=== PATIENT | female | born 1955 | race Caucasian/White ===

== ENCOUNTER → 2016-07-21 | Outpatient (CLI) | payer OTHER ==
[2016-03-17 09:47] VITALS: BP 141/75
[~2016-07-21] MED LIST: ATORVASTATIN CA80 MG PO; CARV12.52 PO; CHOL4POW PO; CLOP75TA27 PO; DIAZEPAM10 MG PO; FLUT1DIS5 IH; FURO40TA4 PO; HUM100VI5 SQ; HYDR-963 PO; HYDR-965 PO; HYDR-971 PO; HYDR50TA6 PO; INSU100V SQ; INSU100V5 IJ; INSU100V8 SQ; ISOS60TA2 PO; LISI-334 PO; MOME13HF IH; NITR1PAT9 TD; OXYC1TAB8 PO; PANT40TA3 PO; PHEN100C4 PO; PHEN32.42 PO; POTA20TA82 PO; PRED20TA PO; PRED50TA PO; PROAIR HFA8.5 GM IH; PROM25TA10 PO; advair; albuterol; carvedilol; dilantin; hctz; imdur; insulin humalog; insulin lantus; insulin nph; insulin regular; lasix; lisinopril; lithium PO; nitro patch; phenobarbital; proventil; valium
--- NOTE | 2016-07-21 13:18 | RAD ---
DATE: 07/21/2016 EXAM: DIGITAL SCREEN BILAT W/CAD HISTORY: Routine screening COMPARISON: 02/09/2015 This study was interpreted with the benefit of Computerized Aided Detection (CAD). FINDINGS: There are scattered fibroglandular densities in the breasts in a heterogeneous pattern. No new or enlarging breast densities are seen. Several scattered faint microcalcifications are again noted . No suspicious microcalcifications are seen. Benign-appearing lymph node type densities are present in the axillary regions. IMPRESSION: Stable mammograms without evidence of malignancy. BI-RADS CATEGORY: 2 BENIGN FINDING(S) RECOMMENDED FOLLOW-UP: 12M 12 MONTH FOLLOW-UP PQRS compliance statement: Patient information was entered into a reminder system with a target due date for the next mammogram. Mammography is a sensitive method for finding small breast cancers, but it does not detect them all and is not a substitute for careful clinical examination. A negative mammogram does not negate a clinically suspicious finding and should not result in delay in biopsying a clinically suspicious abnormality. "Our facility is accredited by the [employer] Mammography Program."
== END | disposition home or self-care (01) ==
LOC: MAMMO 12:04
PROVIDERS: ATTEND Surgery
DX: Z12.31 Encounter for screening mammogram for malignant neoplasm of breast (principal)
CPT/HCPCS: G0202; 77067

== ENCOUNTER 2016-09-12 13:34 | Emergency (ER) | payer OTHER ==
[~2016-09-12] VITALS: Ht 157.5 cm; Wt 81.6 kg
[2016-09-12 14:09] VITALS: BP 167/88
--- NOTE | 2016-09-12 14:35 | PHYS DOC ---
Past Medical History Past Medical History: Asthma, CHF, COPD, Diabetes-Type II, High Cholesterol, Hypertension, Seizure, Sickle Cell Disease Additional Past Medical Histor: chronic back pain, keloids, epilepsy, OSTEOPOROSIS Past Surgical History: Appendectomy, Cholecystectomy, Tonsillectomy, Tubal ligation, Other Additional Past Surgical Histo: adenoids Alcohol Use: Sober Drug Use: None Adult General Chief Complaint Chief Complaint: LOWER BACK PAIN OR INJURY [facility] HPI Patient is a 61 year old female with history of CHF COPD sickle cell hypertension and diabetes type 2 who presents today with low back pain and right hip pain and right knee pain after falling. Patient states she was ambulating when she slipped and fell. Patient denies any loss of consciousness. She states she is in the hospital waiting for the who is having outpatient surgery. She would like to be discharged. She initially wanted us to call outpatient and talk to them and figure out how the is doing. I requested patient to go back to outpatient and wait for the . I told her she can have x-rays if she feel they are needed otherwise she needs to go back to outpatient. Patient states she has chronic pain radiating to bilateral lower extremities with no loss of bowel bladder function. Review of Systems Review of Systems Constitutional: Denies fever or chills [] Eyes: Denies change in visual acuity, redness, or eye pain [] HENT: Denies nasal congestion or sore throat [] Respiratory: Denies cough or shortness of breath [] Cardiovascular: No additional information not addressed in HPI [] GI: Denies abdominal pain, nausea, vomiting, bloody stools or diarrhea [] : Denies dysuria or hematuria [] Musculoskeletal: Right low back pain, right hip pain, and right knee pain Integument: Denies rash or skin lesions [] Neurologic: Denies headache, focal weakness or sensory changes [] Endocrine: Denies polyuria or polydipsia [] Allergies Allergies Allergies Coded Allergies Type Severity Reaction Last Updated Verified Cephalosporins Allergy Intermediate 11/14/13 Yes Penicillins Allergy Intermediate 11/14/13 Yes Sulfa (Sulfonamide Antibiotics) Allergy Intermediate 11/14/13 Yes Tetanus Vaccines and Toxoid Allergy Intermediate 11/14/13 Yes aspirin Allergy Intermediate 11/14/13 Yes iodine Allergy Intermediate rash 11/14/13 Yes morphine Allergy Intermediate 06/05/14 Yes povidone-iodine Allergy Intermediate rash 11/14/13 Yes propoxyphene Allergy Intermediate Nausea and Vomiting 04/04/14 Yes venom-honey bee Allergy Intermediate 11/14/13 Yes venom-wasp Allergy Intermediate 11/14/13 Yes Physical Exam Physical Exam Constitutional: Well developed, well nourished, no acute distress, non-toxic appearance. [] HENT: Normocephalic, atraumatic, bilateral external ears normal, oropharynx moist, no oral exudates, nose normal. [] Eyes: PERRLA, EOMI, conjunctiva normal, no discharge. [] Neck: Normal range of motion, no tenderness, supple, no stridor. [] Cardiovascular:Heart rate regular rhythm, no murmur [] Lungs & Thorax: Bilateral breath sounds clear to auscultation [] Abdomen: Bowel sounds normal, soft, no tenderness, no masses, no pulsatile masses. [] Skin: Warm, dry, no erythema, no rash. [] Back: No tenderness, no CVA tenderness. [] Extremities: No tenderness, no cyanosis, no clubbing, ROM intact, no edema. [] Neurologic: Alert and oriented X 3, normal motor function, normal sensory function, no focal deficits noted. [] Psychologic: Affect normal, judgement normal, mood normal. [] Current Patient Data Vital Signs Vital Signs Date Time Temp Pulse Resp B/P Pulse Ox O2 Delivery O2 Flow Rate FiO2 09/12/16 14:09 97.5 78 20 95 Room Air 97.5 EKG EKG [] Radiology/Procedures Radiology/Procedures [] Course & Med Decision Making Course & Med Decision Making Pertinent Labs and Imaging studies reviewed. (See chart for details) Patient is in the ED complaining of low back pain and right hip pain and right knee pain after falling. She has history of similar pain. She is in the ED stating she has her in outpatient surgery. Offered patient x-rays. Patient states she doesn't have time for the x-rays. Requested she goes back to outpatient to wait for the . Provided orthopedic doctor for follow-up. Dragon Disclaimer Dragon Disclaimer This electronic medical record was generated, in whole or in part, using a voice recognition dictation system. Departure Departure Impression: Primary Impression: Fall from standing Additional Impressions: Back pain Lumbar contusion Contusion of hip, left Contusion of knee, right Disposition: 01 HOME, SELF-CARE Condition: STABLE Referrals: VELASQUEZ NUNEZ (PCP) Follow-up with your own doctor in the next 1-7 days JERRY SCHERER II, MD Follow-up with your own orthopedic doctor or the one provided in a week Patient Instructions: Musculoskeletal Pain Additional Instructions: You were seen for pain after falling. Please follow-up with your own doctor in one week. Problem Qualifiers Primary Impression: Fall from standing Encounter type: initial encounter Qualified Code: W19.XXXA - Unspecified fall, initial encounter Additional Impressions: Back pain Back pain location: low back pain Chronicity: chronic Back pain laterality : bilateral Sciatica presence: with sciatica Sciatica laterality: bilateral sciatica Qualified Code: M54.42 - Lumbago with sciatica, left side Lumbar contusion Encounter type: initial encounter Qualified Code: S30.0XXA - Contusion of lower back and pelvis, initial encounter AMANDA YANG APRN Sep 12, 2016 14:34
== END 2016-09-12 14:37 | disposition home or self-care (01) ==
LOC: ER 13:34
DX: S30.0XXA Contusion of lower back and pelvis, initial encounter (principal); S70.02XA Contusion of left hip, initial encounter; S80.01XA Contusion of right knee, initial encounter; G89.29 Other chronic pain; M54.42 Lumbago with sciatica, left side; J44.9 Chronic obstructive pulmonary disease, unspecified; I11.0 Hypertensive heart disease with heart failure; I50.9 Heart failure, unspecified; E78.00 Pure hypercholesterolemia, unspecified; E11.9 Type 2 diabetes mellitus without complications; M81.0 Age-related osteoporosis without current pathological fracture; Z88.5 Allergy status to narcotic agent; Z88.0 Allergy status to penicillin; Z88.2 Allergy status to sulfonamides; Z88.7 Allergy status to serum and vaccine; Z88.8 Allergy status to other drugs, medicaments and biological substances; Z88.6 Allergy status to analgesic agent; Z88.1 Allergy status to other antibiotic agents; Z91.030 Bee allergy status; Z91.041 Radiographic dye allergy status; W01.0XXA Fall on same level from slipping, tripping and stumbling without subsequent striking against object, initial encounter; Y93.89 Activity, other specified; Y92.89 Other specified places as the place of occurrence of the external cause; Y99.8 Other external cause status
CPT/HCPCS: 99281

== ENCOUNTER → 2016-12-02 | Outpatient (CLI) | payer OTHER ==
[~2016-12-02] MED LIST changes: -CLOP75TA27 PO; +CLOP75TA57 PO
--- NOTE | 2016-12-02 14:38 | RAD ---
Indication pain. Grayscale color Doppler and spectral imaging was performed. The examination was targeted to the veins of the right lower extremity. The common femoral, femoral and popliteal vessels demonstrate normal flow compressibility and augmentation. No DVT is seen. The visualized calf veins appeared unremarkable. IMPRESSION: Negative right lower extremity venous analysis for DVT
--- NOTE | 2016-12-02 15:52 | RAD ---
Right femur, 2 views, 12/02/2016: History: Postop ORIF, leg pain and swelling No previous femoral radiographs are available at this time for comparison purposes. The bony structures are demineralized. There is a metallic plate with multiple screws transfixing an old distal femoral fracture. There is solid bridging callus at the fracture site. A portion of the original fracture line is visible. No acute fracture is identified. IMPRESSION: Old, healed, internally fixed distal femoral fracture. Right tibia and fibula, 2 views, 12/02/2016: No fracture is identified. There are mild degenerative changes at the knee joint and at the ankle joint. Phlebolith type calcifications are present in the soft tissues. IMPRESSION: No acute bony abnormality is detected.
== END | disposition home or self-care (01) ==
LOC: US 13:36
PROVIDERS: ATTEND Surgery
DX: S72.491D Other fracture of lower end of right femur, subsequent encounter for closed fracture with routine healing (principal); M79.89 Other specified soft tissue disorders; X58.XXXD Exposure to other specified factors, subsequent encounter
CPT/HCPCS: 73552; 73590; 93971

== ENCOUNTER 2016-12-18 14:16 | Inpatient (IN) | payer OTHER ==
[~2016-12-18] VITALS: Ht 152.4 cm; Wt 87.5 kg
[~2016-12-18 14:16] MED LIST changes: +PHEN100T2 PO; +albuterol PO
[2016-12-18 15:57] LABS: BASO # 0.1 x10^3/uL (0.0-0.2); BASO % 1 % (0-3); EOS % 1 % (0-3); HEMATOCRIT 32.5 % (36.0-47.0); LYMPH # 2.1 x10^3/uL (1.0-4.8); LYMPH % 18 % (24-48); MEAN CORPUSCULAR HEMOGLOBIN 30 pg (25-35); MEAN CORPUSCULAR HGB CONC 34 g/dL (31-37); MEAN CORPUSCULAR VOLUME 89 fL (79-100); MONO % 6 % (0-9); NEUT % 74 % (31-73); PLATELET COUNT 401 x10^3/uL (140-400); RED BLOOD COUNT 3.66 x10^6/uL (3.50-5.40); RED CELL DISTRIBUTION WIDTH 13.8 % (11.5-14.5); WHITE BLOOD COUNT 11.8 x10^3/uL (4.0-11.0)
[2016-12-18 16:00] VITALS: BP 152/81
[2016-12-18] MEDS ORDERED: ONDANSETRON PF 4 MG/2 ML VIAL. IV PRN (16:00)
[2016-12-18] MEDS ORDERED: VANCOMYCIN PER PHARMACY MC PRN (16:00)
[2016-12-18] MEDS ORDERED: ACETAMINOPHEN 325 MG TABLET. PO PRN (16:00)
[2016-12-18 16:13] LABS: CREATININE 0.6 mg/dL (0.6-1.0); POTASSIUM 3.9 mmol/L (3.5-5.1)
[2016-12-18 16:19] LABS: ALBUMIN 2.1 g/dL (3.4-5.0); ALBUMIN/GLOBULIN RATIO 0.4 (1.0-1.7); TOTAL BILIRUBIN 0.3 mg/dL (0.2-1.0); TOTAL PROTEIN 6.9 g/dL (6.4-8.2)
[2016-12-18] MEDS ORDERED: NON FORMULARY ITEM (Albuterol Sulfate (Proair Hfa Inhaler) 2 PUFF) IH SCH (17:30)
[2016-12-18] MEDS ORDERED: DEXTROSE 50% 25 GM / 50ML DISP.SYRIN. IV PRN (17:45)
[2016-12-18] MEDS: VANCOMYCIN 1.25 GM in IV NORMAL SALINE 250ML 250 ML IV SCH (18:10)
[2016-12-18] MEDS: oxyCODONE IR 5 MG TABLET PO PRN (18:11)
[2016-12-18] MEDS: KETOROLAC 15 MG/ML VIAL. IV PRN (18:11)
[2016-12-18] MEDS ORDERED: ALBUTEROL SULFATE 2.5 MG/3 ML NEBU. NEB PRN (18:15)
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
[2016-12-18 19:00] VITALS: BP 119/53
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
[2016-12-18] MEDS: ALBUTEROL SULFATE 2.5 MG/3 ML NEBU. NEB SCH (20:52)
[2016-12-18] MEDS: BUDESONIDE 0.5 MG/2 ML NEBU. NEB SCH (20:52)
[2016-12-18] MEDS ORDERED: FORMOTEROL IH SCH (21:00)
[2016-12-18] MEDS: INSULIN DETEMIR 300 UNITS/3 ML INSULN.PEN. SQ SCH (21:00)
[2016-12-18] MEDS ORDERED: ALBUTEROL PO SCH (21:00)
[2016-12-18] MEDS ORDERED: MOMETASONE IH SCH (21:00)
[2016-12-18] MEDS ORDERED: NON FORMULARY ITEM (Fluticasone/Salmeterol (Advair 500-50 Diskus) 2 INH) IH SCH (21:00)
[2016-12-18] MEDS: PHENobarbital 32.4 MG TABLET. PO SCH (23:14)
[2016-12-18] MEDS: ATORVASTATIN CALCIUM 40 MG TABLET. PO SCH (23:15)
[2016-12-18] MEDS: PHENYTOIN SODIUM EXTENDED 100 MG CAPSULE PO SCH (23:16)
[2016-12-18] MEDS: diazePAM 5 MG TABLET PO SCH (23:17)
[2016-12-18] MEDS: oxyCODONE/APAP 7.5/325 1 TAB TABLET PO SCH (23:18)
[2016-12-18] MEDS: LORazepam 0.5 MG TABLET PO PRN (23:34)
[2016-12-18 23:52] VITALS: BP 142/68
--- NOTE | 2016-12-19 01:15 | ACF ---
Admission Forms Criteria MUSCULOSKELETAL DISEASE GRG Clinical Indications for Admission to Inpatient Care (Place 'X' for any and all applicable criteria): Hospital admission is needed for appropriate care of the patient because of 1 or more of the following: [ ]I. Fracture, dislocation, or other musculoskeletal injury requiring inpatient care(medical) as indicated by 1 or more of the following(4)(5)(6)(7) [ ]a) Vertebral fracture requiring observation for instability or neurologic compromise (8) [ ]b) Compartment syndrome (proven or cannot be ruled out during observation level of care) (9) [ ]c) Limb-threatening injury [ ]d) Major injury requiring inpatient stabilization such as traction initiation or external fixation before internal fixation or closure of complex or open fracture [ ]e) Major injury requiring inpatient treatment after emergency or observation level care (as appropriate) [ ]f) Severe pain requiring acute inpatient management [ ]g) Injury with suspicion of abuse or neglect (eg., child, dependent elderly) [ X]II. Newly diagnosed or suspected bone, joint, or orthopedic device infection (e.g., osteomyelitis, septic arthritis) needing 1 or more of the following(1)(2)(3) [ X]a) IV antibiotics that cannot be initiated in other than inpatient setting (e.g., patient too unstable or home infusion not available) [ ]b) Device removal or replacement [ ]c) Bone or soft tissue debridement [ ]d) Joint drainage (drain placement or repetitive aspirations) [ ]III. Severe rheumatologic disease (e.g., systemic lupus erythematosus, rheumatoid arthritis) with complications or comorbidities (Also use Optimal Recovery Care Criteria or General Recovery Criteria as appropriate on the basis of predominant condition), including 1 or more of the following( 10)(11)(12)(13) [ ]a) Severe infection (e.g., INCOME [employer]ER infection, sepsis) (14) [ ]b) Respiratory complications, including 1 or more of the following : [ ]i) Pleural effusion with respiratory compromise [ ]ii) Pulmonary hypertension with congestive failure [ ]iii) Respiratory failure [ ]iv) Pulmonary hemorrhage (15) [ ]c) Hematologic disease, including 1 or more of the following: [ ]i) Coagulopathy with bleeding [ ]ii) Thrombosis with hypercoagulable state [ ]iii) Thrombotic thrombocytopenic purpura [ ]d) Cerebritis with seizures, psychosis, or other severe abnormalities [ ]e) Vertebral destruction with monitoring needed for cervical myelopathy& possible respiratory compromise [ ]f) Exacerbation that requires inpatient treatment (e.g., intravenous immunosuppression) (16) [ ]g) Acute renal failure [ ]h) Cerebritis with seizures, psychosis, Altered mental status, or other neurologic abnormalities [ ]i) Pericardial effusion with tamponade [ ]j) Vertebral destruction, with monitoring needed for cervical myelopathy and possible respiratory compromise [ ]IV. Severe vasculitis with complications or comorbidities (Also use Optimal Recovery Care Criteria General Recovery Criteria as appropriate on the basis of predominant condition), including 1 or more of the following(11)(12)(17)(18)(19)(20) [ ]a) Exacerbation that requires inpatient treatment (e.g., intravenous immunosuppression) (19)(21) [ ]b) Pulmonary hemorrhage (15) [ ]c) INCOME T[employer]URN [employer]ER vasculitis with seizures, psychosis, Altered mental status that is severe or persistent, or other severe abnormalities (22) [ ]d) Cerebral infarction [ ]e) Gastrointestinal ischemia [ ]f) Gangrene or threatened amputation [ ]g) Renal failure (16) [ ]h) Other significant complications of vasculitis ( eg., tissue or organ ischemia, organ dysfunction ) [ ]V. Severe myopathy as indicated by 1 or more of the following (28)(29) [ ]a) New onset of airway compromise or inability to swallow [ ]b) Respiratory deterioration with observation needed for impending respiratory failure [ ]c) Exacerbation that requires inpatient treatment (e.g., intravenous immunosuppression) [ ]. Severe crystal gout (arthropathy) indicated by 1 or more of the following (23)(24) [ ]a) Severe pain requiring acute inpatient management [ ]b) Exacerbation that requires inpatient treatment (e.g., intravenous treatment) [ ]VII.Rhabdomyolysis and 1 or more of the following (25)(26)(27) [ ]a) Acute renal failure [ ]b) Need for intravenous hydration after emergency or observation level care (as appropriate) [ ]c) Inability to maintain oral hydration [ ]d) Change in mental status [ ]e) Electrolyte abnormality that remains after emergency or observation level care (as appropriate) [ ]VIII Post amputation complication, as indicated by ANY ONE of the following [ ]a) Infection [ ]b) Dehiscence [ ]c) Myodesis failure [ ]IX. Severe pain requiring acute inpatient management due to musculoskeletal condition [ ]X. Musculoskeletal Disease and ALL of the following: [ ]a) Symptom or finding for which emergency and observation care have failed or are not considered appropriate (Use General Criteria: Observation Care as appropriate) [ ]b) Presence of ANY ONE of the following [ ]i) A General Admission Criteria [ ]ii) A Pediatric General Admission Criteria The original [facility] [employer] content created by [facility] [employer] has been revised. The portions of the content which have been revised are identified through the use of italic text or in bold, and [facility] has neither reviewed nor approved the modified material. All other unmodified content is copyright [facility]. Please see references footnoted in the original [facility] edition 2016 Admission Criteria Met?: Yes NARCISO PAULSON Dec 19, 2016 01:15
[2016-12-19 03:00] VITALS: BP 180/88
[2016-12-19] MEDS: oxyCODONE IR 5 MG TABLET PO PRN ×3 (04:45→17:31)
[2016-12-19 05:05] LABS: BASO # 0.1 x10^3/uL (0.0-0.2); BASO % 1 % (0-3); EOS % 1 % (0-3); HEMATOCRIT 32.6 % (36.0-47.0); HEMOGLOBIN 11.2 g/dL (12.0-15.5); LYMPH % 24 % (24-48); MEAN CORPUSCULAR HEMOGLOBIN 31 pg (25-35); MEAN CORPUSCULAR HGB CONC 35 g/dL (31-37); MEAN CORPUSCULAR VOLUME 89 fL (79-100); MONO % 6 % (0-9); NEUT % 68 % (31-73); PLATELET COUNT 349 x10^3/uL (140-400); RED BLOOD COUNT 3.67 x10^6/uL (3.50-5.40); RED CELL DISTRIBUTION WIDTH 13.8 % (11.5-14.5); WHITE BLOOD COUNT 8.2 x10^3/uL (4.0-11.0)
[2016-12-19 05:55] LABS: ALBUMIN 1.8 g/dL (3.4-5.0); ALBUMIN/GLOBULIN RATIO 0.4 (1.0-1.7); CALCIUM 8.1 mg/dL (8.5-10.1); CREATININE 0.7 mg/dL (0.6-1.0); GFR 85.4; POTASSIUM 4.2 mmol/L (3.5-5.1); TOTAL BILIRUBIN 0.2 mg/dL (0.2-1.0); TOTAL PROTEIN 5.9 g/dL (6.4-8.2)
[2016-12-19] MEDS: VANCOMYCIN PER PHARMACY MC PRN ×2 (06:19→07:02)
[2016-12-19] MEDS: VANCOMYCIN 1.25 GM in IV NORMAL SALINE 250ML 250 ML IV SCH (06:26)
[2016-12-19] MEDS: KETOROLAC 15 MG/ML VIAL. IV PRN (06:40)
[2016-12-19] MEDS: ALBUTEROL SULFATE 2.5 MG/3 ML NEBU. NEB SCH ×4 (07:19→18:07)
[2016-12-19] MEDS: BUDESONIDE 0.5 MG/2 ML NEBU. NEB SCH ×2 (07:19→18:07)
[2016-12-19 07:55] VITALS: BP 131/67
[2016-12-19] MEDS: PANTOPRAZOLE 40 MG TABLET.DR. PO SCH (08:23)
[2016-12-19] MEDS: POTASSIUM CHLORIDE 20 MEQ TABLET.ER. PO SCH (08:23)
[2016-12-19] MEDS: PHENobarbital 32.4 MG TABLET. PO SCH ×2 (08:24→21:49)
[2016-12-19] MEDS: oxyCODONE/APAP 7.5/325 1 TAB TABLET PO SCH ×3 (08:25→21:51)
[2016-12-19] MEDS: FUROSEMIDE 40 MG TABLET. PO SCH (08:25)
[2016-12-19] MEDS: CLOPIDOGREL BISULFATE 75 MG TABLET PO SCH (08:25)
[2016-12-19] MEDS: PHENYTOIN SODIUM EXTENDED 100 MG CAPSULE PO SCH ×2 (08:26→21:49)
[2016-12-19] MEDS: diazePAM 5 MG TABLET PO SCH ×2 (08:27→22:54)
[2016-12-19] MEDS: ISOSORBIDE MONONITRATE ER 30 MG TAB.ER.24H PO SCH (08:28)
[2016-12-19] MEDS: INSULIN ASPART 300 UNITS/3 ML INSULN.PEN SQ SCH ×4 (08:33→17:40)
[2016-12-19] MEDS: INSULIN DETEMIR 300 UNITS/3 ML INSULN.PEN. SQ SCH ×2 (08:34→21:54)
[2016-12-19 10:57] VITALS: BP_SYST 107; BP_SYST 97; BP_DIAS 48; BP_DIAS 49
--- NOTE | 2016-12-19 11:24 | PDOC ---
Infectious Disease Note Subjective Subjective Patient known to our service. refer to consult from 12/17 for further details Left AMA yesterday and then returned. Not feeling well today + fevers Tmax 101.5 and chills + right leg/knee pain, worse with movement + cough Incontinent ROS ROS CV: Denies chest pain RESP: Denies shortness of air Vital Sign Vital Signs Vital Signs Date Time Temp Pulse Resp B/P (MAP) Pulse Ox O2 Delivery O2 Flow Rate FiO2 12/19/16 09:49 20 Room Air 12/19/16 08:28 84 131/67 12/19/16 07:55 98.1 94 98.1 Physical Exam PHYSICAL EXAM GENERAL: Sleepy, coop LUNGS: Clear HEART: S1S2, + murmur ABD: Soft, NT EXT: RLE trace edma, right knee tender, swollen and warm. Sutures intact. No redness or drainage. DP palpable STENCIL INSPECTOR: Alert, 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, no focal neurologic deficit SKIN: No rash Labs Lab Laboratory Tests Test 12/18/16 15:45 12/18/16 21:02 12/19/16 04:30 12/19/16 07:51 White Blood Count 11.8 x10^3/uL (4.0-11.0) 8.2 x10^3/uL (4.0-11.0) Red Blood Count 3.66 x10^6/uL (3.50-5.40) 3.67 x10^6/uL (3.50-5.40) Hemoglobin 11.0 g/dL (12.0-15.5) 11.2 g/dL (12.0-15.5) Hematocrit 32.5 % (36.0-47.0) 32.6 % (36.0-47.0) Mean Corpuscular Volume 89 fL (79-100) 89 fL (79-100) Mean Corpuscular Hemoglobin 30 pg (25-35) 31 pg (25-35) Mean Corpuscular Hemoglobin Concent 34 g/dL (31-37) 35 g/dL (31-37) Red Cell Distribution Width 13.8 % (11.5-14.5) 13.8 % (11.5-14.5) Platelet Count 401 x10^3/uL (140-400) 349 x10^3/uL (140-400) Neutrophils (%) (Auto) 74 % (31-73) 68 % (31-73) Lymphocytes (%) (Auto) 18 % (24-48) 24 % (24-48) Monocytes (%) (Auto) 6 % (0-9) 6 % (0-9) Eosinophils (%) (Auto) 1 % (0-3) 1 % (0-3) Basophils (%) (Auto) 1 % (0-3) 1 % (0-3) Neutrophils # (Auto) 8.7 x10^3uL (1.8-7.7) 5.6 x10^3uL (1.8-7.7) Lymphocytes # (Auto) 2.1 x10^3/uL (1.0-4.8) 2.0 x10^3/uL (1.0-4.8) Monocytes # (Auto) 0.7 x10^3/uL (0.0-1.1) 0.5 x10^3/uL (0.0-1.1) Eosinophils # (Auto) 0.1 x10^3/uL (0.0-0.7) 0.1 x10^3/uL (0.0-0.7) Basophils # (Auto) 0.1 x10^3/uL (0.0-0.2) 0.1 x10^3/uL (0.0-0.2) Sodium Level 140 mmol/L (136-145) 140 mmol/L (136-145) Potassium Level 3.9 mmol/L (3.5-5.1) 4.2 mmol/L (3.5-5.1) Chloride Level 103 mmol/L (98-107) 105 mmol/L (98-107) Carbon Dioxide Level 30 mmol/L (21-32) 29 mmol/L (21-32) Anion Gap 7 (6-14) 6 (6-14) Blood Urea Nitrogen 12 mg/dL (7-20) 10 mg/dL (7-20) Creatinine 0.6 mg/dL (0.6-1.0) 0.7 mg/dL (0.6-1.0) Estimated GFR (Cockcroft-Gault) 102.0 85.4 BUN/Creatinine Ratio 20 (6-20) 14 (6-20) Glucose Level 65 mg/dL (70-99) 177 mg/dL (70-99) Calcium Level 8.0 mg/dL (8.5-10.1) 8.1 mg/dL (8.5-10.1) Total Bilirubin 0.3 mg/dL (0.2-1.0) 0.2 mg/dL (0.2-1.0) Aspartate Amino Transf (AST/SGOT) 69 U/L (15-37) 75 U/L (15-37) Alanine Aminotransferase (ALT/SGPT) 56 U/L (14-59) 60 U/L (14-59) Alkaline Phosphatase 177 U/L (46-116) 194 U/L (46-116) Total Protein 6.9 g/dL (6.4-8.2) 5.9 g/dL (6.4-8.2) Albumin 2.1 g/dL (3.4-5.0) 1.8 g/dL (3.4-5.0) Albumin/Globulin Ratio 0.4 (1.0-1.7) 0.4 (1.0-1.7) Glucose (Fingerstick) 116 mg/dL (70-99) 216 mg/dL (70-99) Vancomycin Level Trough 10.3 mcg/mL (10.0-20.0) Vancomycin Last Dose Date 12/18/16 Vancomycin Last Dose Time 1800 Micro 12/18. BLOOD CULTURE Preliminary NO GROWTH AFTER 1 DAY Objective Assessment MSSA bacteremia with murmur, POA. 12/16. Repeat BC from 12/18 NGTD Right knee septic joint with hardware in close proximity -s/p right knee arthroscopy irrigation, debridement, partial synovectomy and partial medial and lateral meniscectomy, 12/10 -s/p joint aspiration 12/09. culture MSSA -h/o ORIF distal femur fracture Apr 2016 Fever Leukocytosis, trending down Allergy to cephalosporins, penicillin and sulfa. Reactions unclear, only to say can't have them. Diabetes Transaminitis h/o seizures h/o alcoholism & substance abuse Plan Plan of Care List of drug allergies and reactions from daughter pending per RN Vanc for now Trough 10.3 Monitor WBC, CR and temp Repeat BC from 12/18 NGTD Echo re-ordered RF 13.0 Tag WBC scan underway Attending Co-Sign The patient was seen and interviewed as well as examined at the bedside. The chart was reviewed. The case was discussed. Agree with the plan of care. CK ALVES APRN Dec 19, 2016 11:24 OMA AMARAL MD Dec 19, 2016 15:32
--- NOTE | 2016-12-19 13:28 | PDOC ---
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, odd affect and tangential, has left AMA and has been recently noncompliant with meds History of Present Illness History of Present Illness tangential with history, odd affect, upset and verbally verbose and swearing at times she is a strong advocate of hardware removal and surgery, I took a long time to explain to her that is a very long and complex process and would be weeks in SNU, she had odd reply about a SNU she had been in previously for femur fracture rehab pain 03/07, but eating lunch, talking calmly on the phone Vitals Vitals Vital Signs Date Time Temp Pulse Resp B/P (MAP) Pulse Ox O2 Delivery O2 Flow Rate FiO2 12/19/16 12:23 Room Air 12/19/16 11:19 95 12/19/16 10:57 96.4 67 24 107/48 (67) 96.4 97/49 (65) Physical Exam General: Alert, Oriented X3, Cooperative, mild distress (emotional ) Heart: Regular rate, No murmurs Lungs: Clear Abdomen: Normal bowel sounds, Soft Extremities: No clubbing, No cyanosis Skin: No rashes, No breakdown Labs LABS Laboratory Tests Test 12/18/16 15:45 12/18/16 21:02 12/19/16 04:30 12/19/16 07:51 White Blood Count 11.8 x10^3/uL (4.0-11.0) 8.2 x10^3/uL (4.0-11.0) Red Blood Count 3.66 x10^6/uL (3.50-5.40) 3.67 x10^6/uL (3.50-5.40) Hemoglobin 11.0 g/dL (12.0-15.5) 11.2 g/dL (12.0-15.5) Hematocrit 32.5 % (36.0-47.0) 32.6 % (36.0-47.0) Mean Corpuscular Volume 89 fL (79-100) 89 fL (79-100) Mean Corpuscular Hemoglobin 30 pg (25-35) 31 pg (25-35) Mean Corpuscular Hemoglobin Concent 34 g/dL (31-37) 35 g/dL (31-37) Red Cell Distribution Width 13.8 % (11.5-14.5) 13.8 % (11.5-14.5) Platelet Count 401 x10^3/uL (140-400) 349 x10^3/uL (140-400) Neutrophils (%) (Auto) 74 % (31-73) 68 % (31-73) Lymphocytes (%) (Auto) 18 % (24-48) 24 % (24-48) Monocytes (%) (Auto) 6 % (0-9) 6 % (0-9) Eosinophils (%) (Auto) 1 % (0-3) 1 % (0-3) Basophils (%) (Auto) 1 % (0-3) 1 % (0-3) Neutrophils # (Auto) 8.7 x10^3uL (1.8-7.7) 5.6 x10^3uL (1.8-7.7) Lymphocytes # (Auto) 2.1 x10^3/uL (1.0-4.8) 2.0 x10^3/uL (1.0-4.8) Monocytes # (Auto) 0.7 x10^3/uL (0.0-1.1) 0.5 x10^3/uL (0.0-1.1) Eosinophils # (Auto) 0.1 x10^3/uL (0.0-0.7) 0.1 x10^3/uL (0.0-0.7) Basophils # (Auto) 0.1 x10^3/uL (0.0-0.2) 0.1 x10^3/uL (0.0-0.2) Sodium Level 140 mmol/L (136-145) 140 mmol/L (136-145) Potassium Level 3.9 mmol/L (3.5-5.1) 4.2 mmol/L (3.5-5.1) Chloride Level 103 mmol/L (98-107) 105 mmol/L (98-107) Carbon Dioxide Level 30 mmol/L (21-32) 29 mmol/L (21-32) Anion Gap 7 (6-14) 6 (6-14) Blood Urea Nitrogen 12 mg/dL (7-20) 10 mg/dL (7-20) Creatinine 0.6 mg/dL (0.6-1.0) 0.7 mg/dL (0.6-1.0) Estimated GFR (Cockcroft-Gault) 102.0 85.4 BUN/Creatinine Ratio 20 (6-20) 14 (6-20) Glucose Level 65 mg/dL (70-99) 177 mg/dL (70-99) Calcium Level 8.0 mg/dL (8.5-10.1) 8.1 mg/dL (8.5-10.1) Total Bilirubin 0.3 mg/dL (0.2-1.0) 0.2 mg/dL (0.2-1.0) Aspartate Amino Transf (AST/SGOT) 69 U/L (15-37) 75 U/L (15-37) Alanine Aminotransferase (ALT/SGPT) 56 U/L (14-59) 60 U/L (14-59) Alkaline Phosphatase 177 U/L (46-116) 194 U/L (46-116) Total Protein 6.9 g/dL (6.4-8.2) 5.9 g/dL (6.4-8.2) Albumin 2.1 g/dL (3.4-5.0) 1.8 g/dL (3.4-5.0) Albumin/Globulin Ratio 0.4 (1.0-1.7) 0.4 (1.0-1.7) Glucose (Fingerstick) 116 mg/dL (70-99) 216 mg/dL (70-99) Vancomycin Level Trough 10.3 mcg/mL (10.0-20.0) Vancomycin Last Dose Date 12/18/16 Vancomycin Last Dose Time 1800 Test 12/19/16 11:44 Glucose (Fingerstick) 117 mg/dL (70-99) Review of Systems Review of Systems knee pain, Assessment and Plan Assessmemt and Plan Problems Medical Problems: (1) Bacteremia Status: Acute Problems: Comment Review of Relevant I have reviewed the following items mary (where applicable) has been applied. Labs Laboratory Tests Test 12/18/16 15:45 12/18/16 21:02 12/19/16 04:30 12/19/16 07:51 White Blood Count 11.8 x10^3/uL (4.0-11.0) 8.2 x10^3/uL (4.0-11.0) Red Blood Count 3.66 x10^6/uL (3.50-5.40) 3.67 x10^6/uL (3.50-5.40) Hemoglobin 11.0 g/dL (12.0-15.5) 11.2 g/dL (12.0-15.5) Hematocrit 32.5 % (36.0-47.0) 32.6 % (36.0-47.0) Mean Corpuscular Volume 89 fL (79-100) 89 fL (79-100) Mean Corpuscular Hemoglobin 30 pg (25-35) 31 pg (25-35) Mean Corpuscular Hemoglobin Concent 34 g/dL (31-37) 35 g/dL (31-37) Red Cell Distribution Width 13.8 % (11.5-14.5) 13.8 % (11.5-14.5) Platelet Count 401 x10^3/uL (140-400) 349 x10^3/uL (140-400) Neutrophils (%) (Auto) 74 % (31-73) 68 % (31-73) Lymphocytes (%) (Auto) 18 % (24-48) 24 % (24-48) Monocytes (%) (Auto) 6 % (0-9) 6 % (0-9) Eosinophils (%) (Auto) 1 % (0-3) 1 % (0-3) Basophils (%) (Auto) 1 % (0-3) 1 % (0-3) Neutrophils # (Auto) 8.7 x10^3uL (1.8-7.7) 5.6 x10^3uL (1.8-7.7) Lymphocytes # (Auto) 2.1 x10^3/uL (1.0-4.8) 2.0 x10^3/uL (1.0-4.8) Monocytes # (Auto) 0.7 x10^3/uL (0.0-1.1) 0.5 x10^3/uL (0.0-1.1) Eosinophils # (Auto) 0.1 x10^3/uL (0.0-0.7) 0.1 x10^3/uL (0.0-0.7) Basophils # (Auto) 0.1 x10^3/uL (0.0-0.2) 0.1 x10^3/uL (0.0-0.2) Sodium Level 140 mmol/L (136-145) 140 mmol/L (136-145) Potassium Level 3.9 mmol/L (3.5-5.1) 4.2 mmol/L (3.5-5.1) Chloride Level 103 mmol/L (98-107) 105 mmol/L (98-107) Carbon Dioxide Level 30 mmol/L (21-32) 29 mmol/L (21-32) Anion Gap 7 (6-14) 6 (6-14) Blood Urea Nitrogen 12 mg/dL (7-20) 10 mg/dL (7-20) Creatinine 0.6 mg/dL (0.6-1.0) 0.7 mg/dL (0.6-1.0) Estimated GFR (Cockcroft-Gault) 102.0 85.4 BUN/Creatinine Ratio 20 (6-20) 14 (6-20) Glucose Level 65 mg/dL (70-99) 177 mg/dL (70-99) Calcium Level 8.0 mg/dL (8.5-10.1) 8.1 mg/dL (8.5-10.1) Total Bilirubin 0.3 mg/dL (0.2-1.0) 0.2 mg/dL (0.2-1.0) Aspartate Amino Transf (AST/SGOT) 69 U/L (15-37) 75 U/L (15-37) Alanine Aminotransferase (ALT/SGPT) 56 U/L (14-59) 60 U/L (14-59) Alkaline Phosphatase 177 U/L (46-116) 194 U/L (46-116) Total Protein 6.9 g/dL (6.4-8.2) 5.9 g/dL (6.4-8.2) Albumin 2.1 g/dL (3.4-5.0) 1.8 g/dL (3.4-5.0) Albumin/Globulin Ratio 0.4 (1.0-1.7) 0.4 (1.0-1.7) Glucose (Fingerstick) 116 mg/dL (70-99) 216 mg/dL (70-99) Vancomycin Level Trough 10.3 mcg/mL (10.0-20.0) Vancomycin Last Dose Date 12/18/16 Vancomycin Last Dose Time 1800 Test 12/19/16 11:44 Glucose (Fingerstick) 117 mg/dL (70-99) Laboratory Tests Test 12/18/16 15:45 12/18/16 21:02 12/19/16 04:30 12/19/16 07:51 White Blood Count 11.8 x10^3/uL (4.0-11.0) 8.2 x10^3/uL (4.0-11.0) Red Blood Count 3.66 x10^6/uL (3.50-5.40) 3.67 x10^6/uL (3.50-5.40) Hemoglobin 11.0 g/dL (12.0-15.5) 11.2 g/dL (12.0-15.5) Hematocrit 32.5 % (36.0-47.0) 32.6 % (36.0-47.0) Mean Corpuscular Volume 89 fL (79-100) 89 fL (79-100) Mean Corpuscular Hemoglobin 30 pg (25-35) 31 pg (25-35) Mean Corpuscular Hemoglobin Concent 34 g/dL (31-37) 35 g/dL (31-37) Red Cell Distribution Width 13.8 % (11.5-14.5) 13.8 % (11.5-14.5) Platelet Count 401 x10^3/uL (140-400) 349 x10^3/uL (140-400) Neutrophils (%) (Auto) 74 % (31-73) 68 % (31-73) Lymphocytes (%) (Auto) 18 % (24-48) 24 % (24-48) Monocytes (%) (Auto) 6 % (0-9) 6 % (0-9) Eosinophils (%) (Auto) 1 % (0-3) 1 % (0-3) Basophils (%) (Auto) 1 % (0-3) 1 % (0-3) Neutrophils # (Auto) 8.7 x10^3uL (1.8-7.7) 5.6 x10^3uL (1.8-7.7) Lymphocytes # (Auto) 2.1 x10^3/uL (1.0-4.8) 2.0 x10^3/uL (1.0-4.8) Monocytes # (Auto) 0.7 x10^3/uL (0.0-1.1) 0.5 x10^3/uL (0.0-1.1) Eosinophils # (Auto) 0.1 x10^3/uL (0.0-0.7) 0.1 x10^3/uL (0.0-0.7) Basophils # (Auto) 0.1 x10^3/uL (0.0-0.2) 0.1 x10^3/uL (0.0-0.2) Sodium Level 140 mmol/L (136-145) 140 mmol/L (136-145) Potassium Level 3.9 mmol/L (3.5-5.1) 4.2 mmol/L (3.5-5.1) Chloride Level 103 mmol/L (98-107) 105 mmol/L (98-107) Carbon Dioxide Level 30 mmol/L (21-32) 29 mmol/L (21-32) Anion Gap 7 (6-14) 6 (6-14) Blood Urea Nitrogen 12 mg/dL (7-20) 10 mg/dL (7-20) Creatinine 0.6 mg/dL (0.6-1.0) 0.7 mg/dL (0.6-1.0) Estimated GFR (Cockcroft-Gault) 102.0 85.4 BUN/Creatinine Ratio 20 (6-20) 14 (6-20) Glucose Level 65 mg/dL (70-99) 177 mg/dL (70-99) Calcium Level 8.0 mg/dL (8.5-10.1) 8.1 mg/dL (8.5-10.1) Total Bilirubin 0.3 mg/dL (0.2-1.0) 0.2 mg/dL (0.2-1.0) Aspartate Amino Transf (AST/SGOT) 69 U/L (15-37) 75 U/L (15-37) Alanine Aminotransferase (ALT/SGPT) 56 U/L (14-59) 60 U/L (14-59) Alkaline Phosphatase 177 U/L (46-116) 194 U/L (46-116) Total Protein 6.9 g/dL (6.4-8.2) 5.9 g/dL (6.4-8.2) Albumin 2.1 g/dL (3.4-5.0) 1.8 g/dL (3.4-5.0) Albumin/Globulin Ratio 0.4 (1.0-1.7) 0.4 (1.0-1.7) Glucose (Fingerstick) 116 mg/dL (70-99) 216 mg/dL (70-99) Vancomycin Level Trough 10.3 mcg/mL (10.0-20.0) Vancomycin Last Dose Date 12/18/16 Vancomycin Last Dose Time 1800 Test 12/19/16 11:44 Glucose (Fingerstick) 117 mg/dL (70-99) Medications Current Medications Ondansetron HCl (Zofran) 4 mg PRN Q8HRS PRN IV NAUSEA/VOMITING Last administered on 12/18/16 23:22; Start 12/18/16 at 16:00; Stop 12/19/16 at 15:59 Acetaminophen (Tylenol) 650 mg PRN Q4HRS PRN PO FEVER Last administered on 12/18 18:10; Start 12/18/16 at 16:00; Stop 12/19/16 at 15:59 Vancomycin HCl (Vanco Per Pharmacy) 1 each PRN DAILY PRN MC SEE COMMENTS; Start 12/18/16 at 16:00; Status UNV Vancomycin HCl (Vanco Per Pharmacy) 1 each PRN DAILY PRN MC SEE COMMENTS Last administered on 12/19/16 07:02; Start 12/18/16 at 17:15 Vancomycin HCl 1 each 1X ONCE MC ; Start 12/18/16 at 17:15; Stop 12/18/16 at 17 :15; Status DC Vancomycin HCl 1.25 gm/Sodium Chloride 250 ml @ 167 mls/hr Q12H IV Last administered on 12/19/16 06:26; Start 12/18/16 at 18:00; Stop 12/19/16 at 08:00 ; Status DC Vancomycin HCl 1 each 1X ONCE MC Last administered on 12/19/16 05:30; Start 12/19/16 at 05:30; Stop 12/19/16 at 05:31; Status DC Carvedilol (Coreg) 25 mg BIDWMEALS PO ; Start 12/19/16 at 18:00 Clopidogrel Bisulfate (Plavix) 75 mg DAILY PO Last administered on 12/19/16 08 :25; Start 12/19/16 at 09:00 Furosemide (Lasix) 40 mg DAILY PO Last administered on 12/19/16 08:25; Start 12/19/16 at 09:00 Oxycodone/ Acetaminophen (Percocet 7.5/ 325) 1 tab BID PO Last administered on 12/19/16 08:25; Start 12/18/16 at 21:00 Pantoprazole Sodium (Protonix) 40 mg DAILY PO Last administered on 12/19/16 08 :23; Start 12/19/16 at 09:00 Phenytoin Sodium (Dilantin) 200 mg BID PO Last administered on 12/19/16 08:26 ; Start 12/18/16 at 21:00 Non-Formulary Medication 2 puff PRN Q4-6HRS IH ; Start 12/18/16 at 17:30; Stop 12/18/16 at 18:06; Status DC Atorvastatin Calcium (Lipitor) 80 mg QHS PO Last administered on 12/18/16 23: 15; Start 12/18/16 at 21:00 Diazepam (Valium) 10 mg BID PO Last administered on 12/18/16 23:17; Start at 21:00 Non-Formulary Medication 2 inh BID IH ; Start 12/18/16 at 21:00; Stop 12/18/16 at 21:00; Status DC Insulin Detemir (Levemir) 45 units BID SQ Last administered on 12/19/16 08:34 ; Start 12/18/16 at 21:00 Insulin Aspart (NovoLOG) 15 units TIDAC SQ ; Start 12/19/16 at 18:00 Isosorbide Mononitrate (Imdur) 60 mg DAILY PO Last administered on 12/19/16 08 :28; Start 12/19/16 at 09:00 Non-Formulary Medication 3 puff BID IH ; Start 12/18/16 at 21:00; Stop 12/18/16 at 21:00; Status DC Phenobarbital (Luminal) 48.6 mg BID PO Last administered on 12/19/16 08:24; Start 12/18/16 at 21:00 Potassium Chloride (Klor-Con) 20 meq DAILYWBKFT PO Last administered on 08:23; Start 12/19/16 at 08:00 Non-Formulary Medication 25 mg BID PO ; Start 12/18/16 at 21:00; Stop 12/18/16 at 21:00; Status DC Oxycodone HCl (Roxicodone) 10 mg PRN Q4HRS PRN PO PAIN Last administered on 12:23; Start 12/18/16 at 17:45 Ketorolac Tromethamine (Toradol) 15 mg PRN Q6HRS PRN IV pain Last administered on 12/19/16 06:40; Start 12/18/16 at 17:45; Stop 12/23/16 at 17:44 Insulin Aspart (NovoLOG) 0-9 UNITS TIDWMEALS SQ Last administered on 12/19/16 08:33; Start 12/19/16 at 08:00 Dextrose (Dextrose 50%-Water Syringe) 12.5 gm PRN Q15MIN PRN IV SEE COMMENTS; Start 12/18/16 at 17:45 Albuterol Sulfate (Ventolin Neb Soln) 2.5 mg RTQID NEB Last administered on 11:19; Start 12/18/16 at 20:00 Albuterol Sulfate (Ventolin Neb Soln) 2.5 mg PRN Q4HRS PRN NEB SHORTNESS OF BREATH; Start 12/18/16 at 18:15 Budesonide (Pulmicort) 0.5 mg RTBID NEB Last administered on 12/19/16 07:19; Start 12/18/16 at 20:00 Lorazepam (Ativan) 0.5 mg PRN Q8HRS PRN PO ANXIETY / AGITATION Last administered on 12/18/16 23:34; Start 12/18/16 at 18:45 Vancomycin HCl 1 gm/Sodium Chloride 250 ml @ 250 mls/hr Q8HRS IV ; Start at 14:00 Vancomycin HCl 1 each 1X ONCE MC ; Start 12/20/16 at 13:30; Stop 12/20/16 at 13 :31 Active Scripts Active Reported [albuterol ] 25 Mg PO BID Phenobarbital 100 Mg Tablet 50 Mg PO BID Potassium Chloride 20 Meq Tablet.er 20 Meq PO DAILY Furosemide 40 Mg Tablet 40 Mg PO DAILY [place] 7.5-325 Tablet (Acetaminophen/Hydrocodone Bitart) 1 Each Tablet 1 Tab PO PRN Q6HRS PRN Humalog (Insulin Lispro) 100 Unit/1 Ml Vial 75 Unit SQ TIDAC Protonix (Pantoprazole Sodium) 40 Mg Tablet.dr 40 Mg PO DAILY Plavix (Clopidogrel Bisulfate) 75 Mg Tablet 75 Mg PO DAILY Proair Hfa Inhaler (Albuterol Sulfate) 8.5 Gm Hfa.aer.ad 2 Puff IH PRN Q4-6HRS Phenytoin Sodium Extended 100 Mg Capsule 100 Mg PO FOUR TIMES A DAILY Lantus (Insulin Glargine,Hum.rec.anlog) 100 Unit/1 Ml Vial 75 Unit SQ BID Oxycodon-Acetaminophen 7.5-325 (Oxycodone Hcl/Acetaminophen) 1 Each Tablet 1 Each PO BID Diazepam 10 Mg Tablet 10 Mg PO BID Dulera 200 Mcg/5 Mcg Inhaler (Mometasone/Formoterol) 13 Gm Hfa.aer.ad 3 Puff IH BID Advair 500-50 Diskus (Fluticasone/Salmeterol) 1 Each Disk.w.dev 2 Inh IH BID Atorvastatin Calcium 80 Mg Tablet 80 Mg PO HS Carvedilol 12.5 Mg Tablet 25 Mg PO BIDWMEALS Isosorbide Mononitrate Er (Isosorbide Mononitrate) 60 Mg Tab.er.24h 60 Mg PO DAILY Vitals/I & O Vital Sign - Last 24 Hours 12/18/16 12/18/16 12/18/16 12/18/16 15:00 15:30 16:00 18:11 Temp 100.8 101.5 100.8 101.5 Pulse 79 79 78 Resp 18 18 17 B/P (MAP) 178/86 (116) 156/84 (108) 152/81 (104) Pulse Ox 95 92 95 95 O2 Delivery Room Air Room Air Room Air Room Air 12/18/16 12/18/16 12/18/16 12/18/16 19:00 20:00 20:53 23:18 Temp 98.8 98.8 Pulse 82 Resp 18 16 B/P (MAP) 119/53 (75) Pulse Ox 94 95 O2 Delivery Room Air Room Air Room Air Room Air 12/18/16 12/19/16 12/19/16 12/19/16 23:52 03:00 04:45 05:45 Temp 98.4 98.6 98.4 98.6 Pulse 77 93 Resp 18 18 16 18 B/P (MAP) 142/68 (92) 180/88 (118) Pulse Ox 93 90 O2 Delivery Room Air Room Air Room Air Room Air 12/19/16 12/19/16 12/19/16 12/19/16 07:20 07:35 07:55 08:25 Temp 98.1 98.1 Pulse 84 Resp 24 B/P (MAP) 131/67 (88) Pulse Ox 93 94 O2 Delivery Room Air Room Air Room Air Room Air 12/19/16 12/19/16 12/19/16 12/19/16 08:28 09:49 10:57 11:19 Temp 96.4 96.4 Pulse 84 67 Resp 20 24 B/P (MAP) 131/67 107/48 (67) 97/49 (65) Pulse Ox 95 95 O2 Delivery Room Air Room Air 12/19/16 12:23 O2 Delivery Room Air Intake and Output 12/18/16 12/18/16 12/19/16 15:00 23:00 07:00 Intake Total 100 ml 200 ml Output Total 50 ml Balance 50 ml 200 ml HERIBERTO HART MD Dec 19, 2016 13:28
[2016-12-19] MEDS ORDERED: IV NORMAL SALINE 1000ML BAG 1,000 ML IV ONE (13:30)
[2016-12-19] MEDS: VANCOMYCIN 1 GM in IV NORMAL SALINE 250ML 250 ML IV SCH ×2 (13:55→22:54)
[2016-12-19] MEDS: DOCUSATE SODIUM 100 MG CAPSULE. PO SCH (13:55)
[2016-12-19] MEDS ORDERED: POLYETHYLENE GLYCOL 3350 17 GM PACKET. PO ONE (14:00)
[2016-12-19 14:30] VITALS: BP 104/54
[2016-12-19] MEDS: LORazepam 0.5 MG TABLET PO PRN (14:53)
--- NOTE | 2016-12-19 15:40 | CARD ---
APPROVED REPORT EXAM: Two-dimensional and M-mode echocardiogram with Doppler and color Doppler. Other Information Quality : Average INDICATION stap aureus bactermia 2D DIMENSIONS RVDd2.9 (2.9-3.5cm)Left Atrium(2D)4.0 (1.6-4.0cm) IVSd1.2 (0.7-1.1cm)Aortic Root(2D)3.6 (2.0-3.7cm) LVDd4.9 (3.9-5.9cm)LVOT Diameter1.9 (1.8-2.4cm) PWd1.1 (0.7-1.1cm)LVDs3.1 (2.5-4.0cm) FS (%) 37.9 %SV77.3 ml LVEF(%)67.8 (>50%) Aortic Valve AoV Peak Fernando.199.6cm/sAoV VTI38.8cm AO Peak GR.15.9mmHgLVOT Peak Fernando.111.8cm/s LVOT VTI 26.64cmAO Mean GR.10mmHg ZOHRA (VMAX)1.95gz7STK (VTI)1.93cm2 Mitral Valve MV E Rzxtidpt59.5cm/sMV DECEL [id number] MV A Wfgcfagi97.9cm/sMV E Mean Gr.2mmHg MV OPZ58xtX/A Ratio1.5 MV A [id number] (PHT)3.52cm2 TDI E/Lateral E'7.5E/Medial E'9.1 Pulmonary Valve PV Peak Jszmrdij126.1cm/sPV Peak Grad.5mmHg RVOT VTI22.0cm Tricuspid Valve TR P. Jydbiumo961is/sTR Peak Gr.17mmHg Pulmonary Vein S1 Njaoygba58.1cm/sD2 Dsfbhqrc88.1cm/s LEFT VENTRICLE The left ventricle is normal size. There is borderline asymmetric left ventricular hypertrophy. The l eft ventricular systolic function is normal and the ejection fraction is within normal range. EF 55% There is grossly normal LV segmental wall motion. The left ventricular diastolic function and filling is normal for age. RIGHT VENTRICLE The right ventricle is normal size. There is normal right ventricular wall thickness. The right ventr icular systolic function is normal. ATRIA The left atrium size is normal. The right atrium size is normal. The interatrial septum is intact wit h no evidence for an atrial septal defect or patent foramen ovale as noted on 2-D or Doppler imaging. AORTIC VALVE The aortic valve is normal in structure and function. Doppler and Color Flow revealed no significant aortic regurgitation. There is no significant aortic valvular stenosis. There is no aortic valvular v egetation. MITRAL VALVE The mitral valve is normal in structure and function. There is no mitral valve stenosis. Doppler and Color Flow revealed no mitral valve regurgitation noted. TRICUSPID VALVE The tricuspid valve is normal in structure and function. Doppler and Color Flow revealed trace tricus pid regurgitation. The PA pressure was estimated at 20 mmHg. There is no tricuspid valve prolapse or vegetation. PULMONIC VALVE Doppler and Color Flow revealed no pulmonic valvular regurgitation. GREAT VESSELS The aortic root is normal in size. Normal pulmonary venous flow (Doppler). The IVC is normal in size and collapses >50% with inspiration. PERICARDIAL EFFUSION There is no pleural effusion. There is no evidence of significant pericardial effusion. Critical Notification Critical Value: No <Conclusion> The left ventricular systolic function is normal and the ejection fraction is within normal range. EF 55% There is normal LV segmental wall motion. No clear evidence of vegetation on the tricuspic, aortic and mitral valves. Technically difficult study. If there is high suspicion, consider [facility].
--- NOTE | 2016-12-19 17:18 | RAD ---
Ceretec labeled white blood cell scan, 12/19/2016: History: Right leg pain, possible infected hardware 19.7 mCi of technetium 99m Ceretec was utilized for white blood cell labeling. Imaging of the lower extremities was then performed. The patient could not straighten out her right leg resulting in a symmetry of patient positioning on these images. The following findings are delineated: 1. There is moderately increased activity at the level of the right knee joint compatible with nonspecific inflammation or infection. 2. There is a small focus of minimally increased activity in the distal right femur medially. 3. Asymmetric hip activity is probably due to patient rotation.
[2016-12-19] MEDS: CARVEDILOL 12.5 MG TABLET. PO SCH (17:34)
[2016-12-19 19:00] VITALS: BP 98/48
[2016-12-19] MEDS: ATORVASTATIN CALCIUM 40 MG TABLET. PO SCH (21:49)
[2016-12-19 23:00] VITALS: BP 141/69
[2016-12-20] VITALS (7 sets, daily range): BP systolic 87–192; BP diastolic 44–91
[2016-12-20] MEDS: oxyCODONE IR 5 MG TABLET PO PRN ×3 (02:32→19:54)
[2016-12-20] MEDS: VANCOMYCIN 1 GM in IV NORMAL SALINE 250ML 250 ML IV SCH ×2 (05:29→14:26)
[2016-12-20] MEDS: BUDESONIDE 0.5 MG/2 ML NEBU. NEB SCH ×2 (06:56→19:34)
[2016-12-20] MEDS: ALBUTEROL SULFATE 2.5 MG/3 ML NEBU. NEB SCH ×4 (06:56→19:34)
[2016-12-20] MEDS: INSULIN ASPART 300 UNITS/3 ML INSULN.PEN SQ SCH ×6 (07:30→16:54)
[2016-12-20] MEDS: diazePAM 5 MG TABLET PO SCH ×2 (08:10→21:48)
[2016-12-20] MEDS: PHENYTOIN SODIUM EXTENDED 100 MG CAPSULE PO SCH ×2 (08:10→21:47)
[2016-12-20] MEDS: oxyCODONE/APAP 7.5/325 1 TAB TABLET PO SCH ×2 (08:10→21:51)
[2016-12-20] MEDS: PHENobarbital 32.4 MG TABLET. PO SCH ×2 (08:11→21:49)
[2016-12-20] MEDS: DOCUSATE SODIUM 100 MG CAPSULE. PO SCH (08:12)
[2016-12-20] MEDS: CARVEDILOL 12.5 MG TABLET. PO SCH ×2 (08:12→17:33)
[2016-12-20] MEDS: ISOSORBIDE MONONITRATE ER 30 MG TAB.ER.24H PO SCH (08:13)
[2016-12-20] MEDS: CLOPIDOGREL BISULFATE 75 MG TABLET PO SCH (08:13)
[2016-12-20] MEDS: FUROSEMIDE 40 MG TABLET. PO SCH (08:13)
[2016-12-20] MEDS: PANTOPRAZOLE 40 MG TABLET.DR. PO SCH (08:13)
[2016-12-20] MEDS: POTASSIUM CHLORIDE 20 MEQ TABLET.ER. PO SCH (08:13)
[2016-12-20] MEDS: INSULIN DETEMIR 300 UNITS/3 ML INSULN.PEN. SQ SCH ×2 (08:22→21:00)
--- NOTE | 2016-12-20 10:37 | PDOC ---
PROGRESS NOTES Chief Complaint Chief Complaint septic knee, + sepsis screen today, febrile obesity, BMI 35 personality disorder or schizotypal, History of Present Illness History of Present Illness odd verbalism and tangential with history, odd affect, she is a strong advocate of hardware removal and surgery, pain 10/10, but calm and resting, then screamed "ow!" when I examined her right foot Vitals Vitals Vital Signs Date Time Temp Pulse Resp B/P (MAP) Pulse Ox O2 Delivery O2 Flow Rate FiO2 12/20/16 09:59 20 Room Air 12/20/16 08:13 95 192/88 12/20/16 07:27 102.7 90 102.7 Physical Exam General: Alert, Oriented X3, Cooperative, mild distress (emotional ) Heart: Regular rate, No murmurs Lungs: Clear Abdomen: Normal bowel sounds, Soft Extremities: No clubbing, No cyanosis Skin: No rashes, No breakdown Labs LABS Laboratory Tests Test 12/19/16 11:44 12/19/16 17:00 12/19/16 21:46 12/20/16 07:26 Glucose (Fingerstick) 117 mg/dL (70-99) 134 mg/dL (70-99) 181 mg/dL (70-99) 62 mg/dL (70-99) Test 12/20/16 08:41 Glucose (Fingerstick) 115 mg/dL (70-99) Review of Systems Review of Systems pain and weakness other non medical complaints, Assessment and Plan Assessmemt and Plan Problems Medical Problems: (1) Bacteremia Status: Acute Problems: Comment Review of Relevant I have reviewed the following items mary (where applicable) has been applied. Labs Laboratory Tests Test 12/18/16 15:45 12/18/16 21:02 12/19/16 04:30 12/19/16 07:51 White Blood Count 11.8 x10^3/uL (4.0-11.0) 8.2 x10^3/uL (4.0-11.0) Red Blood Count 3.66 x10^6/uL (3.50-5.40) 3.67 x10^6/uL (3.50-5.40) Hemoglobin 11.0 g/dL (12.0-15.5) 11.2 g/dL (12.0-15.5) Hematocrit 32.5 % (36.0-47.0) 32.6 % (36.0-47.0) Mean Corpuscular Volume 89 fL (79-100) 89 fL (79-100) Mean Corpuscular Hemoglobin 30 pg (25-35) 31 pg (25-35) Mean Corpuscular Hemoglobin Concent 34 g/dL (31-37) 35 g/dL (31-37) Red Cell Distribution Width 13.8 % (11.5-14.5) 13.8 % (11.5-14.5) Platelet Count 401 x10^3/uL (140-400) 349 x10^3/uL (140-400) Neutrophils (%) (Auto) 74 % (31-73) 68 % (31-73) Lymphocytes (%) (Auto) 18 % (24-48) 24 % (24-48) Monocytes (%) (Auto) 6 % (0-9) 6 % (0-9) Eosinophils (%) (Auto) 1 % (0-3) 1 % (0-3) Basophils (%) (Auto) 1 % (0-3) 1 % (0-3) Neutrophils # (Auto) 8.7 x10^3uL (1.8-7.7) 5.6 x10^3uL (1.8-7.7) Lymphocytes # (Auto) 2.1 x10^3/uL (1.0-4.8) 2.0 x10^3/uL (1.0-4.8) Monocytes # (Auto) 0.7 x10^3/uL (0.0-1.1) 0.5 x10^3/uL (0.0-1.1) Eosinophils # (Auto) 0.1 x10^3/uL (0.0-0.7) 0.1 x10^3/uL (0.0-0.7) Basophils # (Auto) 0.1 x10^3/uL (0.0-0.2) 0.1 x10^3/uL (0.0-0.2) Sodium Level 140 mmol/L (136-145) 140 mmol/L (136-145) Potassium Level 3.9 mmol/L (3.5-5.1) 4.2 mmol/L (3.5-5.1) Chloride Level 103 mmol/L (98-107) 105 mmol/L (98-107) Carbon Dioxide Level 30 mmol/L (21-32) 29 mmol/L (21-32) Anion Gap 7 (6-14) 6 (6-14) Blood Urea Nitrogen 12 mg/dL (7-20) 10 mg/dL (7-20) Creatinine 0.6 mg/dL (0.6-1.0) 0.7 mg/dL (0.6-1.0) Estimated GFR (Cockcroft-Gault) 102.0 85.4 BUN/Creatinine Ratio 20 (6-20) 14 (6-20) Glucose Level 65 mg/dL (70-99) 177 mg/dL (70-99) Calcium Level 8.0 mg/dL (8.5-10.1) 8.1 mg/dL (8.5-10.1) Total Bilirubin 0.3 mg/dL (0.2-1.0) 0.2 mg/dL (0.2-1.0) Aspartate Amino Transf (AST/SGOT) 69 U/L (15-37) 75 U/L (15-37) Alanine Aminotransferase (ALT/SGPT) 56 U/L (14-59) 60 U/L (14-59) Alkaline Phosphatase 177 U/L (46-116) 194 U/L (46-116) Total Protein 6.9 g/dL (6.4-8.2) 5.9 g/dL (6.4-8.2) Albumin 2.1 g/dL (3.4-5.0) 1.8 g/dL (3.4-5.0) Albumin/Globulin Ratio 0.4 (1.0-1.7) 0.4 (1.0-1.7) Glucose (Fingerstick) 116 mg/dL (70-99) 216 mg/dL (70-99) Vancomycin Level Trough 10.3 mcg/mL (10.0-20.0) Vancomycin Last Dose Date 12/18/16 Vancomycin Last Dose Time 1800 Test 12/19/16 11:44 12/19/16 17:00 12/19/16 21:46 12/20/16 07:26 Glucose (Fingerstick) 117 mg/dL (70-99) 134 mg/dL (70-99) 181 mg/dL (70-99) 62 mg/dL (70-99) Test 12/20/16 08:41 Glucose (Fingerstick) 115 mg/dL (70-99) Laboratory Tests Test 12/19/16 11:44 12/19/16 17:00 12/19/16 21:46 12/20/16 07:26 Glucose (Fingerstick) 117 mg/dL (70-99) 134 mg/dL (70-99) 181 mg/dL (70-99) 62 mg/dL (70-99) Test 12/20/16 08:41 Glucose (Fingerstick) 115 mg/dL (70-99) Medications Current Medications Ondansetron HCl (Zofran) 4 mg PRN Q8HRS PRN IV NAUSEA/VOMITING Last administered on 12/18/16 23:22; Start 12/18/16 at 16:00; Stop 12/19/16 at 15:59 ; Status DC Acetaminophen (Tylenol) 650 mg PRN Q4HRS PRN PO FEVER Last administered on 12/18 18:10; Start 12/18/16 at 16:00; Stop 12/19/16 at 15:59; Status DC Vancomycin HCl (Vanco Per Pharmacy) 1 each PRN DAILY PRN MC SEE COMMENTS; Start 12/18/16 at 16:00; Status UNV Vancomycin HCl (Vanco Per Pharmacy) 1 each PRN DAILY PRN MC SEE COMMENTS Last administered on 12/19/16 07:02; Start 12/18/16 at 17:15 Vancomycin HCl 1 each 1X ONCE MC ; Start 12/18/16 at 17:15; Stop 12/18/16 at 17 :15; Status DC Vancomycin HCl 1.25 gm/Sodium Chloride 250 ml @ 167 mls/hr Q12H IV Last administered on 12/19/16 06:26; Start 12/18/16 at 18:00; Stop 12/19/16 at 08:00 ; Status DC Vancomycin HCl 1 each 1X ONCE MC Last administered on 12/19/16 05:30; Start 12/19/16 at 05:30; Stop 12/19/16 at 05:31; Status DC Carvedilol (Coreg) 25 mg BIDWMEALS PO Last administered on 12/20/16 08:12; Start 12/19/16 at 18:00 Clopidogrel Bisulfate (Plavix) 75 mg DAILY PO Last administered on 12/20/16 08 :13; Start 12/19/16 at 09:00 Furosemide (Lasix) 40 mg DAILY PO Last administered on 12/20/16 08:13; Start 12/19/16 at 09:00 Oxycodone/ Acetaminophen (Percocet 7.5/ 325) 1 tab BID PO Last administered on 12/19/16 08:25; Start 12/18/16 at 21:00; Stop 12/19/16 at 13:29; Status DC Pantoprazole Sodium (Protonix) 40 mg DAILY PO Last administered on 12/20/16 08 :13; Start 12/19/16 at 09:00 Phenytoin Sodium (Dilantin) 200 mg BID PO Last administered on 12/20/16 08:10 ; Start 12/18/16 at 21:00 Non-Formulary Medication 2 puff PRN Q4-6HRS IH ; Start 12/18/16 at 17:30; Stop 12/18/16 at 18:06; Status DC Atorvastatin Calcium (Lipitor) 80 mg QHS PO Last administered on 12/19/16 21: 49; Start 12/18/16 at 21:00 Diazepam (Valium) 10 mg BID PO Last administered on 12/20/16 08:10; Start at 21:00 Non-Formulary Medication 2 inh BID IH ; Start 12/18/16 at 21:00; Stop 12/18/16 at 21:00; Status DC Insulin Detemir (Levemir) 45 units BID SQ Last administered on 12/20/16 08:22 ; Start 12/18/16 at 21:00; Stop 12/20/16 at 10:03; Status DC Insulin Aspart (NovoLOG) 15 units TIDAC SQ Last administered on 12/19/16 17:40 ; Start 12/19/16 at 18:00 Isosorbide Mononitrate (Imdur) 60 mg DAILY PO Last administered on 12/20/16 08 :13; Start 12/19/16 at 09:00 Non-Formulary Medication 3 puff BID IH ; Start 12/18/16 at 21:00; Stop 12/18/16 at 21:00; Status DC Phenobarbital (Luminal) 48.6 mg BID PO Last administered on 12/20/16 08:11; Start 12/18/16 at 21:00 Potassium Chloride (Klor-Con) 20 meq DAILYWBKFT PO Last administered on 08:13; Start 12/19/16 at 08:00 Non-Formulary Medication 25 mg BID PO ; Start 12/18/16 at 21:00; Stop 12/18/16 at 21:00; Status DC Oxycodone HCl (Roxicodone) 10 mg PRN Q4HRS PRN PO PAIN Last administered on 02:32; Start 12/18/16 at 17:45 Ketorolac Tromethamine (Toradol) 15 mg PRN Q6HRS PRN IV pain Last administered on 12/19/16 06:40; Start 12/18/16 at 17:45; Stop 12/23/16 at 17:44 Insulin Aspart (NovoLOG) 0-9 UNITS TIDWMEALS SQ Last administered on 12/19/16 08:33; Start 12/19/16 at 08:00 Dextrose (Dextrose 50%-Water Syringe) 12.5 gm PRN Q15MIN PRN IV SEE COMMENTS; Start 12/18/16 at 17:45 Albuterol Sulfate (Ventolin Neb Soln) 2.5 mg RTQID NEB Last administered on 06:56; Start 12/18/16 at 20:00 Albuterol Sulfate (Ventolin Neb Soln) 2.5 mg PRN Q4HRS PRN NEB SHORTNESS OF BREATH; Start 12/18/16 at 18:15 Budesonide (Pulmicort) 0.5 mg RTBID NEB Last administered on 12/20/16 06:56; Start 12/18/16 at 20:00 Lorazepam (Ativan) 0.5 mg PRN Q8HRS PRN PO ANXIETY / AGITATION Last administered on 12/19/16 14:53; Start 12/18/16 at 18:45 Vancomycin HCl 1 gm/Sodium Chloride 250 ml @ 250 mls/hr Q8HRS IV Last administered on 12/20/16 05:29; Start 12/19/16 at 14:00 Vancomycin HCl 1 each 1X ONCE MC ; Start 12/20/16 at 13:30; Stop 12/20/16 at 13 :31 Sodium Chloride 1,000 ml @ 125 mls/hr 1X ONCE IV Last administered on 13:47; Start 12/19/16 at 13:30; Stop 12/19/16 at 21:29; Status DC Oxycodone/ Acetaminophen (Percocet 7.5/ 325) 2 tab BID PO Last administered on 12/20/16 08:10; Start 12/19/16 at 14:00 Docusate Sodium (Colace) 100 mg DAILY PO Last administered on 12/20/16 08:12; Start 12/19/16 at 14:00 Polyethylene Glycol (miraLAX PACKET) 17 gm 1X ONCE PO Last administered on 13:54; Start 12/19/16 at 14:00; Stop 12/19/16 at 14:01; Status DC Polyethylene Glycol (miraLAX PACKET) 17 gm PRN DAILY PRN PO CONSTIPATION; Start 12/19/16 at 13:45 Insulin Detemir (Levemir) 40 units BID SQ ; Start 12/20/16 at 21:00 Active Scripts Active Reported [albuterol ] 25 Mg PO BID Phenobarbital 100 Mg Tablet 50 Mg PO BID Potassium Chloride 20 Meq Tablet.er 20 Meq PO DAILY Furosemide 40 Mg Tablet 40 Mg PO DAILY Meridian 7.5-325 Tablet (Acetaminophen/Hydrocodone Bitart) 1 Each Tablet 1 Tab PO PRN Q6HRS PRN Humalog (Insulin Lispro) 100 Unit/1 Ml Vial 75 Unit SQ TIDAC Protonix (Pantoprazole Sodium) 40 Mg Tablet.dr 40 Mg PO DAILY Plavix (Clopidogrel Bisulfate) 75 Mg Tablet 75 Mg PO DAILY Proair Hfa Inhaler (Albuterol Sulfate) 8.5 Gm Hfa.aer.ad 2 Puff IH PRN Q4-6HRS Phenytoin Sodium Extended 100 Mg Capsule 100 Mg PO FOUR TIMES A DAILY Lantus (Insulin Glargine,Hum.rec.anlog) 100 Unit/1 Ml Vial 75 Unit SQ BID Oxycodon-Acetaminophen 7.5-325 (Oxycodone Hcl/Acetaminophen) 1 Each Tablet 1 Each PO BID Diazepam 10 Mg Tablet 10 Mg PO BID Dulera 200 Mcg/5 Mcg Inhaler (Mometasone/Formoterol) 13 Gm Hfa.aer.ad 3 Puff IH BID Advair 500-50 Diskus (Fluticasone/Salmeterol) 1 Each Disk.w.dev 2 Inh IH BID Atorvastatin Calcium 80 Mg Tablet 80 Mg PO HS Carvedilol 12.5 Mg Tablet 25 Mg PO BIDWMEALS Isosorbide Mononitrate Er (Isosorbide Mononitrate) 60 Mg Tab.er.24h 60 Mg PO DAILY Vitals/I & O Vital Sign - Last 24 Hours 12/19/16 12/19/16 12/19/16 12/19/16 10:57 11:19 12:23 13:54 Temp 96.4 96.4 Pulse 67 Resp 24 B/P (MAP) 107/48 (67) 97/49 (65) Pulse Ox 95 95 O2 Delivery Room Air Room Air Room Air 12/19/16 12/19/16 12/19/16 12/19/16 14:30 14:44 17:31 17:34 Temp 97.9 97.9 Pulse 71 77 Resp 20 B/P (MAP) 104/54 (71) 114/67 Pulse Ox 96 O2 Delivery Room Air Room Air Room Air 12/19/16 12/19/16 12/19/16 12/19/16 18:07 18:40 19:00 20:00 Temp 97.8 97.8 Pulse 102 Resp 20 18 B/P (MAP) 98/48 (65) Pulse Ox 92 O2 Delivery Room Air Room Air Room Air 12/19/16 12/19/16 12/20/16 12/20/16 21:51 23:00 02:32 03:00 Temp 99.0 99.2 99.0 99.2 Pulse 74 83 Resp 18 20 B/P (MAP) 141/69 (93) 149/91 (110) Pulse Ox 94 94 O2 Delivery Room Air Room Air Room Air Room Air 12/20/16 12/20/16 12/20/16 12/20/16 03:35 06:59 07:05 07:27 Temp 102.7 102.7 Pulse 95 Resp 30 B/P (MAP) 192/88 (122) Pulse Ox 94 90 O2 Delivery Room Air Room Air Room Air Room Air 12/20/16 12/20/16 12/20/16 12/20/16 08:10 08:12 08:13 09:59 Pulse 95 95 Resp 20 B/P (MAP) 192/88 192/88 O2 Delivery Room Air Room Air Intake and Output 12/19/16 12/19/16 12/20/16 15:00 23:00 07:00 Intake Total 500 ml Balance 500 ml HERIBERTO HART MD Dec 20, 2016 10:37
--- NOTE | 2016-12-20 10:48 | PDOC ---
Infectious Disease Note Subjective Subjective + fevers, Tmax 102.7, aches and chills + nonproductive cough, denies SOA/CP Persistent right leg/knee pain ROS ROS HEENT: Denies sore throat GI: Denies n/v/d Vital Sign Vital Signs Vital Signs Date Time Temp Pulse Resp B/P (MAP) Pulse Ox O2 Delivery O2 Flow Rate FiO2 12/20/16 09:59 20 Room Air 12/20/16 08:13 95 192/88 12/20/16 07:27 102.7 90 102.7 Physical Exam PHYSICAL EXAM GENERAL: Arouses easily to name, coop LUNGS: Clear HEART: S1S2, + murmur ABD: Soft, NT EXT: RLE trace edema, right knee tender, swollen and warm. No redness or drainage. DP palpable VARNISH DIPPER: Oriented SKIN: No rash Labs Lab Laboratory Tests Test 12/19/16 11:44 12/19/16 17:00 12/19/16 21:46 12/20/16 07:26 Glucose (Fingerstick) 117 mg/dL (70-99) 134 mg/dL (70-99) 181 mg/dL (70-99) 62 mg/dL (70-99) Test 12/20/16 08:41 Glucose (Fingerstick) 115 mg/dL (70-99) PROCEDURE: ABSCESS CERETEC WBC LTD Ceretec labeled white blood cell scan, 12/19/2016: History: Right leg pain, possible infected hardware 19.7 mCi of technetium 99m Ceretec was utilized for white blood cell labeling. Imaging of the lower extremities was then performed. The patient could not straighten out her right leg resulting in a symmetry of patient positioning on these images. The following findings are delineated: 1. There is moderately increased activity at the level of the right knee joint compatible with nonspecific inflammation or infection. 2. There is a small focus of minimally increased activity in the distal right femur medially. 3. Asymmetric hip activity is probably due to patient rotation. Micro 12/18. BLOOD CULTURE Preliminary NO GROWTH AFTER 2 DAY Objective Assessment Fever MSSA bacteremia with murmur, POA. 12/16. -RF 13.0. Repeat BC from 12/18 NGTD. TTE neg veg Right knee septic joint with hardware in close proximity -small focus of minimally increased activity in the distal right femur medially on tag WBC scan, 12/19 -s/p right knee arthroscopy irrigation, debridement, partial synovectomy and partial medial and lateral meniscectomy, 12/10 -s/p joint aspiration 12/09. culture MSSA -h/o ORIF distal femur fracture Apr 2016 Leukocytosis, trending down Allergy to cephalosporins, penicillin and sulfa. Reactions unclear, only to say can't have them. Diabetes Transaminitis h/o seizures h/o alcoholism & substance abuse Plan Plan of Care I have not received a list of drug allergies and reactions from daughter as of yet. Patient has been adamant about not changing antibiotics, but is now thinking about it given ongoing fevers and fear of loosing leg. Vanc for now Trough 10.3 Monitor WBC, CR and temp Await ortho f/u. Attending Co-Sign The patient was seen and interviewed as well as examined at the bedside. The chart was reviewed. The case was discussed. Agree with the plan of care. CK ALVES APRN Dec 20, 2016 10:48 OMA AMARAL MD Dec 20, 2016 14:47
[2016-12-20] MEDS ORDERED: IV NORMAL SALINE 1000ML BAG 1,000 ML IV ONE ×2 (12:00)
--- NOTE | 2016-12-20 14:03 | PDOC2 ---
SANG MADISON CREAMERY WORKER 12/20/16 1403: CARDIAC CONSULT DATE OF CONSULT Date of Consult DATE: 12/20/16 TIME: 13:35 REASON FOR CONSULT Reason for Consult: labile BP REFERRING PHYSICIAN Referring Physician: Jassi SOURCE Source: Chart review, Patient HISTORY OF PRESENT ILLNESS HISTORY OF PRESENT ILLNESS This is a pleasant 61 yo female admitted for continued to not be feeling well. She was recently noted with right septic arthritis and has been having fever and admitted again and noted with bacteremia but left AMA. He continues to have fever and has been noted with high and low BP prompting this consult. Presently she is doing good. Denies any CP, SOA, palpitations. She is quite hostile to other staff but pleasant for me. PAST MEDICAL HISTORY Past Medical History Cardiovascular: CAD, CHF, HTN, Hyperlipidemia Pulmonary: Asthma, COPD CENTRAL NERVOUS SYSTEM: CVA, Migraine, Seizure GI: GERD, GI bleed, Peptic Ulcer disease, Other (pancreatitis) Heme/Onc: Anemia NOS (Blood transfusions), Cancer (cervical) Hepatobiliary: Cholelithiasis Psych: Anxiety, Depression Musculoskeletal: Osteoarthritis, Other (Chronic pain syndrome) Rheumatologic: Other (SLE) Infectious disease: MSSA, right knee septic joint ENT: Other (Macular degeneration; cataract; tinnitus) Endocrine: Diabetes PAST SURGICAL HISTORY Past Surgical History Appendectomy, Cholecystectomy, Cataract Removal, Tubal Ligation, Tonsillectomy, Other (abdominal surgery), ORIF right femur, right knee surgery FAMILY HISTORY Family History Coronary Artery Disease (Mother and father) SOCIAL HISTORY Smoke: No ALCOHOL: none Drugs: None CURRENT MEDICATIONS CURRENT MEDICATIONS Current Medications Medications (Trade) Dose Ordered Sig/Catia Route PRN Reason Start Time Stop Time Status Last Admin Dose Admin Carvedilol (Coreg) 25 mg BIDWMEALS PO 12/19/16 18:00 12/20/16 08:12 Insulin Aspart (NovoLOG) 15 units TIDAC SQ 12/19/16 18:00 12/19/16 17:40 Vancomycin HCl 1 gm/Sodium Chloride 250 ml @ 250 mls/hr Q8HRS IV 12/19/16 14:00 12/20/16 05:29 Oxycodone/ Acetaminophen (Percocet 7.5/ 325) 2 tab BID PO 12/19/16 14:00 12/20/16 08:10 Docusate Sodium (Colace) 100 mg DAILY PO 12/19/16 14:00 12/20/16 08:12 Polyethylene Glycol (miraLAX PACKET) 17 gm 1X ONCE PO 12/19/16 14:00 12/19/16 14:01 DC 12/19/16 13:54 Sodium Chloride 1,000 ml @ 1,000 mls/hr 1X ONCE IV 12/20/16 12:00 12/20/16 12:59 DC 12/20/16 11:51 Sodium Chloride 1,000 ml @ 1,000 mls/hr 1X ONCE IV 12/20/16 12:00 12/20/16 12:59 DC 12/20/16 13:23 ALLERGIES ALLERGIES: Coded Allergies: Cephalosporins (Verified Allergy, Intermediate, 12/10/16) Penicillins (Verified Allergy, Intermediate, 12/10/16) Sulfa (Sulfonamide Antibiotics) (Verified Allergy, Intermediate, 12/10/16) Tetanus Vaccines and Toxoid (Verified Allergy, Intermediate, 12/10/16) aspirin (Verified Allergy, Intermediate, 12/10/16) iodine (Verified Allergy, Intermediate, rash, 12/10/16) morphine (Verified Allergy, Intermediate, 12/12/16) TOLERATES HYDROCODONE povidone-iodine (Verified Allergy, Intermediate, rash, 12/10/16) propoxyphene (Verified Allergy, Intermediate, Nausea and Vomiting, 12/10/16 ) venom-honey bee (Verified Allergy, Intermediate, 12/10/16) venom-wasp (Verified Allergy, Intermediate, 12/10/16) hydromorphone (Verified Adverse Reaction, Severe, 12/10/16) dry heaves ROS Review of System 14 point ROS evaluated with pertinent positives noted per HPI PHYSICAL EXAM General: Alert, Oriented X3, Cooperative, No acute distress HEENT: Atraumatic, Mucous membr. moist/pink Lungs: Clear to auscultation Heart: Regular rate, Normal S1, Normal S2, Other (2/6 systolic murmur to LLS border) Abdomen: Soft, No tenderness Extremities: No cyanosis, Other (3+ RLE pitting edema; LLE 2+ pitting edema) Neuro: Normal speech, Sensation intact Psych/Mental Status: Mental status NL MUSCULOSKELETAL: Osteoarthritic changes both hands VITALS VITALS Vital Signs Date Time Temp Pulse Resp B/P (MAP) Pulse Ox O2 Delivery O2 Flow Rate FiO2 12/20/16 11:31 96.4 70 22 87/44 (58) 93 Room Air 96.4 LABS Lab: Laboratory Tests Test 12/19/16 17:00 12/19/16 21:46 12/20/16 07:26 12/20/16 08:41 Glucose (Fingerstick) 134 mg/dL (70-99) 181 mg/dL (70-99) 62 mg/dL (70-99) 115 mg/dL (70-99) Test 12/20/16 11:34 Glucose (Fingerstick) 137 mg/dL (70-99) ECHOCARDIOGRAM ECHOCARDIOGRAM <Conclusion> The left ventricular systolic function is normal and the ejection fraction is within normal range. EF 55% There is normal LV segmental wall motion. No clear evidence of vegetation on the tricuspid, aortic and mitral valves. Technically difficult study. If there is high suspicion, consider MILADIS. DATE: 12/19/16 1539 STRESS TEST STRESS TEST Conclusion 1. No evidence of stress induced EKG changes 2. Normal myocardial perfusion at stress/rest 3. Normal LV function at > 80% 4. Low risk study DATE: 12/15/15 1320 HEART CATH HEART CATH Hemodynamics. Left ventricular pressure of 162/20, aortic root pressure 158/70. Coronaries. Left main. The left main had no lesions. Left anterior descending. The LAD was diffusely diseased. In the proximal to mid area there was a region of 40-45% lesions. More distally there was a 40-50 % lesion with probable bridging. The first diagonal had a 35% lesion ostially and the second diagonal lesion had an ostial 40% lesion. Left circumflex. The left circumflex was a larger dominant vessel. Obtuse marginal 1 and obtuse marginal 2 had 20-25% lesions. Right coronary artery. The right coronary artery was a smaller nondominant vessel with no lesions. Left ventriculogram. The left ventricle had normal systolic function and no significant mitral regurgitation. <Conclusion> Moderate coronary artery disease. Normal left ventricular systolic function. Probable mild to moderate bridging in the left anterior descending vessel. DATE: 06/11/14 1545 ASSESSMENT/PLAN ASSESSMENT/PLAN 1. Labile BP: multifactorial. High and low. 2. septic right knee joint/sepsis/bacteremia MSSA 3. CAD: stable, no cardiac symptoms 4. Chronic pain syndrome/debility/anxiety Recommendations 1. Presently BP is stable at 125/59 to Left and 138/66 to RA. Continue with current BP meds. 2. Will hold off lasix in the next 48 hours. Certainly the opioids and valium is contributing and would recommend tapering dose 3. Maintain IV or po hydration. Continue secondary prevention measures. 4. BMP, Mg 5. Please let us known if there is any concern for any need for MILADIS Problems: CORAL DANIELS MD 12/20/16 1713: CARDIAC CONSULT ALLERGIES ALLERGIES: Coded Allergies: Cephalosporins (Verified Allergy, Intermediate, 12/10/16) Penicillins (Verified Allergy, Intermediate, 12/10/16) Sulfa (Sulfonamide Antibiotics) (Verified Allergy, Intermediate, 12/10/16) Tetanus Vaccines and Toxoid (Verified Allergy, Intermediate, 12/10/16) aspirin (Verified Allergy, Intermediate, 12/10/16) iodine (Verified Allergy, Intermediate, rash, 12/10/16) morphine (Verified Allergy, Intermediate, 12/12/16) TOLERATES HYDROCODONE povidone-iodine (Verified Allergy, Intermediate, rash, 12/10/16) propoxyphene (Verified Allergy, Intermediate, Nausea and Vomiting, 12/10/16 ) venom-honey bee (Verified Allergy, Intermediate, 12/10/16) venom-wasp (Verified Allergy, Intermediate, 12/10/16) hydromorphone (Verified Adverse Reaction, Severe, 12/10/16) dry heaves ASSESSMENT/PLAN ASSESSMENT/PLAN Patient seen and examined. Agree with SOCIAL SERVICES DESIGNEE's assessment and plan. Blood pressure better controlled since admission. 2-D echo showed normal LV function without any wall motion abnormalities. CAD status appears stable overall. Continue intravenous antibiotics per ID team. We will follow as needed. Thank you for your consultation. Problems: SANG MADISON APRN Dec 20, 2016 14:03 CORAL DANIELS MD Dec 20, 2016 17:13
[2016-12-20 14:32] LABS: CALCIUM 7.9 mg/dL (8.5-10.1); CREATININE 0.8 mg/dL (0.6-1.0); GFR 73.2; POTASSIUM 4.1 mmol/L (3.5-5.1)
[2016-12-20] MEDS: VANCOMYCIN PER PHARMACY MC PRN (15:39)
[2016-12-20] MEDS: ATORVASTATIN CALCIUM 40 MG TABLET. PO SCH (21:48)
[2016-12-20] MEDS: VANCOMYCIN 1.25 GM in IV NORMAL SALINE 250ML 250 ML IV SCH (22:08)
[2016-12-21] VITALS (11 sets, daily range): BP systolic 101–147; BP diastolic 39–81
[2016-12-21] MEDS: KETOROLAC 15 MG/ML VIAL. IV PRN ×3 (00:48→23:56)
[2016-12-21] MEDS: VANCOMYCIN 1.25 GM in IV NORMAL SALINE 250ML 250 ML IV SCH ×3 (06:17→21:38)
--- NOTE | 2016-12-21 06:45 | CONS ---
DATE OF CONSULTATION: 12/20/2016 REASON FOR CONSULTATION: Right knee and leg pain. REQUESTING PHYSICIAN: Dr. Fontaine. HISTORY OF PRESENT ILLNESS: The patient is actually known to me from previous treatment of a septic right knee joint. This was diagnosed by aspiration and treated by arthroscopy and cultures revealed methicillin-sensitive Staph aureus for which she was placed on or directed to take oral clindamycin, but did not end up taking any antibiotics on her discharge from the hospital. She had presented again to the hospital with Staphylococcus aureus bacteremia and was treated for this and actually underwent a tagged white blood cell scan for evaluation of possible hardware involvement of a previous distal femur fracture repair that was done at [facility] originally. She had left against medical advice from that previous visit. She stated that her son was murdered and she had to go to identify the body now and presented again for admission and treatment and I am consulted from an orthopedic standpoint at this time. She continues to complain of significant leg pain. Says she has difficulty getting around for a long time. It is much more severe now, but she has had difficulties even since the operation and the injury. PAST MEDICAL HISTORY: Very extensive and was previously documented. PAST SURGICAL HISTORY: Significant for operative reduction internal fixation of the distal femur fracture at [facility] and recent arthroscopic surgical treatment of a septic knee on that same right side. MEDICATIONS: List is reviewed. ALLERGIES: THERE ARE MULTIPLE INCLUDING PENICILLIN, SULFA, TETANUS, REXIN AND TOXOID, ASPIRIN, HYDROMORPHONE, IODINE, MORPHINE, BETADINE, PROPOXYPHENE, HONEYBEES AND ____ WELL REPORTED ALLERGY TO CEPHALOSPORINS, WHICH ON FURTHER EVALUATION WITH HER IS THAT SHE HAD A URINARY TRACT INFECTION AND GOT CEPHALOSPORIN THAT DID NOT WORK FOR IT. SHE DID NOT REALLY DOCUMENT ANY TYPE OF REACTION. REVIEW OF SYSTEMS: Significant for severe right leg pain. She says it is really over her whole leg centered at the knee. She states that she really cannot bear weight or move the knee significantly. Denies any recent fever or chills, but she is very anxious about the leg and wants it to be better. PHYSICAL EXAMINATION: EXTREMITIES: She has well-healed arthroscopic portals on the right knee. There is really very little effusion. No significant redness or warmth. She has pain with any movement of the right leg, particularly above the knee. There is no gross instability. She has good patellofemoral tracking, really has no specific point tenderness on palpation, but this is globally tender over the entire leg, particularly with any type of movement of her knee or hip, especially little bit less so with extreme dorsiflexion of her ankle where she has pulling behind the knee that she states is very painful. X-rays from previous show well healed distal femur fracture with lateral distal femur locking plate and screw fixation. Tagged white blood cell scan shows some slight uptake at the knee joint itself or there is some inflammation as well as over the distal portion of the femur really not all up and down the plate, but ____for its very distal aspect. IMPRESSION: 1. Right lower extremity pain. 2. History of septic right knee, treated by arthroscopy. 3. History of methicillin-sensitive Staph aureus bacteremia and ongoing right leg pain. 4. History of distal femur fracture repair with retained hardware and slight increased uptake and tagged white blood cell scan over the distal femur. TREATMENT PLAN: I discussed at some length with her treatment options. At this point, she really has not necessarily been on any ideal antibiotic treatment just due to her situation. First of all on discharge, really did not continue to take even oral antibiotics much less any type of IV antibiotics for the treatment of her previous joint infection. Secondly, she is convinced that she does not want to take any cephalosporins. I have discussed with her that while her cephalosporin allergy. By description is really not a true allergy and that would be probably the most effective and treatment with least complications that would certainly be preferable. She was adamant that she would really like the hardware removed, which I think is reasonable if it would help clear up any infection. I told her that basically the major help with that is the bacteria would really not have any place to hide around the metal plate and screws if it is removed. Furthermore, the plate and screws have really ____ usefulness in terms of stabilizing the bones, so it can heal and removal of the hardware would be reasonable from this standpoint. She asked; however, this is going to relieve her pain and I told her that I cannot Promise that all that this would relieve the pain in her leg, it would be done really for infection only. If this ongoing infection is a significant source of the pain of course that could help; however, just due to the nature of her pain complaints, I am very suspect that removal of the plate will help that significantly at all were improve her ability to interims of activities based on my judgment and physical examination as well as her description. She said even if this really does not help her interims getting up and around, she would likely done from standpoint as far as helping treat the infection and she understands that there certainly medical or other anesthetic complications that could occur with surgeries, particularly given her medical issues. All her questions were answered. Surgery is tentatively scheduled for tomorrow for hardware removal with further antibiotics per Infectious Disease to follow. RADHA GERBER MD DR: DOMENIC/erica JOB#: [id number] / [id number]
[2016-12-21 06:52] LABS: BASO # 0.1 x10^3/uL (0.0-0.2); BASO % 1 % (0-3); EOS % 2 % (0-3); HEMATOCRIT 35.4 % (36.0-47.0); HEMOGLOBIN 11.6 g/dL (12.0-15.5); LYMPH # 2.3 x10^3/uL (1.0-4.8); LYMPH % 29 % (24-48); MEAN CORPUSCULAR HEMOGLOBIN 30 pg (25-35); MEAN CORPUSCULAR HGB CONC 33 g/dL (31-37); MEAN CORPUSCULAR VOLUME 90 fL (79-100); MONO % 7 % (0-9); NEUT % 61 % (31-73); PLATELET COUNT 441 x10^3/uL (140-400); RED BLOOD COUNT 3.92 x10^6/uL (3.50-5.40); RED CELL DISTRIBUTION WIDTH 13.6 % (11.5-14.5); WHITE BLOOD COUNT 7.9 x10^3/uL (4.0-11.0)
[2016-12-21] MEDS: ALBUTEROL SULFATE 2.5 MG/3 ML NEBU. NEB SCH ×4 (07:01→20:00)
[2016-12-21] MEDS: BUDESONIDE 0.5 MG/2 ML NEBU. NEB SCH ×2 (07:02→20:00)
[2016-12-21 07:12] LABS: ALBUMIN 1.8 g/dL (3.4-5.0); ALBUMIN/GLOBULIN RATIO 0.3 (1.0-1.7); CALCIUM 9.1 mg/dL (8.5-10.1); CREATININE 0.5 mg/dL (0.6-1.0); GFR 125.9; TOTAL BILIRUBIN 0.4 mg/dL (0.2-1.0); TOTAL PROTEIN 7.1 g/dL (6.4-8.2)
[2016-12-21] MEDS: INSULIN ASPART 300 UNITS/3 ML INSULN.PEN SQ SCH ×6 (07:30→17:39)
[2016-12-21] MEDS: POTASSIUM CHLORIDE 20 MEQ TABLET.ER. PO SCH (08:00)
[2016-12-21] MEDS: CARVEDILOL 12.5 MG TABLET. PO SCH ×3 (08:00→17:25)
[2016-12-21] MEDS: PHENYTOIN SODIUM EXTENDED 100 MG CAPSULE PO SCH ×2 (08:10→21:36)
[2016-12-21] MEDS: ISOSORBIDE MONONITRATE ER 30 MG TAB.ER.24H PO SCH (08:10)
[2016-12-21] MEDS: DOCUSATE SODIUM 100 MG CAPSULE. PO SCH (08:10)
[2016-12-21] MEDS: PHENobarbital 32.4 MG TABLET. PO SCH ×2 (08:11→21:36)
[2016-12-21] MEDS: FUROSEMIDE 40 MG TABLET. PO SCH (08:11)
[2016-12-21] MEDS: INSULIN DETEMIR 300 UNITS/3 ML INSULN.PEN. SQ SCH ×2 (08:12→21:00)
[2016-12-21] MEDS: PANTOPRAZOLE 40 MG TABLET.DR. PO SCH ×2 (08:12→17:29)
[2016-12-21] MEDS: CLOPIDOGREL BISULFATE 75 MG TABLET PO SCH (08:12)
[2016-12-21] MEDS: diazePAM 5 MG TABLET PO SCH ×2 (09:00→21:36)
[2016-12-21] MEDS: oxyCODONE/APAP 7.5/325 1 TAB TABLET PO SCH ×2 (09:57→21:37)
[2016-12-21] MEDS ORDERED: LIDOCAINE 2% PF Vial for OR 5 ML VIAL. ONE (10:58)
[2016-12-21] MEDS ORDERED: MIDAZOLAM HCL/PF 2 MG/2 ML VIAL. ONE (10:58)
[2016-12-21] MEDS ORDERED: DEXAMETHASONE SOD PHOS 20 MG/5 ML VIAL. ONE (10:58)
[2016-12-21] MEDS ORDERED: ONDANSETRON PF 4 MG/2 ML VIAL. ONE (10:58)
[2016-12-21] MEDS ORDERED: fentaNYL PF VIAL 100 MCG/2 ML VIAL ONE ×3 (10:58→13:58)
[2016-12-21] MEDS ORDERED: PROPOFOL 20 ML IV ONE ×2 (10:58→13:19)
[2016-12-21] MEDS ORDERED: DESFLURANE 61 TO 120 MINUTES IH ONE (10:58)
[2016-12-21] MEDS: VANCOMYCIN PER PHARMACY MC PRN (11:22)
[2016-12-21] MEDS ORDERED: IV RINGERS,LACTATED 1000ML 1,000 ML IV SCH (14:00)
[2016-12-21] MEDS ORDERED: LIDOCAINE 1% 1 ML SYRINGE. ID PRN (14:15)
[2016-12-21] MEDS ORDERED: ONDANSETRON PF 4 MG/2 ML VIAL. IV PRN (14:15)
[2016-12-21] MEDS: fentaNYL PF VIAL 100 MCG/2 ML VIAL IV PRN ×2 (14:15→14:37)
[2016-12-21] MEDS ORDERED: MORPHINE SULFATE 2 MG/ML DISP.SYRIN. IV PRN (14:15)
[2016-12-21] MEDS ORDERED: fentaNYL PF VIAL 100 MCG/2 ML VIAL IV PRN (14:15)
[2016-12-21] MEDS ORDERED: PROCHLORPERAZINE 10 MG/2 ML VIAL. IV PRN (14:15)
--- NOTE | 2016-12-21 16:42 | PDOC ---
PROGRESS NOTES Chief Complaint Chief Complaint septic knee, + sepsis screen today, febrile obesity, BMI 35 personality disorder or schizotypal, History of Present Illness History of Present Illness to surg today DR. More pain management ongoing cont abx Vitals Vitals Vital Signs Date Time Temp Pulse Resp B/P (MAP) Pulse Ox O2 Delivery O2 Flow Rate FiO2 12/21/16 15:45 97.7 71 16 115/73 (87) 92 Room Air 97.7 12/21/16 15:30 3.0 Physical Exam General: Alert, No acute distress Heart: Regular rate, Normal S1, Normal S2, Other (2/6 systolic murmur to LLS border) Lungs: Clear Abdomen: Soft, No tenderness Extremities: No cyanosis, Other (3+ RLE pitting edema; LLE 2+ pitting edema) Skin: No rashes, No breakdown Labs LABS Laboratory Tests Test 12/20/16 20:35 12/21/16 06:15 12/21/16 07:37 12/21/16 11:08 Glucose (Fingerstick) 112 mg/dL (70-99) 121 mg/dL (70-99) 113 mg/dL (70-99) White Blood Count 7.9 x10^3/uL (4.0-11.0) Red Blood Count 3.92 x10^6/uL (3.50-5.40) Hemoglobin 11.6 g/dL (12.0-15.5) Hematocrit 35.4 % (36.0-47.0) Mean Corpuscular Volume 90 fL (79-100) Mean Corpuscular Hemoglobin 30 pg (25-35) Mean Corpuscular Hemoglobin Concent 33 g/dL (31-37) Red Cell Distribution Width 13.6 % (11.5-14.5) Platelet Count 441 x10^3/uL (140-400) Neutrophils (%) (Auto) 61 % (31-73) Lymphocytes (%) (Auto) 29 % (24-48) Monocytes (%) (Auto) 7 % (0-9) Eosinophils (%) (Auto) 2 % (0-3) Basophils (%) (Auto) 1 % (0-3) Neutrophils # (Auto) 4.8 x10^3uL (1.8-7.7) Lymphocytes # (Auto) 2.3 x10^3/uL (1.0-4.8) Monocytes # (Auto) 0.6 x10^3/uL (0.0-1.1) Eosinophils # (Auto) 0.1 x10^3/uL (0.0-0.7) Basophils # (Auto) 0.1 x10^3/uL (0.0-0.2) Sodium Level 140 mmol/L (136-145) Potassium Level 4.0 mmol/L (3.5-5.1) Chloride Level 101 mmol/L (98-107) Carbon Dioxide Level 34 mmol/L (21-32) Anion Gap 5 (6-14) Blood Urea Nitrogen 7 mg/dL (7-20) Creatinine 0.5 mg/dL (0.6-1.0) Estimated GFR (Cockcroft-Gault) 125.9 BUN/Creatinine Ratio 14 (6-20) Glucose Level 119 mg/dL (70-99) Calcium Level 9.1 mg/dL (8.5-10.1) Total Bilirubin 0.4 mg/dL (0.2-1.0) Aspartate Amino Transf (AST/SGOT) 49 U/L (15-37) Alanine Aminotransferase (ALT/SGPT) 52 U/L (14-59) Alkaline Phosphatase 193 U/L (46-116) Total Protein 7.1 g/dL (6.4-8.2) Albumin 1.8 g/dL (3.4-5.0) Albumin/Globulin Ratio 0.3 (1.0-1.7) Test 12/21/16 13:37 Glucose (Fingerstick) 171 mg/dL (70-99) Assessment and Plan Assessmemt and Plan Problems Medical Problems: (1) Bacteremia Status: Acute Problems: Comment Review of Relevant I have reviewed the following items mary (where applicable) has been applied. Labs Laboratory Tests Test 12/19/16 17:00 12/19/16 21:46 12/20/16 07:26 12/20/16 08:41 Glucose (Fingerstick) 134 mg/dL (70-99) 181 mg/dL (70-99) 62 mg/dL (70-99) 115 mg/dL (70-99) Test 12/20/16 11:34 12/20/16 13:30 12/20/16 16:32 12/20/16 20:35 Glucose (Fingerstick) 137 mg/dL (70-99) 94 mg/dL (70-99) 112 mg/dL (70-99) Sodium Level 140 mmol/L (136-145) Potassium Level 4.1 mmol/L (3.5-5.1) Chloride Level 104 mmol/L (98-107) Carbon Dioxide Level 29 mmol/L (21-32) Anion Gap 7 (6-14) Blood Urea Nitrogen 11 mg/dL (7-20) Creatinine 0.8 mg/dL (0.6-1.0) Estimated GFR (Cockcroft-Gault) 73.2 Glucose Level 163 mg/dL (70-99) Calcium Level 7.9 mg/dL (8.5-10.1) Magnesium Level 1.8 mg/dL (1.8-2.4) Vancomycin Level Trough 12.7 mcg/mL (10.0-20.0) Vancomycin Last Dose Date 12/20/16 Vancomycin Last Dose Time 0600 Test 12/21/16 06:15 12/21/16 07:37 12/21/16 11:08 12/21/16 13:37 White Blood Count 7.9 x10^3/uL (4.0-11.0) Red Blood Count 3.92 x10^6/uL (3.50-5.40) Hemoglobin 11.6 g/dL (12.0-15.5) Hematocrit 35.4 % (36.0-47.0) Mean Corpuscular Volume 90 fL (79-100) Mean Corpuscular Hemoglobin 30 pg (25-35) Mean Corpuscular Hemoglobin Concent 33 g/dL (31-37) Red Cell Distribution Width 13.6 % (11.5-14.5) Platelet Count 441 x10^3/uL (140-400) Neutrophils (%) (Auto) 61 % (31-73) Lymphocytes (%) (Auto) 29 % (24-48) Monocytes (%) (Auto) 7 % (0-9) Eosinophils (%) (Auto) 2 % (0-3) Basophils (%) (Auto) 1 % (0-3) Neutrophils # (Auto) 4.8 x10^3uL (1.8-7.7) Lymphocytes # (Auto) 2.3 x10^3/uL (1.0-4.8) Monocytes # (Auto) 0.6 x10^3/uL (0.0-1.1) Eosinophils # (Auto) 0.1 x10^3/uL (0.0-0.7) Basophils # (Auto) 0.1 x10^3/uL (0.0-0.2) Sodium Level 140 mmol/L (136-145) Potassium Level 4.0 mmol/L (3.5-5.1) Chloride Level 101 mmol/L (98-107) Carbon Dioxide Level 34 mmol/L (21-32) Anion Gap 5 (6-14) Blood Urea Nitrogen 7 mg/dL (7-20) Creatinine 0.5 mg/dL (0.6-1.0) Estimated GFR (Cockcroft-Gault) 125.9 BUN/Creatinine Ratio 14 (6-20) Glucose Level 119 mg/dL (70-99) Calcium Level 9.1 mg/dL (8.5-10.1) Total Bilirubin 0.4 mg/dL (0.2-1.0) Aspartate Amino Transf (AST/SGOT) 49 U/L (15-37) Alanine Aminotransferase (ALT/SGPT) 52 U/L (14-59) Alkaline Phosphatase 193 U/L (46-116) Total Protein 7.1 g/dL (6.4-8.2) Albumin 1.8 g/dL (3.4-5.0) Albumin/Globulin Ratio 0.3 (1.0-1.7) Glucose (Fingerstick) 121 mg/dL (70-99) 113 mg/dL (70-99) 171 mg/dL (70-99) Laboratory Tests Test 12/20/16 20:35 12/21/16 06:15 12/21/16 07:37 12/21/16 11:08 Glucose (Fingerstick) 112 mg/dL (70-99) 121 mg/dL (70-99) 113 mg/dL (70-99) White Blood Count 7.9 x10^3/uL (4.0-11.0) Red Blood Count 3.92 x10^6/uL (3.50-5.40) Hemoglobin 11.6 g/dL (12.0-15.5) Hematocrit 35.4 % (36.0-47.0) Mean Corpuscular Volume 90 fL (79-100) Mean Corpuscular Hemoglobin 30 pg (25-35) Mean Corpuscular Hemoglobin Concent 33 g/dL (31-37) Red Cell Distribution Width 13.6 % (11.5-14.5) Platelet Count 441 x10^3/uL (140-400) Neutrophils (%) (Auto) 61 % (31-73) Lymphocytes (%) (Auto) 29 % (24-48) Monocytes (%) (Auto) 7 % (0-9) Eosinophils (%) (Auto) 2 % (0-3) Basophils (%) (Auto) 1 % (0-3) Neutrophils # (Auto) 4.8 x10^3uL (1.8-7.7) Lymphocytes # (Auto) 2.3 x10^3/uL (1.0-4.8) Monocytes # (Auto) 0.6 x10^3/uL (0.0-1.1) Eosinophils # (Auto) 0.1 x10^3/uL (0.0-0.7) Basophils # (Auto) 0.1 x10^3/uL (0.0-0.2) Sodium Level 140 mmol/L (136-145) Potassium Level 4.0 mmol/L (3.5-5.1) Chloride Level 101 mmol/L (98-107) Carbon Dioxide Level 34 mmol/L (21-32) Anion Gap 5 (6-14) Blood Urea Nitrogen 7 mg/dL (7-20) Creatinine 0.5 mg/dL (0.6-1.0) Estimated GFR (Cockcroft-Gault) 125.9 BUN/Creatinine Ratio 14 (6-20) Glucose Level 119 mg/dL (70-99) Calcium Level 9.1 mg/dL (8.5-10.1) Total Bilirubin 0.4 mg/dL (0.2-1.0) Aspartate Amino Transf (AST/SGOT) 49 U/L (15-37) Alanine Aminotransferase (ALT/SGPT) 52 U/L (14-59) Alkaline Phosphatase 193 U/L (46-116) Total Protein 7.1 g/dL (6.4-8.2) Albumin 1.8 g/dL (3.4-5.0) Albumin/Globulin Ratio 0.3 (1.0-1.7) Test 12/21/16 13:37 Glucose (Fingerstick) 171 mg/dL (70-99) Medications Current Medications Ondansetron HCl (Zofran) 4 mg PRN Q8HRS PRN IV NAUSEA/VOMITING Last administered on 12/18/16 23:22; Start 12/18/16 at 16:00; Stop 12/19/16 at 15:59 ; Status DC Acetaminophen (Tylenol) 650 mg PRN Q4HRS PRN PO FEVER Last administered on 12/18 18:10; Start 12/18/16 at 16:00; Stop 12/19/16 at 15:59; Status DC Vancomycin HCl (Vanco Per Pharmacy) 1 each PRN DAILY PRN MC SEE COMMENTS; Start 12/18/16 at 16:00; Status UNV Vancomycin HCl (Vanco Per Pharmacy) 1 each PRN DAILY PRN MC SEE COMMENTS Last administered on 12/21/16 11:22; Start 12/18/16 at 17:15 Vancomycin HCl 1 each 1X ONCE MC ; Start 12/18/16 at 17:15; Stop 12/18/16 at 17 :15; Status DC Vancomycin HCl 1.25 gm/Sodium Chloride 250 ml @ 167 mls/hr Q12H IV Last administered on 12/19/16 06:26; Start 12/18/16 at 18:00; Stop 12/19/16 at 08:00 ; Status DC Vancomycin HCl 1 each 1X ONCE MC Last administered on 12/19/16 05:30; Start 12/19/16 at 05:30; Stop 12/19/16 at 05:31; Status DC Carvedilol (Coreg) 25 mg BIDWMEALS PO Last administered on 12/21/16 09:59; Start 12/19/16 at 18:00 Clopidogrel Bisulfate (Plavix) 75 mg DAILY PO Last administered on 12/20/16 08 :13; Start 12/19/16 at 09:00 Furosemide (Lasix) 40 mg DAILY PO Last administered on 12/20/16 08:13; Start 12/19/16 at 09:00; Stop 12/20/16 at 14:04; Status DC Oxycodone/ Acetaminophen (Percocet 7.5/ 325) 1 tab BID PO Last administered on 12/19/16 08:25; Start 12/18/16 at 21:00; Stop 12/19/16 at 13:29; Status DC Pantoprazole Sodium (Protonix) 40 mg DAILY PO Last administered on 12/20/16 08 :13; Start 12/19/16 at 09:00 Phenytoin Sodium (Dilantin) 200 mg BID PO Last administered on 12/20/16 21:47 ; Start 12/18/16 at 21:00 Non-Formulary Medication 2 puff PRN Q4-6HRS IH ; Start 12/18/16 at 17:30; Stop 12/18/16 at 18:06; Status DC Atorvastatin Calcium (Lipitor) 80 mg QHS PO Last administered on 12/20/16 21: 48; Start 12/18/16 at 21:00 Diazepam (Valium) 10 mg BID PO Last administered on 12/20/16 21:48; Start at 21:00 Non-Formulary Medication 2 inh BID IH ; Start 12/18/16 at 21:00; Stop 12/18/16 at 21:00; Status DC Insulin Detemir (Levemir) 45 units BID SQ Last administered on 12/20/16 08:22 ; Start 12/18/16 at 21:00; Stop 12/20/16 at 10:03; Status DC Insulin Aspart (NovoLOG) 15 units TIDAC SQ Last administered on 12/19/16 17:40 ; Start 12/19/16 at 18:00 Isosorbide Mononitrate (Imdur) 60 mg DAILY PO Last administered on 12/20/16 08 :13; Start 12/19/16 at 09:00 Non-Formulary Medication 3 puff BID IH ; Start 12/18/16 at 21:00; Stop 12/18/16 at 21:00; Status DC Phenobarbital (Luminal) 48.6 mg BID PO Last administered on 12/20/16 21:49; Start 12/18/16 at 21:00 Potassium Chloride (Klor-Con) 20 meq DAILYWBKFT PO Last administered on 08:13; Start 12/19/16 at 08:00 Non-Formulary Medication 25 mg BID PO ; Start 12/18/16 at 21:00; Stop 12/18/16 at 21:00; Status DC Oxycodone HCl (Roxicodone) 10 mg PRN Q4HRS PRN PO PAIN Last administered on 19:54; Start 12/18/16 at 17:45 Ketorolac Tromethamine (Toradol) 15 mg PRN Q6HRS PRN IV pain Last administered on 12/21/16 13:49; Start 12/18/16 at 17:45; Stop 12/23/16 at 17:44 Insulin Aspart (NovoLOG) 0-9 UNITS TIDWMEALS SQ Last administered on 12/19/16 08:33; Start 12/19/16 at 08:00 Dextrose (Dextrose 50%-Water Syringe) 12.5 gm PRN Q15MIN PRN IV SEE COMMENTS; Start 12/18/16 at 17:45 Albuterol Sulfate (Ventolin Neb Soln) 2.5 mg RTQID NEB Last administered on 07:01; Start 12/18/16 at 20:00 Albuterol Sulfate (Ventolin Neb Soln) 2.5 mg PRN Q4HRS PRN NEB SHORTNESS OF BREATH Last administered on 12/21/16 14:36; Start 12/18/16 at 18:15 Budesonide (Pulmicort) 0.5 mg RTBID NEB Last administered on 12/21/16 07:02; Start 12/18/16 at 20:00 Lorazepam (Ativan) 0.5 mg PRN Q8HRS PRN PO ANXIETY / AGITATION Last administered on 12/19/16 14:53; Start 12/18/16 at 18:45 Vancomycin HCl 1 gm/Sodium Chloride 250 ml @ 250 mls/hr Q8HRS IV Last administered on 12/20/16 14:26; Start 12/19/16 at 14:00; Stop 12/20/16 at 16:00 ; Status DC Vancomycin HCl 1 each 1X ONCE MC Last administered on 12/20/16 13:30; Start 12/20/16 at 13:30; Stop 12/20/16 at 13:31; Status DC Sodium Chloride 1,000 ml @ 125 mls/hr 1X ONCE IV Last administered on 13:47; Start 12/19/16 at 13:30; Stop 12/19/16 at 21:29; Status DC Oxycodone/ Acetaminophen (Percocet 7.5/ 325) 2 tab BID PO Last administered on 12/21/16 09:57; Start 12/19/16 at 14:00 Docusate Sodium (Colace) 100 mg DAILY PO Last administered on 12/20/16 08:12; Start 12/19/16 at 14:00 Polyethylene Glycol (miraLAX PACKET) 17 gm 1X ONCE PO Last administered on 13:54; Start 12/19/16 at 14:00; Stop 12/19/16 at 14:01; Status DC Polyethylene Glycol (miraLAX PACKET) 17 gm PRN DAILY PRN PO CONSTIPATION; Start 12/19/16 at 13:45 Insulin Detemir (Levemir) 40 units BID SQ ; Start 12/20/16 at 21:00 Sodium Chloride 1,000 ml @ 1,000 mls/hr 1X ONCE IV Last administered on 11:51; Start 12/20/16 at 12:00; Stop 12/20/16 at 12:59; Status DC Sodium Chloride 1,000 ml @ 1,000 mls/hr 1X ONCE IV Last administered on 13:23; Start 12/20/16 at 12:00; Stop 12/20/16 at 12:59; Status DC Furosemide (Lasix) 40 mg DAILY PO ; Start 12/21/16 at 09:00 Vancomycin HCl 1.25 gm/Sodium Chloride 250 ml @ 167 mls/hr Q8HRS IV Last administered on 12/21/16 14:00; Start 12/20/16 at 22:00 Dexamethasone Sodium Phosphate (Decadron) 20 mg STK-MED ONCE .ROUTE ; Start at 10:58; Stop 12/21/16 at 10:59; Status DC Ondansetron HCl (Zofran) 4 mg STK-MED ONCE .ROUTE ; Start 12/21/16 at 10:58; Stop 12/21/16 at 10:59; Status DC Propofol 20 ml @ As Directed STK-MED ONCE IV ; Start 12/21/16 at 10:58; Stop at 10:59; Status DC Lidocaine HCl (Lidocaine Pf 2% Vial) 5 ml STK-MED ONCE .ROUTE ; Start 12/21/16 at 10:58; Stop 12/21/16 at 10:59; Status DC Desflurane (Suprane) 60 ml STK-MED ONCE IH ; Start 12/21/16 at 10:58; Stop 12/21 at 10:59; Status DC Fentanyl Citrate (Fentanyl 2ml Vial) 100 mcg STK-MED ONCE .ROUTE ; Start at 10:58; Stop 12/21/16 at 10:59; Status DC Midazolam HCl (Versed) 2 mg STK-MED ONCE .ROUTE ; Start 12/21/16 at 10:58; Stop 12/21/16 at 10:59; Status DC Fentanyl Citrate (Fentanyl 2ml Vial) 100 mcg STK-MED ONCE .ROUTE ; Start at 12:50; Stop 12/21/16 at 12:51; Status DC Propofol 20 ml @ As Directed STK-MED ONCE IV ; Start 12/21/16 at 13:19; Stop at 13:20; Status DC Fentanyl Citrate (Fentanyl 2ml Vial) 100 mcg STK-MED ONCE .ROUTE ; Start at 13:58; Stop 12/21/16 at 13:59; Status DC Ondansetron HCl (Zofran) 4 mg PRN Q6HRS PRN IV NAUSEA/VOMITING; Start 12/21/16 at 14:15; Stop 12/21/16 at 19:00 Fentanyl Citrate (Fentanyl 2ml Vial) 25 mcg PRN Q5MIN PRN IV MILD PAIN; Start 12/21/16 at 14:15; Stop 12/21/16 at 19:00 Fentanyl Citrate (Fentanyl 2ml Vial) 50 mcg PRN Q5MIN PRN IV MODERATE PAIN Last administered on 12/21/16t 14:37; Start 12/21/16 at 14:15; Stop 12/21/16 at 19:00 Morphine Sulfate 1 mg PRN Q10MIN PRN IV SEVERE PAIN; Start 12/21/16 at 14:15; Stop 12/21/16 at 19:00 Ringer's Solution 1,000 ml @ 30 mls/hr Q24H IV ; Start 12/21/16 at 14:00; Stop 12/21/16 at 15:19; Status DC Lidocaine HCl 2 ml PRN 1X PRN ID PRIOR TO IV START; Start 12/21/16 at 14:15; Stop 12/21/16 at 19:00 Prochlorperazine Edisylate (Compazine) 5 mg PACU PRN PRN IV NAUSEA, MRX1; Start 12/21/16 at 14:15; Stop 12/21/16 at 19:00 Active Scripts Active Reported [albuterol ] 25 Mg PO BID Phenobarbital 100 Mg Tablet 50 Mg PO BID Potassium Chloride 20 Meq Tablet.er 20 Meq PO DAILY Furosemide 40 Mg Tablet 40 Mg PO DAILY [place] 7.5-325 Tablet (Acetaminophen/Hydrocodone Bitart) 1 Each Tablet 1 Tab PO PRN Q6HRS PRN Humalog (Insulin Lispro) 100 Unit/1 Ml Vial 75 Unit SQ TIDAC Protonix (Pantoprazole Sodium) 40 Mg Tablet.dr 40 Mg PO DAILY Plavix (Clopidogrel Bisulfate) 75 Mg Tablet 75 Mg PO DAILY Proair Hfa Inhaler (Albuterol Sulfate) 8.5 Gm Hfa.aer.ad 2 Puff IH PRN Q4-6HRS Phenytoin Sodium Extended 100 Mg Capsule 100 Mg PO FOUR TIMES A DAILY Lantus (Insulin Glargine,Hum.rec.anlog) 100 Unit/1 Ml Vial 75 Unit SQ BID Oxycodon-Acetaminophen 7.5-325 (Oxycodone Hcl/Acetaminophen) 1 Each Tablet 1 Each PO BID Diazepam 10 Mg Tablet 10 Mg PO BID Dulera 200 Mcg/5 Mcg Inhaler (Mometasone/Formoterol) 13 Gm Hfa.aer.ad 3 Puff IH BID Advair 500-50 Diskus (Fluticasone/Salmeterol) 1 Each Disk.w.dev 2 Inh IH BID Atorvastatin Calcium 80 Mg Tablet 80 Mg PO HS Carvedilol 12.5 Mg Tablet 25 Mg PO BIDWMEALS Isosorbide Mononitrate Er (Isosorbide Mononitrate) 60 Mg Tab.er.24h 60 Mg PO DAILY Vitals/I & O Vital Sign - Last 24 Hours 12/20/16 12/20/16 12/20/16 12/20/16 17:33 19:31 19:36 19:37 Temp 99.7 99.7 Pulse 80 77 Resp 18 B/P (MAP) 148/86 177/82 (113) Pulse Ox 93 93 93 O2 Delivery Room Air Room Air Room Air 12/20/16 12/20/16 12/20/16 12/20/16 19:54 19:55 20:54 21:51 Resp 20 20 20 O2 Delivery Room Air Room Air Room Air Room Air 12/20/16 12/20/16 12/21/16 12/21/16 22:51 23:25 03:15 07:00 Temp 99.1 97.9 98.5 99.1 97.9 98.5 Pulse 85 66 74 Resp 20 18 18 18 B/P (MAP) 148/73 (98) 138/74 (95) 101/78 (86) Pulse Ox 93 91 94 O2 Delivery Room Air Room Air Room Air 12/21/16 12/21/16 12/21/16 12/21/16 07:03 07:45 08:10 09:57 Pulse 74 B/P (MAP) 101/78 Pulse Ox 95 O2 Delivery Room Air Nasal Cannula Room Air O2 Flow Rate 2.0 12/21/16 12/21/16 12/21/16 12/21/16 09:59 10:58 10:59 13:31 Temp 98.2 98.2 Pulse 74 71 Resp 15 B/P (MAP) 157/80 147/73 Pulse Ox 97 O2 Delivery Nasal Cannula Room Air Mask O2 Flow Rate 2.0 10 12/21/16 12/21/16 12/21/16 12/21/16 13:31 13:46 14:01 14:15 Temp 98.5 98.5 Pulse 70 69 70 Resp 20 20 20 B/P (MAP) 86/31 97/45 117/53 Pulse Ox 93 95 93 O2 Delivery Simple Mask Nasal Cannula Nasal Cannula Nasal Cannula O2 Flow Rate 10 2 2 2.0 12/21/16 12/21/16 12/21/16 12/21/16 14:16 14:31 14:37 14:45 Pulse 70 70 Resp 20 20 20 B/P (MAP) 117/53 110/60 Pulse Ox 96 96 93 O2 Delivery Nasal Cannula Nasal Cannula Nasal Cannula Nasal Cannula O2 Flow Rate 2 2 2.0 2 12/21/16 12/21/16 12/21/16 12/21/16 14:45 15:00 15:15 15:30 Temp 97.7 97.7 97.7 97.7 97.7 97.7 Pulse 70 68 70 70 Resp 20 17 17 16 B/P (MAP) 106/73 108/57 (74) 109/50 (69) 122/64 (83) Pulse Ox 96 95 95 96 O2 Delivery Nasal Cannula Nasal Cannula Nasal Cannula Nasal Cannula O2 Flow Rate 2 3.0 3.0 3.0 12/21/16 15:45 Temp 97.7 97.7 Pulse 71 Resp 16 B/P (MAP) 115/73 (87) Pulse Ox 92 O2 Delivery Room Air Intake and Output 12/20/16 12/20/16 12/21/16 15:00 23:00 07:00 Intake Total 3780 ml 380 ml 0 ml Balance 3780 ml 380 ml 0 ml HERIBERTO HART MD Dec 21, 2016 16:42
[2016-12-21] MEDS: POLYETHYLENE GLYCOL 3350 17 GM PACKET. PO PRN (17:25)
[2016-12-21] MEDS: ATORVASTATIN CALCIUM 40 MG TABLET. PO SCH (21:35)
[2016-12-22] VITALS (8 sets, daily range): BP systolic 72–122; BP diastolic 37–91
--- NOTE | 2016-12-22 00:05 | OP ---
DATE OF SURGERY: 12/21/2016 PREOPERATIVE DIAGNOSIS: Possible infected hardware, right distal femur, secondary to septic right knee joint. POSTOPERATIVE DIAGNOSIS: Possible infected hardware, right distal femur, secondary to septic right knee joint. PROCEDURE PERFORMED: Removal locking plate and screw hardware, right distal femur. SURGEON: Yusuf More M.D. BLACK [employer] WHITE PRINTER OPERATOR: Trisha Sorto, asset protection assistant. ANESTHESIA: General. ESTIMATED BLOOD LOSS: 250 mL. COMPLICATIONS: None. OPERATIVE INDICATIONS: The patient is a 61-year-old female who has a history of fixation of the distal femur fracture at [facility] that has now healed. She presented to [facility] initially with severe leg pain and inability to bear weight and was ultimately diagnosed with septic knee on the right by aspiration. She actually went home, failed to take any antibiotics and presented with methicillin Staph aureus bacteremia, a similar organism that was cultured out of her knee prior to the arthroscopic irrigation and debridement of her right knee. She subsequently underwent another hospital stay, left AMA due to her family situation and underwent a tagged white blood cell scan due to suspicion of possible infection of the hardware. Although the results of the tagged white blood cell scan were mild and equivocal, the patient felt strongly that she wanted the hardware removed. I told her that the only reason to do this is to really ensure the bacteria have no place to hide, if they are indeed infecting this area and causing some of her symptoms. I cannot guarantee in any way, however, that this will relieve her pain or really make her walk better as the plate has really no effect on that and fracture is well healed and the plate has, however, outgrown its usefulness and certainly can be safely removed which I think is a reasonable consideration, given the concern with infection, although it is not reasonable to expect any other benefits in terms of pain relief from its removal. She is very clear on this and clear that she does wish to proceed, having given informed consent. DESCRIPTION OF PROCEDURE: The patient was identified, procedure verified. The patient was placed in the supine position on the operating table. After adequate amounts of general endotracheal anesthesia were administered, the right lower extremity was prepped and draped in the standard sterile fashion with a bump under the right buttock. After time-out was performed, the patient and procedure were identified and verified, an incision was made over the distal aspect of the plate. Iliotibial band was divided in line and the distal plate was exposed and approximately 6 screws were removed from the distal femoral condyle. It was noted on exposure of the plate that the joint fluid was obtained, mildly cloudy in nature, not purulent, but nevertheless did appear to communicate with the knee joint potentially in terms of the hardware. In evaluation of the x-ray, she had four proximally-placed shaft screws that were somewhat . I made two separate incisions at the midpoint of where the each 2 screws were located. Dissection was carried out down to the plate and screws were successfully removed. A [place] elevator then was run up the plate to remove any periosteum or overgrowing bone and the plate was taken out through the distal incision. Thorough irrigation was carried out with normal saline solution. Bleeding points were controlled by electrocautery. Fascia was closed with #1 Vicryl Plus suture in an interrupted fashion, subcutaneous closure with buried 2-0 Vicryl Plus suture, skin closure with lamont. Sterile dressings were applied. The patient was returned to the recovery room in stable condition, having tolerated the procedure well. Please note Trisha Sorto, asset protection assistant, was present for the prepping and draping, assisted in retraction and skin closure. YUSUF MORE MD DR: DOMENIC/erica JOB#: [id number] / [id number]
[2016-12-22] MEDS: LORazepam 0.5 MG TABLET PO PRN (00:06)
[2016-12-22] MEDS: oxyCODONE IR 5 MG TABLET PO PRN (03:00)
[2016-12-22] MEDS: VANCOMYCIN 1.25 GM in IV NORMAL SALINE 250ML 250 ML IV SCH ×2 (06:03→12:55)
[2016-12-22] MEDS: KETOROLAC 15 MG/ML VIAL. IV PRN (06:33)
[2016-12-22] MEDS: BUDESONIDE 0.5 MG/2 ML NEBU. NEB SCH ×2 (07:05→20:00)
[2016-12-22] MEDS: ALBUTEROL SULFATE 2.5 MG/3 ML NEBU. NEB SCH ×4 (07:06→20:00)
[2016-12-22] MEDS: INSULIN ASPART 300 UNITS/3 ML INSULN.PEN SQ SCH ×6 (08:00→17:00)
[2016-12-22] MEDS: DOCUSATE SODIUM 100 MG CAPSULE. PO SCH (09:09)
[2016-12-22] MEDS: CARVEDILOL 12.5 MG TABLET. PO SCH ×2 (09:10→17:00)
[2016-12-22] MEDS: PHENobarbital 32.4 MG TABLET. PO SCH ×2 (09:10→20:51)
[2016-12-22] MEDS: PHENYTOIN SODIUM EXTENDED 100 MG CAPSULE PO SCH ×2 (09:11→20:49)
[2016-12-22] MEDS: oxyCODONE/APAP 7.5/325 1 TAB TABLET PO SCH ×2 (09:11→20:50)
[2016-12-22] MEDS: PANTOPRAZOLE 40 MG TABLET.DR. PO SCH (09:12)
[2016-12-22] MEDS: POTASSIUM CHLORIDE 20 MEQ TABLET.ER. PO SCH (09:12)
[2016-12-22] MEDS: diazePAM 5 MG TABLET PO SCH ×2 (09:12→20:51)
[2016-12-22] MEDS: CLOPIDOGREL BISULFATE 75 MG TABLET PO SCH (09:13)
[2016-12-22] MEDS: ISOSORBIDE MONONITRATE ER 30 MG TAB.ER.24H PO SCH (09:13)
[2016-12-22] MEDS: FUROSEMIDE 40 MG TABLET. PO SCH (09:13)
[2016-12-22] MEDS: INSULIN DETEMIR 300 UNITS/3 ML INSULN.PEN. SQ SCH ×2 (09:41→20:52)
[2016-12-22] MEDS: VANCOMYCIN PER PHARMACY MC PRN (11:38)
--- NOTE | 2016-12-22 12:56 | PDOC ---
Infectious Disease Note Subjective Subjective s/p hardware removal c/o pain Less cough No fever last 24 hours ROS ROS GEN: Denies chills, sweats CV: Denies chest pain RESP: Denies shortness of air GI: Denies n/v/d Vital Sign Vital Signs Vital Signs Date Time Temp Pulse Resp B/P (MAP) Pulse Ox O2 Delivery O2 Flow Rate FiO2 12/22/16 11:00 97.1 80 16 95/46 (62) 90 Room Air 97.1 12/21/16 15:30 3.0 Physical Exam PHYSICAL EXAM GENERAL: Propped up in bed, NAD LUNGS: Clear HEART: S1S2, + murmur ABD: Soft, NT EXT: RLE trace edema,, right leg post-op dressing dry, DP palpable COMMERCIAL FISHER: Alert, oriented. SKIN: No rash Peripheral IV Labs Lab Laboratory Tests Test 12/21/16 13:37 12/21/16 16:51 12/21/16 20:50 12/22/16 07:52 Glucose (Fingerstick) 171 mg/dL (70-99) 304 mg/dL (70-99) 272 mg/dL (70-99) 205 mg/dL (70-99) Test 12/22/16 11:54 Glucose (Fingerstick) 250 mg/dL (70-99) Micro 12/18. BLOOD CULTURE Preliminary NO GROWTH AFTER 2 DAY Objective Assessment Fever, better MSSA bacteremia with murmur, POA. 12/16. -RF 13.0. Repeat BC from 12/18 NGTD. TTE neg veg Right knee septic joint with hardware in close proximity. s/p removal of hardware, 12/21. -small focus of minimally increased activity in the distal right femur medially on tag WBC scan, 12/19 -s/p right knee arthroscopy irrigation, debridement, partial synovectomy and partial medial and lateral meniscectomy, 12/10 -s/p joint aspiration 12/09. culture MSSA -h/o ORIF distal femur fracture Apr 2016 Leukocytosis, trending down Allergy to cephalosporins, penicillin and sulfa. Reactions unclear, only to say can't have them. Diabetes Transaminitis h/o seizures h/o alcoholism & substance abuse Plan Plan of Care Vanc for now Trough 12.7 Monitor WBC, CR and temp Repeat BC from 12/18 NGTD Will need PICC and IV antibiotics for a minimum of 6 weeks D/w Dr. Keene Attending Co-Sign The patient was seen and interviewed as well as examined at the bedside. The chart was reviewed. The case was discussed. Agree with the plan of care. pt agreed to take cefazolin ( no allergy, she thinks it does not work, because they gave it to her for UTI and did not work ) CK ALVES APRN Dec 22, 2016 12:56 OMA AMARAL MD Dec 22, 2016 14:36
--- NOTE | 2016-12-22 14:11 | PDOC ---
PROGRESS NOTES Chief Complaint Chief Complaint septic knee, + sepsis screen today, febrile obesity, BMI 35 personality disorder or schizotypal, History of Present Illness History of Present Illness pain 20/10 at rest today, and worse with me palpating her right leg, This pain level makes me feel OK about her prior 10/10 pain 2 days ago, s./p hardware removal right knee, POD #1, cont abx, discussed with ID team, who discussed changing the abx from vanco Vitals Vitals Vital Signs Date Time Temp Pulse Resp B/P (MAP) Pulse Ox O2 Delivery O2 Flow Rate FiO2 12/22/16 11:00 97.1 80 16 95/46 (62) 90 Room Air 97.1 12/21/16 15:30 3.0 Physical Exam General: Alert, Cooperative, No acute distress, Other (odd affect still) Heart: Regular rate, Normal S1, Normal S2, Other (2/6 systolic murmur to LLS border) Lungs: Clear Abdomen: Soft, No tenderness Extremities: No cyanosis, Other (3+ RLE pitting edema; LLE 2+ pitting edema) Skin: No rashes, No breakdown Labs LABS Laboratory Tests Test 12/21/16 16:51 12/21/16 20:50 12/22/16 07:52 12/22/16 11:54 Glucose (Fingerstick) 304 mg/dL (70-99) 272 mg/dL (70-99) 205 mg/dL (70-99) 250 mg/dL (70-99) Review of Systems Review of Systems knee pain, no other complaint, eating well, "I'm forcing myself" Assessment and Plan Assessmemt and Plan Problems Medical Problems: (1) Bacteremia Status: Acute Problems: Comment Review of Relevant I have reviewed the following items mary (where applicable) has been applied. Labs Laboratory Tests Test 12/20/16 16:32 12/20/16 20:35 12/21/16 06:15 12/21/16 07:37 Glucose (Fingerstick) 94 mg/dL (70-99) 112 mg/dL (70-99) 121 mg/dL (70-99) White Blood Count 7.9 x10^3/uL (4.0-11.0) Red Blood Count 3.92 x10^6/uL (3.50-5.40) Hemoglobin 11.6 g/dL (12.0-15.5) Hematocrit 35.4 % (36.0-47.0) Mean Corpuscular Volume 90 fL (79-100) Mean Corpuscular Hemoglobin 30 pg (25-35) Mean Corpuscular Hemoglobin Concent 33 g/dL (31-37) Red Cell Distribution Width 13.6 % (11.5-14.5) Platelet Count 441 x10^3/uL (140-400) Neutrophils (%) (Auto) 61 % (31-73) Lymphocytes (%) (Auto) 29 % (24-48) Monocytes (%) (Auto) 7 % (0-9) Eosinophils (%) (Auto) 2 % (0-3) Basophils (%) (Auto) 1 % (0-3) Neutrophils # (Auto) 4.8 x10^3uL (1.8-7.7) Lymphocytes # (Auto) 2.3 x10^3/uL (1.0-4.8) Monocytes # (Auto) 0.6 x10^3/uL (0.0-1.1) Eosinophils # (Auto) 0.1 x10^3/uL (0.0-0.7) Basophils # (Auto) 0.1 x10^3/uL (0.0-0.2) Sodium Level 140 mmol/L (136-145) Potassium Level 4.0 mmol/L (3.5-5.1) Chloride Level 101 mmol/L (98-107) Carbon Dioxide Level 34 mmol/L (21-32) Anion Gap 5 (6-14) Blood Urea Nitrogen 7 mg/dL (7-20) Creatinine 0.5 mg/dL (0.6-1.0) Estimated GFR (Cockcroft-Gault) 125.9 BUN/Creatinine Ratio 14 (6-20) Glucose Level 119 mg/dL (70-99) Calcium Level 9.1 mg/dL (8.5-10.1) Total Bilirubin 0.4 mg/dL (0.2-1.0) Aspartate Amino Transf (AST/SGOT) 49 U/L (15-37) Alanine Aminotransferase (ALT/SGPT) 52 U/L (14-59) Alkaline Phosphatase 193 U/L (46-116) Total Protein 7.1 g/dL (6.4-8.2) Albumin 1.8 g/dL (3.4-5.0) Albumin/Globulin Ratio 0.3 (1.0-1.7) Test 12/21/16 11:08 12/21/16 13:37 12/21/16 16:51 12/21/16 20:50 Glucose (Fingerstick) 113 mg/dL (70-99) 171 mg/dL (70-99) 304 mg/dL (70-99) 272 mg/dL (70-99) Test 12/22/16 07:52 12/22/16 11:54 Glucose (Fingerstick) 205 mg/dL (70-99) 250 mg/dL (70-99) Laboratory Tests Test 12/21/16 16:51 12/21/16 20:50 12/22/16 07:52 12/22/16 11:54 Glucose (Fingerstick) 304 mg/dL (70-99) 272 mg/dL (70-99) 205 mg/dL (70-99) 250 mg/dL (70-99) Medications Current Medications Ondansetron HCl (Zofran) 4 mg PRN Q8HRS PRN IV NAUSEA/VOMITING Last administered on 12/18/16 23:22; Start 12/18/16 at 16:00; Stop 12/19/16 at 15:59 ; Status DC Acetaminophen (Tylenol) 650 mg PRN Q4HRS PRN PO FEVER Last administered on 12/18 18:10; Start 12/18/16 at 16:00; Stop 12/19/16 at 15:59; Status DC Vancomycin HCl (Vanco Per Pharmacy) 1 each PRN DAILY PRN MC SEE COMMENTS; Start 12/18/16 at 16:00; Status UNV Vancomycin HCl (Vanco Per Pharmacy) 1 each PRN DAILY PRN MC SEE COMMENTS Last administered on 12/22/16 11:38; Start 12/18/16 at 17:15 Vancomycin HCl 1 each 1X ONCE MC ; Start 12/18/16 at 17:15; Stop 12/18/16 at 17 :15; Status DC Vancomycin HCl 1.25 gm/Sodium Chloride 250 ml @ 167 mls/hr Q12H IV Last administered on 12/19/16 06:26; Start 12/18/16 at 18:00; Stop 12/19/16 at 08:00 ; Status DC Vancomycin HCl 1 each 1X ONCE MC Last administered on 12/19/16 05:30; Start 12/19/16 at 05:30; Stop 12/19/16 at 05:31; Status DC Carvedilol (Coreg) 25 mg BIDWMEALS PO Last administered on 12/22/16 09:10; Start 12/19/16 at 18:00 Clopidogrel Bisulfate (Plavix) 75 mg DAILY PO Last administered on 12/22/16 09 :13; Start 12/19/16 at 09:00 Furosemide (Lasix) 40 mg DAILY PO Last administered on 12/20/16 08:13; Start 12/19/16 at 09:00; Stop 12/20/16 at 14:04; Status DC Oxycodone/ Acetaminophen (Percocet 7.5/ 325) 1 tab BID PO Last administered on 12/19/16 08:25; Start 12/18/16 at 21:00; Stop 12/19/16 at 13:29; Status DC Pantoprazole Sodium (Protonix) 40 mg DAILY PO Last administered on 12/22/16 09 :12; Start 12/19/16 at 09:00 Phenytoin Sodium (Dilantin) 200 mg BID PO Last administered on 12/22/16 09:11 ; Start 12/18/16 at 21:00 Non-Formulary Medication 2 puff PRN Q4-6HRS IH ; Start 12/18/16 at 17:30; Stop 12/18/16 at 18:06; Status DC Atorvastatin Calcium (Lipitor) 80 mg QHS PO Last administered on 12/21/16 21: 35; Start 12/18/16 at 21:00 Diazepam (Valium) 10 mg BID PO Last administered on 12/22/16 09:12; Start at 21:00 Non-Formulary Medication 2 inh BID IH ; Start 12/18/16 at 21:00; Stop 12/18/16 at 21:00; Status DC Insulin Detemir (Levemir) 45 units BID SQ Last administered on 12/20/16 08:22 ; Start 12/18/16 at 21:00; Stop 12/20/16 at 10:03; Status DC Insulin Aspart (NovoLOG) 15 units TIDAC SQ Last administered on 12/22/16 13:05 ; Start 12/19/16 at 18:00 Isosorbide Mononitrate (Imdur) 60 mg DAILY PO Last administered on 12/22/16 09 :13; Start 12/19/16 at 09:00 Non-Formulary Medication 3 puff BID IH ; Start 12/18/16 at 21:00; Stop 12/18/16 at 21:00; Status DC Phenobarbital (Luminal) 48.6 mg BID PO Last administered on 12/22/16 09:10; Start 12/18/16 at 21:00 Potassium Chloride (Klor-Con) 20 meq DAILYWBKFT PO Last administered on 09:12; Start 12/19/16 at 08:00 Non-Formulary Medication 25 mg BID PO ; Start 12/18/16 at 21:00; Stop 12/18/16 at 21:00; Status DC Oxycodone HCl (Roxicodone) 10 mg PRN Q4HRS PRN PO PAIN Last administered on 03:00; Start 12/18/16 at 17:45 Ketorolac Tromethamine (Toradol) 15 mg PRN Q6HRS PRN IV pain Last administered on 12/22/16 06:33; Start 12/18/16 at 17:45; Stop 12/23/16 at 17:44 Insulin Aspart (NovoLOG) 0-9 UNITS TIDWMEALS SQ Last administered on 12/22/16 13:03; Start 12/19/16 at 08:00 Dextrose (Dextrose 50%-Water Syringe) 12.5 gm PRN Q15MIN PRN IV SEE COMMENTS; Start 12/18/16 at 17:45 Albuterol Sulfate (Ventolin Neb Soln) 2.5 mg RTQID NEB Last administered on 07:06; Start 12/18/16 at 20:00 Albuterol Sulfate (Ventolin Neb Soln) 2.5 mg PRN Q4HRS PRN NEB SHORTNESS OF BREATH Last administered on 12/21/16 14:36; Start 12/18/16 at 18:15 Budesonide (Pulmicort) 0.5 mg RTBID NEB Last administered on 12/22/16 07:05; Start 12/18/16 at 20:00 Lorazepam (Ativan) 0.5 mg PRN Q8HRS PRN PO ANXIETY / AGITATION Last administered on 12/22/16 00:06; Start 12/18/16 at 18:45 Vancomycin HCl 1 gm/Sodium Chloride 250 ml @ 250 mls/hr Q8HRS IV Last administered on 12/20/16 14:26; Start 12/19/16 at 14:00; Stop 12/20/16 at 16:00 ; Status DC Vancomycin HCl 1 each 1X ONCE MC Last administered on 12/20/16 13:30; Start 12/20/16 at 13:30; Stop 12/20/16 at 13:31; Status DC Sodium Chloride 1,000 ml @ 125 mls/hr 1X ONCE IV Last administered on 13:47; Start 12/19/16 at 13:30; Stop 12/19/16 at 21:29; Status DC Oxycodone/ Acetaminophen (Percocet 7.5/ 325) 2 tab BID PO Last administered on 12/22/16 09:11; Start 12/19/16 at 14:00 Docusate Sodium (Colace) 100 mg DAILY PO Last administered on 12/22/16 09:09; Start 12/19/16 at 14:00 Polyethylene Glycol (miraLAX PACKET) 17 gm 1X ONCE PO Last administered on 13:54; Start 12/19/16 at 14:00; Stop 12/19/16 at 14:01; Status DC Polyethylene Glycol (miraLAX PACKET) 17 gm PRN DAILY PRN PO CONSTIPATION Last administered on 12/21/16 17:25; Start 12/19/16 at 13:45 Insulin Detemir (Levemir) 40 units BID SQ Last administered on 12/22/16 09:41 ; Start 12/20/16 at 21:00 Sodium Chloride 1,000 ml @ 1,000 mls/hr 1X ONCE IV Last administered on 11:51; Start 12/20/16 at 12:00; Stop 12/20/16 at 12:59; Status DC Sodium Chloride 1,000 ml @ 1,000 mls/hr 1X ONCE IV Last administered on 13:23; Start 12/20/16 at 12:00; Stop 12/20/16 at 12:59; Status DC Furosemide (Lasix) 40 mg DAILY PO Last administered on 12/22/16t 09:13; Start 12/21/16 at 09:00 Vancomycin HCl 1.25 gm/Sodium Chloride 250 ml @ 167 mls/hr Q8HRS IV Last administered on 12/22/16t 12:55; Start 12/20/16 at 22:00 Dexamethasone Sodium Phosphate (Decadron) 20 mg STK-MED ONCE .ROUTE ; Start at 10:58; Stop 12/21/16 at 10:59; Status DC Ondansetron HCl (Zofran) 4 mg STK-MED ONCE .ROUTE ; Start 12/21/16 at 10:58; Stop 12/21/16 at 10:59; Status DC Propofol 20 ml @ As Directed STK-MED ONCE IV ; Start 12/21/16 at 10:58; Stop at 10:59; Status DC Lidocaine HCl (Lidocaine Pf 2% Vial) 5 ml STK-MED ONCE .ROUTE ; Start 12/21/16 at 10:58; Stop 12/21/16 at 10:59; Status DC Desflurane (Suprane) 60 ml STK-MED ONCE IH ; Start 12/21/16 at 10:58; Stop 12/21 at 10:59; Status DC Fentanyl Citrate (Fentanyl 2ml Vial) 100 mcg STK-MED ONCE .ROUTE ; Start at 10:58; Stop 12/21/16 at 10:59; Status DC Midazolam HCl (Versed) 2 mg STK-MED ONCE .ROUTE ; Start 12/21/16 at 10:58; Stop 12/21/16 at 10:59; Status DC Fentanyl Citrate (Fentanyl 2ml Vial) 100 mcg STK-MED ONCE .ROUTE ; Start at 12:50; Stop 12/21/16 at 12:51; Status DC Propofol 20 ml @ As Directed STK-MED ONCE IV ; Start 12/21/16 at 13:19; Stop at 13:20; Status DC Fentanyl Citrate (Fentanyl 2ml Vial) 100 mcg STK-MED ONCE .ROUTE ; Start at 13:58; Stop 12/21/16 at 13:59; Status DC Ondansetron HCl (Zofran) 4 mg PRN Q6HRS PRN IV NAUSEA/VOMITING; Start 12/21/16 at 14:15; Stop 12/21/16 at 19:00; Status DC Fentanyl Citrate (Fentanyl 2ml Vial) 25 mcg PRN Q5MIN PRN IV MILD PAIN; Start 12/21/16 at 14:15; Stop 12/21/16 at 19:00; Status DC Fentanyl Citrate (Fentanyl 2ml Vial) 50 mcg PRN Q5MIN PRN IV MODERATE PAIN Last administered on 12/21/16t 14:37; Start 12/21/16 at 14:15; Stop 12/21/16 at 19:00; Status DC Morphine Sulfate 1 mg PRN Q10MIN PRN IV SEVERE PAIN; Start 12/21/16 at 14:15; Stop 12/21/16 at 19:00; Status DC Ringer's Solution 1,000 ml @ 30 mls/hr Q24H IV ; Start 12/21/16 at 14:00; Stop 12/21/16 at 15:19; Status DC Lidocaine HCl 2 ml PRN 1X PRN ID PRIOR TO IV START; Start 12/21/16 at 14:15; Stop 12/21/16 at 19:00; Status DC Prochlorperazine Edisylate (Compazine) 5 mg PACU PRN PRN IV NAUSEA, MRX1; Start 12/21/16 at 14:15; Stop 12/21/16 at 19:00; Status DC Active Scripts Active Reported [albuterol ] 25 Mg PO BID Phenobarbital 100 Mg Tablet 50 Mg PO BID Potassium Chloride 20 Meq Tablet.er 20 Meq PO DAILY Furosemide 40 Mg Tablet 40 Mg PO DAILY [place] 7.5-325 Tablet (Acetaminophen/Hydrocodone Bitart) 1 Each Tablet 1 Tab PO PRN Q6HRS PRN Humalog (Insulin Lispro) 100 Unit/1 Ml Vial 75 Unit SQ TIDAC Protonix (Pantoprazole Sodium) 40 Mg Tablet.dr 40 Mg PO DAILY Plavix (Clopidogrel Bisulfate) 75 Mg Tablet 75 Mg PO DAILY Proair Hfa Inhaler (Albuterol Sulfate) 8.5 Gm Hfa.aer.ad 2 Puff IH PRN Q4-6HRS Phenytoin Sodium Extended 100 Mg Capsule 100 Mg PO FOUR TIMES A DAILY Lantus (Insulin Glargine,Hum.rec.anlog) 100 Unit/1 Ml Vial 75 Unit SQ BID Oxycodon-Acetaminophen 7.5-325 (Oxycodone Hcl/Acetaminophen) 1 Each Tablet 1 Each PO BID Diazepam 10 Mg Tablet 10 Mg PO BID Dulera 200 Mcg/5 Mcg Inhaler (Mometasone/Formoterol) 13 Gm Hfa.aer.ad 3 Puff IH BID Advair 500-50 Diskus (Fluticasone/Salmeterol) 1 Each Disk.w.dev 2 Inh IH BID Atorvastatin Calcium 80 Mg Tablet 80 Mg PO HS Carvedilol 12.5 Mg Tablet 25 Mg PO BIDWMEALS Isosorbide Mononitrate Er (Isosorbide Mononitrate) 60 Mg Tab.er.24h 60 Mg PO DAILY Vitals/I & O Vital Sign - Last 24 Hours 12/21/16 12/21/16 12/21/16 12/21/16 14:15 14:16 14:31 14:37 Pulse 70 70 Resp 20 20 20 20 B/P (MAP) 117/53 110/60 Pulse Ox 93 96 96 93 O2 Delivery Nasal Cannula Nasal Cannula Nasal Cannula Nasal Cannula O2 Flow Rate 2.0 2 2 2.0 12/21/16 12/21/16 12/21/16 12/21/16 14:45 14:45 15:00 15:15 Temp 97.7 97.7 97.7 97.7 Pulse 70 68 70 Resp 20 17 17 B/P (MAP) 106/73 108/57 (74) 109/50 (69) Pulse Ox 96 95 95 O2 Delivery Nasal Cannula Nasal Cannula Nasal Cannula Nasal Cannula O2 Flow Rate 2 2 3.0 3.0 12/21/16 12/21/16 12/21/16 12/21/16 15:30 15:45 16:00 16:30 Temp 97.7 97.7 96.1 97.7 97.7 97.7 96.1 97.7 Pulse 70 71 72 73 Resp 16 16 17 17 B/P (MAP) 122/64 (83) 115/73 (87) 121/59 (79) 115/50 (71) Pulse Ox 96 92 92 94 O2 Delivery Nasal Cannula Room Air Room Air Room Air O2 Flow Rate 3.0 12/21/16 12/21/16 12/21/1617 17:00 17:25 18:00 18:44 Temp 97.5 98.6 97.5 98.6 Pulse 74 71 80 Resp 17 18 B/P (MAP) 125/39 (67) 115/73 115/50 (71) Pulse Ox 92 94 O2 Delivery Room Air Room Air Room Air 12/21/16 12/21/16 12/21/16 12/21/16 20:15 21:37 22:37 23:00 Temp 98.9 98.9 Pulse 77 Resp 20 20 20 B/P (MAP) 147/81 (103) Pulse Ox 92 O2 Delivery Room Air Room Air Room Air 12/22/16 12/22/16 12/22/16 12/22/16 03:00 03:00 04:00 07:00 Temp 98.6 97.4 98.6 97.4 Pulse 73 77 Resp 20 20 20 20 B/P (MAP) 109/46 (67) 114/50 (71) Pulse Ox 95 91 O2 Delivery Room Air Room Air Room Air Room Air 12/22/16 12/22/16 12/22/16 12/22/16 07:07 07:50 09:10 09:11 Pulse 77 B/P (MAP) 114/50 Pulse Ox 93 O2 Delivery Room Air Room Air Room Air 12/22/16 12/22/16 12/22/16 09:13 10:09 11:00 Temp 97.1 97.1 Pulse 77 80 Resp 16 B/P (MAP) 114/50 95/46 (62) Pulse Ox 90 O2 Delivery Room Air Room Air Intake and Output 12/21/16 12/21/16 12/22/16 15:00 23:00 07:00 Intake Total 1700 ml 880 ml 680 ml Output Total 100 ml 150 ml Balance 1600 ml 730 ml 680 ml HERIBERTO HART MD Dec 22, 2016 14:11
--- NOTE | 2016-12-22 14:28 | PDOC ---
ORTHO PROGRESS NOTES Subjective Patient seen in room, eating breakfast, seems to be comfortable. Complains of pain and states that it is severe and uncontrolled. Not tolerating OOB activity Post-op Day: 1 (removal of hardware right femur) Vitals Vital Signs Date Time Temp Pulse Resp B/P (MAP) Pulse Ox O2 Delivery O2 Flow Rate FiO2 12/22/16 11:00 97.1 80 16 95/46 (62) 90 Room Air 97.1 12/21/16 15:30 3.0 Labs Laboratory Tests Test 12/20/16 16:32 12/20/16 20:35 12/21/16 06:15 12/21/16 07:37 Glucose (Fingerstick) 94 mg/dL (70-99) 112 mg/dL (70-99) 121 mg/dL (70-99) White Blood Count 7.9 x10^3/uL (4.0-11.0) Red Blood Count 3.92 x10^6/uL (3.50-5.40) Hemoglobin 11.6 g/dL (12.0-15.5) Hematocrit 35.4 % (36.0-47.0) Mean Corpuscular Volume 90 fL (79-100) Mean Corpuscular Hemoglobin 30 pg (25-35) Mean Corpuscular Hemoglobin Concent 33 g/dL (31-37) Red Cell Distribution Width 13.6 % (11.5-14.5) Platelet Count 441 x10^3/uL (140-400) Neutrophils (%) (Auto) 61 % (31-73) Lymphocytes (%) (Auto) 29 % (24-48) Monocytes (%) (Auto) 7 % (0-9) Eosinophils (%) (Auto) 2 % (0-3) Basophils (%) (Auto) 1 % (0-3) Neutrophils # (Auto) 4.8 x10^3uL (1.8-7.7) Lymphocytes # (Auto) 2.3 x10^3/uL (1.0-4.8) Monocytes # (Auto) 0.6 x10^3/uL (0.0-1.1) Eosinophils # (Auto) 0.1 x10^3/uL (0.0-0.7) Basophils # (Auto) 0.1 x10^3/uL (0.0-0.2) Sodium Level 140 mmol/L (136-145) Potassium Level 4.0 mmol/L (3.5-5.1) Chloride Level 101 mmol/L (98-107) Carbon Dioxide Level 34 mmol/L (21-32) Anion Gap 5 (6-14) Blood Urea Nitrogen 7 mg/dL (7-20) Creatinine 0.5 mg/dL (0.6-1.0) Estimated GFR (Cockcroft-Gault) 125.9 BUN/Creatinine Ratio 14 (6-20) Glucose Level 119 mg/dL (70-99) Calcium Level 9.1 mg/dL (8.5-10.1) Total Bilirubin 0.4 mg/dL (0.2-1.0) Aspartate Amino Transf (AST/SGOT) 49 U/L (15-37) Alanine Aminotransferase (ALT/SGPT) 52 U/L (14-59) Alkaline Phosphatase 193 U/L (46-116) Total Protein 7.1 g/dL (6.4-8.2) Albumin 1.8 g/dL (3.4-5.0) Albumin/Globulin Ratio 0.3 (1.0-1.7) Test 12/21/16 11:08 12/21/16 13:37 12/21/16 16:51 12/21/16 20:50 Glucose (Fingerstick) 113 mg/dL (70-99) 171 mg/dL (70-99) 304 mg/dL (70-99) 272 mg/dL (70-99) Test 12/22/16 07:52 12/22/16 11:54 Glucose (Fingerstick) 205 mg/dL (70-99) 250 mg/dL (70-99) Laboratory Tests Test 12/21/16 16:51 12/21/16 20:50 12/22/16 07:52 12/22/16 11:54 Glucose (Fingerstick) 304 mg/dL (70-99) 272 mg/dL (70-99) 205 mg/dL (70-99) 250 mg/dL (70-99) Notes Patient is awake and alert sitting up in bed. Breathing unlabored, no acute distress. Moderate edema RLE, able to wiggle toes. PPP, diminished because of swelling. Sensation intact. No drainage on dressing Problems: (1) Septic arthritis Assessment and Plan Activity as tolerated continue IV abx per ID Problem Qualifiers (1) Septic arthritis: Septic arthritis location: knee Septic arthritis organism: staphylococcal Laterality: right Qualified Codes: M00.061 - Staphylococcal arthritis, right knee EFRAÍN DODD [employer] Dec 22, 2016 14:28
[2016-12-22] MEDS ORDERED: IV NORMAL SALINE 1000ML BAG 1,000 ML IV ONE (15:00)
[2016-12-22] MEDS: ATORVASTATIN CALCIUM 40 MG TABLET. PO SCH (20:49)
[2016-12-23] VITALS (7 sets, daily range): BP systolic 84–161; BP diastolic 40–69
[2016-12-23] MEDS: oxyCODONE IR 5 MG TABLET PO PRN ×2 (03:34→18:36)
[2016-12-23 05:45] LABS: BASO # 0.1 x10^3/uL (0.0-0.2); BASO % 1 % (0-3); EOS % 1 % (0-3); HEMOGLOBIN 8.3 g/dL (12.0-15.5); LYMPH # 2.7 x10^3/uL (1.0-4.8); LYMPH % 32 % (24-48); MEAN CORPUSCULAR HEMOGLOBIN 31 pg (25-35); MEAN CORPUSCULAR HGB CONC 33 g/dL (31-37); MEAN CORPUSCULAR VOLUME 92 fL (79-100); MONO % 6 % (0-9); NEUT % 60 % (31-73); PLATELET COUNT 445 x10^3/uL (140-400); RED BLOOD COUNT 2.73 x10^6/uL (3.50-5.40); RED CELL DISTRIBUTION WIDTH 13.4 % (11.5-14.5); WHITE BLOOD COUNT 8.6 x10^3/uL (4.0-11.0)
[2016-12-23 06:09] LABS: CALCIUM 8.2 mg/dL (8.5-10.1); CREATININE 0.6 mg/dL (0.6-1.0)
[2016-12-23] MEDS: ALBUTEROL SULFATE 2.5 MG/3 ML NEBU. NEB SCH ×4 (07:11→20:28)
[2016-12-23] MEDS: BUDESONIDE 0.5 MG/2 ML NEBU. NEB SCH ×2 (07:11→20:28)
[2016-12-23] MEDS: INSULIN ASPART 300 UNITS/3 ML INSULN.PEN SQ SCH ×6 (07:30→18:46)
[2016-12-23] MEDS: POTASSIUM CHLORIDE 20 MEQ TABLET.ER. PO SCH (08:00)
[2016-12-23] MEDS: INSULIN DETEMIR 300 UNITS/3 ML INSULN.PEN. SQ SCH ×2 (09:00→21:00)
[2016-12-23] MEDS: FUROSEMIDE 40 MG TABLET. PO SCH (09:00)
[2016-12-23] MEDS: oxyCODONE/APAP 7.5/325 1 TAB TABLET PO SCH ×2 (10:21→22:18)
[2016-12-23] MEDS: CLOPIDOGREL BISULFATE 75 MG TABLET PO SCH (10:21)
[2016-12-23] MEDS: ONDANSETRON PF 4 MG/2 ML VIAL. IV PRN (10:21)
[2016-12-23] MEDS: DOCUSATE SODIUM 100 MG CAPSULE. PO SCH (10:21)
[2016-12-23] MEDS: PANTOPRAZOLE 40 MG TABLET.DR. PO SCH (10:21)
[2016-12-23] MEDS: ACETAMINOPHEN 500 MG TABLET PO PRN ×2 (10:21→23:15)
[2016-12-23] MEDS: ISOSORBIDE MONONITRATE ER 30 MG TAB.ER.24H PO SCH (10:22)
[2016-12-23] MEDS: PHENYTOIN SODIUM EXTENDED 100 MG CAPSULE PO SCH ×2 (10:22→22:20)
[2016-12-23] MEDS: CARVEDILOL 12.5 MG TABLET. PO SCH ×2 (10:22→17:00)
[2016-12-23] MEDS: diazePAM 5 MG TABLET PO SCH ×3 (10:23→22:20)
[2016-12-23] MEDS: PHENobarbital 32.4 MG TABLET. PO SCH ×2 (10:23→22:20)
--- NOTE | 2016-12-23 12:23 | PDOC ---
Infectious Disease Note Subjective Subjective c/o right leg pain rating 10 + Recurrent fever Tmax 102.2 Tolerating Cefazolin. 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 SKIN: No rash Peripheral IV Labs Lab Laboratory Tests Test 12/22/16 16:57 12/22/16 20:49 12/23/16 05:00 12/23/16 07:26 Glucose (Fingerstick) 180 mg/dL (70-99) 124 mg/dL (70-99) 125 mg/dL (70-99) White Blood Count 8.6 x10^3/uL (4.0-11.0) Red Blood Count 2.73 x10^6/uL (3.50-5.40) Hemoglobin 8.3 g/dL (12.0-15.5) Hematocrit 25.0 % (36.0-47.0) Mean Corpuscular Volume 92 fL (79-100) Mean Corpuscular Hemoglobin 31 pg (25-35) Mean Corpuscular Hemoglobin Concent 33 g/dL (31-37) Red Cell Distribution Width 13.4 % (11.5-14.5) Platelet Count 445 x10^3/uL (140-400) Neutrophils (%) (Auto) 60 % (31-73) Lymphocytes (%) (Auto) 32 % (24-48) Monocytes (%) (Auto) 6 % (0-9) Eosinophils (%) (Auto) 1 % (0-3) Basophils (%) (Auto) 1 % (0-3) Neutrophils # (Auto) 5.1 x10^3uL (1.8-7.7) Lymphocytes # (Auto) 2.7 x10^3/uL (1.0-4.8) Monocytes # (Auto) 0.5 x10^3/uL (0.0-1.1) Eosinophils # (Auto) 0.1 x10^3/uL (0.0-0.7) Basophils # (Auto) 0.1 x10^3/uL (0.0-0.2) Sodium Level 141 mmol/L (136-145) Potassium Level 4.0 mmol/L (3.5-5.1) Chloride Level 104 mmol/L (98-107) Carbon Dioxide Level 32 mmol/L (21-32) Anion Gap 5 (6-14) Blood Urea Nitrogen 11 mg/dL (7-20) Creatinine 0.6 mg/dL (0.6-1.0) Estimated GFR (Cockcroft-Gault) 102.0 Glucose Level 114 mg/dL (70-99) Calcium Level 8.2 mg/dL (8.5-10.1) Test 12/23/16 11:37 Glucose (Fingerstick) 219 mg/dL (70-99) Micro 12/18. BLOOD CULTURE Preliminary NO GROWTH AFTER 2 DAY Objective Assessment Fever MSSA bacteremia with murmur, POA. 12/16. -RF 13.0. Repeat BC from 12/18 neg. TTE neg veg Right knee septic joint with hardware in close proximity. s/p removal of hardware, 12/21. -small focus of minimally increased activity in the distal right femur medially on tag WBC scan, 12/19 -s/p right knee arthroscopy irrigation, debridement, partial synovectomy and partial medial and lateral meniscectomy, 12/10 -s/p joint aspiration 12/09. culture MSSA -h/o ORIF distal femur fracture Apr 2016 Leukocytosis, trending down Allergy to cephalosporins, penicillin and sulfa. Reactions unclear, only to say can't have them. Diabetes Transaminitis h/o seizures h/o alcoholism & substance abuse Plan Plan of Care Cefazolin (started 12/22) Monitor WBC, CR and temp Hold PICC for now. Repeat BC per Dr. Mitch Amaral from 12/22 Attending Co-Sign The patient was seen and interviewed as well as examined at the bedside. The chart was reviewed. The case was discussed. Agree with the plan of care. CK ALVES APRN Dec 23, 2016 12:23 OMA AMARAL MD Dec 23, 2016 13:56
--- NOTE | 2016-12-23 12:34 | PDOC ---
PROGRESS NOTES Chief Complaint Chief Complaint Septic arthritis of right knee Obesity, BMI 35 Personality disorder or schizotypal, Possible depression History of Present Illness History of Present Illness Patient laying in bed Complains of severe right knee pain Patient disposition altered, sporatic mood, see plan for tx Vitals Vitals Vital Signs Date Time Temp Pulse Resp B/P (MAP) Pulse Ox O2 Delivery O2 Flow Rate FiO2 12/23/16 11:38 98.1 78 18 84/40 (55) 92 Room Air 98.1 12/22/16 20:00 2.0 Physical Exam General: Alert, Cooperative, moderate distress, Other (odd affect still) Heart: Regular rate, Normal S1, Normal S2, Other (2/6 systolic murmur to LLS border) Lungs: Clear, Other (No r/r/w) Abdomen: Soft, No tenderness Extremities: No cyanosis, Other (3+ RLE pitting edema; LLE 2+ pitting edema) Skin: No rashes, No breakdown Labs LABS Laboratory Tests Test 12/22/16 16:57 12/22/16 20:49 12/23/16 05:00 12/23/16 07:26 Glucose (Fingerstick) 180 mg/dL (70-99) 124 mg/dL (70-99) 125 mg/dL (70-99) White Blood Count 8.6 x10^3/uL (4.0-11.0) Red Blood Count 2.73 x10^6/uL (3.50-5.40) Hemoglobin 8.3 g/dL (12.0-15.5) Hematocrit 25.0 % (36.0-47.0) Mean Corpuscular Volume 92 fL (79-100) Mean Corpuscular Hemoglobin 31 pg (25-35) Mean Corpuscular Hemoglobin Concent 33 g/dL (31-37) Red Cell Distribution Width 13.4 % (11.5-14.5) Platelet Count 445 x10^3/uL (140-400) Neutrophils (%) (Auto) 60 % (31-73) Lymphocytes (%) (Auto) 32 % (24-48) Monocytes (%) (Auto) 6 % (0-9) Eosinophils (%) (Auto) 1 % (0-3) Basophils (%) (Auto) 1 % (0-3) Neutrophils # (Auto) 5.1 x10^3uL (1.8-7.7) Lymphocytes # (Auto) 2.7 x10^3/uL (1.0-4.8) Monocytes # (Auto) 0.5 x10^3/uL (0.0-1.1) Eosinophils # (Auto) 0.1 x10^3/uL (0.0-0.7) Basophils # (Auto) 0.1 x10^3/uL (0.0-0.2) Sodium Level 141 mmol/L (136-145) Potassium Level 4.0 mmol/L (3.5-5.1) Chloride Level 104 mmol/L (98-107) Carbon Dioxide Level 32 mmol/L (21-32) Anion Gap 5 (6-14) Blood Urea Nitrogen 11 mg/dL (7-20) Creatinine 0.6 mg/dL (0.6-1.0) Estimated GFR (Cockcroft-Gault) 102.0 Glucose Level 114 mg/dL (70-99) Calcium Level 8.2 mg/dL (8.5-10.1) Test 12/23/16 11:37 Glucose (Fingerstick) 219 mg/dL (70-99) Review of Systems Review of Systems Patient appeared to be in moderate distress. Complains of right knee pain. Unstable mood. Assessment and Plan Assessmemt and Plan Problems Medical Problems: (1) Bacteremia Status: Acute Assessment: Septic arthritis of right knee Obesity, BMI 35 Personality disorder or schizotypal, Possible depression Plan: Cont wound care IV antibx Prescribed Prozac 20mg qd Possible discharge if temp remains below 100.4 for 24 hrs and if BP stabilizes Discussed admission to rehabilitation center Continue to monitor BP and temp Continue Tylenol PRN Problems: Comment Review of Relevant I have reviewed the following items mary (where applicable) has been applied. Labs Laboratory Tests Test 12/21/16 13:37 12/21/16 16:51 12/21/16 20:50 12/22/16 07:52 Glucose (Fingerstick) 171 mg/dL (70-99) 304 mg/dL (70-99) 272 mg/dL (70-99) 205 mg/dL (70-99) Test 12/22/16 11:54 12/22/16 16:57 12/22/16 20:49 12/23/16 05:00 Glucose (Fingerstick) 250 mg/dL (70-99) 180 mg/dL (70-99) 124 mg/dL (70-99) White Blood Count 8.6 x10^3/uL (4.0-11.0) Red Blood Count 2.73 x10^6/uL (3.50-5.40) Hemoglobin 8.3 g/dL (12.0-15.5) Hematocrit 25.0 % (36.0-47.0) Mean Corpuscular Volume 92 fL (79-100) Mean Corpuscular Hemoglobin 31 pg (25-35) Mean Corpuscular Hemoglobin Concent 33 g/dL (31-37) Red Cell Distribution Width 13.4 % (11.5-14.5) Platelet Count 445 x10^3/uL (140-400) Neutrophils (%) (Auto) 60 % (31-73) Lymphocytes (%) (Auto) 32 % (24-48) Monocytes (%) (Auto) 6 % (0-9) Eosinophils (%) (Auto) 1 % (0-3) Basophils (%) (Auto) 1 % (0-3) Neutrophils # (Auto) 5.1 x10^3uL (1.8-7.7) Lymphocytes # (Auto) 2.7 x10^3/uL (1.0-4.8) Monocytes # (Auto) 0.5 x10^3/uL (0.0-1.1) Eosinophils # (Auto) 0.1 x10^3/uL (0.0-0.7) Basophils # (Auto) 0.1 x10^3/uL (0.0-0.2) Sodium Level 141 mmol/L (136-145) Potassium Level 4.0 mmol/L (3.5-5.1) Chloride Level 104 mmol/L (98-107) Carbon Dioxide Level 32 mmol/L (21-32) Anion Gap 5 (6-14) Blood Urea Nitrogen 11 mg/dL (7-20) Creatinine 0.6 mg/dL (0.6-1.0) Estimated GFR (Cockcroft-Gault) 102.0 Glucose Level 114 mg/dL (70-99) Calcium Level 8.2 mg/dL (8.5-10.1) Test 12/23/16 07:26 12/23/16 11:37 Glucose (Fingerstick) 125 mg/dL (70-99) 219 mg/dL (70-99) Laboratory Tests Test 12/22/16 16:57 12/22/16 20:49 12/23/16 05:00 12/23/16 07:26 Glucose (Fingerstick) 180 mg/dL (70-99) 124 mg/dL (70-99) 125 mg/dL (70-99) White Blood Count 8.6 x10^3/uL (4.0-11.0) Red Blood Count 2.73 x10^6/uL (3.50-5.40) Hemoglobin 8.3 g/dL (12.0-15.5) Hematocrit 25.0 % (36.0-47.0) Mean Corpuscular Volume 92 fL (79-100) Mean Corpuscular Hemoglobin 31 pg (25-35) Mean Corpuscular Hemoglobin Concent 33 g/dL (31-37) Red Cell Distribution Width 13.4 % (11.5-14.5) Platelet Count 445 x10^3/uL (140-400) Neutrophils (%) (Auto) 60 % (31-73) Lymphocytes (%) (Auto) 32 % (24-48) Monocytes (%) (Auto) 6 % (0-9) Eosinophils (%) (Auto) 1 % (0-3) Basophils (%) (Auto) 1 % (0-3) Neutrophils # (Auto) 5.1 x10^3uL (1.8-7.7) Lymphocytes # (Auto) 2.7 x10^3/uL (1.0-4.8) Monocytes # (Auto) 0.5 x10^3/uL (0.0-1.1) Eosinophils # (Auto) 0.1 x10^3/uL (0.0-0.7) Basophils # (Auto) 0.1 x10^3/uL (0.0-0.2) Sodium Level 141 mmol/L (136-145) Potassium Level 4.0 mmol/L (3.5-5.1) Chloride Level 104 mmol/L (98-107) Carbon Dioxide Level 32 mmol/L (21-32) Anion Gap 5 (6-14) Blood Urea Nitrogen 11 mg/dL (7-20) Creatinine 0.6 mg/dL (0.6-1.0) Estimated GFR (Cockcroft-Gault) 102.0 Glucose Level 114 mg/dL (70-99) Calcium Level 8.2 mg/dL (8.5-10.1) Test 12/23/16 11:37 Glucose (Fingerstick) 219 mg/dL (70-99) Medications Current Medications Ondansetron HCl (Zofran) 4 mg PRN Q8HRS PRN IV NAUSEA/VOMITING Last administered on 12/18/16 23:22; Start 12/18/16 at 16:00; Stop 12/19/16 at 15:59 ; Status DC Acetaminophen (Tylenol) 650 mg PRN Q4HRS PRN PO FEVER Last administered on 12/18 18:10; Start 12/18/16 at 16:00; Stop 12/19/16 at 15:59; Status DC Vancomycin HCl (Vanco Per Pharmacy) 1 each PRN DAILY PRN MC SEE COMMENTS; Start 12/18/16 at 16:00; Status UNV Vancomycin HCl (Vanco Per Pharmacy) 1 each PRN DAILY PRN MC SEE COMMENTS Last administered on 12/22/16 11:38; Start 12/18/16 at 17:15; Stop 12/22/16 at 14:41 ; Status DC Vancomycin HCl 1 each 1X ONCE MC ; Start 12/18/16 at 17:15; Stop 12/18/16 at 17 :15; Status DC Vancomycin HCl 1.25 gm/Sodium Chloride 250 ml @ 167 mls/hr Q12H IV Last administered on 12/19/16 06:26; Start 12/18/16 at 18:00; Stop 12/19/16 at 08:00 ; Status DC Vancomycin HCl 1 each 1X ONCE MC Last administered on 12/19/16 05:30; Start 12/19/16 at 05:30; Stop 12/19/16 at 05:31; Status DC Carvedilol (Coreg) 25 mg BIDWMEALS PO Last administered on 12/23/16 10:22; Start 12/19/16 at 18:00 Clopidogrel Bisulfate (Plavix) 75 mg DAILY PO Last administered on 12/23/16 10 :21; Start 12/19/16 at 09:00 Furosemide (Lasix) 40 mg DAILY PO Last administered on 12/20/16 08:13; Start 12/19/16 at 09:00; Stop 12/20/16 at 14:04; Status DC Oxycodone/ Acetaminophen (Percocet 7.5/ 325) 1 tab BID PO Last administered on 12/19/16 08:25; Start 12/18/16 at 21:00; Stop 12/19/16 at 13:29; Status DC Pantoprazole Sodium (Protonix) 40 mg DAILY PO Last administered on 12/23/16 10 :21; Start 12/19/16 at 09:00 Phenytoin Sodium (Dilantin) 200 mg BID PO Last administered on 12/23/16 10:22 ; Start 12/18/16 at 21:00 Non-Formulary Medication 2 puff PRN Q4-6HRS IH ; Start 12/18/16 at 17:30; Stop 12/18/16 at 18:06; Status DC Atorvastatin Calcium (Lipitor) 80 mg QHS PO Last administered on 12/22/16 20: 49; Start 12/18/16 at 21:00 Diazepam (Valium) 10 mg BID PO Last administered on 12/23/16 10:23; Start at 21:00 Non-Formulary Medication 2 inh BID IH ; Start 12/18/16 at 21:00; Stop 12/18/16 at 21:00; Status DC Insulin Detemir (Levemir) 45 units BID SQ Last administered on 12/20/16 08:22 ; Start 12/18/16 at 21:00; Stop 12/20/16 at 10:03; Status DC Insulin Aspart (NovoLOG) 15 units TIDAC SQ Last administered on 12/22/16 13:05 ; Start 12/19/16 at 18:00 Isosorbide Mononitrate (Imdur) 60 mg DAILY PO Last administered on 12/23/16 10 :22; Start 12/19/16 at 09:00 Non-Formulary Medication 3 puff BID IH ; Start 12/18/16 at 21:00; Stop 12/18/16 at 21:00; Status DC Phenobarbital (Luminal) 48.6 mg BID PO Last administered on 12/23/16 10:23; Start 12/18/16 at 21:00 Potassium Chloride (Klor-Con) 20 meq DAILYWBKFT PO Last administered on 09:12; Start 12/19/16 at 08:00 Non-Formulary Medication 25 mg BID PO ; Start 12/18/16 at 21:00; Stop 12/18/16 at 21:00; Status DC Oxycodone HCl (Roxicodone) 10 mg PRN Q4HRS PRN PO PAIN Last administered on 03:34; Start 12/18/16 at 17:45 Ketorolac Tromethamine (Toradol) 15 mg PRN Q6HRS PRN IV pain Last administered on 12/22/16 06:33; Start 12/18/16 at 17:45; Stop 12/23/16 at 17:44 Insulin Aspart (NovoLOG) 0-9 UNITS TIDWMEALS SQ Last administered on 12/22/16 13:03; Start 12/19/16 at 08:00 Dextrose (Dextrose 50%-Water Syringe) 12.5 gm PRN Q15MIN PRN IV SEE COMMENTS; Start 12/18/16 at 17:45 Albuterol Sulfate (Ventolin Neb Soln) 2.5 mg RTQID NEB Last administered on 11:10; Start 12/18/16 at 20:00 Albuterol Sulfate (Ventolin Neb Soln) 2.5 mg PRN Q4HRS PRN NEB SHORTNESS OF BREATH Last administered on 12/21/16 14:36; Start 12/18/16 at 18:15 Budesonide (Pulmicort) 0.5 mg RTBID NEB Last administered on 12/23/16 07:11; Start 12/18/16 at 20:00 Lorazepam (Ativan) 0.5 mg PRN Q8HRS PRN PO ANXIETY / AGITATION Last administered on 12/22/16 00:06; Start 12/18/16 at 18:45 Vancomycin HCl 1 gm/Sodium Chloride 250 ml @ 250 mls/hr Q8HRS IV Last administered on 12/20/16 14:26; Start 12/19/16 at 14:00; Stop 12/20/16 at 16:00 ; Status DC Vancomycin HCl 1 each 1X ONCE MC Last administered on 12/20/16 13:30; Start 12/20/16 at 13:30; Stop 12/20/16 at 13:31; Status DC Sodium Chloride 1,000 ml @ 125 mls/hr 1X ONCE IV Last administered on 13:47; Start 12/19/16 at 13:30; Stop 12/19/16 at 21:29; Status DC Oxycodone/ Acetaminophen (Percocet 7.5/ 325) 2 tab BID PO Last administered on 12/23/16 10:21; Start 12/19/16 at 14:00 Docusate Sodium (Colace) 100 mg DAILY PO Last administered on 12/23/16 10:21; Start 12/19/16 at 14:00 Polyethylene Glycol (miraLAX PACKET) 17 gm 1X ONCE PO Last administered on 13:54; Start 12/19/16 at 14:00; Stop 12/19/16 at 14:01; Status DC Polyethylene Glycol (miraLAX PACKET) 17 gm PRN DAILY PRN PO CONSTIPATION Last administered on 12/21/16 17:25; Start 12/19/16 at 13:45 Insulin Detemir (Levemir) 40 units BID SQ Last administered on 12/22/16 09:41 ; Start 12/20/16 at 21:00 Sodium Chloride 1,000 ml @ 1,000 mls/hr 1X ONCE IV Last administered on 11:51; Start 12/20/16 at 12:00; Stop 12/20/16 at 12:59; Status DC Sodium Chloride 1,000 ml @ 1,000 mls/hr 1X ONCE IV Last administered on 13:23; Start 12/20/16 at 12:00; Stop 12/20/16 at 12:59; Status DC Furosemide (Lasix) 40 mg DAILY PO Last administered on 12/22/16 09:13; Start 12/21/16 at 09:00 Vancomycin HCl 1.25 gm/Sodium Chloride 250 ml @ 167 mls/hr Q8HRS IV Last administered on 12/22/16 12:55; Start 12/20/16 at 22:00; Stop 12/22/16 at 14:38 ; Status DC Dexamethasone Sodium Phosphate (Decadron) 20 mg STK-MED ONCE .ROUTE ; Start at 10:58; Stop 12/21/16 at 10:59; Status DC Ondansetron HCl (Zofran) 4 mg STK-MED ONCE .ROUTE ; Start 12/21/16 at 10:58; Stop 12/21/16 at 10:59; Status DC Propofol 20 ml @ As Directed STK-MED ONCE IV ; Start 12/21/16 at 10:58; Stop at 10:59; Status DC Lidocaine HCl (Lidocaine Pf 2% Vial) 5 ml STK-MED ONCE .ROUTE ; Start 12/21/16 at 10:58; Stop 12/21/16 at 10:59; Status DC Desflurane (Suprane) 60 ml STK-MED ONCE IH ; Start 12/21/16 at 10:58; Stop 12/21 at 10:59; Status DC Fentanyl Citrate (Fentanyl 2ml Vial) 100 mcg STK-MED ONCE .ROUTE ; Start at 10:58; Stop 12/21/16 at 10:59; Status DC Midazolam HCl (Versed) 2 mg STK-MED ONCE .ROUTE ; Start 12/21/16 at 10:58; Stop 12/21/16 at 10:59; Status DC Fentanyl Citrate (Fentanyl 2ml Vial) 100 mcg STK-MED ONCE .ROUTE ; Start at 12:50; Stop 12/21/16 at 12:51; Status DC Propofol 20 ml @ As Directed STK-MED ONCE IV ; Start 12/21/16 at 13:19; Stop at 13:20; Status DC Fentanyl Citrate (Fentanyl 2ml Vial) 100 mcg STK-MED ONCE .ROUTE ; Start at 13:58; Stop 12/21/16 at 13:59; Status DC Ondansetron HCl (Zofran) 4 mg PRN Q6HRS PRN IV NAUSEA/VOMITING; Start 12/21/16 at 14:15; Stop 12/21/16 at 19:00; Status DC Fentanyl Citrate (Fentanyl 2ml Vial) 25 mcg PRN Q5MIN PRN IV MILD PAIN; Start 12/21/16 at 14:15; Stop 12/21/16 at 19:00; Status DC Fentanyl Citrate (Fentanyl 2ml Vial) 50 mcg PRN Q5MIN PRN IV MODERATE PAIN Last administered on 12/21/16 14:37; Start 12/21/16 at 14:15; Stop 12/21/16 at 19:00; Status DC Morphine Sulfate 1 mg PRN Q10MIN PRN IV SEVERE PAIN; Start 12/21/16 at 14:15; Stop 12/21/16 at 19:00; Status DC Ringer's Solution 1,000 ml @ 30 mls/hr Q24H IV ; Start 12/21/16 at 14:00; Stop 12/21/16 at 15:19; Status DC Lidocaine HCl 2 ml PRN 1X PRN ID PRIOR TO IV START; Start 12/21/16 at 14:15; Stop 12/21/16 at 19:00; Status DC Prochlorperazine Edisylate (Compazine) 5 mg PACU PRN PRN IV NAUSEA, MRX1; Start 12/21/16 at 14:15; Stop 12/21/16 at 19:00; Status DC Sodium Chloride 1,000 ml @ 333.333 mls/hr 1X ONCE IV Last administered on 15:00; Start 12/22/16 at 15:00; Stop 12/22/16 at 17:59; Status DC Cefazolin Sodium 2 gm/Sodium Chloride 50 ml @ 100 mls/hr Q8HRS IV Last administered on 12/23/16 06:05; Start 12/22/16 at 22:00 Ondansetron HCl (Zofran) 4 mg PRN Q6HRS PRN IV NAUSEA/VOMITING Last administered on 12/23/16 10:21; Start 12/23/16 at 10:00 Acetaminophen (Tylenol) 500 mg PRN Q6HRS PRN PO MILD PAIN / TEMP Last administered on 12/23/16 10:21; Start 12/23/16 at 10:00 Fluoxetine HCl (PROzac) 20 mg DAILY PO ; Start 12/23/16 at 11:00 Active Scripts Active Reported [albuterol ] 25 Mg PO BID Phenobarbital 100 Mg Tablet 50 Mg PO BID Potassium Chloride 20 Meq Tablet.er 20 Meq PO DAILY Furosemide 40 Mg Tablet 40 Mg PO DAILY [place] 7.5-325 Tablet (Acetaminophen/Hydrocodone Bitart) 1 Each Tablet 1 Tab PO PRN Q6HRS PRN Humalog (Insulin Lispro) 100 Unit/1 Ml Vial 75 Unit SQ TIDAC Protonix (Pantoprazole Sodium) 40 Mg Tablet.dr 40 Mg PO DAILY Plavix (Clopidogrel Bisulfate) 75 Mg Tablet 75 Mg PO DAILY Proair Hfa Inhaler (Albuterol Sulfate) 8.5 Gm Hfa.aer.ad 2 Puff IH PRN Q4-6HRS Phenytoin Sodium Extended 100 Mg Capsule 100 Mg PO FOUR TIMES A DAILY Lantus (Insulin Glargine,Hum.rec.anlog) 100 Unit/1 Ml Vial 75 Unit SQ BID Oxycodon-Acetaminophen 7.5-325 (Oxycodone Hcl/Acetaminophen) 1 Each Tablet 1 Each PO BID Diazepam 10 Mg Tablet 10 Mg PO BID Dulera 200 Mcg/5 Mcg Inhaler (Mometasone/Formoterol) 13 Gm Hfa.aer.ad 3 Puff IH BID Advair 500-50 Diskus (Fluticasone/Salmeterol) 1 Each Disk.w.dev 2 Inh IH BID Atorvastatin Calcium 80 Mg Tablet 80 Mg PO HS Carvedilol 12.5 Mg Tablet 25 Mg PO BIDWMEALS Isosorbide Mononitrate Er (Isosorbide Mononitrate) 60 Mg Tab.er.24h 60 Mg PO DAILY Vitals/I & O Vital Sign - Last 24 Hours 12/22/16 12/22/16 12/22/16 12/22/16 15:00 15:09 15:30 16:39 Temp 97.1 97.1 Pulse 70 72 79 Resp 16 B/P (MAP) 72/37 (49) 82/47 (59) 122/58 (79) Pulse Ox 93 93 O2 Delivery Room Air Room Air 12/22/16 12/22/16 12/22/16 12/22/16 19:00 20:00 20:50 21:55 Temp 102.2 102.2 Pulse 86 Resp 18 18 B/P (MAP) 111/91 (98) Pulse Ox 94 94 O2 Delivery Room Air Room Air Room Air Room Air O2 Flow Rate 2.0 12/22/16 12/23/16 12/23/16 12/23/16 23:00 03:00 04:30 07:14 Temp 100.0 100.8 100.0 100.8 Pulse 81 86 Resp 18 18 B/P (MAP) 121/53 (75) 148/67 (94) Pulse Ox 92 91 93 O2 Delivery Room Air Room Air Room Air Room Air 12/23/16 12/23/16 12/23/16 12/23/16 07:22 10:21 10:22 10:22 Temp 100.4 100.4 Pulse 90 90 90 Resp 18 B/P (MAP) 161/69 (99) 161/69 161/69 Pulse Ox 91 O2 Delivery Room Air Room Air 12/23/16 12/23/16 11:11 11:38 Temp 98.1 98.1 Pulse 78 Resp 18 B/P (MAP) 84/40 (55) Pulse Ox 93 92 O2 Delivery Room Air Room Air Intake and Output 12/22/16 12/22/16 12/23/16 15:00 23:00 07:00 Intake Total 250 ml 1350 ml 530 ml Output Total 0 ml Balance 250 ml 1350 ml 530 ml ALISHA COOLEY III DO Dec 23, 2016 12:34
[2016-12-23] MEDS: FLUoxetine HCL 20 MG CAPSULE PO SCH (13:12)
[2016-12-23] MEDS: ATORVASTATIN CALCIUM 40 MG TABLET. PO SCH (22:19)
[2016-12-24] VITALS (8 sets, daily range): BP systolic 80–148; BP diastolic 38–71
[2016-12-24] MEDS: oxyCODONE IR 5 MG TABLET PO PRN ×2 (06:12→18:11)
[2016-12-24] MEDS: ALBUTEROL SULFATE 2.5 MG/3 ML NEBU. NEB SCH ×5 (07:41→20:10)
[2016-12-24] MEDS: BUDESONIDE 0.5 MG/2 ML NEBU. NEB SCH ×2 (07:41→20:10)
--- NOTE | 2016-12-24 09:23 | PDOC ---
Infectious Disease Note Subjective Subjective c/o persistent right leg pain Fever Tmax 101.8 + cough Tolerating Cefazolin. Denies rash, pruritus, swelling, SOA or wheezing ROS ROS GEN: Denies chills, sweats CV: Denies chest pain RESP: Denies shortness of air GI: Denies n/v/d Vital Sign Vital Signs Vital Signs Date Time Temp Pulse Resp B/P (MAP) Pulse Ox O2 Delivery O2 Flow Rate FiO2 12/24/16 07:46 98 Room Air 12/24/16 07:00 97.7 73 18 129/70 (89) 97.7 Physical Exam PHYSICAL EXAM GENERAL: Lying down, NAD LUNGS: Clear HEART: S1S2, + murmur ABD: Soft, NT EXT: RLE trace edema,, knee dressing dry, DP palpable [employer]: Alert, oriented SKIN: No rash Peripheral IV Labs Lab Laboratory Tests Test 12/23/16 11:37 12/23/16 16:16 12/23/16 20:58 12/24/16 07:32 Glucose (Fingerstick) 219 mg/dL (70-99) 264 mg/dL (70-99) 200 mg/dL (70-99) 186 mg/dL (70-99) Micro 12/23. BLOOD CULTURE Preliminary NO GROWTH AFTER 1 DAY Objective Assessment Fever MSSA bacteremia with murmur, POA. 12/16. -RF 13.0. Repeat BC from 12/18 neg. TTE neg veg Right knee septic joint with hardware in close proximity. s/p removal of hardware, 12/21. -small focus of minimally increased activity in the distal right femur medially on tag WBC scan, 12/19 -s/p right knee arthroscopy irrigation, debridement, partial synovectomy and partial medial and lateral meniscectomy, 12/10 -s/p joint aspiration 12/09. culture MSSA -h/o ORIF distal femur fracture Apr 2016 Leukocytosis, trending down Allergy to cephalosporins, penicillin and sulfa. Reactions unclear, only to say can't have them. Tolerating cefazolin w/o problem Diabetes Transaminitis h/o seizures h/o alcoholism & substance abuse Plan Plan of Care Cefazolin (started 12/22) Monitor WBC, CR and temp If BC from 12/23 remain negative for [address] PICC chest x-ray Attending Co-Sign The patient was seen and interviewed as well as examined at the bedside. The chart was reviewed. The case was discussed. Agree with the plan of care. CK ALVES APRN Dec 24, 2016 09:23 OMA AMARAL MD Dec 24, 2016 12:46
[2016-12-24] MEDS: PHENYTOIN SODIUM EXTENDED 100 MG CAPSULE PO SCH ×2 (09:32→20:47)
[2016-12-24] MEDS: PANTOPRAZOLE 40 MG TABLET.DR. PO SCH (09:32)
[2016-12-24] MEDS: ISOSORBIDE MONONITRATE ER 30 MG TAB.ER.24H PO SCH (09:32)
[2016-12-24] MEDS: CLOPIDOGREL BISULFATE 75 MG TABLET PO SCH (09:32)
[2016-12-24] MEDS: FUROSEMIDE 40 MG TABLET. PO SCH (09:33)
[2016-12-24] MEDS: PHENobarbital 32.4 MG TABLET. PO SCH ×2 (09:33→20:48)
[2016-12-24] MEDS: POTASSIUM CHLORIDE 20 MEQ TABLET.ER. PO SCH (09:33)
[2016-12-24] MEDS: FLUoxetine HCL 20 MG CAPSULE PO SCH (09:34)
[2016-12-24] MEDS: diazePAM 5 MG TABLET PO SCH ×2 (09:34→20:47)
[2016-12-24] MEDS: oxyCODONE/APAP 7.5/325 1 TAB TABLET PO SCH ×2 (09:34→20:48)
[2016-12-24] MEDS: DOCUSATE SODIUM 100 MG CAPSULE. PO SCH (09:35)
[2016-12-24] MEDS: CARVEDILOL 12.5 MG TABLET. PO SCH ×2 (09:36→16:54)
--- NOTE | 2016-12-24 09:58 | RAD ---
Portable AP upright view CXR: Clinical indications: Cough and fever. Comparison: December 16, 2016. Findings: No acute lung infiltrate or pleural effusion or pulmonary edema or lung mass or pneumothorax is seen. The heart size, pulmonary vasculature, mediastinum and both sukhdev are stable. Impression: No acute radiographic abnormality is seen.
[2016-12-24] MEDS: INSULIN DETEMIR 300 UNITS/3 ML INSULN.PEN. SQ SCH ×2 (09:59→20:59)
[2016-12-24] MEDS: INSULIN ASPART 300 UNITS/3 ML INSULN.PEN SQ SCH ×6 (10:00→16:36)
--- NOTE | 2016-12-24 10:38 | PDOC ---
PROGRESS NOTES Chief Complaint Chief Complaint Septic arthritis of right knee Obesity, BMI 35 Personality disorder or schizotypal, Possible depression NArcotic dependence Immobility Obesity BMI 35 Mild to mod pCM History of Present Illness History of Present Illness KNown to me from my last admit not too long ago for the same septic RT knee - MSSA She admitted to me did not take clinda pO I prescribed, had to pay $60 as co pay She cries to me, family would not pitch in for help in cost, or even help her at home HENCE now agreeable to [facility] - PpLAce HAd quite a rusty discussion with her today, 30 mins in room, MARY Peña at bedside NOw on IV cefazolin per iD - multiple non concerning drug allergies - pt can be very opinionated about her care PLAN: COnt IV cefazolin SW for pPlace come monday, if sensitivities etc back and cleared by ID PT/OT - unable to bear weight yet - does not want the hoist etc, lots of counselling and explaining to her DId discuss about possible antidepressnat, maybe cymbalta? but would not want her to be drowsy LOts of narcs on board She complains of R leg pain, almost like sciatica, known to complain of pain all over - WHICH i think is mainly depression NOS from her current health, immobility and almost non existent family support Vitals Vitals Vital Signs Date Time Temp Pulse Resp B/P (MAP) Pulse Ox O2 Delivery O2 Flow Rate FiO2 12/24/16 09:36 73 129/70 12/24/16 09:34 18 Room Air 12/24/16 07:46 98 12/24/16 07:00 97.7 97.7 Physical Exam General: Alert, Cooperative, moderate distress, Other (odd affect still) Heart: Regular rate, Normal S1, Normal S2, Other (2/6 systolic murmur to LLS border) Lungs: Clear, Other (No r/r/w) Abdomen: Soft, No tenderness Extremities: No cyanosis, Other (3+ RLE pitting edema; LLE 2+ pitting edema) Skin: No rashes, No breakdown Labs LABS Laboratory Tests Test 12/23/16 11:37 12/23/16 16:16 12/23/16 20:58 12/24/16 07:32 Glucose (Fingerstick) 219 mg/dL (70-99) 264 mg/dL (70-99) 200 mg/dL (70-99) 186 mg/dL (70-99) Test 12/24/16 09:28 Glucose (Fingerstick) 239 mg/dL (70-99) Review of Systems Review of Systems depressed, Rt leg and RT knee pain Assessment and Plan Assessmemt and Plan Problems Medical Problems: (1) Bacteremia Status: Acute Problems: Comment Review of Relevant I have reviewed the following items mary (where applicable) has been applied. Labs Laboratory Tests Test 12/22/16 11:54 12/22/16 16:57 12/22/16 20:49 12/23/16 05:00 Glucose (Fingerstick) 250 mg/dL (70-99) 180 mg/dL (70-99) 124 mg/dL (70-99) White Blood Count 8.6 x10^3/uL (4.0-11.0) Red Blood Count 2.73 x10^6/uL (3.50-5.40) Hemoglobin 8.3 g/dL (12.0-15.5) Hematocrit 25.0 % (36.0-47.0) Mean Corpuscular Volume 92 fL (79-100) Mean Corpuscular Hemoglobin 31 pg (25-35) Mean Corpuscular Hemoglobin Concent 33 g/dL (31-37) Red Cell Distribution Width 13.4 % (11.5-14.5) Platelet Count 445 x10^3/uL (140-400) Neutrophils (%) (Auto) 60 % (31-73) Lymphocytes (%) (Auto) 32 % (24-48) Monocytes (%) (Auto) 6 % (0-9) Eosinophils (%) (Auto) 1 % (0-3) Basophils (%) (Auto) 1 % (0-3) Neutrophils # (Auto) 5.1 x10^3uL (1.8-7.7) Lymphocytes # (Auto) 2.7 x10^3/uL (1.0-4.8) Monocytes # (Auto) 0.5 x10^3/uL (0.0-1.1) Eosinophils # (Auto) 0.1 x10^3/uL (0.0-0.7) Basophils # (Auto) 0.1 x10^3/uL (0.0-0.2) Sodium Level 141 mmol/L (136-145) Potassium Level 4.0 mmol/L (3.5-5.1) Chloride Level 104 mmol/L (98-107) Carbon Dioxide Level 32 mmol/L (21-32) Anion Gap 5 (6-14) Blood Urea Nitrogen 11 mg/dL (7-20) Creatinine 0.6 mg/dL (0.6-1.0) Estimated GFR (Cockcroft-Gault) 102.0 Glucose Level 114 mg/dL (70-99) Calcium Level 8.2 mg/dL (8.5-10.1) Test 12/23/16 07:26 12/23/16 11:37 12/23/16 16:16 12/23/16 20:58 Glucose (Fingerstick) 125 mg/dL (70-99) 219 mg/dL (70-99) 264 mg/dL (70-99) 200 mg/dL (70-99) Test 12/24/16 07:32 12/24/16 09:28 Glucose (Fingerstick) 186 mg/dL (70-99) 239 mg/dL (70-99) Laboratory Tests Test 12/23/16 11:37 12/23/16 16:16 12/23/16 20:58 12/24/16 07:32 Glucose (Fingerstick) 219 mg/dL (70-99) 264 mg/dL (70-99) 200 mg/dL (70-99) 186 mg/dL (70-99) Test 12/24/16 09:28 Glucose (Fingerstick) 239 mg/dL (70-99) Microbiology 12/23/16 Blood Culture - Preliminary, Resulted NO GROWTH AFTER 1 DAY Medications Current Medications Ondansetron HCl (Zofran) 4 mg PRN Q8HRS PRN IV NAUSEA/VOMITING Last administered on 12/18/16 23:22; Start 12/18/16 at 16:00; Stop 12/19/16 at 15:59 ; Status DC Acetaminophen (Tylenol) 650 mg PRN Q4HRS PRN PO FEVER Last administered on 12/18 18:10; Start 12/18/16 at 16:00; Stop 12/19/16 at 15:59; Status DC Vancomycin HCl (Vanco Per Pharmacy) 1 each PRN DAILY PRN MC SEE COMMENTS; Start 12/18/16 at 16:00; Status UNV Vancomycin HCl (Vanco Per Pharmacy) 1 each PRN DAILY PRN MC SEE COMMENTS Last administered on 12/22/16 11:38; Start 12/18/16 at 17:15; Stop 12/22/16 at 14:41 ; Status DC Vancomycin HCl 1 each 1X ONCE MC ; Start 12/18/16 at 17:15; Stop 12/18/16 at 17 :15; Status DC Vancomycin HCl 1.25 gm/Sodium Chloride 250 ml @ 167 mls/hr Q12H IV Last administered on 12/19/16 06:26; Start 12/18/16 at 18:00; Stop 12/19/16 at 08:00 ; Status DC Vancomycin HCl 1 each 1X ONCE MC Last administered on 12/19/16 05:30; Start 12/19/16 at 05:30; Stop 12/19/16 at 05:31; Status DC Carvedilol (Coreg) 25 mg BIDWMEALS PO Last administered on 12/24/16 09:36; Start 12/19/16 at 18:00 Clopidogrel Bisulfate (Plavix) 75 mg DAILY PO Last administered on 12/24/16 09 :32; Start 12/19/16 at 09:00 Furosemide (Lasix) 40 mg DAILY PO Last administered on 12/20/16 08:13; Start 12/19/16 at 09:00; Stop 12/20/16 at 14:04; Status DC Oxycodone/ Acetaminophen (Percocet 7.5/ 325) 1 tab BID PO Last administered on 12/19/16 08:25; Start 12/18/16 at 21:00; Stop 12/19/16 at 13:29; Status DC Pantoprazole Sodium (Protonix) 40 mg DAILY PO Last administered on 12/24/16 09 :32; Start 12/19/16 at 09:00 Phenytoin Sodium (Dilantin) 200 mg BID PO Last administered on 12/24/16 09:32 ; Start 12/18/16 at 21:00 Non-Formulary Medication 2 puff PRN Q4-6HRS IH ; Start 12/18/16 at 17:30; Stop 12/18/16 at 18:06; Status DC Atorvastatin Calcium (Lipitor) 80 mg QHS PO Last administered on 12/23/16 22: 19; Start 12/18/16 at 21:00 Diazepam (Valium) 10 mg BID PO Last administered on 12/24/16 09:34; Start at 21:00 Non-Formulary Medication 2 inh BID IH ; Start 12/18/16 at 21:00; Stop 12/18/16 at 21:00; Status DC Insulin Detemir (Levemir) 45 units BID SQ Last administered on 12/20/16 08:22 ; Start 12/18/16 at 21:00; Stop 12/20/16 at 10:03; Status DC Insulin Aspart (NovoLOG) 15 units TIDAC SQ Last administered on 12/24/16 10:00 ; Start 12/19/16 at 18:00 Isosorbide Mononitrate (Imdur) 60 mg DAILY PO Last administered on 12/24/16 09 :32; Start 12/19/16 at 09:00 Non-Formulary Medication 3 puff BID IH ; Start 12/18/16 at 21:00; Stop 12/18/16 at 21:00; Status DC Phenobarbital (Luminal) 48.6 mg BID PO Last administered on 12/24/16 09:33; Start 12/18/16 at 21:00 Potassium Chloride (Klor-Con) 20 meq DAILYWBKFT PO Last administered on 09:33; Start 12/19/16 at 08:00 Non-Formulary Medication 25 mg BID PO ; Start 12/18/16 at 21:00; Stop 12/18/16 at 21:00; Status DC Oxycodone HCl (Roxicodone) 10 mg PRN Q4HRS PRN PO PAIN Last administered on 06:12; Start 12/18/16 at 17:45 Ketorolac Tromethamine (Toradol) 15 mg PRN Q6HRS PRN IV pain Last administered on 12/22/16 06:33; Start 12/18/16 at 17:45; Stop 12/23/16 at 17:44; Status DC Insulin Aspart (NovoLOG) 0-9 UNITS TIDWMEALS SQ Last administered on 12/24/16 10:01; Start 12/19/16 at 08:00 Dextrose (Dextrose 50%-Water Syringe) 12.5 gm PRN Q15MIN PRN IV SEE COMMENTS; Start 12/18/16 at 17:45 Albuterol Sulfate (Ventolin Neb Soln) 2.5 mg RTQID NEB Last administered on 07:41; Start 12/18/16 at 20:00 Albuterol Sulfate (Ventolin Neb Soln) 2.5 mg PRN Q4HRS PRN NEB SHORTNESS OF BREATH Last administered on 12/21/16 14:36; Start 12/18/16 at 18:15 Budesonide (Pulmicort) 0.5 mg RTBID NEB Last administered on 12/24/16 07:41; Start 12/18/16 at 20:00 Lorazepam (Ativan) 0.5 mg PRN Q8HRS PRN PO ANXIETY / AGITATION Last administered on 12/22/16 00:06; Start 12/18/16 at 18:45 Vancomycin HCl 1 gm/Sodium Chloride 250 ml @ 250 mls/hr Q8HRS IV Last administered on 12/20/16 14:26; Start 12/19/16 at 14:00; Stop 12/20/16 at 16:00 ; Status DC Vancomycin HCl 1 each 1X ONCE MC Last administered on 12/20/16 13:30; Start 12/20/16 at 13:30; Stop 12/20/16 at 13:31; Status DC Sodium Chloride 1,000 ml @ 125 mls/hr 1X ONCE IV Last administered on 13:47; Start 12/19/16 at 13:30; Stop 12/19/16 at 21:29; Status DC Oxycodone/ Acetaminophen (Percocet 7.5/ 325) 2 tab BID PO Last administered on 12/24/16 09:34; Start 12/19/16 at 14:00 Docusate Sodium (Colace) 100 mg DAILY PO Last administered on 12/24/16 09:35; Start 12/19/16 at 14:00 Polyethylene Glycol (miraLAX PACKET) 17 gm 1X ONCE PO Last administered on 13:54; Start 12/19/16 at 14:00; Stop 12/19/16 at 14:01; Status DC Polyethylene Glycol (miraLAX PACKET) 17 gm PRN DAILY PRN PO CONSTIPATION Last administered on 12/21/16 17:25; Start 12/19/16 at 13:45 Insulin Detemir (Levemir) 40 units BID SQ Last administered on 12/24/16 09:59 ; Start 12/20/16 at 21:00 Sodium Chloride 1,000 ml @ 1,000 mls/hr 1X ONCE IV Last administered on 11:51; Start 12/20/16 at 12:00; Stop 12/20/16 at 12:59; Status DC Sodium Chloride 1,000 ml @ 1,000 mls/hr 1X ONCE IV Last administered on 13:23; Start 12/20/16 at 12:00; Stop 12/20/16 at 12:59; Status DC Furosemide (Lasix) 40 mg DAILY PO Last administered on 12/24/16 09:33; Start 12/21/16 at 09:00 Vancomycin HCl 1.25 gm/Sodium Chloride 250 ml @ 167 mls/hr Q8HRS IV Last administered on 12/22/16 12:55; Start 12/20/16 at 22:00; Stop 12/22/16 at 14:38 ; Status DC Dexamethasone Sodium Phosphate (Decadron) 20 mg STK-MED ONCE .ROUTE ; Start at 10:58; Stop 12/21/16 at 10:59; Status DC Ondansetron HCl (Zofran) 4 mg STK-MED ONCE .ROUTE ; Start 12/21/16 at 10:58; Stop 12/21/16 at 10:59; Status DC Propofol 20 ml @ As Directed STK-MED ONCE IV ; Start 12/21/16 at 10:58; Stop at 10:59; Status DC Lidocaine HCl (Lidocaine Pf 2% Vial) 5 ml STK-MED ONCE .ROUTE ; Start 12/21/16 at 10:58; Stop 12/21/16 at 10:59; Status DC Desflurane (Suprane) 60 ml STK-MED ONCE IH ; Start 12/21/16 at 10:58; Stop 12/21 at 10:59; Status DC Fentanyl Citrate (Fentanyl 2ml Vial) 100 mcg STK-MED ONCE .ROUTE ; Start at 10:58; Stop 12/21/16 at 10:59; Status DC Midazolam HCl (Versed) 2 mg STK-MED ONCE .ROUTE ; Start 12/21/16 at 10:58; Stop 12/21/16 at 10:59; Status DC Fentanyl Citrate (Fentanyl 2ml Vial) 100 mcg STK-MED ONCE .ROUTE ; Start at 12:50; Stop 12/21/16 at 12:51; Status DC Propofol 20 ml @ As Directed STK-MED ONCE IV ; Start 12/21/16 at 13:19; Stop at 13:20; Status DC Fentanyl Citrate (Fentanyl 2ml Vial) 100 mcg STK-MED ONCE .ROUTE ; Start at 13:58; Stop 12/21/16 at 13:59; Status DC Ondansetron HCl (Zofran) 4 mg PRN Q6HRS PRN IV NAUSEA/VOMITING; Start 12/21/16 at 14:15; Stop 12/21/16 at 19:00; Status DC Fentanyl Citrate (Fentanyl 2ml Vial) 25 mcg PRN Q5MIN PRN IV MILD PAIN; Start 12/21/16 at 14:15; Stop 12/21/16 at 19:00; Status DC Fentanyl Citrate (Fentanyl 2ml Vial) 50 mcg PRN Q5MIN PRN IV MODERATE PAIN Last administered on 12/21/16t 14:37; Start 12/21/16 at 14:15; Stop 12/21/16 at 19:00; Status DC Morphine Sulfate 1 mg PRN Q10MIN PRN IV SEVERE PAIN; Start 12/21/16 at 14:15; Stop 12/21/16 at 19:00; Status DC Ringer's Solution 1,000 ml @ 30 mls/hr Q24H IV ; Start 12/21/16 at 14:00; Stop 12/21/16 at 15:19; Status DC Lidocaine HCl 2 ml PRN 1X PRN ID PRIOR TO IV START; Start 12/21/16 at 14:15; Stop 12/21/16 at 19:00; Status DC Prochlorperazine Edisylate (Compazine) 5 mg PACU PRN PRN IV NAUSEA, MRX1; Start 12/21/16 at 14:15; Stop 12/21/16 at 19:00; Status DC Sodium Chloride 1,000 ml @ 333.333 mls/hr 1X ONCE IV Last administered on 15:00; Start 12/22/16 at 15:00; Stop 12/22/16 at 17:59; Status DC Cefazolin Sodium 2 gm/Sodium Chloride 50 ml @ 100 mls/hr Q8HRS IV Last administered on 12/24/16 06:12; Start 12/22/16 at 22:00 Ondansetron HCl (Zofran) 4 mg PRN Q6HRS PRN IV NAUSEA/VOMITING Last administered on 12/23/16 10:21; Start 12/23/16 at 10:00 Acetaminophen (Tylenol) 500 mg PRN Q6HRS PRN PO MILD PAIN / TEMP Last administered on 12/23/16 23:15; Start 12/23/16 at 10:00 Fluoxetine HCl (PROzac) 20 mg DAILY PO Last administered on 12/24/16 09:34; Start 12/23/16 at 11:00 Active Scripts Active Reported [albuterol ] 25 Mg PO BID Phenobarbital 100 Mg Tablet 50 Mg PO BID Potassium Chloride 20 Meq Tablet.er 20 Meq PO DAILY Furosemide 40 Mg Tablet 40 Mg PO DAILY [place] 7.5-325 Tablet (Acetaminophen/Hydrocodone Bitart) 1 Each Tablet 1 Tab PO PRN Q6HRS PRN Humalog (Insulin Lispro) 100 Unit/1 Ml Vial 75 Unit SQ TIDAC Protonix (Pantoprazole Sodium) 40 Mg Tablet.dr 40 Mg PO DAILY Plavix (Clopidogrel Bisulfate) 75 Mg Tablet 75 Mg PO DAILY Proair Hfa Inhaler (Albuterol Sulfate) 8.5 Gm Hfa.aer.ad 2 Puff IH PRN Q4-6HRS Phenytoin Sodium Extended 100 Mg Capsule 100 Mg PO FOUR TIMES A DAILY Lantus (Insulin Glargine,Hum.rec.anlog) 100 Unit/1 Ml Vial 75 Unit SQ BID Oxycodon-Acetaminophen 7.5-325 (Oxycodone Hcl/Acetaminophen) 1 Each Tablet 1 Each PO BID Diazepam 10 Mg Tablet 10 Mg PO BID Dulera 200 Mcg/5 Mcg Inhaler (Mometasone/Formoterol) 13 Gm Hfa.aer.ad 3 Puff IH BID Advair 500-50 Diskus (Fluticasone/Salmeterol) 1 Each Disk.w.dev 2 Inh IH BID Atorvastatin Calcium 80 Mg Tablet 80 Mg PO HS Carvedilol 12.5 Mg Tablet 25 Mg PO BIDWMEALS Isosorbide Mononitrate Er (Isosorbide Mononitrate) 60 Mg Tab.er.24h 60 Mg PO DAILY Vitals/I & O Vital Sign - Last 24 Hours 12/23/16 12/23/16 12/23/16 12/23/16 11:11 11:38 14:47 16:07 Temp 98.1 97.7 98.1 97.7 Pulse 78 72 Resp 18 22 B/P (MAP) 84/40 (55) 89/45 (60) Pulse Ox 93 92 94 O2 Delivery Room Air Room Air Room Air Room Air 12/23/16 12/23/16 12/23/16 12/23/16 18:32 18:36 19:00 20:30 Temp 99.5 99.5 Pulse 78 80 Resp 18 B/P (MAP) 112/56 (74) 117/57 (77) Pulse Ox 92 99 O2 Delivery Room Air Room Air Room Air 12/23/16 12/23/16 12/23/16 12/23/16 20:30 20:31 22:18 23:00 Temp 101.8 101.8 Pulse 87 Resp 18 B/P (MAP) 118/64 (82) Pulse Ox 99 99 92 O2 Delivery Room Air Room Air Room Air Room Air 12/23/16 12/24/16 12/24/16 12/24/16 23:20 03:00 06:00 06:12 Temp 98.1 98.1 Pulse 73 70 Resp 18 B/P (MAP) 105/54 (71) 115/71 (86) Pulse Ox 92 94 94 O2 Delivery Room Air Room Air Room Air 12/24/16 12/24/16 12/24/16 12/24/16 07:00 07:12 07:44 07:46 Temp 97.7 97.7 Pulse 73 Resp 18 B/P (MAP) 129/70 (89) Pulse Ox 95 98 98 98 O2 Delivery Room Air Room Air Room Air Room Air 12/24/16 12/24/16 12/24/16 09:32 09:34 09:36 Pulse 73 73 Resp 18 B/P (MAP) 129/70 129/70 O2 Delivery Room Air Intake and Output 12/23/16 12/23/16 12/24/16 15:00 23:00 07:00 Intake Total 50 ml Output Total 0 ml Balance 0 ml 50 ml OVIDIO ORTIZ MD Dec 24, 2016 10:38
[2016-12-24] MEDS: DULoxetine HCL 20 MG CAPSULE.DR PO SCH (12:33)
[2016-12-24] MEDS: ACETAMINOPHEN 500 MG TABLET PO PRN (18:11)
[2016-12-24] MEDS: ATORVASTATIN CALCIUM 40 MG TABLET. PO SCH (20:48)
[2016-12-25] VITALS (11 sets, daily range): BP systolic 82–140; BP diastolic 44–74
[2016-12-25 06:47] LABS: BASO # 0.1 x10^3/uL (0.0-0.2); BASO % 1 % (0-3); EOS % 2 % (0-3); HEMATOCRIT 22.6 % (36.0-47.0); HEMOGLOBIN 7.8 g/dL (12.0-15.5); LYMPH % 32 % (24-48); MEAN CORPUSCULAR HEMOGLOBIN 31 pg (25-35); MEAN CORPUSCULAR HGB CONC 35 g/dL (31-37); MEAN CORPUSCULAR VOLUME 88 fL (79-100); MONO % 7 % (0-9); NEUT % 59 % (31-73); PLATELET COUNT 503 x10^3/uL (140-400); RED BLOOD COUNT 2.56 x10^6/uL (3.50-5.40); RED CELL DISTRIBUTION WIDTH 13.5 % (11.5-14.5); WHITE BLOOD COUNT 9.6 x10^3/uL (4.0-11.0)
[2016-12-25 06:48] LABS: CALCIUM 8.5 mg/dL (8.5-10.1); CREATININE 0.5 mg/dL (0.6-1.0); GFR 125.9; POTASSIUM 3.4 mmol/L (3.5-5.1)
[2016-12-25 06:56] LABS: INR 1.2 (0.8-1.1); PROTHROMBIN TIME PATIENT 14.4 SEC (11.7-14.0)
[2016-12-25] MEDS: BUDESONIDE 0.5 MG/2 ML NEBU. NEB SCH ×2 (07:06→10:59)
[2016-12-25] MEDS: ALBUTEROL SULFATE 2.5 MG/3 ML NEBU. NEB SCH ×4 (07:06→19:17)
[2016-12-25] MEDS ORDERED: PROPOFOL 20 ML IV ONE (07:11)
[2016-12-25] MEDS ORDERED: SEVOFLURANE 31 TO 60 MINUTES. IH ONE (07:11)
[2016-12-25] MEDS ORDERED: LIDOCAINE 2% PF Vial for OR 5 ML VIAL. ONE (07:11)
[2016-12-25] MEDS ORDERED: FAMOTIDINE 20 MG/2 ML VIAL ONE (07:12)
[2016-12-25] MEDS ORDERED: 0.9 % SODIUM CHLORIDE 50 ML VIAL. IJ ONE (07:20)
[2016-12-25] MEDS ORDERED: PHENYLEPHRINE 10 MG/ML VIAL. ONE (07:20)
[2016-12-25] MEDS ORDERED: IV NORMAL SALINE 1000ML BAG 1,000 ML IV ONE (07:30)
[2016-12-25] MEDS ORDERED: ONDANSETRON PF 4 MG/2 ML VIAL. ONE (07:30)
[2016-12-25] MEDS: INSULIN ASPART 300 UNITS/3 ML INSULN.PEN SQ SCH ×6 (07:30→17:31)
[2016-12-25] MEDS ORDERED: DEXAMETHASONE SOD PHOS 20 MG/5 ML VIAL. ONE (07:30)
[2016-12-25] MEDS ORDERED: fentaNYL PF VIAL 100 MCG/2 ML VIAL ONE ×2 (07:33→08:42)
[2016-12-25] MEDS: CARVEDILOL 12.5 MG TABLET. PO SCH ×2 (08:00→17:00)
[2016-12-25] MEDS ORDERED: SEVOFLURANE 61 TO 120 MINUTES. IH ONE (08:03)
[2016-12-25] MEDS ORDERED: IV RINGERS,LACTATED 1000ML 1,000 ML IV SCH (08:29)
[2016-12-25] MEDS ORDERED: ONDANSETRON PF 4 MG/2 ML VIAL. IV PRN (08:30)
[2016-12-25] MEDS ORDERED: fentaNYL PF VIAL 100 MCG/2 ML VIAL IV PRN (08:30)
[2016-12-25] MEDS ORDERED: PROCHLORPERAZINE 10 MG/2 ML VIAL. IV PRN (08:30)
[2016-12-25] MEDS ORDERED: DEXTROSE 50% 25 GM / 50ML DISP.SYRIN. IV ONE (08:30)
[2016-12-25] MEDS ORDERED: LIDOCAINE 1% 1 ML SYRINGE. ID PRN (08:30)
[2016-12-25] MEDS: DOCUSATE SODIUM 100 MG CAPSULE. PO SCH (08:42)
[2016-12-25] MEDS: oxyCODONE/APAP 7.5/325 1 TAB TABLET PO SCH ×3 (08:43→21:02)
[2016-12-25] MEDS: INSULIN DETEMIR 300 UNITS/3 ML INSULN.PEN. SQ SCH ×2 (08:43→21:16)
[2016-12-25] MEDS: CLOPIDOGREL BISULFATE 75 MG TABLET PO SCH (08:43)
[2016-12-25] MEDS: fentaNYL PF VIAL 100 MCG/2 ML VIAL IV PRN ×2 (08:46→09:00)
[2016-12-25] MEDS: PHENobarbital 32.4 MG TABLET. PO SCH ×2 (09:00→21:03)
--- NOTE | 2016-12-25 09:00 | PDOC4 ---
Operative Note Operative Note Date: 12/25/2016 Preoperative diagnosis: Extensive bleeding from distal knee wound Postoperative diagnosis: No active bleeding found only hematoma Procedure: Exploration right leg wound with irrigation debridement and closure Surgeon: Argenis Gutierrez LMA Estimated blood loss 25 mL Complications: None Operative indications: I was called urgently this morning with a report of extensive active bleeding from her distal leg wound which resulted from a hardware removal procedure 4 days ago. She had displayed very little if any drainage postoperatively particularly no drainage for the past 2 days up to this episode. Nevertheless she was apparently being moved in bed by a couple of nursing assistants who noticed extensive and ongoing bleeding prompting an urgent call to me. I talked with the patient and we decided on exploration in the operating room on an urgent basis and after informed consent was obtained she agreed to proceed with operative evaluation and treatment Operative text: Patient was identified and procedure verified. After adequate amounts of general LMA anesthesia were administered, Lamont were removed from her distal knee wound and the right leg was prepped and draped in standard sterile fashion after timeout was performed patient procedure identified and verified, her proximal wounds were previously noted to be completely intact the distal wound was opened subcutaneous sutures removed and some hematoma was present, previous fascia closure was adequate aside from a small opening at the very proximal portion of the wound. Debridement of the hematoma was carried out thorough irrigation carried out with normal saline solution and pulse lavage. No significant bleeding was noted at all during the exploration. Fascia was closed with #1 strata fix and a running fashion that was doubled back over. Subcutaneous closure accomplished with buried Vicryl plus suture. In a layered fashion. Skin closure accomplished with lamont sterile dressings were applied patient was returned to recovery room in stable condition having tolerated the procedure well RADHA GERBER MD Dec 25, 2016 09:00
--- NOTE | 2016-12-25 10:15 | PDOC ---
PROGRESS NOTES Chief Complaint Chief Complaint Septic arthritis of right knee s/p RE- OR (12/25)- first OR (s/p hardware removal 12/21) Obesity, BMI 35 Personality disorder or schizotypal, Possible depression NArcotic dependence Immobility Obesity BMI 35 Mild to mod pCM Anemia of acute blood loss History of Present Illness History of Present Illness BLed this AM from Rt knee, site of OR last 12/21 where knee hardware was removed Hgb dropped to 7.8 from 8.3 today Needed to undergo stat OR this AM by ortho, did debridement MONDAY ENTRY: KNown to me from my last admit not too long ago for the same septic RT knee - MSSA She admitted to me did not take clinda pO I prescribed, had to pay $60 as co pay She cries to me, family would not pitch in for help in cost, or even help her at home HENCE now agreeable to SNU - PpLAce HAd quite a rusty discussion with her today, 30 mins in room, MARY Peña at bedside NOw on IV cefazolin per iD - multiple non concerning drug allergies - pt can be very opinionated about her care PLAN: Recheck HH bernarda, if cont to drop, consider transfusing COnt IV cefazolin SW for pPlace come monday,-agreeable to SNU this time PT/OT - unable to bear weight yet - does not want the hoist etc, lots of counselling and explaining to her DId discuss about possible antidepressnat, maybe cymbalta? but would not want her to be drowsy LOts of narcs on board She complains of R leg pain, almost like sciatica, known to complain of pain all over - WHICH i think is mainly depression NOS from her current health, immobility and almost non existent family support Vitals Vitals Vital Signs Date Time Temp Pulse Resp B/P (MAP) Pulse Ox O2 Delivery O2 Flow Rate FiO2 12/25/16 09:04 97.8 76 20 116/57 95 Nasal Cannula 2 97.8 Physical Exam General: Alert, Cooperative, moderate distress, Other (odd affect still) Heart: Regular rate, Normal S1, Normal S2, Other (2/6 systolic murmur to LLS border) Lungs: Clear, Other (No r/r/w) Abdomen: Soft, No tenderness Extremities: No cyanosis, Other (3+ RLE pitting edema; LLE 2+ pitting edema) Skin: No rashes, No breakdown Labs LABS Laboratory Tests Test 12/24/16 11:14 12/24/16 16:27 12/24/16 20:30 12/25/16 06:15 Glucose (Fingerstick) 167 mg/dL (70-99) 104 mg/dL (70-99) 122 mg/dL (70-99) White Blood Count 9.6 x10^3/uL (4.0-11.0) Red Blood Count 2.56 x10^6/uL (3.50-5.40) Hemoglobin 7.8 g/dL (12.0-15.5) Hematocrit 22.6 % (36.0-47.0) Mean Corpuscular Volume 88 fL (79-100) Mean Corpuscular Hemoglobin 31 pg (25-35) Mean Corpuscular Hemoglobin Concent 35 g/dL (31-37) Red Cell Distribution Width 13.5 % (11.5-14.5) Platelet Count 503 x10^3/uL (140-400) Neutrophils (%) (Auto) 59 % (31-73) Lymphocytes (%) (Auto) 32 % (24-48) Monocytes (%) (Auto) 7 % (0-9) Eosinophils (%) (Auto) 2 % (0-3) Basophils (%) (Auto) 1 % (0-3) Neutrophils # (Auto) 5.7 x10^3uL (1.8-7.7) Lymphocytes # (Auto) 3.0 x10^3/uL (1.0-4.8) Monocytes # (Auto) 0.6 x10^3/uL (0.0-1.1) Eosinophils # (Auto) 0.2 x10^3/uL (0.0-0.7) Basophils # (Auto) 0.1 x10^3/uL (0.0-0.2) Prothrombin Time 14.4 SEC (11.7-14.0) Prothromb Time International Ratio 1.2 (0.8-1.1) Sodium Level 139 mmol/L (136-145) Potassium Level 3.4 mmol/L (3.5-5.1) Chloride Level 102 mmol/L (98-107) Carbon Dioxide Level 32 mmol/L (21-32) Anion Gap 5 (6-14) Blood Urea Nitrogen 11 mg/dL (7-20) Creatinine 0.5 mg/dL (0.6-1.0) Estimated GFR (Cockcroft-Gault) 125.9 Glucose Level 63 mg/dL (70-99) Calcium Level 8.5 mg/dL (8.5-10.1) Test 12/25/16 08:26 12/25/16 09:09 12/25/16 09:41 Glucose (Fingerstick) 63 mg/dL (70-99) 137 mg/dL (70-99) 108 mg/dL (70-99) Review of Systems Review of Systems RT knee pain, immobility, depression, frustration Assessment and Plan Assessmemt and Plan Problems Medical Problems: (1) Bacteremia Status: Acute Problems: Comment Review of Relevant I have reviewed the following items mary (where applicable) has been applied. Labs Laboratory Tests Test 12/23/16 11:37 12/23/16 16:16 12/23/16 20:58 12/24/16 07:32 Glucose (Fingerstick) 219 mg/dL (70-99) 264 mg/dL (70-99) 200 mg/dL (70-99) 186 mg/dL (70-99) Test 12/24/16 09:28 12/24/16 11:14 12/24/16 16:27 12/24/16 20:30 Glucose (Fingerstick) 239 mg/dL (70-99) 167 mg/dL (70-99) 104 mg/dL (70-99) 122 mg/dL (70-99) Test 12/25/16 06:15 12/25/16 08:26 12/25/16 09:09 12/25/16 09:41 White Blood Count 9.6 x10^3/uL (4.0-11.0) Red Blood Count 2.56 x10^6/uL (3.50-5.40) Hemoglobin 7.8 g/dL (12.0-15.5) Hematocrit 22.6 % (36.0-47.0) Mean Corpuscular Volume 88 fL (79-100) Mean Corpuscular Hemoglobin 31 pg (25-35) Mean Corpuscular Hemoglobin Concent 35 g/dL (31-37) Red Cell Distribution Width 13.5 % (11.5-14.5) Platelet Count 503 x10^3/uL (140-400) Neutrophils (%) (Auto) 59 % (31-73) Lymphocytes (%) (Auto) 32 % (24-48) Monocytes (%) (Auto) 7 % (0-9) Eosinophils (%) (Auto) 2 % (0-3) Basophils (%) (Auto) 1 % (0-3) Neutrophils # (Auto) 5.7 x10^3uL (1.8-7.7) Lymphocytes # (Auto) 3.0 x10^3/uL (1.0-4.8) Monocytes # (Auto) 0.6 x10^3/uL (0.0-1.1) Eosinophils # (Auto) 0.2 x10^3/uL (0.0-0.7) Basophils # (Auto) 0.1 x10^3/uL (0.0-0.2) Prothrombin Time 14.4 SEC (11.7-14.0) Prothromb Time International Ratio 1.2 (0.8-1.1) Sodium Level 139 mmol/L (136-145) Potassium Level 3.4 mmol/L (3.5-5.1) Chloride Level 102 mmol/L (98-107) Carbon Dioxide Level 32 mmol/L (21-32) Anion Gap 5 (6-14) Blood Urea Nitrogen 11 mg/dL (7-20) Creatinine 0.5 mg/dL (0.6-1.0) Estimated GFR (Cockcroft-Gault) 125.9 Glucose Level 63 mg/dL (70-99) Calcium Level 8.5 mg/dL (8.5-10.1) Glucose (Fingerstick) 63 mg/dL (70-99) 137 mg/dL (70-99) 108 mg/dL (70-99) Laboratory Tests Test 12/24/16 11:14 12/24/16 16:27 12/24/16 20:30 12/25/16 06:15 Glucose (Fingerstick) 167 mg/dL (70-99) 104 mg/dL (70-99) 122 mg/dL (70-99) White Blood Count 9.6 x10^3/uL (4.0-11.0) Red Blood Count 2.56 x10^6/uL (3.50-5.40) Hemoglobin 7.8 g/dL (12.0-15.5) Hematocrit 22.6 % (36.0-47.0) Mean Corpuscular Volume 88 fL (79-100) Mean Corpuscular Hemoglobin 31 pg (25-35) Mean Corpuscular Hemoglobin Concent 35 g/dL (31-37) Red Cell Distribution Width 13.5 % (11.5-14.5) Platelet Count 503 x10^3/uL (140-400) Neutrophils (%) (Auto) 59 % (31-73) Lymphocytes (%) (Auto) 32 % (24-48) Monocytes (%) (Auto) 7 % (0-9) Eosinophils (%) (Auto) 2 % (0-3) Basophils (%) (Auto) 1 % (0-3) Neutrophils # (Auto) 5.7 x10^3uL (1.8-7.7) Lymphocytes # (Auto) 3.0 x10^3/uL (1.0-4.8) Monocytes # (Auto) 0.6 x10^3/uL (0.0-1.1) Eosinophils # (Auto) 0.2 x10^3/uL (0.0-0.7) Basophils # (Auto) 0.1 x10^3/uL (0.0-0.2) Prothrombin Time 14.4 SEC (11.7-14.0) Prothromb Time International Ratio 1.2 (0.8-1.1) Sodium Level 139 mmol/L (136-145) Potassium Level 3.4 mmol/L (3.5-5.1) Chloride Level 102 mmol/L (98-107) Carbon Dioxide Level 32 mmol/L (21-32) Anion Gap 5 (6-14) Blood Urea Nitrogen 11 mg/dL (7-20) Creatinine 0.5 mg/dL (0.6-1.0) Estimated GFR (Cockcroft-Gault) 125.9 Glucose Level 63 mg/dL (70-99) Calcium Level 8.5 mg/dL (8.5-10.1) Test 12/25/16 08:26 12/25/16 09:09 12/25/16 09:41 Glucose (Fingerstick) 63 mg/dL (70-99) 137 mg/dL (70-99) 108 mg/dL (70-99) Microbiology 12/23/16 Blood Culture - Preliminary, Resulted NO GROWTH AFTER 2 DAYS Medications Current Medications Ondansetron HCl (Zofran) 4 mg PRN Q8HRS PRN IV NAUSEA/VOMITING Last administered on 12/18/16 23:22; Start 12/18/16 at 16:00; Stop 12/19/16 at 15:59 ; Status DC Acetaminophen (Tylenol) 650 mg PRN Q4HRS PRN PO FEVER Last administered on 12/18 18:10; Start 12/18/16 at 16:00; Stop 12/19/16 at 15:59; Status DC Vancomycin HCl (Vanco Per Pharmacy) 1 each PRN DAILY PRN MC SEE COMMENTS; Start 12/18/16 at 16:00; Status UNV Vancomycin HCl (Vanco Per Pharmacy) 1 each PRN DAILY PRN MC SEE COMMENTS Last administered on 12/22/16 11:38; Start 12/18/16 at 17:15; Stop 12/22/16 at 14:41 ; Status DC Vancomycin HCl 1 each 1X ONCE MC ; Start 12/18/16 at 17:15; Stop 12/18/16 at 17 :15; Status DC Vancomycin HCl 1.25 gm/Sodium Chloride 250 ml @ 167 mls/hr Q12H IV Last administered on 12/19/16 06:26; Start 12/18/16 at 18:00; Stop 12/19/16 at 08:00 ; Status DC Vancomycin HCl 1 each 1X ONCE MC Last administered on 12/19/16 05:30; Start 12/19/16 at 05:30; Stop 12/19/16 at 05:31; Status DC Carvedilol (Coreg) 25 mg BIDWMEALS PO Last administered on 12/24/16 09:36; Start 12/19/16 at 18:00 Clopidogrel Bisulfate (Plavix) 75 mg DAILY PO Last administered on 12/24/16 09 :32; Start 12/19/16 at 09:00 Furosemide (Lasix) 40 mg DAILY PO Last administered on 12/20/16 08:13; Start 12/19/16 at 09:00; Stop 12/20/16 at 14:04; Status DC Oxycodone/ Acetaminophen (Percocet 7.5/ 325) 1 tab BID PO Last administered on 12/19/16 08:25; Start 12/18/16 at 21:00; Stop 12/19/16 at 13:29; Status DC Pantoprazole Sodium (Protonix) 40 mg DAILY PO Last administered on 12/24/16 09 :32; Start 12/19/16 at 09:00 Phenytoin Sodium (Dilantin) 200 mg BID PO Last administered on 12/24/16 20:47 ; Start 12/18/16 at 21:00 Non-Formulary Medication 2 puff PRN Q4-6HRS IH ; Start 12/18/16 at 17:30; Stop 12/18/16 at 18:06; Status DC Atorvastatin Calcium (Lipitor) 80 mg QHS PO Last administered on 12/24/16 20: 48; Start 12/18/16 at 21:00 Diazepam (Valium) 10 mg BID PO Last administered on 12/24/16 20:47; Start at 21:00 Non-Formulary Medication 2 inh BID IH ; Start 12/18/16 at 21:00; Stop 12/18/16 at 21:00; Status DC Insulin Detemir (Levemir) 45 units BID SQ Last administered on 12/20/16 08:22 ; Start 12/18/16 at 21:00; Stop 12/20/16 at 10:03; Status DC Insulin Aspart (NovoLOG) 15 units TIDAC SQ Last administered on 12/24/16 12:48 ; Start 12/19/16 at 18:00 Isosorbide Mononitrate (Imdur) 60 mg DAILY PO Last administered on 12/24/16 09 :32; Start 12/19/16 at 09:00 Non-Formulary Medication 3 puff BID IH ; Start 12/18/16 at 21:00; Stop 12/18/16 at 21:00; Status DC Phenobarbital (Luminal) 48.6 mg BID PO Last administered on 12/24/16 20:48; Start 12/18/16 at 21:00 Potassium Chloride (Klor-Con) 20 meq DAILYWBKFT PO Last administered on 09:33; Start 12/19/16 at 08:00 Non-Formulary Medication 25 mg BID PO ; Start 12/18/16 at 21:00; Stop 12/18/16 at 21:00; Status DC Oxycodone HCl (Roxicodone) 10 mg PRN Q4HRS PRN PO PAIN Last administered on 18:11; Start 12/18/16 at 17:45 Ketorolac Tromethamine (Toradol) 15 mg PRN Q6HRS PRN IV pain Last administered on 12/22/16 06:33; Start 12/18/16 at 17:45; Stop 12/23/16 at 17:44; Status DC Insulin Aspart (NovoLOG) 0-9 UNITS TIDWMEALS SQ Last administered on 12/24/16 12:50; Start 12/19/16 at 08:00 Dextrose (Dextrose 50%-Water Syringe) 12.5 gm PRN Q15MIN PRN IV SEE COMMENTS; Start 12/18/16 at 17:45 Albuterol Sulfate (Ventolin Neb Soln) 2.5 mg RTQID NEB Last administered on 20:10; Start 12/18/16 at 20:00 Albuterol Sulfate (Ventolin Neb Soln) 2.5 mg PRN Q4HRS PRN NEB SHORTNESS OF BREATH Last administered on 12/21/16 14:36; Start 12/18/16 at 18:15 Budesonide (Pulmicort) 0.5 mg RTBID NEB Last administered on 12/24/16 20:10; Start 12/18/16 at 20:00 Lorazepam (Ativan) 0.5 mg PRN Q8HRS PRN PO ANXIETY / AGITATION Last administered on 12/22/16 00:06; Start 12/18/16 at 18:45 Vancomycin HCl 1 gm/Sodium Chloride 250 ml @ 250 mls/hr Q8HRS IV Last administered on 12/20/16 14:26; Start 12/19/16 at 14:00; Stop 12/20/16 at 16:00 ; Status DC Vancomycin HCl 1 each 1X ONCE MC Last administered on 12/20/16 13:30; Start 12/20/16 at 13:30; Stop 12/20/16 at 13:31; Status DC Sodium Chloride 1,000 ml @ 125 mls/hr 1X ONCE IV Last administered on 13:47; Start 12/19/16 at 13:30; Stop 12/19/16 at 21:29; Status DC Oxycodone/ Acetaminophen (Percocet 7.5/ 325) 2 tab BID PO Last administered on 12/25/16 09:04; Start 12/19/16 at 14:00 Docusate Sodium (Colace) 100 mg DAILY PO Last administered on 12/24/16 09:35; Start 12/19/16 at 14:00 Polyethylene Glycol (miraLAX PACKET) 17 gm 1X ONCE PO Last administered on 13:54; Start 12/19/16 at 14:00; Stop 12/19/16 at 14:01; Status DC Polyethylene Glycol (miraLAX PACKET) 17 gm PRN DAILY PRN PO CONSTIPATION Last administered on 12/21/16 17:25; Start 12/19/16 at 13:45 Insulin Detemir (Levemir) 40 units BID SQ Last administered on 12/24/16 20:59 ; Start 12/20/16 at 21:00 Sodium Chloride 1,000 ml @ 1,000 mls/hr 1X ONCE IV Last administered on 11:51; Start 12/20/16 at 12:00; Stop 12/20/16 at 12:59; Status DC Sodium Chloride 1,000 ml @ 1,000 mls/hr 1X ONCE IV Last administered on 13:23; Start 12/20/16 at 12:00; Stop 12/20/16 at 12:59; Status DC Furosemide (Lasix) 40 mg DAILY PO Last administered on 12/24/16 09:33; Start 12/21/16 at 09:00 Vancomycin HCl 1.25 gm/Sodium Chloride 250 ml @ 167 mls/hr Q8HRS IV Last administered on 12/22/16 12:55; Start 12/20/16 at 22:00; Stop 12/22/16 at 14:38 ; Status DC Dexamethasone Sodium Phosphate (Decadron) 20 mg STK-MED ONCE .ROUTE ; Start at 10:58; Stop 12/21/16 at 10:59; Status DC Ondansetron HCl (Zofran) 4 mg STK-MED ONCE .ROUTE ; Start 12/21/16 at 10:58; Stop 12/21/16 at 10:59; Status DC Propofol 20 ml @ As Directed STK-MED ONCE IV ; Start 12/21/16 at 10:58; Stop at 10:59; Status DC Lidocaine HCl (Lidocaine Pf 2% Vial) 5 ml STK-MED ONCE .ROUTE ; Start 12/21/16 at 10:58; Stop 12/21/16 at 10:59; Status DC Desflurane (Suprane) 60 ml STK-MED ONCE IH ; Start 12/21/16 at 10:58; Stop 12/21 at 10:59; Status DC Fentanyl Citrate (Fentanyl 2ml Vial) 100 mcg STK-MED ONCE .ROUTE ; Start at 10:58; Stop 12/21/16 at 10:59; Status DC Midazolam HCl (Versed) 2 mg STK-MED ONCE .ROUTE ; Start 12/21/16 at 10:58; Stop 12/21/16 at 10:59; Status DC Fentanyl Citrate (Fentanyl 2ml Vial) 100 mcg STK-MED ONCE .ROUTE ; Start at 12:50; Stop 12/21/16 at 12:51; Status DC Propofol 20 ml @ As Directed STK-MED ONCE IV ; Start 12/21/16 at 13:19; Stop at 13:20; Status DC Fentanyl Citrate (Fentanyl 2ml Vial) 100 mcg STK-MED ONCE .ROUTE ; Start at 13:58; Stop 12/21/16 at 13:59; Status DC Ondansetron HCl (Zofran) 4 mg PRN Q6HRS PRN IV NAUSEA/VOMITING; Start 12/21/16 at 14:15; Stop 12/21/16 at 19:00; Status DC Fentanyl Citrate (Fentanyl 2ml Vial) 25 mcg PRN Q5MIN PRN IV MILD PAIN; Start 12/21/16 at 14:15; Stop 12/21/16 at 19:00; Status DC Fentanyl Citrate (Fentanyl 2ml Vial) 50 mcg PRN Q5MIN PRN IV MODERATE PAIN Last administered on 12/21/16t 14:37; Start 12/21/16 at 14:15; Stop 12/21/16 at 19:00; Status DC Morphine Sulfate 1 mg PRN Q10MIN PRN IV SEVERE PAIN; Start 12/21/16 at 14:15; Stop 12/21/16 at 19:00; Status DC Ringer's Solution 1,000 ml @ 30 mls/hr Q24H IV ; Start 12/21/16 at 14:00; Stop 12/21/16 at 15:19; Status DC Lidocaine HCl 2 ml PRN 1X PRN ID PRIOR TO IV START; Start 12/21/16 at 14:15; Stop 12/21/16 at 19:00; Status DC Prochlorperazine Edisylate (Compazine) 5 mg PACU PRN PRN IV NAUSEA, MRX1; Start 12/21/16 at 14:15; Stop 12/21/16 at 19:00; Status DC Sodium Chloride 1,000 ml @ 333.333 mls/hr 1X ONCE IV Last administered on 15:00; Start 12/22/16 at 15:00; Stop 12/22/16 at 17:59; Status DC Cefazolin Sodium 2 gm/Sodium Chloride 50 ml @ 100 mls/hr Q8HRS IV Last administered on 12/25/16 07:30; Start 12/22/16 at 22:00 Ondansetron HCl (Zofran) 4 mg PRN Q6HRS PRN IV NAUSEA/VOMITING Last administered on 12/23/16 10:21; Start 12/23/16 at 10:00 Acetaminophen (Tylenol) 500 mg PRN Q6HRS PRN PO MILD PAIN / TEMP Last administered on 12/24/16 18:11; Start 12/23/16 at 10:00 Fluoxetine HCl (PROzac) 20 mg DAILY PO Last administered on 12/24/16 09:34; Start 12/23/16 at 11:00 Duloxetine HCl (Cymbalta) 20 mg DAILY PO Last administered on 12/24/16 12:33; Start 12/24/16 at 11:00 Sevoflurane (Ultane) 30 ml STK-MED ONCE IH ; Start 12/25/16 at 07:11; Stop 12/25 at 07:12; Status DC Propofol 20 ml @ As Directed STK-MED ONCE IV ; Start 12/25/16 at 07:11; Stop at 07:12; Status DC Lidocaine HCl (Lidocaine Pf 2% Vial) 5 ml STK-MED ONCE .ROUTE ; Start 12/25/16 at 07:11; Stop 12/25/16 at 07:12; Status DC Famotidine (Pepcid) 20 mg STK-MED ONCE .ROUTE ; Start 12/25/16 at 07:12; Stop at 07:13; Status DC Sodium Chloride (Sodium Chloride) 50 ml STK-MED ONCE IJ ; Start 12/25/16 at 07: 20; Stop 12/25/16 at 07:21; Status DC Phenylephrine HCl (Dat-Synephrine Inj) 10 mg STK-MED ONCE .ROUTE ; Start at 07:20; Stop 12/25/16 at 07:21; Status DC Dexamethasone Sodium Phosphate (Decadron) 20 mg STK-MED ONCE .ROUTE ; Start at 07:30; Stop 12/25/16 at 07:31; Status DC Ondansetron HCl (Zofran) 4 mg STK-MED ONCE .ROUTE ; Start 12/25/16 at 07:30; Stop 12/25/16 at 07:31; Status DC Fentanyl Citrate (Fentanyl 2ml Vial) 100 mcg STK-MED ONCE .ROUTE ; Start at 07:33; Stop 12/25/16 at 09:51; Status DC Sevoflurane (Ultane) 60 ml STK-MED ONCE IH ; Start 12/25/16 at 08:03; Stop 12/25 at 08:04; Status DC Dextrose (Dextrose 50%-Water Syringe) 12.5 gm 1X ONCE IV Last administered on 12/25/16t 08:46; Start 12/25/16 at 08:30; Stop 12/25/16 at 08:35; Status DC Ondansetron HCl (Zofran) 4 mg PRN Q6HRS PRN IV NAUSEA/VOMITING; Start 12/25/16 at 08:30; Stop 12/25/16 at 09:53; Status DC Fentanyl Citrate (Fentanyl 2ml Vial) 25 mcg PRN Q5MIN PRN IV MILD PAIN; Start 12/25/16 at 08:30; Stop 12/25/16 at 09:51; Status DC Fentanyl Citrate (Fentanyl 2ml Vial) 50 mcg PRN Q5MIN PRN IV MODERATE PAIN Last administered on 12/25/16 09:00; Start 12/25/16 at 08:30; Stop 12/25/16 at 09:51; Status DC Ringer's Solution 1,000 ml @ 30 mls/hr Q24H IV ; Start 12/25/16 at 08:29; Stop 12/25/16 at 09:53; Status DC Lidocaine HCl 2 ml PRN 1X PRN ID PRIOR TO IV START; Start 12/25/16 at 08:30; Stop 12/26/16 at 08:29 Prochlorperazine Edisylate (Compazine) 5 mg PACU PRN PRN IV NAUSEA, MRX1; Start 12/25/16 at 08:30; Stop 12/25/16 at 09:53; Status DC Fentanyl Citrate (Fentanyl 2ml Vial) 100 mcg STK-MED ONCE .ROUTE ; Start at 08:42; Stop 12/25/16 at 09:51; Status DC Sodium Chloride 1,000 ml @ 125 mls/hr 1X ONCE IV Last administered on 07:00; Start 12/25/16 at 07:30; Stop 12/25/16 at 09:53; Status DC Active Scripts Active Reported [albuterol ] 25 Mg PO BID Phenobarbital 100 Mg Tablet 50 Mg PO BID Potassium Chloride 20 Meq Tablet.er 20 Meq PO DAILY Furosemide 40 Mg Tablet 40 Mg PO DAILY [place] 7.5-325 Tablet (Acetaminophen/Hydrocodone Bitart) 1 Each Tablet 1 Tab PO PRN Q6HRS PRN Humalog (Insulin Lispro) 100 Unit/1 Ml Vial 75 Unit SQ TIDAC Protonix (Pantoprazole Sodium) 40 Mg Tablet.dr 40 Mg PO DAILY Plavix (Clopidogrel Bisulfate) 75 Mg Tablet 75 Mg PO DAILY Proair Hfa Inhaler (Albuterol Sulfate) 8.5 Gm Hfa.aer.ad 2 Puff IH PRN Q4-6HRS Phenytoin Sodium Extended 100 Mg Capsule 100 Mg PO FOUR TIMES A DAILY Lantus (Insulin Glargine,Hum.rec.anlog) 100 Unit/1 Ml Vial 75 Unit SQ BID Oxycodon-Acetaminophen 7.5-325 (Oxycodone Hcl/Acetaminophen) 1 Each Tablet 1 Each PO BID Diazepam 10 Mg Tablet 10 Mg PO BID Dulera 200 Mcg/5 Mcg Inhaler (Mometasone/Formoterol) 13 Gm Hfa.aer.ad 3 Puff IH BID Advair 500-50 Diskus (Fluticasone/Salmeterol) 1 Each Disk.w.dev 2 Inh IH BID Atorvastatin Calcium 80 Mg Tablet 80 Mg PO HS Carvedilol 12.5 Mg Tablet 25 Mg PO BIDWMEALS Isosorbide Mononitrate Er (Isosorbide Mononitrate) 60 Mg Tab.er.24h 60 Mg PO DAILY Vitals/I & O Vital Sign - Last 24 Hours 12/24/16 12/24/16 12/24/16 12/24/16 10:34 11:00 15:00 15:15 Temp 98.4 98.4 Pulse 74 71 78 Resp 16 18 18 18 B/P (MAP) 100/52 (68) 80/38 (52) 88/60 (69) Pulse Ox 95 91 O2 Delivery Room Air Room Air Room Air 12/24/16 12/24/16 12/24/16 12/24/16 15:16 16:54 18:11 19:00 Temp 101.1 101.1 Pulse 78 87 Resp 18 18 B/P (MAP) 88/60 148/58 (88) Pulse Ox 95 O2 Delivery Room Air Room Air Room Air 12/24/16 12/24/16 12/24/16 12/24/16 19:14 20:00 20:12 23:00 Temp 97.7 97.7 Pulse 67 Resp 16 18 B/P (MAP) 89/46 (60) Pulse Ox 94 95 O2 Delivery Room Air Room Air Room Air Room Air 12/25/16 12/25/16 12/25/16 12/25/16 03:00 08:19 08:34 08:34 Temp 97.5 98.4 97.5 98.4 Pulse 71 72 76 Resp 18 20 20 B/P (MAP) 133/56 (81) 96/48 118/62 Pulse Ox 95 92 96 O2 Delivery Room Air Simple Mask Nasal Cannula Mask O2 Flow Rate 10 2 2 12/25/16 12/25/16 12/25/16 12/25/16 08:46 08:49 09:00 09:04 Temp 98.4 98.4 Pulse 76 Resp 20 20 20 20 B/P (MAP) 116/57 Pulse Ox 97 96 96 O2 Delivery Nasal Cannula Nasal Cannula Nasal Cannula Nasal Cannula O2 Flow Rate 2.0 2 2.0 2.0 12/25/16 09:04 Temp 97.8 97.8 Pulse 76 Resp 20 B/P (MAP) 116/57 Pulse Ox 95 O2 Delivery Nasal Cannula O2 Flow Rate 2 Intake and Output 12/24/16 12/24/16 12/25/16 15:00 23:00 07:00 Intake Total 500 ml 420 ml 400 ml Balance 500 ml 420 ml 400 ml OVIDIO ORTIZ MD Dec 25, 2016 10:15
[2016-12-25] MEDS: diazePAM 5 MG TABLET PO SCH ×2 (10:23→21:02)
[2016-12-25] MEDS: ISOSORBIDE MONONITRATE ER 30 MG TAB.ER.24H PO SCH (10:24)
[2016-12-25] MEDS: FLUoxetine HCL 20 MG CAPSULE PO SCH (10:32)
[2016-12-25] MEDS: FUROSEMIDE 40 MG TABLET. PO SCH (10:33)
[2016-12-25] MEDS: POTASSIUM CHLORIDE 20 MEQ TABLET.ER. PO SCH (10:33)
[2016-12-25] MEDS: PHENYTOIN SODIUM EXTENDED 100 MG CAPSULE PO SCH ×2 (10:33→21:03)
[2016-12-25] MEDS: oxyCODONE IR 5 MG TABLET PO PRN ×2 (10:34→15:04)
[2016-12-25] MEDS: PANTOPRAZOLE 40 MG TABLET.DR. PO SCH (10:34)
[2016-12-25] MEDS: DULoxetine HCL 20 MG CAPSULE.DR PO SCH (10:38)
--- NOTE | 2016-12-25 11:14 | PDOC ---
Infectious Disease Note Subjective Subjective This morning right knee started to bleed, hgb 7.8. Taken back to OR, hematoma found, s/p exploration right leg wound with irrigation debridement and closure Pain stable Fever Tmax 101.1 Less cough ROS ROS GEN: Denies fevers, chills, sweats CV: Denies chest pain RESP: Denies shortness of air GI: Denies n/v/d Vital Sign Vital Signs Vital Signs Date Time Temp Pulse Resp B/P (MAP) Pulse Ox O2 Delivery O2 Flow Rate FiO2 12/25/16 10:34 16 Nasal Cannula 2.0 12/25/16 10:24 81 132/67 12/25/16 10:04 97 12/25/16 09:04 97.8 97.8 Physical Exam PHYSICAL EXAM GENERAL: Lying down, sleepy, NAD LUNGS: Clear HEART: S1S2, + murmur ABD: Soft, NT EXT: RLE trace edema,, knee dressing dry, DP palpable INSULATION APPLICATOR: Responds appropriating SKIN: No rash Peripheral IV Labs Lab Laboratory Tests Test 12/24/16 11:14 12/24/16 16:27 12/24/16 20:30 12/25/16 06:15 Glucose (Fingerstick) 167 mg/dL (70-99) 104 mg/dL (70-99) 122 mg/dL (70-99) White Blood Count 9.6 x10^3/uL (4.0-11.0) Red Blood Count 2.56 x10^6/uL (3.50-5.40) Hemoglobin 7.8 g/dL (12.0-15.5) Hematocrit 22.6 % (36.0-47.0) Mean Corpuscular Volume 88 fL (79-100) Mean Corpuscular Hemoglobin 31 pg (25-35) Mean Corpuscular Hemoglobin Concent 35 g/dL (31-37) Red Cell Distribution Width 13.5 % (11.5-14.5) Platelet Count 503 x10^3/uL (140-400) Neutrophils (%) (Auto) 59 % (31-73) Lymphocytes (%) (Auto) 32 % (24-48) Monocytes (%) (Auto) 7 % (0-9) Eosinophils (%) (Auto) 2 % (0-3) Basophils (%) (Auto) 1 % (0-3) Neutrophils # (Auto) 5.7 x10^3uL (1.8-7.7) Lymphocytes # (Auto) 3.0 x10^3/uL (1.0-4.8) Monocytes # (Auto) 0.6 x10^3/uL (0.0-1.1) Eosinophils # (Auto) 0.2 x10^3/uL (0.0-0.7) Basophils # (Auto) 0.1 x10^3/uL (0.0-0.2) Prothrombin Time 14.4 SEC (11.7-14.0) Prothromb Time International Ratio 1.2 (0.8-1.1) Sodium Level 139 mmol/L (136-145) Potassium Level 3.4 mmol/L (3.5-5.1) Chloride Level 102 mmol/L (98-107) Carbon Dioxide Level 32 mmol/L (21-32) Anion Gap 5 (6-14) Blood Urea Nitrogen 11 mg/dL (7-20) Creatinine 0.5 mg/dL (0.6-1.0) Estimated GFR (Cockcroft-Gault) 125.9 Glucose Level 63 mg/dL (70-99) Calcium Level 8.5 mg/dL (8.5-10.1) Test 12/25/16 08:26 12/25/16 09:09 12/25/16 09:41 Glucose (Fingerstick) 63 mg/dL (70-99) 137 mg/dL (70-99) 108 mg/dL (70-99) Portable AP upright view CXR: Findings: No acute lung infiltrate or pleural effusion or pulmonary edema or lung mass or pneumothorax is seen. The heart size, pulmonary vasculature, mediastinum and both sukhdev are stable. Impression: No acute radiographic abnormality is seen. Micro 12/23. BLOOD CULTURE Preliminary NO GROWTH AFTER 2 DAY Objective Assessment Fever ? hematoma MSSA bacteremia with murmur, POA. 12/16. -RF 13.0. Repeat BC from 12/18 neg. TTE neg veg. Repeat BC NGTD, 12/23 Right knee septic joint with hardware in close proximity. s/p removal of hardware, 12/21. -12/25, surgical site bleeding, hgb 7.8; Taken to OR, hematoma found, s/p exploration right leg wound with irrigation debridement and closure -small focus of minimally increased activity in the distal right femur medially on tag WBC scan, 12/19 -s/p right knee arthroscopy irrigation, debridement, partial synovectomy and partial medial and lateral meniscectomy, 12/10 -s/p joint aspiration 12/09. culture MSSA -h/o ORIF distal femur fracture Apr 2016 Leukocytosis, better Allergy to cephalosporins, penicillin and sulfa. Reactions unclear, only to say can't have them. Tolerating cefazolin w/o problem Diabetes Transaminitis h/o seizures h/o alcoholism & substance abuse Plan Plan of Care Cefazolin Monitor WBC, CR and temp Ok PICC Attending Co-Sign The patient was seen and interviewed as well as examined at the bedside. The chart was reviewed. The case was discussed. Agree with the plan of care. CK ALVES APRN Dec 25, 2016 11:14 OMA AMARAL MD Dec 25, 2016 11:37
[2016-12-25] MEDS: guaiFENesin DM 200MG/20MG 10 ML SYRUP PO PRN ×2 (15:00→21:03)
[2016-12-25] MEDS: ACETAMINOPHEN 500 MG TABLET PO PRN (15:04)
[2016-12-25] MEDS: ATORVASTATIN CALCIUM 40 MG TABLET. PO SCH (21:02)
[2016-12-26] VITALS (10 sets, daily range): BP systolic 87–148; BP diastolic 46–71
[2016-12-26] MEDS: oxyCODONE IR 5 MG TABLET PO PRN ×3 (05:15→21:10)
[2016-12-26 06:43] LABS: BASO # 0.1 x10^3/uL (0.0-0.2); BASO % 1 % (0-3); EOS % 2 % (0-3); LYMPH # 3.1 x10^3/uL (1.0-4.8); LYMPH % 38 % (24-48); MEAN CORPUSCULAR HEMOGLOBIN 30 pg (25-35); MEAN CORPUSCULAR HGB CONC 34 g/dL (31-37); MEAN CORPUSCULAR VOLUME 89 fL (79-100); MONO % 7 % (0-9); NEUT % 53 % (31-73); PLATELET COUNT 466 x10^3/uL (140-400); RED BLOOD COUNT 2.28 x10^6/uL (3.50-5.40); RED CELL DISTRIBUTION WIDTH 13.3 % (11.5-14.5); WHITE BLOOD COUNT 8.2 x10^3/uL (4.0-11.0)
[2016-12-26 06:48] LABS: CALCIUM 8.2 mg/dL (8.5-10.1); CREATININE 0.5 mg/dL (0.6-1.0); GFR 125.9; POTASSIUM 3.5 mmol/L (3.5-5.1)
[2016-12-26 06:52] LABS: HEMATOCRIT 20.3 % (36.0-47.0); HEMOGLOBIN 6.9 g/dL (12.0-15.5)
[2016-12-26] MEDS: ALBUTEROL SULFATE 2.5 MG/3 ML NEBU. NEB SCH ×4 (07:17→20:38)
[2016-12-26] MEDS: BUDESONIDE 0.5 MG/2 ML NEBU. NEB SCH ×2 (07:17→20:38)
[2016-12-26] MEDS: INSULIN ASPART 300 UNITS/3 ML INSULN.PEN SQ SCH ×6 (08:00→17:00)
[2016-12-26] MEDS: CARVEDILOL 12.5 MG TABLET. PO SCH ×2 (08:00→17:00)
[2016-12-26] MEDS: POTASSIUM CHLORIDE 20 MEQ TABLET.ER. PO SCH (08:00)
[2016-12-26] MEDS: PANTOPRAZOLE 40 MG TABLET.DR. PO SCH (09:00)
[2016-12-26] MEDS: FLUoxetine HCL 20 MG CAPSULE PO SCH (09:00)
[2016-12-26] MEDS: DULoxetine HCL 20 MG CAPSULE.DR PO SCH (09:00)
[2016-12-26] MEDS: DOCUSATE SODIUM 100 MG CAPSULE. PO SCH (09:00)
[2016-12-26] MEDS: ISOSORBIDE MONONITRATE ER 30 MG TAB.ER.24H PO SCH (09:00)
[2016-12-26] MEDS: INSULIN DETEMIR 300 UNITS/3 ML INSULN.PEN. SQ SCH ×2 (09:00→20:55)
[2016-12-26] MEDS: FUROSEMIDE 40 MG TABLET. PO SCH (09:00)
[2016-12-26] MEDS: PHENYTOIN SODIUM EXTENDED 100 MG CAPSULE PO SCH ×2 (09:00→20:54)
[2016-12-26] MEDS: diazePAM 5 MG TABLET PO SCH ×2 (09:00→20:54)
[2016-12-26] MEDS: PHENobarbital 32.4 MG TABLET. PO SCH ×2 (09:00→20:55)
--- NOTE | 2016-12-26 09:21 | PDOC ---
Infectious Disease Note Subjective Subjective feeling ok, cont pain ROS ROS GEN: Denies fevers, chills, sweats HEENT: Denies blurred vision, sore throat CV: Denies chest pain RESP: Denies shortness of air, cough GI: Denies n/v/d NEURO: Denies confusion, dizziness MSK: Denies weakness, joint pain/swelling Vital Sign Vital Signs Vital Signs Date Time Temp Pulse Resp B/P (MAP) Pulse Ox O2 Delivery O2 Flow Rate FiO2 12/26/16 07:17 Room Air 12/26/16 07:00 98.4 89 20 148/71 (96) 94 98.4 12/25/16 16:02 2.0 Physical Exam PHYSICAL EXAM GENERAL: NAD, Alert HEENT: PERRL, OC/OP NECK: Supple, no JVD, no LN LUNGS: Clear HEART: S1S2, no gallop, no murmur ABD: Soft, NT, no organomegaly, no rebound EXT: No edema, no cyanosis,, rt leg dressing not opened 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, 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, no focal neurologic deficit SKIN: No rash IV: ok Labs Lab Laboratory Tests Test 12/25/16 09:41 12/25/16 11:43 12/25/16 13:57 12/25/16 16:58 Glucose (Fingerstick) 108 mg/dL (70-99) 264 mg/dL (70-99) 269 mg/dL (70-99) 218 mg/dL (70-99) Test 12/25/16 20:32 12/26/16 05:30 12/26/16 07:06 Glucose (Fingerstick) 161 mg/dL (70-99) 127 mg/dL (70-99) White Blood Count 8.2 x10^3/uL (4.0-11.0) Red Blood Count 2.28 x10^6/uL (3.50-5.40) Hemoglobin 6.9 g/dL (12.0-15.5) Hematocrit 20.3 % (36.0-47.0) Mean Corpuscular Volume 89 fL (79-100) Mean Corpuscular Hemoglobin 30 pg (25-35) Mean Corpuscular Hemoglobin Concent 34 g/dL (31-37) Red Cell Distribution Width 13.3 % (11.5-14.5) Platelet Count 466 x10^3/uL (140-400) Neutrophils (%) (Auto) 53 % (31-73) Lymphocytes (%) (Auto) 38 % (24-48) Monocytes (%) (Auto) 7 % (0-9) Eosinophils (%) (Auto) 2 % (0-3) Basophils (%) (Auto) 1 % (0-3) Neutrophils # (Auto) 4.4 x10^3uL (1.8-7.7) Lymphocytes # (Auto) 3.1 x10^3/uL (1.0-4.8) Monocytes # (Auto) 0.5 x10^3/uL (0.0-1.1) Eosinophils # (Auto) 0.1 x10^3/uL (0.0-0.7) Basophils # (Auto) 0.1 x10^3/uL (0.0-0.2) Sodium Level 139 mmol/L (136-145) Potassium Level 3.5 mmol/L (3.5-5.1) Chloride Level 102 mmol/L (98-107) Carbon Dioxide Level 32 mmol/L (21-32) Anion Gap 5 (6-14) Blood Urea Nitrogen 7 mg/dL (7-20) Creatinine 0.5 mg/dL (0.6-1.0) Estimated GFR (Cockcroft-Gault) 125.9 Glucose Level 126 mg/dL (70-99) Calcium Level 8.2 mg/dL (8.5-10.1) Objective Assessment Fever ? hematoma MSSA bacteremia with murmur, POA. 12/16. -RF 13.0. Repeat BC from 12/18 neg. TTE neg veg. Repeat BC NGTD, 12/23 Right knee septic joint with hardware in close proximity. s/p removal of hardware, 12/21. -12/25, surgical site bleeding, hgb 7.8; Taken to OR, hematoma found, s/p exploration right leg wound with irrigation debridement and closure -small focus of minimally increased activity in the distal right femur medially on tag WBC scan, 12/19 -s/p right knee arthroscopy irrigation, debridement, partial synovectomy and partial medial and lateral meniscectomy, 12/10 -s/p joint aspiration 12/09. culture MSSA -h/o ORIF distal femur fracture Apr 2016 Leukocytosis, better Allergy to cephalosporins, penicillin and sulfa. Reactions unclear, only to say can't have them. Tolerating cefazolin w/o problem Diabetes Transaminitis h/o seizures h/o alcoholism & substance abuse Plan Plan of Care Cefazolin for total 6 wks Monitor WBC, CR and temp Ok PICC ok to d/c to SNF wkly cbc, bun/cr, sed rate f/u with me in 2 wks OMA AMARAL MD Dec 26, 2016 09:21
[2016-12-26] MEDS: POLYETHYLENE GLYCOL 3350 17 GM PACKET. PO PRN (10:37)
--- NOTE | 2016-12-26 11:20 | PDOC ---
PROGRESS NOTES Chief Complaint Chief Complaint Septic arthritis R knee ASSESSMENT AND PLAN: 1. Septic arthritis of right knee: s/p hardware removal on 12/21, s/p evacuation of blood in knee om 12/25. on cefazolin for MSSA, for anticipated 6 weeks. PICC placement 2. Anemia of acute blood loss: further H/H drop - transfuse PRBC x1 today, monitor CBC 3. Narcotic dependence: no IV narcotics. oxy 5-10 PRN 4. Personality disorder or schizotypal, possible depression: cont home meds 5. DM: well controlled on insulin regimen. cont ISS 6. CAD: no acute issues. cont secondary prevention meds 7. Hypoalbuminemia: severe, 2/2 inflammation and malnutrition 8. Obesity, BMI 35 History of Present Illness History of Present Illness lethargic, c/o pain in entire R leg Vitals Vitals Vital Signs Date Time Temp Pulse Resp B/P (MAP) Pulse Ox O2 Delivery O2 Flow Rate FiO2 12/26/16 07:17 Room Air 12/26/16 07:00 98.4 89 20 148/71 (96) 94 98.4 12/25/16 16:02 2.0 Physical Exam General: Cooperative, No acute distress, Other (lethargic) Heart: Regular rate, Other (2/6 systolic murmur to LLS border) Lungs: Clear Abdomen: Normal bowel sounds, Soft, No tenderness Extremities: Other (3+ RLE pitting edema; LLE 2+ pitting edema) Skin: No rashes Labs LABS Laboratory Tests Test 12/25/16 11:43 12/25/16 13:57 12/25/16 16:58 12/25/16 20:32 Glucose (Fingerstick) 264 mg/dL (70-99) 269 mg/dL (70-99) 218 mg/dL (70-99) 161 mg/dL (70-99) Test 12/26/16 05:30 12/26/16 07:06 12/26/16 10:54 White Blood Count 8.2 x10^3/uL (4.0-11.0) Red Blood Count 2.28 x10^6/uL (3.50-5.40) Hemoglobin 6.9 g/dL (12.0-15.5) Hematocrit 20.3 % (36.0-47.0) Mean Corpuscular Volume 89 fL (79-100) Mean Corpuscular Hemoglobin 30 pg (25-35) Mean Corpuscular Hemoglobin Concent 34 g/dL (31-37) Red Cell Distribution Width 13.3 % (11.5-14.5) Platelet Count 466 x10^3/uL (140-400) Neutrophils (%) (Auto) 53 % (31-73) Lymphocytes (%) (Auto) 38 % (24-48) Monocytes (%) (Auto) 7 % (0-9) Eosinophils (%) (Auto) 2 % (0-3) Basophils (%) (Auto) 1 % (0-3) Neutrophils # (Auto) 4.4 x10^3uL (1.8-7.7) Lymphocytes # (Auto) 3.1 x10^3/uL (1.0-4.8) Monocytes # (Auto) 0.5 x10^3/uL (0.0-1.1) Eosinophils # (Auto) 0.1 x10^3/uL (0.0-0.7) Basophils # (Auto) 0.1 x10^3/uL (0.0-0.2) Sodium Level 139 mmol/L (136-145) Potassium Level 3.5 mmol/L (3.5-5.1) Chloride Level 102 mmol/L (98-107) Carbon Dioxide Level 32 mmol/L (21-32) Anion Gap 5 (6-14) Blood Urea Nitrogen 7 mg/dL (7-20) Creatinine 0.5 mg/dL (0.6-1.0) Estimated GFR (Cockcroft-Gault) 125.9 Glucose Level 126 mg/dL (70-99) Calcium Level 8.2 mg/dL (8.5-10.1) Glucose (Fingerstick) 127 mg/dL (70-99) 90 mg/dL (70-99) AKUA CALVO MD Dec 26, 2016 11:20
[2016-12-26] MEDS: CLOPIDOGREL BISULFATE 75 MG TABLET PO SCH (13:11)
[2016-12-26] MEDS: ATORVASTATIN CALCIUM 40 MG TABLET. PO SCH (20:54)
[2016-12-26] MEDS: guaiFENesin DM 200MG/20MG 10 ML SYRUP PO PRN (21:10)
[2016-12-27] MEDS: oxyCODONE IR 5 MG TABLET PO PRN ×5 (01:15→20:44)
[2016-12-27 03:50] VITALS: BP 131/70
[2016-12-27 07:00] VITALS: BP 142/71
[2016-12-27] MEDS: INSULIN ASPART 300 UNITS/3 ML INSULN.PEN SQ SCH ×6 (07:30→17:40)
--- NOTE | 2016-12-27 07:45 | PDOC ---
Infectious Disease Note Subjective Subjective feeling ok, cont pain ROS ROS GEN: Denies fevers, chills, sweats HEENT: Denies blurred vision, sore throat CV: Denies chest pain RESP: Denies shortness of air, cough GI: Denies n/v/d NEURO: Denies confusion, dizziness MSK: Denies weakness, joint pain/swelling Vital Sign Vital Signs Vital Signs Date Time Temp Pulse Resp B/P (MAP) Pulse Ox O2 Delivery O2 Flow Rate FiO2 12/27/16 06:57 Room Air 12/27/16 03:50 99.9 89 18 131/70 (90) 91 99.9 Physical Exam PHYSICAL EXAM GENERAL: NAD, Alert HEENT: PERRL, OC/OP NECK: Supple, no JVD, no LN LUNGS: Clear HEART: S1S2, no gallop, no murmur ABD: Soft, NT, no organomegaly, no rebound EXT: No edema, no cyanosis 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 hematoma MSSA bacteremia with murmur, POA. 12/16. -RF 13.0. Repeat BC from 12/18 neg. TTE neg veg. Repeat BC NGTD, 12/23 Right knee septic joint with hardware in close proximity. s/p removal of hardware, 12/21. -12/25, surgical site bleeding, hgb 7.8; Taken to OR, hematoma found, s/p exploration right leg wound with irrigation debridement and closure -small focus of minimally increased activity in the distal right femur medially on tag WBC scan, 12/19 -s/p right knee arthroscopy irrigation, debridement, partial synovectomy and partial medial and lateral meniscectomy, 12/10 -s/p joint aspiration 12/09. culture MSSA -h/o ORIF distal femur fracture Apr 2016 Leukocytosis, better Allergy to cephalosporins, penicillin and sulfa. Reactions unclear, only to say can't have them. Tolerating cefazolin w/o problem Diabetes Transaminitis h/o seizures h/o alcoholism & substance abuse Plan Plan of Care Cefazolin for total 6 wks Monitor WBC, CR and temp ok to d/c to SNF wkly cbc, bun/cr, sed rate f/u with me in 2 wks OMA AMARAL MD Dec 27, 2016 07:45
[2016-12-27] MEDS: ALBUTEROL SULFATE 2.5 MG/3 ML NEBU. NEB SCH ×4 (08:27→20:00)
[2016-12-27] MEDS: BUDESONIDE 0.5 MG/2 ML NEBU. NEB SCH ×2 (08:27→20:00)
[2016-12-27] MEDS: POTASSIUM CHLORIDE 20 MEQ TABLET.ER. PO SCH (08:42)
[2016-12-27] MEDS: FLUoxetine HCL 20 MG CAPSULE PO SCH (08:45)
[2016-12-27] MEDS: ISOSORBIDE MONONITRATE ER 30 MG TAB.ER.24H PO SCH (08:45)
[2016-12-27] MEDS: PHENYTOIN SODIUM EXTENDED 100 MG CAPSULE PO SCH ×2 (08:45→20:42)
[2016-12-27] MEDS: DULoxetine HCL 20 MG CAPSULE.DR PO SCH (08:46)
[2016-12-27] MEDS: DOCUSATE SODIUM 100 MG CAPSULE. PO SCH (08:46)
[2016-12-27] MEDS: CLOPIDOGREL BISULFATE 75 MG TABLET PO SCH (08:46)
[2016-12-27] MEDS: CARVEDILOL 12.5 MG TABLET. PO SCH ×2 (08:47→17:00)
[2016-12-27] MEDS: PANTOPRAZOLE 40 MG TABLET.DR. PO SCH (08:47)
[2016-12-27] MEDS: diazePAM 5 MG TABLET PO SCH ×2 (08:48→20:43)
[2016-12-27] MEDS: FUROSEMIDE 40 MG TABLET. PO SCH (08:48)
[2016-12-27] MEDS: PHENobarbital 32.4 MG TABLET. PO SCH ×2 (08:48→20:43)
[2016-12-27] MEDS: INSULIN DETEMIR 300 UNITS/3 ML INSULN.PEN. SQ SCH ×2 (08:50→20:48)
[2016-12-27 11:00] VITALS: BP 117/60
[2016-12-27] MEDS: ACETAMINOPHEN 500 MG TABLET PO PRN ×2 (11:06→19:57)
[2016-12-27] MEDS: LORazepam 0.5 MG TABLET PO PRN (11:07)
[2016-12-27] MEDS: POLYETHYLENE GLYCOL 3350 17 GM PACKET. PO PRN (11:07)
--- NOTE | 2016-12-27 14:00 | PDOC ---
PROGRESS NOTES Chief Complaint Chief Complaint Septic arthritis R knee ASSESSMENT AND PLAN: 1. Septic arthritis of right knee: s/p hardware removal on 12/21, s/p evacuation of blood in knee om 12/25. on cefazolin for MSSA, for anticipated 6 weeks. PICC placed 2. Anemia of acute blood loss: s/p rpt PRBC x1 yesterday 3. Narcotic dependence: no IV narcotics. oxy 5-10 PRN 4. Personality disorder or schizotypal, possible depression: cont home meds 5. DM: well controlled on insulin regimen. cont ISS 6. CAD: no acute issues. cont secondary prevention meds 7. Hypoalbuminemia: severe, 2/2 inflammation and malnutrition 8. Obesity, BMI 35 9. Dispo: awaiting [facility] eval History of Present Illness History of Present Illness states "i'm scared", can't say of what. pain manageable, but is afraid her leg is paralyzed Vitals Vitals Vital Signs Date Time Temp Pulse Resp B/P (MAP) Pulse Ox O2 Delivery O2 Flow Rate FiO2 12/27/16 12:49 Room Air 12/27/16 12:07 16 93 12/27/16 11:00 98.4 84 117/60 (79) 98.4 12/27/16 08:20 2.0 Physical Exam General: Cooperative, No acute distress, Other (lethargic) Heart: Regular rate, Other (2/6 systolic murmur to LLS border) Lungs: Clear Abdomen: Normal bowel sounds, Soft, No tenderness Extremities: Other (3+ RLE pitting edema; LLE 2+ pitting edema) Skin: No rashes Labs LABS Laboratory Tests Test 12/26/16 16:07 12/26/16 20:47 12/27/16 07:22 12/27/16 11:31 Glucose (Fingerstick) 108 mg/dL (70-99) 92 mg/dL (70-99) 98 mg/dL (70-99) 280 mg/dL (70-99) AKUA CALVO MD Dec 27, 2016 14:00
[2016-12-27 14:54] LABS: BASO # 0.1 x10^3/uL (0.0-0.2); BASO % 1 % (0-3); EOS % 1 % (0-3); HEMATOCRIT 21.9 % (36.0-47.0); HEMOGLOBIN 7.5 g/dL (12.0-15.5); LYMPH # 2.1 x10^3/uL (1.0-4.8); LYMPH % 21 % (24-48); MEAN CORPUSCULAR HEMOGLOBIN 30 pg (25-35); MEAN CORPUSCULAR HGB CONC 34 g/dL (31-37); MEAN CORPUSCULAR VOLUME 88 fL (79-100); MONO % 6 % (0-9); NEUT % 72 % (31-73); PLATELET COUNT 476 x10^3/uL (140-400); RED BLOOD COUNT 2.47 x10^6/uL (3.50-5.40); RED CELL DISTRIBUTION WIDTH 14.1 % (11.5-14.5)
[2016-12-27 15:00] VITALS: BP 83/44
[2016-12-27 19:00] VITALS: BP 152/77
[2016-12-27] MEDS: ATORVASTATIN CALCIUM 40 MG TABLET. PO SCH (20:42)
[2016-12-27 23:00] VITALS: BP 114/61
[2016-12-28 03:00] VITALS: BP 138/64
[2016-12-28] MEDS: oxyCODONE IR 5 MG TABLET PO PRN ×3 (06:49→18:10)
[2016-12-28 07:00] VITALS: BP 191/83
[2016-12-28] MEDS: BUDESONIDE 0.5 MG/2 ML NEBU. NEB SCH ×2 (07:32→19:47)
[2016-12-28] MEDS: ALBUTEROL SULFATE 2.5 MG/3 ML NEBU. NEB SCH ×4 (07:33→19:47)
[2016-12-28] MEDS: LORazepam 0.5 MG TABLET PO PRN (07:46)
[2016-12-28] MEDS: INSULIN ASPART 300 UNITS/3 ML INSULN.PEN SQ SCH ×6 (08:00→18:13)
[2016-12-28] MEDS: ACETAMINOPHEN 500 MG TABLET PO PRN (08:29)
[2016-12-28] MEDS: FUROSEMIDE 40 MG TABLET. PO SCH (08:29)
[2016-12-28] MEDS: PANTOPRAZOLE 40 MG TABLET.DR. PO SCH (08:29)
[2016-12-28] MEDS: diazePAM 5 MG TABLET PO SCH ×2 (08:30→21:25)
[2016-12-28] MEDS: FLUoxetine HCL 20 MG CAPSULE PO SCH (08:31)
[2016-12-28] MEDS: ISOSORBIDE MONONITRATE ER 30 MG TAB.ER.24H PO SCH (08:31)
[2016-12-28] MEDS: DULoxetine HCL 20 MG CAPSULE.DR PO SCH (08:31)
[2016-12-28] MEDS: DOCUSATE SODIUM 100 MG CAPSULE. PO SCH (08:31)
[2016-12-28] MEDS: CLOPIDOGREL BISULFATE 75 MG TABLET PO SCH (08:31)
[2016-12-28] MEDS: PHENobarbital 32.4 MG TABLET. PO SCH ×2 (08:32→21:26)
[2016-12-28] MEDS: POTASSIUM CHLORIDE 20 MEQ TABLET.ER. PO SCH (08:32)
[2016-12-28] MEDS: PHENYTOIN SODIUM EXTENDED 100 MG CAPSULE PO SCH ×2 (08:33→21:25)
[2016-12-28] MEDS: POLYETHYLENE GLYCOL 3350 17 GM PACKET. PO PRN (08:33)
[2016-12-28] MEDS: CARVEDILOL 12.5 MG TABLET. PO SCH ×2 (08:33→18:09)
[2016-12-28] MEDS: INSULIN DETEMIR 300 UNITS/3 ML INSULN.PEN. SQ SCH ×2 (08:36→21:00)
--- NOTE | 2016-12-28 10:19 | PDOC ---
Infectious Disease Note Subjective Subjective feeling ok, cont pain ROS ROS GEN: Denies fevers, chills, sweats HEENT: Denies blurred vision, sore throat CV: Denies chest pain RESP: Denies shortness of air, cough GI: Denies n/v/d NEURO: Denies confusion, dizziness MSK: Denies weakness, joint pain/swelling Vital Sign Vital Signs Vital Signs Date Time Temp Pulse Resp B/P (MAP) Pulse Ox O2 Delivery O2 Flow Rate FiO2 12/28/16 08:33 88 191/83 12/28/16 08:10 Room Air 12/28/16 07:49 20 94 12/28/16 07:00 96.5 96.5 12/27/16 08:20 2.0 Physical Exam PHYSICAL EXAM GENERAL: NAD, Alert HEENT: PERRL, OC/OP NECK: Supple, no JVD, no LN LUNGS: Clear HEART: S1S2, no gallop, no murmur ABD: Soft, NT, no organomegaly, no rebound EXT: No edema, no cyanosis 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, 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, no focal neurologic deficit SKIN: No rash IV: ok Labs Lab Laboratory Tests Test 12/27/16 11:31 12/27/16 14:45 12/27/16 16:44 12/27/16 20:36 Glucose (Fingerstick) 280 mg/dL (70-99) 158 mg/dL (70-99) 73 mg/dL (70-99) White Blood Count 10.0 x10^3/uL (4.0-11.0) Red Blood Count 2.47 x10^6/uL (3.50-5.40) Hemoglobin 7.5 g/dL (12.0-15.5) Hematocrit 21.9 % (36.0-47.0) Mean Corpuscular Volume 88 fL (79-100) Mean Corpuscular Hemoglobin 30 pg (25-35) Mean Corpuscular Hemoglobin Concent 34 g/dL (31-37) Red Cell Distribution Width 14.1 % (11.5-14.5) Platelet Count 476 x10^3/uL (140-400) Neutrophils (%) (Auto) 72 % (31-73) Lymphocytes (%) (Auto) 21 % (24-48) Monocytes (%) (Auto) 6 % (0-9) Eosinophils (%) (Auto) 1 % (0-3) Basophils (%) (Auto) 1 % (0-3) Neutrophils # (Auto) 7.1 x10^3uL (1.8-7.7) Lymphocytes # (Auto) 2.1 x10^3/uL (1.0-4.8) Monocytes # (Auto) 0.6 x10^3/uL (0.0-1.1) Eosinophils # (Auto) 0.1 x10^3/uL (0.0-0.7) Basophils # (Auto) 0.1 x10^3/uL (0.0-0.2) Test 12/28/16 07:11 Glucose (Fingerstick) 149 mg/dL (70-99) Objective Assessment Fever ? hematoma MSSA bacteremia with murmur, POA. 12/16. -RF 13.0. Repeat BC from 12/18 neg. TTE neg veg. Repeat BC NGTD, 12/23 Right knee septic joint with hardware in close proximity. s/p removal of hardware, 12/21. -12/25, surgical site bleeding, hgb 7.8; Taken to OR, hematoma found, s/p exploration right leg wound with irrigation debridement and closure -small focus of minimally increased activity in the distal right femur medially on tag WBC scan, 12/19 -s/p right knee arthroscopy irrigation, debridement, partial synovectomy and partial medial and lateral meniscectomy, 12/10 -s/p joint aspiration 12/09. culture MSSA -h/o ORIF distal femur fracture Apr 2016 Leukocytosis, better Allergy to cephalosporins, penicillin and sulfa. Reactions unclear, only to say can't have them. Tolerating cefazolin w/o problem Diabetes Transaminitis h/o seizures h/o alcoholism & substance abuse Plan Plan of Care Cefazolin for total 6 wks Monitor WBC, CR and temp ok to d/c to SNF wkly cbc, bun/cr, sed rate f/u with me in 2 wks OMA AMARAL MD Dec 28, 2016 10:19
[2016-12-28 11:00] VITALS: BP 107/71
--- NOTE | 2016-12-28 13:54 | PDOC ---
PROGRESS NOTES Chief Complaint Chief Complaint Septic arthritis R knee ASSESSMENT AND PLAN: 1. Septic arthritis of right knee: s/p hardware removal on 12/21, s/p evacuation of blood in knee om 12/25. on cefazolin for MSSA, for anticipated 6 weeks. PICC placed 2. Anemia of acute blood loss: s/p PRBC x1 on 12/26. monitor periodically. PO iron 3. Narcotic dependence: no IV narcotics. oxy 5-10 PRN 4. Personality disorder or schizotypal, possible depression: cont home meds 5. DM: well controlled on insulin regimen. cont ISS 6. CAD: no acute issues. cont secondary prevention meds 7. Hypoalbuminemia: severe, 2/2 inflammation and malnutrition 8. Obesity, BMI 35 9. Dispo: awaiting [facility] eval History of Present Illness History of Present Illness sat in chair for 2 hours. leg pain persisting Vitals Vitals Vital Signs Date Time Temp Pulse Resp B/P (MAP) Pulse Ox O2 Delivery O2 Flow Rate FiO2 12/28/16 12:11 20 94 Room Air 12/28/16 11:00 99.0 89 107/71 (83) 99.0 12/27/16 08:20 2.0 Physical Exam General: Alert, Cooperative, No acute distress Heart: Regular rate, Other (2/6 systolic murmur to LLS border) Lungs: Clear Abdomen: Normal bowel sounds, Soft, No tenderness Extremities: Other (mild pitting edema R LE, knee weapped in OSMIN) Skin: No rashes Labs LABS Laboratory Tests Test 12/27/16 14:45 12/27/16 16:44 12/27/16 20:36 12/28/16 07:11 White Blood Count 10.0 x10^3/uL (4.0-11.0) Red Blood Count 2.47 x10^6/uL (3.50-5.40) Hemoglobin 7.5 g/dL (12.0-15.5) Hematocrit 21.9 % (36.0-47.0) Mean Corpuscular Volume 88 fL (79-100) Mean Corpuscular Hemoglobin 30 pg (25-35) Mean Corpuscular Hemoglobin Concent 34 g/dL (31-37) Red Cell Distribution Width 14.1 % (11.5-14.5) Platelet Count 476 x10^3/uL (140-400) Neutrophils (%) (Auto) 72 % (31-73) Lymphocytes (%) (Auto) 21 % (24-48) Monocytes (%) (Auto) 6 % (0-9) Eosinophils (%) (Auto) 1 % (0-3) Basophils (%) (Auto) 1 % (0-3) Neutrophils # (Auto) 7.1 x10^3uL (1.8-7.7) Lymphocytes # (Auto) 2.1 x10^3/uL (1.0-4.8) Monocytes # (Auto) 0.6 x10^3/uL (0.0-1.1) Eosinophils # (Auto) 0.1 x10^3/uL (0.0-0.7) Basophils # (Auto) 0.1 x10^3/uL (0.0-0.2) Glucose (Fingerstick) 158 mg/dL (70-99) 73 mg/dL (70-99) 149 mg/dL (70-99) Test 12/28/16 11:17 Glucose (Fingerstick) 219 mg/dL (70-99) AKUA CALVO MD Dec 28, 2016 13:54
[2016-12-28 15:00] VITALS: BP 127/60
[2016-12-28 19:00] VITALS: BP 151/75
[2016-12-28] MEDS ORDERED: INSULIN DETEMIR 300 UNITS/3 ML INSULN.PEN. SQ SCH (21:00)
[2016-12-28] MEDS: ATORVASTATIN CALCIUM 40 MG TABLET. PO SCH (21:24)
[2016-12-28] MEDS: FERROUS SULFATE 325 MG TABLET. PO SCH (21:24)
[2016-12-28 22:58] VITALS: BP 115/60
[2016-12-29] VITALS (7 sets, daily range): BP systolic 87–131; BP diastolic 44–73
[2016-12-29] MEDS: oxyCODONE IR 5 MG TABLET PO PRN ×2 (05:38→20:14)
[2016-12-29 05:44] LABS: CALCIUM 8.1 mg/dL (8.5-10.1); CREATININE 0.6 mg/dL (0.6-1.0); POTASSIUM 3.8 mmol/L (3.5-5.1)
[2016-12-29 06:01] LABS: BASO # 0.1 x10^3/uL (0.0-0.2); BASO % 1 % (0-3); EOS % 1 % (0-3); HEMATOCRIT 21.7 % (36.0-47.0); HEMOGLOBIN 7.6 g/dL (12.0-15.5); LYMPH # 2.8 x10^3/uL (1.0-4.8); LYMPH % 28 % (24-48); MEAN CORPUSCULAR HEMOGLOBIN 31 pg (25-35); MEAN CORPUSCULAR HGB CONC 35 g/dL (31-37); MEAN CORPUSCULAR VOLUME 89 fL (79-100); MONO % 8 % (0-9); NEUT % 63 % (31-73); PLATELET COUNT 523 x10^3/uL (140-400); RED BLOOD COUNT 2.43 x10^6/uL (3.50-5.40); RED CELL DISTRIBUTION WIDTH 14.3 % (11.5-14.5)
[2016-12-29] MEDS: BUDESONIDE 0.5 MG/2 ML NEBU. NEB SCH ×2 (07:23→19:24)
[2016-12-29] MEDS: ALBUTEROL SULFATE 2.5 MG/3 ML NEBU. NEB SCH ×4 (07:23→19:24)
[2016-12-29] MEDS ORDERED: INSULIN DETEMIR 300 UNITS/3 ML INSULN.PEN. SQ SCH (07:30)
[2016-12-29] MEDS: INSULIN DETEMIR 300 UNITS/3 ML INSULN.PEN. SQ SCH ×3 (07:30→21:46)
[2016-12-29] MEDS: INSULIN ASPART 300 UNITS/3 ML INSULN.PEN SQ SCH ×6 (07:30→17:00)
[2016-12-29] MEDS: DULoxetine HCL 20 MG CAPSULE.DR PO SCH (08:05)
[2016-12-29] MEDS: PHENYTOIN SODIUM EXTENDED 100 MG CAPSULE PO SCH ×2 (08:06→20:08)
[2016-12-29] MEDS: FLUoxetine HCL 20 MG CAPSULE PO SCH (08:06)
[2016-12-29] MEDS: FUROSEMIDE 40 MG TABLET. PO SCH (08:06)
[2016-12-29] MEDS: CLOPIDOGREL BISULFATE 75 MG TABLET PO SCH (08:07)
[2016-12-29] MEDS: diazePAM 5 MG TABLET PO SCH ×2 (08:07→20:09)
[2016-12-29] MEDS: PANTOPRAZOLE 40 MG TABLET.DR. PO SCH (08:08)
[2016-12-29] MEDS: PHENobarbital 32.4 MG TABLET. PO SCH ×2 (08:08→20:08)
[2016-12-29] MEDS: CARVEDILOL 12.5 MG TABLET. PO SCH ×2 (08:09→17:00)
[2016-12-29] MEDS: DOCUSATE SODIUM 100 MG CAPSULE. PO SCH (08:09)
[2016-12-29] MEDS: POTASSIUM CHLORIDE 20 MEQ TABLET.ER. PO SCH (08:09)
[2016-12-29] MEDS: ISOSORBIDE MONONITRATE ER 30 MG TAB.ER.24H PO SCH (08:11)
--- NOTE | 2016-12-29 09:54 | PDOC ---
Infectious Disease Note Subjective Subjective feeling ok, cont pain ROS ROS GEN: Denies fevers, chills, sweats HEENT: Denies blurred vision, sore throat CV: Denies chest pain RESP: Denies shortness of air, cough GI: Denies n/v/d NEURO: Denies confusion, dizziness MSK: Denies weakness, joint pain/swelling Vital Sign Vital Signs Vital Signs Date Time Temp Pulse Resp B/P (MAP) Pulse Ox O2 Delivery O2 Flow Rate FiO2 12/29/16 08:11 79 131/73 12/29/16 07:23 97 Room Air 12/29/16 07:00 96.9 18 96.9 12/29/16 06:43 2.0 Physical Exam PHYSICAL EXAM GENERAL: NAD, Alert HEENT: PERRL, OC/OP NECK: Supple, no JVD, no LN LUNGS: Clear HEART: S1S2, no gallop, no murmur ABD: Soft, NT, no organomegaly, no rebound EXT: No edema, no cyanosis 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, 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, no focal neurologic deficit SKIN: No rash IV: ok Labs Lab Laboratory Tests Test 12/28/16 11:17 12/28/16 17:00 12/28/16 19:35 12/28/16 20:09 Glucose (Fingerstick) 219 mg/dL (70-99) 109 mg/dL (70-99) 30 mg/dL (70-99) 96 mg/dL (70-99) Test 12/28/16 21:28 12/29/16 05:25 12/29/16 07:39 Glucose (Fingerstick) 114 mg/dL (70-99) 125 mg/dL (70-99) White Blood Count 10.0 x10^3/uL (4.0-11.0) Red Blood Count 2.43 x10^6/uL (3.50-5.40) Hemoglobin 7.6 g/dL (12.0-15.5) Hematocrit 21.7 % (36.0-47.0) Mean Corpuscular Volume 89 fL (79-100) Mean Corpuscular Hemoglobin 31 pg (25-35) Mean Corpuscular Hemoglobin Concent 35 g/dL (31-37) Red Cell Distribution Width 14.3 % (11.5-14.5) Platelet Count 523 x10^3/uL (140-400) Neutrophils (%) (Auto) 63 % (31-73) Lymphocytes (%) (Auto) 28 % (24-48) Monocytes (%) (Auto) 8 % (0-9) Eosinophils (%) (Auto) 1 % (0-3) Basophils (%) (Auto) 1 % (0-3) Neutrophils # (Auto) 6.2 x10^3uL (1.8-7.7) Lymphocytes # (Auto) 2.8 x10^3/uL (1.0-4.8) Monocytes # (Auto) 0.7 x10^3/uL (0.0-1.1) Eosinophils # (Auto) 0.1 x10^3/uL (0.0-0.7) Basophils # (Auto) 0.1 x10^3/uL (0.0-0.2) Sodium Level 137 mmol/L (136-145) Potassium Level 3.8 mmol/L (3.5-5.1) Chloride Level 101 mmol/L (98-107) Carbon Dioxide Level 32 mmol/L (21-32) Anion Gap 4 (6-14) Blood Urea Nitrogen 12 mg/dL (7-20) Creatinine 0.6 mg/dL (0.6-1.0) Estimated GFR (Cockcroft-Gault) 102.0 Glucose Level 104 mg/dL (70-99) Calcium Level 8.1 mg/dL (8.5-10.1) Objective Assessment Fever ? hematoma MSSA bacteremia with murmur, POA. 12/16. -RF 13.0. Repeat BC from 12/18 neg. TTE neg veg. Repeat BC NGTD, 12/23 Right knee septic joint with hardware in close proximity. s/p removal of hardware, 12/21. -12/25, surgical site bleeding, hgb 7.8; Taken to OR, hematoma found, s/p exploration right leg wound with irrigation debridement and closure -small focus of minimally increased activity in the distal right femur medially on tag WBC scan, 12/19 -s/p right knee arthroscopy irrigation, debridement, partial synovectomy and partial medial and lateral meniscectomy, 12/10 -s/p joint aspiration 12/09. culture MSSA -h/o ORIF distal femur fracture Apr 2016 Leukocytosis, better Allergy to cephalosporins, penicillin and sulfa. Reactions unclear, only to say can't have them. Tolerating cefazolin w/o problem Diabetes Transaminitis h/o seizures h/o alcoholism & substance abuse Plan Plan of Care Cefazolin for total 6 wks Monitor WBC, CR and temp ok to d/c to SNF wkly cbc, bun/cr, sed rate f/u with me in 2 wks OMA AMARAL MD Dec 29, 2016 09:54
--- NOTE | 2016-12-29 10:27 | PDOC ---
PROGRESS NOTES Chief Complaint Chief Complaint Septic arthritis R knee ASSESSMENT AND PLAN: 1. Septic arthritis of right knee: s/p hardware removal on 12/21, s/p evacuation of blood in knee om 12/25. on cefazolin for MSSA, for anticipated 6 weeks. PICC placed 2. Anemia of acute blood loss: s/p PRBC x1 on 12/26, now stable. on PO iron. monitor periodically 3. Narcotic dependence: no IV narcotics. oxy 5-10 PRN 4. Personality disorder or schizotypal, possible depression: mood stable. cont home meds 5. DM: well controlled on insulin regimen. cont ISS 6. CAD: no acute issues. cont secondary prevention meds 7. Hypoalbuminemia: severe, 2/2 inflammation and malnutrition 8. Obesity, BMI 35 9. Dispo: awaiting [facility] eval History of Present Illness History of Present Illness sat in chair for 2 hours. leg pain persisting Vitals Vitals Vital Signs Date Time Temp Pulse Resp B/P (MAP) Pulse Ox O2 Delivery O2 Flow Rate FiO2 12/29/16 08:11 79 131/73 12/29/16 07:23 97 Room Air 12/29/16 07:00 96.9 18 96.9 12/29/16 06:43 2.0 Physical Exam General: Alert, Oriented X3, Cooperative, No acute distress Heart: Regular rate, Other (2/6 systolic murmur to LLS border) Lungs: Clear Abdomen: Normal bowel sounds, Soft, No tenderness Extremities: Other (mild pitting edema R LE, knee weapped in OSMIN) Skin: No rashes Labs LABS Laboratory Tests Test 12/28/16 11:17 12/28/16 17:00 12/28/16 19:35 12/28/16 20:09 Glucose (Fingerstick) 219 mg/dL (70-99) 109 mg/dL (70-99) 30 mg/dL (70-99) 96 mg/dL (70-99) Test 12/28/16 21:28 12/29/16 05:25 12/29/16 07:39 Glucose (Fingerstick) 114 mg/dL (70-99) 125 mg/dL (70-99) White Blood Count 10.0 x10^3/uL (4.0-11.0) Red Blood Count 2.43 x10^6/uL (3.50-5.40) Hemoglobin 7.6 g/dL (12.0-15.5) Hematocrit 21.7 % (36.0-47.0) Mean Corpuscular Volume 89 fL (79-100) Mean Corpuscular Hemoglobin 31 pg (25-35) Mean Corpuscular Hemoglobin Concent 35 g/dL (31-37) Red Cell Distribution Width 14.3 % (11.5-14.5) Platelet Count 523 x10^3/uL (140-400) Neutrophils (%) (Auto) 63 % (31-73) Lymphocytes (%) (Auto) 28 % (24-48) Monocytes (%) (Auto) 8 % (0-9) Eosinophils (%) (Auto) 1 % (0-3) Basophils (%) (Auto) 1 % (0-3) Neutrophils # (Auto) 6.2 x10^3uL (1.8-7.7) Lymphocytes # (Auto) 2.8 x10^3/uL (1.0-4.8) Monocytes # (Auto) 0.7 x10^3/uL (0.0-1.1) Eosinophils # (Auto) 0.1 x10^3/uL (0.0-0.7) Basophils # (Auto) 0.1 x10^3/uL (0.0-0.2) Sodium Level 137 mmol/L (136-145) Potassium Level 3.8 mmol/L (3.5-5.1) Chloride Level 101 mmol/L (98-107) Carbon Dioxide Level 32 mmol/L (21-32) Anion Gap 4 (6-14) Blood Urea Nitrogen 12 mg/dL (7-20) Creatinine 0.6 mg/dL (0.6-1.0) Estimated GFR (Cockcroft-Gault) 102.0 Glucose Level 104 mg/dL (70-99) Calcium Level 8.1 mg/dL (8.5-10.1) AKUA CALVO MD Dec 29, 2016 10:27
[2016-12-29] MEDS: LORazepam 0.5 MG TABLET PO PRN ×2 (13:43→22:35)
[2016-12-29] MEDS: FERROUS SULFATE 325 MG TABLET. PO SCH (20:09)
[2016-12-29] MEDS: ATORVASTATIN CALCIUM 40 MG TABLET. PO SCH (20:09)
[2016-12-30 03:14] VITALS: BP 125/65
[2016-12-30] MEDS: oxyCODONE IR 5 MG TABLET PO PRN ×3 (05:50→23:55)
[2016-12-30 07:00] VITALS: BP 139/66
[2016-12-30] MEDS: BUDESONIDE 0.5 MG/2 ML NEBU. NEB SCH ×3 (07:01→20:27)
[2016-12-30] MEDS: ALBUTEROL SULFATE 2.5 MG/3 ML NEBU. NEB SCH ×4 (07:02→20:28)
[2016-12-30] MEDS: INSULIN DETEMIR 300 UNITS/3 ML INSULN.PEN. SQ SCH ×2 (07:30→21:00)
[2016-12-30] MEDS: INSULIN ASPART 300 UNITS/3 ML INSULN.PEN SQ SCH ×6 (07:30→17:46)
[2016-12-30] MEDS: POTASSIUM CHLORIDE 20 MEQ TABLET.ER. PO SCH (08:00)
--- NOTE | 2016-12-30 08:45 | PDOC ---
Infectious Disease Note Subjective Subjective feeling ok, cont pain ROS ROS GEN: Denies fevers, chills, sweats HEENT: Denies blurred vision, sore throat CV: Denies chest pain RESP: Denies shortness of air, cough GI: Denies n/v/d NEURO: Denies confusion, dizziness Vital Sign Vital Signs Vital Signs Date Time Temp Pulse Resp B/P (MAP) Pulse Ox O2 Delivery O2 Flow Rate FiO2 12/30/16 07:00 98.1 86 20 139/66 (90) 92 Room Air 98.1 Physical Exam PHYSICAL EXAM GENERAL: NAD, Alert HEENT: PERRL, OC/OP NECK: Supple, no JVD, no LN LUNGS: Clear HEART: S1S2, no gallop, no murmur ABD: Soft, NT, no organomegaly, no rebound EXT: No edema, no cyanosis, rt knee dressing 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 hematoma MSSA bacteremia with murmur, POA. 12/16. -RF 13.0. Repeat BC from 12/18 neg. TTE neg veg. Repeat BC NGTD, 12/23 Right knee septic joint with hardware in close proximity. s/p removal of hardware, 12/21. -12/25, surgical site bleeding, hgb 7.8; Taken to OR, hematoma found, s/p exploration right leg wound with irrigation debridement and closure -small focus of minimally increased activity in the distal right femur medially on tag WBC scan, 12/19 -s/p right knee arthroscopy irrigation, debridement, partial synovectomy and partial medial and lateral meniscectomy, 12/10 -s/p joint aspiration 12/09. culture MSSA -h/o ORIF distal femur fracture Apr 2016 Leukocytosis, better Allergy to cephalosporins, penicillin and sulfa. Reactions unclear, only to say can't have them. Tolerating cefazolin w/o problem Diabetes Transaminitis h/o seizures h/o alcoholism & substance abuse Plan Plan of Care Cefazolin for total 6 wks Monitor WBC, CR and temp ok to d/c to SNF wkly cbc, bun/cr, sed rate f/u with me in 2 wks OMA AMARAL MD Dec 30, 2016 08:45
[2016-12-30] MEDS: PHENobarbital 32.4 MG TABLET. PO SCH ×2 (08:50→21:21)
[2016-12-30] MEDS: CLOPIDOGREL BISULFATE 75 MG TABLET PO SCH (08:51)
[2016-12-30] MEDS: DULoxetine HCL 20 MG CAPSULE.DR PO SCH (08:51)
[2016-12-30] MEDS: FLUoxetine HCL 20 MG CAPSULE PO SCH (08:52)
[2016-12-30] MEDS: PHENYTOIN SODIUM EXTENDED 100 MG CAPSULE PO SCH ×2 (08:52→21:20)
[2016-12-30] MEDS: PANTOPRAZOLE 40 MG TABLET.DR. PO SCH (08:52)
[2016-12-30] MEDS: diazePAM 5 MG TABLET PO SCH ×2 (08:53→21:20)
[2016-12-30] MEDS: CARVEDILOL 12.5 MG TABLET. PO SCH ×2 (08:53→17:00)
[2016-12-30] MEDS: FUROSEMIDE 40 MG TABLET. PO SCH (08:54)
[2016-12-30] MEDS: ISOSORBIDE MONONITRATE ER 30 MG TAB.ER.24H PO SCH (08:54)
[2016-12-30] MEDS: DOCUSATE SODIUM 100 MG CAPSULE. PO SCH (08:54)
[2016-12-30] MEDS: POLYETHYLENE GLYCOL 3350 17 GM PACKET. PO PRN (08:54)
[2016-12-30 11:00] VITALS: BP 83/48
--- NOTE | 2016-12-30 14:58 | PDOC ---
PROGRESS NOTES Chief Complaint Chief Complaint Septic arthritis R knee ASSESSMENT AND PLAN: 1. Septic arthritis of right knee: s/p hardware removal on 12/21, s/p evacuation of blood in knee om 12/25. on cefazolin for MSSA, for anticipated 6 weeks. PICC placed 2. Anemia of acute blood loss: s/p PRBC x1 on 12/26, now stable. on PO iron. monitor periodically 3. Narcotic dependence: no IV narcotics. oxy 5-10 PRN 4. Personality disorder or schizotypal, possible depression: mood stable. cont home meds 5. DM: well controlled on insulin regimen (split levemir dose). cont ISS 6. CAD: no acute issues. cont secondary prevention meds 7. Hypoalbuminemia: severe, 2/2 inflammation and malnutrition 8. Obesity, BMI 35 9. Dispo: awaiting LTAC eval History of Present Illness History of Present Illness sat in chair for 2 hours. leg pain persisting Vitals Vitals Vital Signs Date Time Temp Pulse Resp B/P (MAP) Pulse Ox O2 Delivery O2 Flow Rate FiO2 12/30/16 11:09 94 Room Air 12/30/16 11:00 98.1 76 16 83/48 (60) 98.1 12/30/16 07:35 2.0 Physical Exam General: Alert, Oriented X3, Cooperative, No acute distress Heart: Regular rate, Other (2/6 systolic murmur to LLS border) Lungs: Clear Abdomen: Normal bowel sounds, Soft, No tenderness Extremities: Other (mild pitting edema R LE, knee weapped in OSMIN) Skin: No rashes Labs LABS Laboratory Tests Test 12/29/16 16:40 12/29/16 21:08 12/30/16 07:08 12/30/16 11:41 Glucose (Fingerstick) 103 mg/dL (70-99) 141 mg/dL (70-99) 143 mg/dL (70-99) 240 mg/dL (70-99) AKUA CALVO MD Dec 30, 2016 14:58
[2016-12-30 15:40] VITALS: BP 114/56
[2016-12-30] MEDS: ACETAMINOPHEN 500 MG TABLET PO PRN (15:52)
[2016-12-30 19:00] VITALS: BP 111/51
[2016-12-30] MEDS: FERROUS SULFATE 325 MG TABLET. PO SCH (21:21)
[2016-12-30] MEDS: ATORVASTATIN CALCIUM 40 MG TABLET. PO SCH (21:22)
[2016-12-30 22:45] VITALS: BP 128/67
[2016-12-30] MEDS: LORazepam 0.5 MG TABLET PO PRN (23:58)
[2016-12-31 02:40] VITALS: BP 140/76
[2016-12-31] MEDS: ACETAMINOPHEN 500 MG TABLET PO PRN (04:20)
[2016-12-31] MEDS: oxyCODONE IR 5 MG TABLET PO PRN ×3 (04:20→18:47)
[2016-12-31] MEDS ORDERED: fentaNYL PF VIAL 100 MCG/2 ML VIAL IV PRN (05:30)
[2016-12-31 07:00] VITALS: BP 132/74
[2016-12-31] MEDS: BUDESONIDE 0.5 MG/2 ML NEBU. NEB SCH ×2 (07:20→20:00)
[2016-12-31] MEDS: ALBUTEROL SULFATE 2.5 MG/3 ML NEBU. NEB SCH ×4 (07:20→20:00)
[2016-12-31] MEDS: INSULIN ASPART 300 UNITS/3 ML INSULN.PEN SQ SCH ×6 (08:00→17:00)
[2016-12-31] MEDS: PHENYTOIN SODIUM EXTENDED 100 MG CAPSULE PO SCH ×2 (08:30→21:15)
[2016-12-31] MEDS: diazePAM 5 MG TABLET PO SCH ×2 (08:31→21:15)
[2016-12-31] MEDS: DOCUSATE SODIUM 100 MG CAPSULE. PO SCH (08:32)
[2016-12-31] MEDS: CLOPIDOGREL BISULFATE 75 MG TABLET PO SCH (08:33)
[2016-12-31] MEDS: CARVEDILOL 12.5 MG TABLET. PO SCH ×2 (08:33→17:00)
[2016-12-31] MEDS: FLUoxetine HCL 20 MG CAPSULE PO SCH (08:33)
[2016-12-31] MEDS: DULoxetine HCL 20 MG CAPSULE.DR PO SCH (08:33)
[2016-12-31] MEDS: ISOSORBIDE MONONITRATE ER 30 MG TAB.ER.24H PO SCH (08:34)
[2016-12-31] MEDS: PHENobarbital 32.4 MG TABLET. PO SCH ×2 (08:34→21:15)
[2016-12-31] MEDS: FUROSEMIDE 40 MG TABLET. PO SCH (08:34)
[2016-12-31] MEDS: PANTOPRAZOLE 40 MG TABLET.DR. PO SCH (08:35)
[2016-12-31] MEDS: POTASSIUM CHLORIDE 20 MEQ TABLET.ER. PO SCH (08:36)
[2016-12-31] MEDS: INSULIN DETEMIR 300 UNITS/3 ML INSULN.PEN. SQ SCH ×2 (08:46→21:00)
[2016-12-31 11:00] VITALS: BP 145/70
[2016-12-31] MEDS: fentaNYL PF VIAL 100 MCG/2 ML VIAL IV PRN ×2 (13:28→21:14)
[2016-12-31 15:00] VITALS: BP 116/62
[2016-12-31 19:00] VITALS: BP 120/71
[2016-12-31] MEDS: FERROUS SULFATE 325 MG TABLET. PO SCH (21:15)
[2016-12-31] MEDS: ATORVASTATIN CALCIUM 40 MG TABLET. PO SCH (21:15)
[2016-12-31 23:00] VITALS: BP 123/66
[2017-01-01] MEDS: oxyCODONE IR 5 MG TABLET PO PRN ×2 (02:48→22:18)
[2017-01-01 02:58] VITALS: BP 125/77
[2017-01-01] MEDS: fentaNYL PF VIAL 100 MCG/2 ML VIAL IV PRN ×2 (06:08→14:36)
[2017-01-01 07:00] VITALS: BP 145/100
[2017-01-01] MEDS: INSULIN ASPART 300 UNITS/3 ML INSULN.PEN SQ SCH ×6 (08:00→17:30)
[2017-01-01] MEDS: BUDESONIDE 0.5 MG/2 ML NEBU. NEB SCH ×2 (08:00→20:00)
[2017-01-01] MEDS: ALBUTEROL SULFATE 2.5 MG/3 ML NEBU. NEB SCH ×4 (08:00→20:00)
[2017-01-01] MEDS: FLUoxetine HCL 20 MG CAPSULE PO SCH (08:33)
[2017-01-01] MEDS: POLYETHYLENE GLYCOL 3350 17 GM PACKET. PO PRN (08:33)
[2017-01-01] MEDS: DULoxetine HCL 20 MG CAPSULE.DR PO SCH (08:34)
[2017-01-01] MEDS: PHENYTOIN SODIUM EXTENDED 100 MG CAPSULE PO SCH ×2 (08:34→22:18)
[2017-01-01] MEDS: DOCUSATE SODIUM 100 MG CAPSULE. PO SCH (08:35)
[2017-01-01] MEDS: CLOPIDOGREL BISULFATE 75 MG TABLET PO SCH (08:35)
[2017-01-01] MEDS: ISOSORBIDE MONONITRATE ER 30 MG TAB.ER.24H PO SCH (08:35)
[2017-01-01] MEDS: CARVEDILOL 12.5 MG TABLET. PO SCH ×2 (08:35→17:00)
[2017-01-01] MEDS: PANTOPRAZOLE 40 MG TABLET.DR. PO SCH (08:36)
[2017-01-01] MEDS: FUROSEMIDE 40 MG TABLET. PO SCH (08:36)
[2017-01-01] MEDS: diazePAM 5 MG TABLET PO SCH ×2 (08:36→22:18)
[2017-01-01] MEDS: PHENobarbital 32.4 MG TABLET. PO SCH ×2 (08:36→22:19)
[2017-01-01] MEDS: POTASSIUM CHLORIDE 20 MEQ TABLET.ER. PO SCH (08:38)
[2017-01-01] MEDS: INSULIN DETEMIR 300 UNITS/3 ML INSULN.PEN. SQ SCH ×2 (08:49→21:00)
[2017-01-01 11:00] VITALS: BP 118/71
--- NOTE | 2017-01-01 12:14 | PDOC ---
PROGRESS NOTES Chief Complaint Chief Complaint LATE ENTRY, PT seen 12/31 Septic arthritis R knee ASSESSMENT AND PLAN: 1. Septic arthritis of right knee: s/p hardware removal on 12/21, s/p evacuation of blood in knee om 12/25. on cefazolin for MSSA, for anticipated 6 weeks. PICC placed 2. Anemia of acute blood loss: s/p PRBC x1 on 12/26, now stable. on PO iron. monitor periodically 3. Narcotic dependence: no IV narcotics. oxy 5-10 PRN 4. Personality disorder or schizotypal, possible depression: mood stable. cont home meds 5. DM: well controlled on insulin regimen (split levemir dose). cont ISS 6. CAD: no acute issues. cont secondary prevention meds 7. Hypoalbuminemia: severe, 2/2 inflammation and malnutrition 8. Obesity, BMI 35 9. Dispo: awaiting LTAC eval History of Present Illness History of Present Illness complain of pain, tangential and emotional as she has been before, almost no change in her story or presentation from a week ago, pain "more than 10/10" as she talks calmly on the phone, has eaten, appears in zero distress, HR 86, RR 16, BP normal Vitals Vitals Vital Signs Date Time Temp Pulse Resp B/P (MAP) Pulse Ox O2 Delivery O2 Flow Rate FiO2 01/01/17 08:35 87 145/100 01/01/17 07:45 Room Air 01/01/17 07:00 99.1 20 92 99.1 Physical Exam General: Alert, Oriented X3, Cooperative, No acute distress Heart: Regular rate, Other (2/6 systolic murmur to LLS border) Lungs: Clear Abdomen: Normal bowel sounds, Soft, No tenderness Extremities: Other (mild pitting edema R LE, knee weapped in OSMIN) Skin: No rashes Labs LABS Laboratory Tests Test 12/31/16 15:53 12/31/16 16:16 12/31/16 20:57 01/01/17 07:28 Glucose (Fingerstick) 64 mg/dL (70-99) 79 mg/dL (70-99) 110 mg/dL (70-99) 150 mg/dL (70-99) Test 01/01/17 11:38 Glucose (Fingerstick) 251 mg/dL (70-99) Assessment and Plan Assessmemt and Plan Problems Medical Problems: (1) Bacteremia Status: Acute Problems: Comment Review of Relevant I have reviewed the following items mary (where applicable) has been applied. Labs Laboratory Tests Test 12/30/16 16:53 12/30/16 20:26 12/31/16 07:06 12/31/16 11:28 Glucose (Fingerstick) 243 mg/dL (70-99) 170 mg/dL (70-99) 167 mg/dL (70-99) 171 mg/dL (70-99) Test 12/31/16 15:53 12/31/16 16:16 12/31/16 20:57 01/01/17 07:28 Glucose (Fingerstick) 64 mg/dL (70-99) 79 mg/dL (70-99) 110 mg/dL (70-99) 150 mg/dL (70-99) Test 01/01/17 11:38 Glucose (Fingerstick) 251 mg/dL (70-99) Laboratory Tests Test 12/31/16 15:53 12/31/16 16:16 12/31/16 20:57 01/01/17 07:28 Glucose (Fingerstick) 64 mg/dL (70-99) 79 mg/dL (70-99) 110 mg/dL (70-99) 150 mg/dL (70-99) Test 01/01/17 11:38 Glucose (Fingerstick) 251 mg/dL (70-99) Microbiology 12/23/16 Blood Culture - Final, Complete NO GROWTH AFTER 5 DAYS Medications Current Medications Ondansetron HCl (Zofran) 4 mg PRN Q8HRS PRN IV NAUSEA/VOMITING Last administered on 12/18/16 23:22; Start 12/18/16 at 16:00; Stop 12/19/16 at 15:59 ; Status DC Acetaminophen (Tylenol) 650 mg PRN Q4HRS PRN PO FEVER Last administered on 12/18 18:10; Start 12/18/16 at 16:00; Stop 12/19/16 at 15:59; Status DC Vancomycin HCl (Vanco Per Pharmacy) 1 each PRN DAILY PRN MC SEE COMMENTS; Start 12/18/16 at 16:00; Status UNV Vancomycin HCl (Vanco Per Pharmacy) 1 each PRN DAILY PRN MC SEE COMMENTS Last administered on 12/22/16 11:38; Start 12/18/16 at 17:15; Stop 12/22/16 at 14:41 ; Status DC Vancomycin HCl 1 each 1X ONCE MC ; Start 12/18/16 at 17:15; Stop 12/18/16 at 17 :15; Status DC Vancomycin HCl 1.25 gm/Sodium Chloride 250 ml @ 167 mls/hr Q12H IV Last administered on 12/19/16 06:26; Start 12/18/16 at 18:00; Stop 12/19/16 at 08:00 ; Status DC Vancomycin HCl 1 each 1X ONCE MC Last administered on 12/19/16 05:30; Start 12/19/16 at 05:30; Stop 12/19/16 at 05:31; Status DC Carvedilol (Coreg) 25 mg BIDWMEALS PO Last administered on 01/01/17 08:35; Start 12/19/16 at 18:00 Clopidogrel Bisulfate (Plavix) 75 mg DAILY PO Last administered on 01/01/17 08: 35; Start 12/19/16 at 09:00 Furosemide (Lasix) 40 mg DAILY PO Last administered on 12/20/16 08:13; Start 12/19/16 at 09:00; Stop 12/20/16 at 14:04; Status DC Oxycodone/ Acetaminophen (Percocet 7.5/ 325) 1 tab BID PO Last administered on 12/19/16 08:25; Start 12/18/16 at 21:00; Stop 12/19/16 at 13:29; Status DC Pantoprazole Sodium (Protonix) 40 mg DAILY PO Last administered on 01/01/17 08: 36; Start 12/19/16 at 09:00 Phenytoin Sodium (Dilantin) 200 mg BID PO Last administered on 01/01/17 08:34; Start 12/18/16 at 21:00 Non-Formulary Medication 2 puff PRN Q4-6HRS IH ; Start 12/18/16 at 17:30; Stop 12/18/16 at 18:06; Status DC Atorvastatin Calcium (Lipitor) 80 mg QHS PO Last administered on 12/31/16 21:15 ; Start 12/18/16 at 21:00 Diazepam (Valium) 10 mg BID PO Last administered on 01/01/17 08:36; Start 12/18 at 21:00 Non-Formulary Medication 2 inh BID IH ; Start 12/18/16 at 21:00; Stop 12/18/16 at 21:00; Status DC Insulin Detemir (Levemir) 45 units BID SQ Last administered on 12/20/16 08:22 ; Start 12/18/16 at 21:00; Stop 12/20/16 at 10:03; Status DC Insulin Aspart (NovoLOG) 15 units TIDAC SQ Last administered on 01/01/17 08:50 ; Start 12/19/16 at 18:00 Isosorbide Mononitrate (Imdur) 60 mg DAILY PO Last administered on 01/01/17 08: 35; Start 12/19/16 at 09:00 Non-Formulary Medication 3 puff BID IH ; Start 12/18/16 at 21:00; Stop 12/18/16 at 21:00; Status DC Phenobarbital (Luminal) 48.6 mg BID PO Last administered on 01/01/17 08:36; Start 12/18/16 at 21:00 Potassium Chloride (Klor-Con) 20 meq DAILYWBKFT PO Last administered on 08:38; Start 12/19/16 at 08:00 Non-Formulary Medication 25 mg BID PO ; Start 12/18/16 at 21:00; Stop 12/18/16 at 21:00; Status DC Oxycodone HCl (Roxicodone) 10 mg PRN Q4HRS PRN PO MODERATE - SEVERE PAIN Last administered on 01/01/17 02:48; Start 12/18/16 at 17:45 Ketorolac Tromethamine (Toradol) 15 mg PRN Q6HRS PRN IV pain Last administered on 12/22/16 06:33; Start 12/18/16 at 17:45; Stop 12/23/16 at 17:44; Status DC Insulin Aspart (NovoLOG) 0-9 UNITS TIDWMEALS SQ Last administered on 12/28/16 12:22; Start 12/19/16 at 08:00 Dextrose (Dextrose 50%-Water Syringe) 12.5 gm PRN Q15MIN PRN IV SEE COMMENTS Last administered on 12/28/16 19:40; Start 12/18/16 at 17:45 Albuterol Sulfate (Ventolin Neb Soln) 2.5 mg RTQID NEB Last administered on 12/30 15:40; Start 12/18/16 at 20:00 Albuterol Sulfate (Ventolin Neb Soln) 2.5 mg PRN Q4HRS PRN NEB SHORTNESS OF BREATH Last administered on 12/21/16 14:36; Start 12/18/16 at 18:15 Budesonide (Pulmicort) 0.5 mg RTBID NEB Last administered on 12/30/16 11:07; Start 12/18/16 at 20:00 Lorazepam (Ativan) 0.5 mg PRN Q8HRS PRN PO ANXIETY / AGITATION Last administered on 12/30/16 23:58; Start 12/18/16 at 18:45 Vancomycin HCl 1 gm/Sodium Chloride 250 ml @ 250 mls/hr Q8HRS IV Last administered on 12/20/16 14:26; Start 12/19/16 at 14:00; Stop 12/20/16 at 16:00 ; Status DC Vancomycin HCl 1 each 1X ONCE MC Last administered on 12/20/16 13:30; Start 12/20/16 at 13:30; Stop 12/20/16 at 13:31; Status DC Sodium Chloride 1,000 ml @ 125 mls/hr 1X ONCE IV Last administered on 13:47; Start 12/19/16 at 13:30; Stop 12/19/16 at 21:29; Status DC Oxycodone/ Acetaminophen (Percocet 7.5/ 325) 2 tab BID PO Last administered on 12/25/16 21:02; Start 12/19/16 at 14:00; Stop 12/26/16 at 11:14; Status DC Docusate Sodium (Colace) 100 mg DAILY PO Last administered on 01/01/17 08:35; Start 12/19/16 at 14:00 Polyethylene Glycol (miraLAX PACKET) 17 gm 1X ONCE PO Last administered on 13:54; Start 12/19/16 at 14:00; Stop 12/19/16 at 14:01; Status DC Polyethylene Glycol (miraLAX PACKET) 17 gm PRN DAILY PRN PO CONSTIPATION Last administered on 01/01/17 08:33; Start 12/19/16 at 13:45 Insulin Detemir (Levemir) 40 units BID SQ Last administered on 12/28/16 08:36; Start 12/20/16 at 21:00; Stop 12/28/16 at 20:32; Status DC Sodium Chloride 1,000 ml @ 1,000 mls/hr 1X ONCE IV Last administered on 11:51; Start 12/20/16 at 12:00; Stop 12/20/16 at 12:59; Status DC Sodium Chloride 1,000 ml @ 1,000 mls/hr 1X ONCE IV Last administered on 13:23; Start 12/20/16 at 12:00; Stop 12/20/16 at 12:59; Status DC Furosemide (Lasix) 40 mg DAILY PO Last administered on 01/01/17 08:36; Start at 09:00 Vancomycin HCl 1.25 gm/Sodium Chloride 250 ml @ 167 mls/hr Q8HRS IV Last administered on 12/22/16 12:55; Start 12/20/16 at 22:00; Stop 12/22/16 at 14:38 ; Status DC Dexamethasone Sodium Phosphate (Decadron) 20 mg STK-MED ONCE .ROUTE ; Start at 10:58; Stop 12/21/16 at 10:59; Status DC Ondansetron HCl (Zofran) 4 mg STK-MED ONCE .ROUTE ; Start 12/21/16 at 10:58; Stop 12/21/16 at 10:59; Status DC Propofol 20 ml @ As Directed STK-MED ONCE IV ; Start 12/21/16 at 10:58; Stop at 10:59; Status DC Lidocaine HCl (Lidocaine Pf 2% Vial) 5 ml STK-MED ONCE .ROUTE ; Start 12/21/16 at 10:58; Stop 12/21/16 at 10:59; Status DC Desflurane (Suprane) 60 ml STK-MED ONCE IH ; Start 12/21/16 at 10:58; Stop 12/21 at 10:59; Status DC Fentanyl Citrate (Fentanyl 2ml Vial) 100 mcg STK-MED ONCE .ROUTE ; Start at 10:58; Stop 12/21/16 at 10:59; Status DC Midazolam HCl (Versed) 2 mg STK-MED ONCE .ROUTE ; Start 12/21/16 at 10:58; Stop 12/21/16 at 10:59; Status DC Fentanyl Citrate (Fentanyl 2ml Vial) 100 mcg STK-MED ONCE .ROUTE ; Start at 12:50; Stop 12/21/16 at 12:51; Status DC Propofol 20 ml @ As Directed STK-MED ONCE IV ; Start 12/21/16 at 13:19; Stop at 13:20; Status DC Fentanyl Citrate (Fentanyl 2ml Vial) 100 mcg STK-MED ONCE .ROUTE ; Start at 13:58; Stop 12/21/16 at 13:59; Status DC Ondansetron HCl (Zofran) 4 mg PRN Q6HRS PRN IV NAUSEA/VOMITING; Start 12/21/16 at 14:15; Stop 12/21/16 at 19:00; Status DC Fentanyl Citrate (Fentanyl 2ml Vial) 25 mcg PRN Q5MIN PRN IV MILD PAIN; Start 12/21/16 at 14:15; Stop 12/21/16 at 19:00; Status DC Fentanyl Citrate (Fentanyl 2ml Vial) 50 mcg PRN Q5MIN PRN IV MODERATE PAIN Last administered on 12/21/16t 14:37; Start 12/21/16 at 14:15; Stop 12/21/16 at 19:00; Status DC Morphine Sulfate 1 mg PRN Q10MIN PRN IV SEVERE PAIN; Start 12/21/16 at 14:15; Stop 12/21/16 at 19:00; Status DC Ringer's Solution 1,000 ml @ 30 mls/hr Q24H IV ; Start 12/21/16 at 14:00; Stop 12/21/16 at 15:19; Status DC Lidocaine HCl 2 ml PRN 1X PRN ID PRIOR TO IV START; Start 12/21/16 at 14:15; Stop 12/21/16 at 19:00; Status DC Prochlorperazine Edisylate (Compazine) 5 mg PACU PRN PRN IV NAUSEA, MRX1; Start 12/21/16 at 14:15; Stop 12/21/16 at 19:00; Status DC Sodium Chloride 1,000 ml @ 333.333 mls/hr 1X ONCE IV Last administered on 15:00; Start 12/22/16 at 15:00; Stop 12/22/16 at 17:59; Status DC Cefazolin Sodium 2 gm/Sodium Chloride 50 ml @ 100 mls/hr Q8HRS IV Last administered on 01/01/17 05:37; Start 12/22/16 at 22:00 Ondansetron HCl (Zofran) 4 mg PRN Q6HRS PRN IV NAUSEA/VOMITING Last administered on 12/23/16 10:21; Start 12/23/16 at 10:00 Acetaminophen (Tylenol) 500 mg PRN Q6HRS PRN PO MILD PAIN / TEMP Last administered on 12/31/16 04:20; Start 12/23/16 at 10:00 Fluoxetine HCl (PROzac) 20 mg DAILY PO Last administered on 01/01/17 08:33; Start 12/23/16 at 11:00 Duloxetine HCl (Cymbalta) 20 mg DAILY PO Last administered on 01/01/17 08:34; Start 12/24/16 at 11:00 Sevoflurane (Ultane) 30 ml STK-MED ONCE IH ; Start 12/25/16 at 07:11; Stop 12/25 at 07:12; Status DC Propofol 20 ml @ As Directed STK-MED ONCE IV ; Start 12/25/16 at 07:11; Stop at 07:12; Status DC Lidocaine HCl (Lidocaine Pf 2% Vial) 5 ml STK-MED ONCE .ROUTE ; Start 12/25/16 at 07:11; Stop 12/25/16 at 07:12; Status DC Famotidine (Pepcid) 20 mg STK-MED ONCE .ROUTE ; Start 12/25/16 at 07:12; Stop at 07:13; Status DC Sodium Chloride (Sodium Chloride) 50 ml STK-MED ONCE IJ ; Start 12/25/16 at 07: 20; Stop 12/25/16 at 07:21; Status DC Phenylephrine HCl (Dat-Synephrine Inj) 10 mg STK-MED ONCE .ROUTE ; Start at 07:20; Stop 12/25/16 at 07:21; Status DC Dexamethasone Sodium Phosphate (Decadron) 20 mg STK-MED ONCE .ROUTE ; Start at 07:30; Stop 12/25/16 at 07:31; Status DC Ondansetron HCl (Zofran) 4 mg STK-MED ONCE .ROUTE ; Start 12/25/16 at 07:30; Stop 12/25/16 at 07:31; Status DC Fentanyl Citrate (Fentanyl 2ml Vial) 100 mcg STK-MED ONCE .ROUTE ; Start at 07:33; Stop 12/25/16 at 09:51; Status DC Sevoflurane (Ultane) 60 ml STK-MED ONCE IH ; Start 12/25/16 at 08:03; Stop 12/25 at 08:04; Status DC Dextrose (Dextrose 50%-Water Syringe) 12.5 gm 1X ONCE IV Last administered on 12/25/16 08:46; Start 12/25/16 at 08:30; Stop 12/25/16 at 08:35; Status DC Ondansetron HCl (Zofran) 4 mg PRN Q6HRS PRN IV NAUSEA/VOMITING; Start 12/25/16 at 08:30; Stop 12/25/16 at 09:53; Status DC Fentanyl Citrate (Fentanyl 2ml Vial) 25 mcg PRN Q5MIN PRN IV MILD PAIN; Start 12/25/16 at 08:30; Stop 12/25/16 at 09:51; Status DC Fentanyl Citrate (Fentanyl 2ml Vial) 50 mcg PRN Q5MIN PRN IV MODERATE PAIN Last administered on 12/25/16 09:00; Start 12/25/16 at 08:30; Stop 12/25/16 at 09:51; Status DC Ringer's Solution 1,000 ml @ 30 mls/hr Q24H IV ; Start 12/25/16 at 08:29; Stop 12/25/16 at 09:53; Status DC Lidocaine HCl 2 ml PRN 1X PRN ID PRIOR TO IV START; Start 12/25/16 at 08:30; Stop 12/26/16 at 08:29; Status DC Prochlorperazine Edisylate (Compazine) 5 mg PACU PRN PRN IV NAUSEA, MRX1; Start 12/25/16 at 08:30; Stop 12/25/16 at 09:53; Status DC Fentanyl Citrate (Fentanyl 2ml Vial) 100 mcg STK-MED ONCE .ROUTE ; Start at 08:42; Stop 12/25/16 at 09:51; Status DC Sodium Chloride 1,000 ml @ 125 mls/hr 1X ONCE IV Last administered on 07:00; Start 12/25/16 at 07:30; Stop 12/25/16 at 09:53; Status DC Guaifenesin (Robitussin Dm) 10 ml PRN Q6HRS PRN PO COUGH Last administered on 21:10; Start 12/25/16 at 14:30 Ferrous Sulfate (Feosol) 325 mg QHS PO Last administered on 12/31/16 21:15; Start 12/28/16 at 21:00 Insulin Detemir (Levemir) 20 units BID SQ ; Start 12/28/16 at 21:00; Stop at 21:00; Status DC Insulin Detemir (Levemir) 20 units QHS SQ ; Start 12/28/16 at 21:00 Insulin Detemir (Levemir) 40 units DAILYAC SQ ; Start 12/29/16 at 07:30; Stop 12/29/16 at 07:30; Status DC Insulin Detemir (Levemir) 20 units DAILYAC SQ Last administered on 01/01/17 08: 49; Start 12/29/16 at 07:30 Fentanyl Citrate (Fentanyl 2ml Vial) 50 mcg PRN Q4HRS PRN IV SEVERE PAIN Last administered on 12/31/16 05:44; Start 12/31/16 at 05:30; Stop 12/31/16 at 12:58; Status DC Fentanyl Citrate (Fentanyl 2ml Vial) 75 mcg PRN Q4HRS PRN IV SEVERE PAIN Last administered on 01/01/17 06:08; Start 12/31/16 at 13:00 Active Scripts Active Reported [albuterol ] 25 Mg PO BID Phenobarbital 100 Mg Tablet 50 Mg PO BID Potassium Chloride 20 Meq Tablet.er 20 Meq PO DAILY Furosemide 40 Mg Tablet 40 Mg PO DAILY [place] 7.5-325 Tablet (Acetaminophen/Hydrocodone Bitart) 1 Each Tablet 1 Tab PO PRN Q6HRS PRN Humalog (Insulin Lispro) 100 Unit/1 Ml Vial 75 Unit SQ TIDAC Protonix (Pantoprazole Sodium) 40 Mg Tablet.dr 40 Mg PO DAILY Plavix (Clopidogrel Bisulfate) 75 Mg Tablet 75 Mg PO DAILY Proair Hfa Inhaler (Albuterol Sulfate) 8.5 Gm Hfa.aer.ad 2 Puff IH PRN Q4-6HRS Phenytoin Sodium Extended 100 Mg Capsule 100 Mg PO FOUR TIMES A DAILY Lantus (Insulin Glargine,Hum.rec.anlog) 100 Unit/1 Ml Vial 75 Unit SQ BID Oxycodon-Acetaminophen 7.5-325 (Oxycodone Hcl/Acetaminophen) 1 Each Tablet 1 Each PO BID Diazepam 10 Mg Tablet 10 Mg PO BID Dulera 200 Mcg/5 Mcg Inhaler (Mometasone/Formoterol) 13 Gm Hfa.aer.ad 3 Puff IH BID Advair 500-50 Diskus (Fluticasone/Salmeterol) 1 Each Disk.w.dev 2 Inh IH BID Atorvastatin Calcium 80 Mg Tablet 80 Mg PO HS Carvedilol 12.5 Mg Tablet 25 Mg PO BIDWMEALS Isosorbide Mononitrate Er (Isosorbide Mononitrate) 60 Mg Tab.er.24h 60 Mg PO DAILY Vitals/I & O Vital Sign - Last 24 Hours 12/31/16 12/31/16 12/31/16 12/31/16 12:22 13:27 13:28 14:00 Pulse Ox 95 95 95 95 O2 Delivery Room Air Room Air Room Air Room Air 12/31/16 12/31/16 12/31/16 12/31/16 15:00 18:47 19:00 20:00 Temp 97.9 98.6 97.9 98.6 Pulse 87 92 Resp 20 18 B/P (MAP) 116/62 (80) 120/71 (87) Pulse Ox 95 95 94 O2 Delivery Room Air Room Air Room Air Room Air 12/31/16 01/01/17 01/01/17 01/01/17 23:00 02:58 07:00 07:45 Temp 98.6 99.7 99.1 98.6 99.7 99.1 Pulse 90 89 87 Resp 20 18 20 B/P (MAP) 123/66 (85) 125/77 (93) 145/100 (115) Pulse Ox 92 93 92 O2 Delivery Room Air Room Air Room Air Room Air 01/01/17 01/01/17 08:35 08:35 Pulse 87 87 B/P (MAP) 145/100 145/100 Intake and Output 12/31/16 12/31/16 01/01/17 15:00 23:00 07:00 Intake Total 200 ml Balance 200 ml HERIBERTO HART MD Jan 01, 2017 12:14
[2017-01-01] MEDS ORDERED: KETOROLAC TROMETHAMINE 30 MG/ML INJ. IV ONE (12:15)
[2017-01-01 15:00] VITALS: BP 104/55
--- NOTE | 2017-01-01 15:17 | PDOC ---
PROGRESS NOTES Chief Complaint Chief Complaint Septic arthritis R knee ASSESSMENT AND PLAN: 1. Septic arthritis of right knee: s/p hardware removal on 12/21, s/p evacuation of blood in knee om 12/25. on cefazolin for MSSA, for anticipated 6 weeks. PICC placed 2. Anemia of acute blood loss: s/p PRBC x1 on 12/26, now stable. on PO iron. monitor periodically 3. Narcotic dependence: no IV narcotics. oxy 5-10 PRN 4. Personality disorder or schizotypal, possible depression: mood stable. cont home meds 5. DM: well controlled on insulin regimen (split levemir dose). cont ISS 6. CAD: no acute issues. cont secondary prevention meds 7. Hypoalbuminemia: severe, 2/2 inflammation and malnutrition 8. Obesity, BMI 35 9. Dispo: awaiting LTAC eval History of Present Illness History of Present Illness complaint of more sever pain to RN 2 days ago pain was10/10, yesterday, pain was "more than 10/10" she says pain is worse than that today,, so officially now "worse than more than 10/10" Toradol IV given X1 and patient fast asleep within 45 minutes Vitals Vitals Vital Signs Date Time Temp Pulse Resp B/P (MAP) Pulse Ox O2 Delivery O2 Flow Rate FiO2 01/01/17 14:36 Room Air 01/01/17 11:00 97.4 80 20 118/71 (87) 95 97.4 Physical Exam General: Alert, Oriented X3, Cooperative, No acute distress Heart: Regular rate, Other (2/6 systolic murmur to LLS border) Lungs: Clear Abdomen: Normal bowel sounds, Soft, No tenderness Extremities: Other (mild pitting edema R LE, knee weapped in OSMIN) Skin: No rashes Labs LABS Laboratory Tests Test 12/31/16 15:53 12/31/16 16:16 12/31/16 20:57 01/01/17 07:28 Glucose (Fingerstick) 64 mg/dL (70-99) 79 mg/dL (70-99) 110 mg/dL (70-99) 150 mg/dL (70-99) Test 01/01/17 11:38 Glucose (Fingerstick) 251 mg/dL (70-99) Review of Systems Review of Systems knee pain Assessment and Plan Assessmemt and Plan Problems Medical Problems: (1) Bacteremia Status: Acute Problems: Comment Review of Relevant I have reviewed the following items mary (where applicable) has been applied. Labs Laboratory Tests Test 12/30/16 16:53 12/30/16 20:26 12/31/16 07:06 12/31/16 11:28 Glucose (Fingerstick) 243 mg/dL (70-99) 170 mg/dL (70-99) 167 mg/dL (70-99) 171 mg/dL (70-99) Test 12/31/16 15:53 12/31/16 16:16 12/31/16 20:57 01/01/17 07:28 Glucose (Fingerstick) 64 mg/dL (70-99) 79 mg/dL (70-99) 110 mg/dL (70-99) 150 mg/dL (70-99) Test 01/01/17 11:38 Glucose (Fingerstick) 251 mg/dL (70-99) Laboratory Tests Test 12/31/16 15:53 12/31/16 16:16 12/31/16 20:57 01/01/17 07:28 Glucose (Fingerstick) 64 mg/dL (70-99) 79 mg/dL (70-99) 110 mg/dL (70-99) 150 mg/dL (70-99) Test 01/01/17 11:38 Glucose (Fingerstick) 251 mg/dL (70-99) Microbiology 12/23/16 Blood Culture - Final, Complete NO GROWTH AFTER 5 DAYS Medications Current Medications Ondansetron HCl (Zofran) 4 mg PRN Q8HRS PRN IV NAUSEA/VOMITING Last administered on 12/18/16 23:22; Start 12/18/16 at 16:00; Stop 12/19/16 at 15:59 ; Status DC Acetaminophen (Tylenol) 650 mg PRN Q4HRS PRN PO FEVER Last administered on 12/18 18:10; Start 12/18/16 at 16:00; Stop 12/19/16 at 15:59; Status DC Vancomycin HCl (Vanco Per Pharmacy) 1 each PRN DAILY PRN MC SEE COMMENTS; Start 12/18/16 at 16:00; Status UNV Vancomycin HCl (Vanco Per Pharmacy) 1 each PRN DAILY PRN MC SEE COMMENTS Last administered on 12/22/16 11:38; Start 12/18/16 at 17:15; Stop 12/22/16 at 14:41 ; Status DC Vancomycin HCl 1 each 1X ONCE MC ; Start 12/18/16 at 17:15; Stop 12/18/16 at 17 :15; Status DC Vancomycin HCl 1.25 gm/Sodium Chloride 250 ml @ 167 mls/hr Q12H IV Last administered on 12/19/16 06:26; Start 12/18/16 at 18:00; Stop 12/19/16 at 08:00 ; Status DC Vancomycin HCl 1 each 1X ONCE MC Last administered on 12/19/16 05:30; Start 12/19/16 at 05:30; Stop 12/19/16 at 05:31; Status DC Carvedilol (Coreg) 25 mg BIDWMEALS PO Last administered on 01/01/17 08:35; Start 12/19/16 at 18:00 Clopidogrel Bisulfate (Plavix) 75 mg DAILY PO Last administered on 01/01/17 08: 35; Start 12/19/16 at 09:00 Furosemide (Lasix) 40 mg DAILY PO Last administered on 12/20/16 08:13; Start 12/19/16 at 09:00; Stop 12/20/16 at 14:04; Status DC Oxycodone/ Acetaminophen (Percocet 7.5/ 325) 1 tab BID PO Last administered on 12/19/16 08:25; Start 12/18/16 at 21:00; Stop 12/19/16 at 13:29; Status DC Pantoprazole Sodium (Protonix) 40 mg DAILY PO Last administered on 01/01/17 08: 36; Start 12/19/16 at 09:00 Phenytoin Sodium (Dilantin) 200 mg BID PO Last administered on 01/01/17 08:34; Start 12/18/16 at 21:00 Non-Formulary Medication 2 puff PRN Q4-6HRS IH ; Start 12/18/16 at 17:30; Stop 12/18/16 at 18:06; Status DC Atorvastatin Calcium (Lipitor) 80 mg QHS PO Last administered on 12/31/16 21:15 ; Start 12/18/16 at 21:00 Diazepam (Valium) 10 mg BID PO Last administered on 01/01/17 08:36; Start 12/18 at 21:00 Non-Formulary Medication 2 inh BID IH ; Start 12/18/16 at 21:00; Stop 12/18/16 at 21:00; Status DC Insulin Detemir (Levemir) 45 units BID SQ Last administered on 12/20/16 08:22 ; Start 12/18/16 at 21:00; Stop 12/20/16 at 10:03; Status DC Insulin Aspart (NovoLOG) 15 units TIDAC SQ Last administered on 01/01/17 12:50 ; Start 12/19/16 at 18:00 Isosorbide Mononitrate (Imdur) 60 mg DAILY PO Last administered on 01/01/17 08: 35; Start 12/19/16 at 09:00 Non-Formulary Medication 3 puff BID IH ; Start 12/18/16 at 21:00; Stop 12/18/16 at 21:00; Status DC Phenobarbital (Luminal) 48.6 mg BID PO Last administered on 01/01/17 08:36; Start 12/18/16 at 21:00 Potassium Chloride (Klor-Con) 20 meq DAILYWBKFT PO Last administered on 08:38; Start 12/19/16 at 08:00 Non-Formulary Medication 25 mg BID PO ; Start 12/18/16 at 21:00; Stop 12/18/16 at 21:00; Status DC Oxycodone HCl (Roxicodone) 10 mg PRN Q4HRS PRN PO MODERATE - SEVERE PAIN Last administered on 01/01/17 02:48; Start 12/18/16 at 17:45 Ketorolac Tromethamine (Toradol) 15 mg PRN Q6HRS PRN IV pain Last administered on 12/22/16 06:33; Start 12/18/16 at 17:45; Stop 12/23/16 at 17:44; Status DC Insulin Aspart (NovoLOG) 0-9 UNITS TIDWMEALS SQ Last administered on 12/28/16 12:22; Start 12/19/16 at 08:00 Dextrose (Dextrose 50%-Water Syringe) 12.5 gm PRN Q15MIN PRN IV SEE COMMENTS Last administered on 12/28/16 19:40; Start 12/18/16 at 17:45 Albuterol Sulfate (Ventolin Neb Soln) 2.5 mg RTQID NEB Last administered on 12/30 15:40; Start 12/18/16 at 20:00 Albuterol Sulfate (Ventolin Neb Soln) 2.5 mg PRN Q4HRS PRN NEB SHORTNESS OF BREATH Last administered on 12/21/16 14:36; Start 12/18/16 at 18:15 Budesonide (Pulmicort) 0.5 mg RTBID NEB Last administered on 12/30/16 11:07; Start 12/18/16 at 20:00 Lorazepam (Ativan) 0.5 mg PRN Q8HRS PRN PO ANXIETY / AGITATION Last administered on 12/30/16 23:58; Start 12/18/16 at 18:45 Vancomycin HCl 1 gm/Sodium Chloride 250 ml @ 250 mls/hr Q8HRS IV Last administered on 12/20/16 14:26; Start 12/19/16 at 14:00; Stop 12/20/16 at 16:00 ; Status DC Vancomycin HCl 1 each 1X ONCE MC Last administered on 12/20/16 13:30; Start 12/20/16 at 13:30; Stop 12/20/16 at 13:31; Status DC Sodium Chloride 1,000 ml @ 125 mls/hr 1X ONCE IV Last administered on 13:47; Start 12/19/16 at 13:30; Stop 12/19/16 at 21:29; Status DC Oxycodone/ Acetaminophen (Percocet 7.5/ 325) 2 tab BID PO Last administered on 12/25/16 21:02; Start 12/19/16 at 14:00; Stop 12/26/16 at 11:14; Status DC Docusate Sodium (Colace) 100 mg DAILY PO Last administered on 01/01/17 08:35; Start 12/19/16 at 14:00 Polyethylene Glycol (miraLAX PACKET) 17 gm 1X ONCE PO Last administered on 13:54; Start 12/19/16 at 14:00; Stop 12/19/16 at 14:01; Status DC Polyethylene Glycol (miraLAX PACKET) 17 gm PRN DAILY PRN PO CONSTIPATION Last administered on 01/01/17 08:33; Start 12/19/16 at 13:45 Insulin Detemir (Levemir) 40 units BID SQ Last administered on 12/28/16 08:36; Start 12/20/16 at 21:00; Stop 12/28/16 at 20:32; Status DC Sodium Chloride 1,000 ml @ 1,000 mls/hr 1X ONCE IV Last administered on 11:51; Start 12/20/16 at 12:00; Stop 12/20/16 at 12:59; Status DC Sodium Chloride 1,000 ml @ 1,000 mls/hr 1X ONCE IV Last administered on 13:23; Start 12/20/16 at 12:00; Stop 12/20/16 at 12:59; Status DC Furosemide (Lasix) 40 mg DAILY PO Last administered on 01/01/17 08:36; Start at 09:00 Vancomycin HCl 1.25 gm/Sodium Chloride 250 ml @ 167 mls/hr Q8HRS IV Last administered on 12/22/16 12:55; Start 12/20/16 at 22:00; Stop 12/22/16 at 14:38 ; Status DC Dexamethasone Sodium Phosphate (Decadron) 20 mg STK-MED ONCE .ROUTE ; Start at 10:58; Stop 12/21/16 at 10:59; Status DC Ondansetron HCl (Zofran) 4 mg STK-MED ONCE .ROUTE ; Start 12/21/16 at 10:58; Stop 12/21/16 at 10:59; Status DC Propofol 20 ml @ As Directed STK-MED ONCE IV ; Start 12/21/16 at 10:58; Stop at 10:59; Status DC Lidocaine HCl (Lidocaine Pf 2% Vial) 5 ml STK-MED ONCE .ROUTE ; Start 12/21/16 at 10:58; Stop 12/21/16 at 10:59; Status DC Desflurane (Suprane) 60 ml STK-MED ONCE IH ; Start 12/21/16 at 10:58; Stop 12/21 at 10:59; Status DC Fentanyl Citrate (Fentanyl 2ml Vial) 100 mcg STK-MED ONCE .ROUTE ; Start at 10:58; Stop 12/21/16 at 10:59; Status DC Midazolam HCl (Versed) 2 mg STK-MED ONCE .ROUTE ; Start 12/21/16 at 10:58; Stop 12/21/16 at 10:59; Status DC Fentanyl Citrate (Fentanyl 2ml Vial) 100 mcg STK-MED ONCE .ROUTE ; Start at 12:50; Stop 12/21/16 at 12:51; Status DC Propofol 20 ml @ As Directed STK-MED ONCE IV ; Start 12/21/16 at 13:19; Stop at 13:20; Status DC Fentanyl Citrate (Fentanyl 2ml Vial) 100 mcg STK-MED ONCE .ROUTE ; Start at 13:58; Stop 12/21/16 at 13:59; Status DC Ondansetron HCl (Zofran) 4 mg PRN Q6HRS PRN IV NAUSEA/VOMITING; Start 12/21/16 at 14:15; Stop 12/21/16 at 19:00; Status DC Fentanyl Citrate (Fentanyl 2ml Vial) 25 mcg PRN Q5MIN PRN IV MILD PAIN; Start 12/21/16 at 14:15; Stop 12/21/16 at 19:00; Status DC Fentanyl Citrate (Fentanyl 2ml Vial) 50 mcg PRN Q5MIN PRN IV MODERATE PAIN Last administered on 12/21/16t 14:37; Start 12/21/16 at 14:15; Stop 12/21/16 at 19:00; Status DC Morphine Sulfate 1 mg PRN Q10MIN PRN IV SEVERE PAIN; Start 12/21/16 at 14:15; Stop 12/21/16 at 19:00; Status DC Ringer's Solution 1,000 ml @ 30 mls/hr Q24H IV ; Start 12/21/16 at 14:00; Stop 12/21/16 at 15:19; Status DC Lidocaine HCl 2 ml PRN 1X PRN ID PRIOR TO IV START; Start 12/21/16 at 14:15; Stop 12/21/16 at 19:00; Status DC Prochlorperazine Edisylate (Compazine) 5 mg PACU PRN PRN IV NAUSEA, MRX1; Start 12/21/16 at 14:15; Stop 12/21/16 at 19:00; Status DC Sodium Chloride 1,000 ml @ 333.333 mls/hr 1X ONCE IV Last administered on 15:00; Start 12/22/16 at 15:00; Stop 12/22/16 at 17:59; Status DC Cefazolin Sodium 2 gm/Sodium Chloride 50 ml @ 100 mls/hr Q8HRS IV Last administered on 01/01/17 14:33; Start 12/22/16 at 22:00 Ondansetron HCl (Zofran) 4 mg PRN Q6HRS PRN IV NAUSEA/VOMITING Last administered on 12/23/16 10:21; Start 12/23/16 at 10:00 Acetaminophen (Tylenol) 500 mg PRN Q6HRS PRN PO MILD PAIN / TEMP Last administered on 12/31/16 04:20; Start 12/23/16 at 10:00 Fluoxetine HCl (PROzac) 20 mg DAILY PO Last administered on 01/01/17 08:33; Start 12/23/16 at 11:00 Duloxetine HCl (Cymbalta) 20 mg DAILY PO Last administered on 01/01/17 08:34; Start 12/24/16 at 11:00 Sevoflurane (Ultane) 30 ml STK-MED ONCE IH ; Start 12/25/16 at 07:11; Stop 12/25 at 07:12; Status DC Propofol 20 ml @ As Directed STK-MED ONCE IV ; Start 12/25/16 at 07:11; Stop at 07:12; Status DC Lidocaine HCl (Lidocaine Pf 2% Vial) 5 ml STK-MED ONCE .ROUTE ; Start 12/25/16 at 07:11; Stop 12/25/16 at 07:12; Status DC Famotidine (Pepcid) 20 mg STK-MED ONCE .ROUTE ; Start 12/25/16 at 07:12; Stop at 07:13; Status DC Sodium Chloride (Sodium Chloride) 50 ml STK-MED ONCE IJ ; Start 12/25/16 at 07: 20; Stop 12/25/16 at 07:21; Status DC Phenylephrine HCl (Dat-Synephrine Inj) 10 mg STK-MED ONCE .ROUTE ; Start at 07:20; Stop 12/25/16 at 07:21; Status DC Dexamethasone Sodium Phosphate (Decadron) 20 mg STK-MED ONCE .ROUTE ; Start at 07:30; Stop 12/25/16 at 07:31; Status DC Ondansetron HCl (Zofran) 4 mg STK-MED ONCE .ROUTE ; Start 12/25/16 at 07:30; Stop 12/25/16 at 07:31; Status DC Fentanyl Citrate (Fentanyl 2ml Vial) 100 mcg STK-MED ONCE .ROUTE ; Start at 07:33; Stop 12/25/16 at 09:51; Status DC Sevoflurane (Ultane) 60 ml STK-MED ONCE IH ; Start 12/25/16 at 08:03; Stop 12/25 at 08:04; Status DC Dextrose (Dextrose 50%-Water Syringe) 12.5 gm 1X ONCE IV Last administered on 12/25/16 08:46; Start 12/25/16 at 08:30; Stop 12/25/16 at 08:35; Status DC Ondansetron HCl (Zofran) 4 mg PRN Q6HRS PRN IV NAUSEA/VOMITING; Start 12/25/16 at 08:30; Stop 12/25/16 at 09:53; Status DC Fentanyl Citrate (Fentanyl 2ml Vial) 25 mcg PRN Q5MIN PRN IV MILD PAIN; Start 12/25/16 at 08:30; Stop 12/25/16 at 09:51; Status DC Fentanyl Citrate (Fentanyl 2ml Vial) 50 mcg PRN Q5MIN PRN IV MODERATE PAIN Last administered on 12/25/16 09:00; Start 12/25/16 at 08:30; Stop 12/25/16 at 09:51; Status DC Ringer's Solution 1,000 ml @ 30 mls/hr Q24H IV ; Start 12/25/16 at 08:29; Stop 12/25/16 at 09:53; Status DC Lidocaine HCl 2 ml PRN 1X PRN ID PRIOR TO IV START; Start 12/25/16 at 08:30; Stop 12/26/16 at 08:29; Status DC Prochlorperazine Edisylate (Compazine) 5 mg PACU PRN PRN IV NAUSEA, MRX1; Start 12/25/16 at 08:30; Stop 12/25/16 at 09:53; Status DC Fentanyl Citrate (Fentanyl 2ml Vial) 100 mcg STK-MED ONCE .ROUTE ; Start at 08:42; Stop 12/25/16 at 09:51; Status DC Sodium Chloride 1,000 ml @ 125 mls/hr 1X ONCE IV Last administered on 07:00; Start 12/25/16 at 07:30; Stop 12/25/16 at 09:53; Status DC Guaifenesin (Robitussin Dm) 10 ml PRN Q6HRS PRN PO COUGH Last administered on 21:10; Start 12/25/16 at 14:30 Ferrous Sulfate (Feosol) 325 mg QHS PO Last administered on 12/31/16 21:15; Start 12/28/16 at 21:00 Insulin Detemir (Levemir) 20 units BID SQ ; Start 12/28/16 at 21:00; Stop at 21:00; Status DC Insulin Detemir (Levemir) 20 units QHS SQ ; Start 12/28/16 at 21:00 Insulin Detemir (Levemir) 40 units DAILYAC SQ ; Start 12/29/16 at 07:30; Stop 12/29/16 at 07:30; Status DC Insulin Detemir (Levemir) 20 units DAILYAC SQ Last administered on 01/01/17 08: 49; Start 12/29/16 at 07:30 Fentanyl Citrate (Fentanyl 2ml Vial) 50 mcg PRN Q4HRS PRN IV SEVERE PAIN Last administered on 12/31/16 05:44; Start 12/31/16 at 05:30; Stop 12/31/16 at 12:58; Status DC Fentanyl Citrate (Fentanyl 2ml Vial) 75 mcg PRN Q4HRS PRN IV SEVERE PAIN Last administered on 01/01/17 06:08; Start 12/31/16 at 13:00; Stop 01/01/17 at 12:13; Status DC Fentanyl Citrate (Fentanyl 2ml Vial) 100 mcg PRN Q4HRS PRN IV SEVERE PAIN Last administered on 01/01/17 14:36; Start 01/01/17 at 12:15 Ketorolac Tromethamine (Toradol) 30 mg 1X ONCE IV Last administered on t 12:43; Start 01/01/17 at 12:15; Stop 01/01/17 at 12:16; Status DC Active Scripts Active Reported [albuterol ] 25 Mg PO BID Phenobarbital 100 Mg Tablet 50 Mg PO BID Potassium Chloride 20 Meq Tablet.er 20 Meq PO DAILY Furosemide 40 Mg Tablet 40 Mg PO DAILY [place]in 7.5-325 Tablet (Acetaminophen/Hydrocodone Bitart) 1 Each Tablet 1 Tab PO PRN Q6HRS PRN Humalog (Insulin Lispro) 100 Unit/1 Ml Vial 75 Unit SQ TIDAC Protonix (Pantoprazole Sodium) 40 Mg Tablet.dr 40 Mg PO DAILY Plavix (Clopidogrel Bisulfate) 75 Mg Tablet 75 Mg PO DAILY Proair Hfa Inhaler (Albuterol Sulfate) 8.5 Gm Hfa.aer.ad 2 Puff IH PRN Q4-6HRS Phenytoin Sodium Extended 100 Mg Capsule 100 Mg PO FOUR TIMES A DAILY Lantus (Insulin Glargine,Hum.rec.anlog) 100 Unit/1 Ml Vial 75 Unit SQ BID Oxycodon-Acetaminophen 7.5-325 (Oxycodone Hcl/Acetaminophen) 1 Each Tablet 1 Each PO BID Diazepam 10 Mg Tablet 10 Mg PO BID Dulera 200 Mcg/5 Mcg Inhaler (Mometasone/Formoterol) 13 Gm Hfa.aer.ad 3 Puff IH BID Advair 500-50 Diskus (Fluticasone/Salmeterol) 1 Each Disk.w.dev 2 Inh IH BID Atorvastatin Calcium 80 Mg Tablet 80 Mg PO HS Carvedilol 12.5 Mg Tablet 25 Mg PO BIDWMEALS Isosorbide Mononitrate Er (Isosorbide Mononitrate) 60 Mg Tab.er.24h 60 Mg PO DAILY Vitals/I & O Vital Sign - Last 24 Hours 12/31/16 12/31/16 12/31/16 12/31/16 18:47 19:00 20:00 23:00 Temp 98.6 98.6 98.6 98.6 Pulse 92 90 Resp 18 20 B/P (MAP) 120/71 (87) 123/66 (85) Pulse Ox 95 94 92 O2 Delivery Room Air Room Air Room Air Room Air 01/01/17 01/01/17 01/01/17 01/01/17 02:58 07:00 07:45 08:35 Temp 99.7 99.1 99.7 99.1 Pulse 89 87 87 Resp 18 20 B/P (MAP) 125/77 (93) 145/100 (115) 145/100 Pulse Ox 93 92 O2 Delivery Room Air Room Air Room Air 01/01/17 01/01/17 01/01/17 08:35 11:00 14:36 Temp 97.4 97.4 Pulse 87 80 Resp 20 B/P (MAP) 145/100 118/71 (87) Pulse Ox 95 O2 Delivery Room Air Room Air Intake and Output 12/31/16 12/31/16 01/01/17 15:00 23:00 07:00 Intake Total 200 ml Balance 200 ml HERIBERTO HART MD Jan 01, 2017 15:17
[2017-01-01 19:00] VITALS: BP 116/59
[2017-01-01] MEDS: ATORVASTATIN CALCIUM 40 MG TABLET. PO SCH (22:19)
[2017-01-01] MEDS: FERROUS SULFATE 325 MG TABLET. PO SCH (22:19)
[2017-01-01 22:50] VITALS: BP 117/68
[2017-01-02] MEDS: oxyCODONE IR 5 MG TABLET PO PRN ×4 (05:53→21:31)
[2017-01-02 06:26] LABS: BASO # 0.1 x10^3/uL (0.0-0.2); BASO % 1 % (0-3); EOS % 3 % (0-3); HEMATOCRIT 23.4 % (36.0-47.0); HEMOGLOBIN 8.1 g/dL (12.0-15.5); LYMPH # 2.8 x10^3/uL (1.0-4.8); LYMPH % 38 % (24-48); MEAN CORPUSCULAR HEMOGLOBIN 31 pg (25-35); MEAN CORPUSCULAR HGB CONC 35 g/dL (31-37); MEAN CORPUSCULAR VOLUME 88 fL (79-100); MONO % 9 % (0-9); NEUT % 49 % (31-73); PLATELET COUNT 557 x10^3/uL (140-400); RED BLOOD COUNT 2.65 x10^6/uL (3.50-5.40); RED CELL DISTRIBUTION WIDTH 14.8 % (11.5-14.5); WHITE BLOOD COUNT 7.4 x10^3/uL (4.0-11.0)
[2017-01-02 06:43] LABS: ALBUMIN 1.9 g/dL (3.4-5.0); ALBUMIN/GLOBULIN RATIO 0.4 (1.0-1.7); CALCIUM 8.6 mg/dL (8.5-10.1); CREATININE 0.5 mg/dL (0.6-1.0); GFR 125.9; POTASSIUM 3.6 mmol/L (3.5-5.1); TOTAL BILIRUBIN 0.5 mg/dL (0.2-1.0); TOTAL PROTEIN 7.1 g/dL (6.4-8.2)
[2017-01-02 07:00] VITALS: BP 115/63
[2017-01-02] MEDS: ALBUTEROL SULFATE 2.5 MG/3 ML NEBU. NEB SCH ×4 (07:26→19:23)
[2017-01-02] MEDS: BUDESONIDE 0.5 MG/2 ML NEBU. NEB SCH ×2 (07:26→19:23)
[2017-01-02] MEDS: INSULIN ASPART 300 UNITS/3 ML INSULN.PEN SQ SCH ×6 (07:30→18:36)
[2017-01-02] MEDS: POTASSIUM CHLORIDE 20 MEQ TABLET.ER. PO SCH (08:00)
[2017-01-02] MEDS: POLYETHYLENE GLYCOL 3350 17 GM PACKET. PO PRN (10:00)
[2017-01-02] MEDS: PHENYTOIN SODIUM EXTENDED 100 MG CAPSULE PO SCH ×2 (10:01→21:30)
[2017-01-02] MEDS: PHENobarbital 32.4 MG TABLET. PO SCH ×2 (10:02→21:32)
[2017-01-02] MEDS: CARVEDILOL 12.5 MG TABLET. PO SCH ×2 (10:03→18:31)
[2017-01-02] MEDS: diazePAM 5 MG TABLET PO SCH ×2 (10:05→21:30)
[2017-01-02] MEDS: CLOPIDOGREL BISULFATE 75 MG TABLET PO SCH (10:05)
[2017-01-02] MEDS: DOCUSATE SODIUM 100 MG CAPSULE. PO SCH (10:06)
[2017-01-02] MEDS: ISOSORBIDE MONONITRATE ER 30 MG TAB.ER.24H PO SCH (10:07)
[2017-01-02] MEDS: FUROSEMIDE 40 MG TABLET. PO SCH (10:07)
[2017-01-02] MEDS: PANTOPRAZOLE 40 MG TABLET.DR. PO SCH (10:08)
[2017-01-02] MEDS: FLUoxetine HCL 20 MG CAPSULE PO SCH (10:09)
[2017-01-02] MEDS: DULoxetine HCL 20 MG CAPSULE.DR PO SCH (10:09)
[2017-01-02 11:00] VITALS: BP 139/83
[2017-01-02] MEDS: ONDANSETRON PF 4 MG/2 ML VIAL. IV PRN ×2 (12:51→21:40)
[2017-01-02] MEDS: INSULIN DETEMIR 300 UNITS/3 ML INSULN.PEN. SQ SCH ×2 (13:01→21:39)
[2017-01-02] MEDS: fentaNYL PF VIAL 100 MCG/2 ML VIAL IV PRN (13:17)
[2017-01-02 15:00] VITALS: BP 100/57
--- NOTE | 2017-01-02 17:43 | PDOC ---
PROGRESS NOTES Chief Complaint Chief Complaint Septic arthritis R knee ASSESSMENT AND PLAN: 1. Septic arthritis of right knee: s/p hardware removal on 12/21, s/p evacuation of blood in knee om 12/25. on cefazolin for MSSA, for anticipated 6 weeks. PICC placed 2. Anemia of acute blood loss: s/p PRBC x1 on 12/26, slowly improving. on PO iron. monitor periodically 3. Narcotic dependence: IV narcotics prior to PT only. oxy 5-10 PRN 4. Personality disorder or schizotypal, possible depression: mood stable. cont home meds 5. DM: not well controlled today; monitor, adjust as indicated. cont ISS 6. CAD: no acute issues. cont secondary prevention meds 7. Hypoalbuminemia: severe, 2/2 inflammation and malnutrition 8. Obesity, BMI 35 9. Dispo: awaiting LTAC eval History of Present Illness History of Present Illness c/o pain, marcelo with moving. appetite soso. Vitals Vitals Vital Signs Date Time Temp Pulse Resp B/P (MAP) Pulse Ox O2 Delivery O2 Flow Rate FiO2 01/02/17 15:44 95 Room Air 01/02/17 15:00 97.5 78 18 100/57 (71) 97.5 Physical Exam General: Alert, Oriented X3, Cooperative, No acute distress Heart: Regular rate, Other (2/6 systolic murmur to LLS border) Lungs: Clear Abdomen: Normal bowel sounds, Soft, No tenderness Extremities: Other (no edema, R knee with prox/lat swelling, no discoloration) Skin: No rashes Labs LABS Laboratory Tests Test 01/01/17 20:22 01/02/17 06:00 01/02/17 07:05 01/02/17 11:14 Glucose (Fingerstick) 139 mg/dL (70-99) 137 mg/dL (70-99) 248 mg/dL (70-99) White Blood Count 7.4 x10^3/uL (4.0-11.0) Red Blood Count 2.65 x10^6/uL (3.50-5.40) Hemoglobin 8.1 g/dL (12.0-15.5) Hematocrit 23.4 % (36.0-47.0) Mean Corpuscular Volume 88 fL (79-100) Mean Corpuscular Hemoglobin 31 pg (25-35) Mean Corpuscular Hemoglobin Concent 35 g/dL (31-37) Red Cell Distribution Width 14.8 % (11.5-14.5) Platelet Count 557 x10^3/uL (140-400) Neutrophils (%) (Auto) 49 % (31-73) Lymphocytes (%) (Auto) 38 % (24-48) Monocytes (%) (Auto) 9 % (0-9) Eosinophils (%) (Auto) 3 % (0-3) Basophils (%) (Auto) 1 % (0-3) Neutrophils # (Auto) 3.7 x10^3uL (1.8-7.7) Lymphocytes # (Auto) 2.8 x10^3/uL (1.0-4.8) Monocytes # (Auto) 0.6 x10^3/uL (0.0-1.1) Eosinophils # (Auto) 0.2 x10^3/uL (0.0-0.7) Basophils # (Auto) 0.1 x10^3/uL (0.0-0.2) Sodium Level 137 mmol/L (136-145) Potassium Level 3.6 mmol/L (3.5-5.1) Chloride Level 100 mmol/L (98-107) Carbon Dioxide Level 31 mmol/L (21-32) Anion Gap 6 (6-14) Blood Urea Nitrogen 9 mg/dL (7-20) Creatinine 0.5 mg/dL (0.6-1.0) Estimated GFR (Cockcroft-Gault) 125.9 BUN/Creatinine Ratio 18 (6-20) Glucose Level 124 mg/dL (70-99) Calcium Level 8.6 mg/dL (8.5-10.1) Total Bilirubin 0.5 mg/dL (0.2-1.0) Aspartate Amino Transf (AST/SGOT) 114 U/L (15-37) Alanine Aminotransferase (ALT/SGPT) 53 U/L (14-59) Alkaline Phosphatase 186 U/L (46-116) Total Protein 7.1 g/dL (6.4-8.2) Albumin 1.9 g/dL (3.4-5.0) Albumin/Globulin Ratio 0.4 (1.0-1.7) Test 01/02/17 16:22 Glucose (Fingerstick) 301 mg/dL (70-99) AKUA CALVO MD Jan 02, 2017 17:43
[2017-01-02 19:00] VITALS: BP 106/58
[2017-01-02] MEDS: ATORVASTATIN CALCIUM 40 MG TABLET. PO SCH (21:31)
[2017-01-02] MEDS: FERROUS SULFATE 325 MG TABLET. PO SCH (21:31)
[2017-01-02 23:00] VITALS: BP 102/50
[2017-01-03] MEDS: oxyCODONE IR 5 MG TABLET PO PRN ×5 (06:19→21:25)
[2017-01-03] MEDS: PANTOPRAZOLE 40 MG TABLET.DR. PO SCH (06:19)
[2017-01-03 07:00] VITALS: BP 112/69
[2017-01-03] MEDS ORDERED: MAGNESIUM CITRATE 296 ML SOLUTION. PO ONE (07:30)
[2017-01-03] MEDS ORDERED: MINERAL OIL 133 ML ENEMA. PR ONE (07:30)
[2017-01-03] MEDS: INSULIN ASPART 300 UNITS/3 ML INSULN.PEN SQ SCH ×6 (08:00→17:56)
[2017-01-03] MEDS: BUDESONIDE 0.5 MG/2 ML NEBU. NEB SCH ×3 (08:00→20:00)
[2017-01-03] MEDS: POTASSIUM CHLORIDE 20 MEQ TABLET.ER. PO SCH (08:00)
[2017-01-03] MEDS: ALBUTEROL SULFATE 2.5 MG/3 ML NEBU. NEB SCH ×4 (08:00→20:00)
[2017-01-03] MEDS: ISOSORBIDE MONONITRATE ER 30 MG TAB.ER.24H PO SCH (09:41)
[2017-01-03] MEDS: fentaNYL PF VIAL 100 MCG/2 ML VIAL IV PRN (09:41)
[2017-01-03] MEDS: CLOPIDOGREL BISULFATE 75 MG TABLET PO SCH (09:42)
[2017-01-03] MEDS: PHENobarbital 32.4 MG TABLET. PO SCH ×2 (09:42→21:25)
[2017-01-03] MEDS: CARVEDILOL 12.5 MG TABLET. PO SCH ×2 (09:43→17:45)
[2017-01-03] MEDS: FUROSEMIDE 40 MG TABLET. PO SCH (09:44)
[2017-01-03] MEDS: diazePAM 5 MG TABLET PO SCH ×2 (09:44→21:26)
[2017-01-03] MEDS: DOCUSATE SODIUM 100 MG CAPSULE. PO SCH (09:44)
[2017-01-03] MEDS: FLUoxetine HCL 20 MG CAPSULE PO SCH (09:44)
[2017-01-03] MEDS: DULoxetine HCL 20 MG CAPSULE.DR PO SCH (09:44)
[2017-01-03] MEDS: PHENYTOIN SODIUM EXTENDED 100 MG CAPSULE PO SCH ×2 (09:45→21:28)
--- NOTE | 2017-01-03 10:55 | PDOC ---
PROGRESS NOTES Chief Complaint Chief Complaint Septic arthritis R knee ASSESSMENT AND PLAN: 1. Septic arthritis of right knee: s/p hardware removal on 12/21, s/p evacuation of blood in knee om 12/25. on cefazolin for MSSA, for anticipated 6 weeks. PICC placed 2. Anemia of acute blood loss: s/p PRBC x1 on 12/26, slowly improving. on PO iron. monitor periodically 3. Narcotic dependence: IV narcotics prior to PT only. oxy 5-10 PRN 4. Personality disorder or schizotypal, possible depression: mood stable. cont home meds 5. DM: not well controlled today; monitor, adjust as indicated. cont ISS 6. CAD: no acute issues. cont secondary prevention meds 7. Hypoalbuminemia: severe, 2/2 inflammation and malnutrition 8. Obesity, BMI 35 9. Dispo: awaiting LTAC acceptance History of Present Illness History of Present Illness essentially stable Vitals Vitals Vital Signs Date Time Temp Pulse Resp B/P (MAP) Pulse Ox O2 Delivery O2 Flow Rate FiO2 01/03/17 10:15 94 Room Air 01/03/17 09:43 94 112/69 01/03/17 07:00 98.2 20 98.2 Physical Exam General: Alert, Oriented X3, Cooperative, No acute distress Heart: Regular rate, Other (2/6 systolic murmur to LLS border) Lungs: Clear Abdomen: Normal bowel sounds, Soft, No tenderness Extremities: Other (no edema, R knee with prox/lat swelling, no discoloration) Skin: No rashes Labs LABS Laboratory Tests Test 01/02/17 11:14 01/02/17 16:22 01/02/17 20:42 01/03/17 07:40 Glucose (Fingerstick) 248 mg/dL (70-99) 301 mg/dL (70-99) 194 mg/dL (70-99) 105 mg/dL (70-99) AKUA CALVO MD Jan 03, 2017 10:55
[2017-01-03 11:08] VITALS: BP 132/73
[2017-01-03] MEDS: INSULIN DETEMIR 300 UNITS/3 ML INSULN.PEN. SQ SCH ×2 (14:17→21:36)
[2017-01-03 15:00] VITALS: BP 105/55
[2017-01-03] MEDS: LORazepam 0.5 MG TABLET PO PRN (17:45)
[2017-01-03 19:00] VITALS: BP 112/56
[2017-01-03] MEDS: FERROUS SULFATE 325 MG TABLET. PO SCH (21:26)
[2017-01-03] MEDS: ATORVASTATIN CALCIUM 40 MG TABLET. PO SCH (21:27)
[2017-01-03] MEDS: ONDANSETRON PF 4 MG/2 ML VIAL. IV PRN (21:28)
[2017-01-03] MEDS: guaiFENesin DM 200MG/20MG 10 ML SYRUP PO PRN (21:30)
[2017-01-03 23:00] VITALS: BP 114/55
[2017-01-03] MEDS: ACETAMINOPHEN 500 MG TABLET PO PRN (23:30)
[2017-01-04 03:00] VITALS: BP 106/58
[2017-01-04] MEDS: oxyCODONE IR 5 MG TABLET PO PRN ×5 (06:16→22:19)
[2017-01-04 07:00] VITALS: BP 104/66
[2017-01-04] MEDS: ALBUTEROL SULFATE 2.5 MG/3 ML NEBU. NEB SCH ×4 (07:17→19:58)
[2017-01-04] MEDS: BUDESONIDE 0.5 MG/2 ML NEBU. NEB SCH (07:17)
[2017-01-04] MEDS: INSULIN ASPART 300 UNITS/3 ML INSULN.PEN SQ SCH ×6 (07:30→17:00)
[2017-01-04 10:00] VITALS: BP 127/63
[2017-01-04] MEDS: PHENobarbital 32.4 MG TABLET. PO SCH ×2 (10:13→20:33)
[2017-01-04] MEDS: FUROSEMIDE 40 MG TABLET. PO SCH (10:14)
[2017-01-04] MEDS: CLOPIDOGREL BISULFATE 75 MG TABLET PO SCH (10:14)
[2017-01-04] MEDS: ISOSORBIDE MONONITRATE ER 30 MG TAB.ER.24H PO SCH (10:14)
[2017-01-04] MEDS: PANTOPRAZOLE 40 MG TABLET.DR. PO SCH (10:15)
[2017-01-04] MEDS: FLUoxetine HCL 20 MG CAPSULE PO SCH (10:15)
[2017-01-04] MEDS: PHENYTOIN SODIUM EXTENDED 100 MG CAPSULE PO SCH ×2 (10:15→20:34)
[2017-01-04] MEDS: DOCUSATE SODIUM 100 MG CAPSULE. PO SCH (10:16)
[2017-01-04] MEDS: CARVEDILOL 12.5 MG TABLET. PO SCH ×2 (10:16→18:20)
[2017-01-04] MEDS: POTASSIUM CHLORIDE 20 MEQ TABLET.ER. PO SCH (10:17)
[2017-01-04] MEDS: diazePAM 5 MG TABLET PO SCH ×2 (10:17→20:34)
[2017-01-04] MEDS: INSULIN DETEMIR 300 UNITS/3 ML INSULN.PEN. SQ SCH ×2 (10:26→20:27)
[2017-01-04] MEDS: POLYETHYLENE GLYCOL 3350 17 GM PACKET. PO PRN (10:54)
[2017-01-04] MEDS: DULoxetine HCL 20 MG CAPSULE.DR PO SCH (10:54)
--- NOTE | 2017-01-04 12:37 | PDOC ---
PROGRESS NOTES Chief Complaint Chief Complaint Septic arthritis R knee ASSESSMENT AND PLAN: 1. Septic arthritis of right knee: s/p hardware removal on 12/21, s/p evacuation of blood in knee om 12/25. on cefazolin for MSSA, for anticipated 6 weeks. PICC placed 2. Anemia of acute blood loss: s/p PRBC x1 on 12/26, slowly improving. on PO iron. 3. Narcotic dependence: IV narcotics prior to PT only. oxy 5-10 PRN 4. Personality disorder or schizotypal, possible depression: mood stable. cont home meds 5. DM: not well controlled today; monitor, adjust as indicated. cont ISS 6. h/o CAD 7. Hypoalbuminemia: severe, 2/2 inflammation and malnutrition 8. Obesity, BMI 35 plan: fu with ortho on iv cefazolin x6 weeks with PICC waiting for SW to find a SNF or LTAC for her dvt gi ppx PTOT History of Present Illness History of Present Illness T 101 c/o severe right knee pain, hard to move severe psych problems, yelling to me when i talk to her and crying Vitals Vitals Vital Signs Date Time Temp Pulse Resp B/P (MAP) Pulse Ox O2 Delivery O2 Flow Rate FiO2 01/04/17 11:04 Room Air 01/04/17 10:16 73 106/58 01/04/17 10:00 97.6 18 93 97.6 01/03/17 10:50 2.0 Physical Exam General: Alert, Oriented X3, Cooperative, No acute distress Heart: Regular rate, Other (2/6 systolic murmur to LLS border) Lungs: Clear Abdomen: Normal bowel sounds, Soft, No tenderness Extremities: Other (no edema, R knee with prox/lat swelling, no discoloration) Skin: No rashes Labs LABS Laboratory Tests Test 01/03/17 16:43 01/03/17 21:01 01/04/17 07:14 01/04/17 11:53 Glucose (Fingerstick) 233 mg/dL (70-99) 217 mg/dL (70-99) 110 mg/dL (70-99) 220 mg/dL (70-99) Review of Systems Review of Systems no chills, chest pain or sob Assessment and Plan Assessmemt and Plan Problems Medical Problems: (1) Bacteremia Status: Acute Problems: Comment Review of Relevant I have reviewed the following items mary (where applicable) has been applied. Labs Laboratory Tests Test 01/02/17 16:22 01/02/17 20:42 01/03/17 07:40 01/03/17 11:17 Glucose (Fingerstick) 301 mg/dL (70-99) 194 mg/dL (70-99) 105 mg/dL (70-99) 212 mg/dL (70-99) Test 01/03/17 16:43 01/03/17 21:01 01/04/17 07:14 01/04/17 11:53 Glucose (Fingerstick) 233 mg/dL (70-99) 217 mg/dL (70-99) 110 mg/dL (70-99) 220 mg/dL (70-99) Laboratory Tests Test 01/03/17 16:43 01/03/17 21:01 01/04/17 07:14 01/04/17 11:53 Glucose (Fingerstick) 233 mg/dL (70-99) 217 mg/dL (70-99) 110 mg/dL (70-99) 220 mg/dL (70-99) Microbiology 12/23/16 Blood Culture - Final, Complete NO GROWTH AFTER 5 DAYS Medications Current Medications Ondansetron HCl (Zofran) 4 mg PRN Q8HRS PRN IV NAUSEA/VOMITING Last administered on 12/18/16 23:22; Start 12/18/16 at 16:00; Stop 12/19/16 at 15:59 ; Status DC Acetaminophen (Tylenol) 650 mg PRN Q4HRS PRN PO FEVER Last administered on 12/18 18:10; Start 12/18/16 at 16:00; Stop 12/19/16 at 15:59; Status DC Vancomycin HCl (Vanco Per Pharmacy) 1 each PRN DAILY PRN MC SEE COMMENTS; Start 12/18/16 at 16:00; Status UNV Vancomycin HCl (Vanco Per Pharmacy) 1 each PRN DAILY PRN MC SEE COMMENTS Last administered on 12/22/16 11:38; Start 12/18/16 at 17:15; Stop 12/22/16 at 14:41 ; Status DC Vancomycin HCl 1 each 1X ONCE MC ; Start 12/18/16 at 17:15; Stop 12/18/16 at 17 :15; Status DC Vancomycin HCl 1.25 gm/Sodium Chloride 250 ml @ 167 mls/hr Q12H IV Last administered on 12/19/16 06:26; Start 12/18/16 at 18:00; Stop 12/19/16 at 08:00 ; Status DC Vancomycin HCl 1 each 1X ONCE MC Last administered on 12/19/16 05:30; Start 12/19/16 at 05:30; Stop 12/19/16 at 05:31; Status DC Carvedilol (Coreg) 25 mg BIDWMEALS PO Last administered on 01/04/17 10:16; Start 12/19/16 at 18:00 Clopidogrel Bisulfate (Plavix) 75 mg DAILY PO Last administered on 01/04/17 10: 14; Start 12/19/16 at 09:00 Furosemide (Lasix) 40 mg DAILY PO Last administered on 12/20/16 08:13; Start 12/19/16 at 09:00; Stop 12/20/16 at 14:04; Status DC Oxycodone/ Acetaminophen (Percocet 7.5/ 325) 1 tab BID PO Last administered on 12/19/16 08:25; Start 12/18/16 at 21:00; Stop 12/19/16 at 13:29; Status DC Pantoprazole Sodium (Protonix) 40 mg DAILY PO Last administered on 01/04/17 10: 15; Start 12/19/16 at 09:00 Phenytoin Sodium (Dilantin) 200 mg BID PO Last administered on 01/04/17 10:15; Start 12/18/16 at 21:00 Non-Formulary Medication 2 puff PRN Q4-6HRS IH ; Start 12/18/16 at 17:30; Stop 12/18/16 at 18:06; Status DC Atorvastatin Calcium (Lipitor) 80 mg QHS PO Last administered on 01/03/17 21:27 ; Start 12/18/16 at 21:00 Diazepam (Valium) 10 mg BID PO Last administered on 01/04/17 10:17; Start 12/18 at 21:00 Non-Formulary Medication 2 inh BID IH ; Start 12/18/16 at 21:00; Stop 12/18/16 at 21:00; Status DC Insulin Detemir (Levemir) 45 units BID SQ Last administered on 12/20/16 08:22 ; Start 12/18/16 at 21:00; Stop 12/20/16 at 10:03; Status DC Insulin Aspart (NovoLOG) 15 units TIDAC SQ Last administered on 01/03/17 17:54 ; Start 12/19/16 at 18:00 Isosorbide Mononitrate (Imdur) 60 mg DAILY PO Last administered on 01/04/17 10: 14; Start 12/19/16 at 09:00 Non-Formulary Medication 3 puff BID IH ; Start 12/18/16 at 21:00; Stop 12/18/16 at 21:00; Status DC Phenobarbital (Luminal) 48.6 mg BID PO Last administered on 01/04/17 10:13; Start 12/18/16 at 21:00 Potassium Chloride (Klor-Con) 20 meq DAILYWBKFT PO Last administered on 10:17; Start 12/19/16 at 08:00 Non-Formulary Medication 25 mg BID PO ; Start 12/18/16 at 21:00; Stop 12/18/16 at 21:00; Status DC Oxycodone HCl (Roxicodone) 10 mg PRN Q4HRS PRN PO MODERATE - SEVERE PAIN Last administered on 01/04/17 07:30; Start 12/18/16 at 17:45 Ketorolac Tromethamine (Toradol) 15 mg PRN Q6HRS PRN IV pain Last administered on 12/22/16 06:33; Start 12/18/16 at 17:45; Stop 12/23/16 at 17:44; Status DC Insulin Aspart (NovoLOG) 0-9 UNITS TIDWMEALS SQ Last administered on 01/03/17 17:56; Start 12/19/16 at 08:00 Dextrose (Dextrose 50%-Water Syringe) 12.5 gm PRN Q15MIN PRN IV SEE COMMENTS Last administered on 12/28/16 19:40; Start 12/18/16 at 17:45 Albuterol Sulfate (Ventolin Neb Soln) 2.5 mg RTQID NEB Last administered on 01/04 11:04; Start 12/18/16 at 20:00 Albuterol Sulfate (Ventolin Neb Soln) 2.5 mg PRN Q4HRS PRN NEB SHORTNESS OF BREATH Last administered on 12/21/16 14:36; Start 12/18/16 at 18:15 Budesonide (Pulmicort) 0.5 mg RTBID NEB Last administered on 01/04/17 07:17; Start 12/18/16 at 20:00 Lorazepam (Ativan) 0.5 mg PRN Q8HRS PRN PO ANXIETY / AGITATION Last administered on 01/03/17 17:45; Start 12/18/16 at 18:45 Vancomycin HCl 1 gm/Sodium Chloride 250 ml @ 250 mls/hr Q8HRS IV Last administered on 12/20/16 14:26; Start 12/19/16 at 14:00; Stop 12/20/16 at 16:00 ; Status DC Vancomycin HCl 1 each 1X ONCE MC Last administered on 12/20/16 13:30; Start 12/20/16 at 13:30; Stop 12/20/16 at 13:31; Status DC Sodium Chloride 1,000 ml @ 125 mls/hr 1X ONCE IV Last administered on 13:47; Start 12/19/16 at 13:30; Stop 12/19/16 at 21:29; Status DC Oxycodone/ Acetaminophen (Percocet 7.5/ 325) 2 tab BID PO Last administered on 12/25/16 21:02; Start 12/19/16 at 14:00; Stop 12/26/16 at 11:14; Status DC Docusate Sodium (Colace) 100 mg DAILY PO Last administered on 01/04/17 10:16; Start 12/19/16 at 14:00 Polyethylene Glycol (miraLAX PACKET) 17 gm 1X ONCE PO Last administered on 13:54; Start 12/19/16 at 14:00; Stop 12/19/16 at 14:01; Status DC Polyethylene Glycol (miraLAX PACKET) 17 gm PRN DAILY PRN PO CONSTIPATION Last administered on 01/02/17 10:00; Start 12/19/16 at 13:45; Stop 01/03/17 at 07:18; Status DC Insulin Detemir (Levemir) 40 units BID SQ Last administered on 8/2/17at 08:36; Start 12/20/16 at 21:00; Stop 12/28/16 at 20:32; Status DC Sodium Chloride 1,000 ml @ 1,000 mls/hr 1X ONCE IV Last administered on 11:51; Start 12/20/16 at 12:00; Stop 12/20/16 at 12:59; Status DC Sodium Chloride 1,000 ml @ 1,000 mls/hr 1X ONCE IV Last administered on 13:23; Start 12/20/16 at 12:00; Stop 12/20/16 at 12:59; Status DC Furosemide (Lasix) 40 mg DAILY PO Last administered on 01/04/17 10:14; Start at 09:00 Vancomycin HCl 1.25 gm/Sodium Chloride 250 ml @ 167 mls/hr Q8HRS IV Last administered on 12/22/16 12:55; Start 12/20/16 at 22:00; Stop 12/22/16 at 14:38 ; Status DC Dexamethasone Sodium Phosphate (Decadron) 20 mg STK-MED ONCE .ROUTE ; Start at 10:58; Stop 12/21/16 at 10:59; Status DC Ondansetron HCl (Zofran) 4 mg STK-MED ONCE .ROUTE ; Start 12/21/16 at 10:58; Stop 12/21/16 at 10:59; Status DC Propofol 20 ml @ As Directed STK-MED ONCE IV ; Start 12/21/16 at 10:58; Stop at 10:59; Status DC Lidocaine HCl (Lidocaine Pf 2% Vial) 5 ml STK-MED ONCE .ROUTE ; Start 12/21/16 at 10:58; Stop 12/21/16 at 10:59; Status DC Desflurane (Suprane) 60 ml STK-MED ONCE IH ; Start 12/21/16 at 10:58; Stop 12/21 at 10:59; Status DC Fentanyl Citrate (Fentanyl 2ml Vial) 100 mcg STK-MED ONCE .ROUTE ; Start at 10:58; Stop 12/21/16 at 10:59; Status DC Midazolam HCl (Versed) 2 mg STK-MED ONCE .ROUTE ; Start 12/21/16 at 10:58; Stop 12/21/16 at 10:59; Status DC Fentanyl Citrate (Fentanyl 2ml Vial) 100 mcg STK-MED ONCE .ROUTE ; Start at 12:50; Stop 12/21/16 at 12:51; Status DC Propofol 20 ml @ As Directed STK-MED ONCE IV ; Start 12/21/16 at 13:19; Stop at 13:20; Status DC Fentanyl Citrate (Fentanyl 2ml Vial) 100 mcg STK-MED ONCE .ROUTE ; Start at 13:58; Stop 12/21/16 at 13:59; Status DC Ondansetron HCl (Zofran) 4 mg PRN Q6HRS PRN IV NAUSEA/VOMITING; Start 12/21/16 at 14:15; Stop 12/21/16 at 19:00; Status DC Fentanyl Citrate (Fentanyl 2ml Vial) 25 mcg PRN Q5MIN PRN IV MILD PAIN; Start 12/21/16 at 14:15; Stop 12/21/16 at 19:00; Status DC Fentanyl Citrate (Fentanyl 2ml Vial) 50 mcg PRN Q5MIN PRN IV MODERATE PAIN Last administered on 12/21/16t 14:37; Start 12/21/16 at 14:15; Stop 12/21/16 at 19:00; Status DC Morphine Sulfate 1 mg PRN Q10MIN PRN IV SEVERE PAIN; Start 12/21/16 at 14:15; Stop 12/21/16 at 19:00; Status DC Ringer's Solution 1,000 ml @ 30 mls/hr Q24H IV ; Start 12/21/16 at 14:00; Stop 12/21/16 at 15:19; Status DC Lidocaine HCl 2 ml PRN 1X PRN ID PRIOR TO IV START; Start 12/21/16 at 14:15; Stop 12/21/16 at 19:00; Status DC Prochlorperazine Edisylate (Compazine) 5 mg PACU PRN PRN IV NAUSEA, MRX1; Start 12/21/16 at 14:15; Stop 12/21/16 at 19:00; Status DC Sodium Chloride 1,000 ml @ 333.333 mls/hr 1X ONCE IV Last administered on t 15:00; Start 12/22/16 at 15:00; Stop 12/22/16 at 17:59; Status DC Cefazolin Sodium 2 gm/Sodium Chloride 50 ml @ 100 mls/hr Q8HRS IV Last administered on 01/04/17 06:16; Start 12/22/16 at 22:00 Ondansetron HCl (Zofran) 4 mg PRN Q6HRS PRN IV NAUSEA/VOMITING Last administered on 01/03/17 21:28; Start 12/23/16 at 10:00 Acetaminophen (Tylenol) 500 mg PRN Q6HRS PRN PO MILD PAIN / TEMP Last administered on 01/03/17 23:30; Start 12/23/16 at 10:00 Fluoxetine HCl (PROzac) 20 mg DAILY PO Last administered on 01/04/17 10:15; Start 12/23/16 at 11:00 Duloxetine HCl (Cymbalta) 20 mg DAILY PO Last administered on 01/04/17 10:54; Start 12/24/16 at 11:00 Sevoflurane (Ultane) 30 ml STK-MED ONCE IH ; Start 12/25/16 at 07:11; Stop 12/25 at 07:12; Status DC Propofol 20 ml @ As Directed STK-MED ONCE IV ; Start 12/25/16 at 07:11; Stop at 07:12; Status DC Lidocaine HCl (Lidocaine Pf 2% Vial) 5 ml STK-MED ONCE .ROUTE ; Start 12/25/16 at 07:11; Stop 12/25/16 at 07:12; Status DC Famotidine (Pepcid) 20 mg STK-MED ONCE .ROUTE ; Start 12/25/16 at 07:12; Stop at 07:13; Status DC Sodium Chloride (Sodium Chloride) 50 ml STK-MED ONCE IJ ; Start 12/25/16 at 07: 20; Stop 12/25/16 at 07:21; Status DC Phenylephrine HCl (Dat-Synephrine Inj) 10 mg STK-MED ONCE .ROUTE ; Start at 07:20; Stop 12/25/16 at 07:21; Status DC Dexamethasone Sodium Phosphate (Decadron) 20 mg STK-MED ONCE .ROUTE ; Start at 07:30; Stop 12/25/16 at 07:31; Status DC Ondansetron HCl (Zofran) 4 mg STK-MED ONCE .ROUTE ; Start 12/25/16 at 07:30; Stop 12/25/16 at 07:31; Status DC Fentanyl Citrate (Fentanyl 2ml Vial) 100 mcg STK-MED ONCE .ROUTE ; Start at 07:33; Stop 12/25/16 at 09:51; Status DC Sevoflurane (Ultane) 60 ml STK-MED ONCE IH ; Start 12/25/16 at 08:03; Stop 12/25 at 08:04; Status DC Dextrose (Dextrose 50%-Water Syringe) 12.5 gm 1X ONCE IV Last administered on 12/25/16 08:46; Start 12/25/16 at 08:30; Stop 12/25/16 at 08:35; Status DC Ondansetron HCl (Zofran) 4 mg PRN Q6HRS PRN IV NAUSEA/VOMITING; Start 12/25/16 at 08:30; Stop 12/25/16 at 09:53; Status DC Fentanyl Citrate (Fentanyl 2ml Vial) 25 mcg PRN Q5MIN PRN IV MILD PAIN; Start 12/25/16 at 08:30; Stop 12/25/16 at 09:51; Status DC Fentanyl Citrate (Fentanyl 2ml Vial) 50 mcg PRN Q5MIN PRN IV MODERATE PAIN Last administered on 12/25/16 09:00; Start 12/25/16 at 08:30; Stop 12/25/16 at 09:51; Status DC Ringer's Solution 1,000 ml @ 30 mls/hr Q24H IV ; Start 12/25/16 at 08:29; Stop 12/25/16 at 09:53; Status DC Lidocaine HCl 2 ml PRN 1X PRN ID PRIOR TO IV START; Start 12/25/16 at 08:30; Stop 12/26/16 at 08:29; Status DC Prochlorperazine Edisylate (Compazine) 5 mg PACU PRN PRN IV NAUSEA, MRX1; Start 12/25/16 at 08:30; Stop 12/25/16 at 09:53; Status DC Fentanyl Citrate (Fentanyl 2ml Vial) 100 mcg STK-MED ONCE .ROUTE ; Start at 08:42; Stop 12/25/16 at 09:51; Status DC Sodium Chloride 1,000 ml @ 125 mls/hr 1X ONCE IV Last administered on 07:00; Start 12/25/16 at 07:30; Stop 12/25/16 at 09:53; Status DC Guaifenesin (Robitussin Dm) 10 ml PRN Q6HRS PRN PO COUGH Last administered on 21:30; Start 12/25/16 at 14:30 Ferrous Sulfate (Feosol) 325 mg QHS PO Last administered on 01/03/17 21:26; Start 12/28/16 at 21:00 Insulin Detemir (Levemir) 20 units BID SQ ; Start 12/28/16 at 21:00; Stop at 21:00; Status DC Insulin Detemir (Levemir) 20 units QHS SQ Last administered on 01/03/17 21:36; Start 12/28/16 at 21:00 Insulin Detemir (Levemir) 40 units DAILYAC SQ ; Start 12/29/16 at 07:30; Stop 12/29/16 at 07:30; Status DC Insulin Detemir (Levemir) 20 units DAILYAC SQ Last administered on 01/04/17 10: 26; Start 12/29/16 at 07:30 Fentanyl Citrate (Fentanyl 2ml Vial) 50 mcg PRN Q4HRS PRN IV SEVERE PAIN Last administered on 12/31/16 05:44; Start 12/31/16 at 05:30; Stop 12/31/16 at 12:58; Status DC Fentanyl Citrate (Fentanyl 2ml Vial) 75 mcg PRN Q4HRS PRN IV SEVERE PAIN Last administered on 01/01/17 06:08; Start 12/31/16 at 13:00; Stop 01/01/17 at 12:13; Status DC Fentanyl Citrate (Fentanyl 2ml Vial) 100 mcg PRN Q4HRS PRN IV SEVERE PAIN Last administered on 01/02/17 13:17; Start 01/01/17 at 12:15; Stop 01/02/17 at 18:37; Status DC Ketorolac Tromethamine (Toradol) 30 mg 1X ONCE IV Last administered on 12:43; Start 01/01/17 at 12:15; Stop 01/01/17 at 12:16; Status DC Fentanyl Citrate (Fentanyl 2ml Vial) 50 mcg BID PRN IV prior to PT /OT Last administered on 01/03/17 09:41; Start 01/03/17 at 09:00 Polyethylene Glycol (miraLAX PACKET) 17 gm PRN BID PRN PO CONSTIPATION Last administered on 01/04/17 10:54; Start 01/03/17 at 07:30 Magnesium Citrate (Citroma) 296 ml 1X ONCE PO Last administered on 01/03/17 09 :46; Start 01/03/17 at 07:30; Stop 01/03/17 at 07:31; Status DC Mineral Oil (Fleet Mineral Oil) 133 ml 1X ONCE [place] Last administered on 09:45; Start 01/03/17 at 07:30; Stop 01/03/17 at 07:31; Status DC Active Scripts Active Reported [albuterol ] 25 Mg PO BID Phenobarbital 100 Mg Tablet 50 Mg PO BID Potassium Chloride 20 Meq Tablet.er 20 Meq PO DAILY Furosemide 40 Mg Tablet 40 Mg PO DAILY Center 7.5-325 Tablet (Acetaminophen/Hydrocodone Bitart) 1 Each Tablet 1 Tab PO PRN Q6HRS PRN Humalog (Insulin Lispro) 100 Unit/1 Ml Vial 75 Unit SQ TIDAC Protonix (Pantoprazole Sodium) 40 Mg Tablet.dr 40 Mg PO DAILY Plavix (Clopidogrel Bisulfate) 75 Mg Tablet 75 Mg PO DAILY Proair Hfa Inhaler (Albuterol Sulfate) 8.5 Gm Hfa.aer.ad 2 Puff IH PRN Q4-6HRS Phenytoin Sodium Extended 100 Mg Capsule 100 Mg PO FOUR TIMES A DAILY Lantus (Insulin Glargine,Hum.rec.anlog) 100 Unit/1 Ml Vial 75 Unit SQ BID Oxycodon-Acetaminophen 7.5-325 (Oxycodone Hcl/Acetaminophen) 1 Each Tablet 1 Each PO BID Diazepam 10 Mg Tablet 10 Mg PO BID Dulera 200 Mcg/5 Mcg Inhaler (Mometasone/Formoterol) 13 Gm Hfa.aer.ad 3 Puff IH BID Advair 500-50 Diskus (Fluticasone/Salmeterol) 1 Each Disk.w.dev 2 Inh IH BID Atorvastatin Calcium 80 Mg Tablet 80 Mg PO HS Carvedilol 12.5 Mg Tablet 25 Mg PO BIDWMEALS Isosorbide Mononitrate Er (Isosorbide Mononitrate) 60 Mg Tab.er.24h 60 Mg PO DAILY Vitals/I & O Vital Sign - Last 24 Hours 01/03/17 01/03/17 01/03/17 01/03/17 14:07 15:00 17:45 17:46 Temp 98.1 98.1 Pulse 78 78 Resp 20 B/P (MAP) 105/55 (72) 105/55 Pulse Ox 95 92 92 O2 Delivery Room Air Room Air Room Air 01/03/17 01/03/17 01/03/17 01/03/17 19:00 20:00 21:25 23:00 Temp 98.4 101.0 98.4 101.0 Pulse 82 79 Resp 20 16 18 B/P (MAP) 112/56 (74) 114/55 (74) Pulse Ox 96 94 O2 Delivery Room Air Room Air Room Air Room Air 01/04/17 01/04/17 01/04/17 01/04/17 00:30 03:00 06:16 07:00 Temp 99.9 98.5 97.7 99.9 98.5 97.7 Pulse 70 73 Resp 20 16 18 B/P (MAP) 106/58 (74) 104/66 (79) Pulse Ox 100 96 O2 Delivery Room Air Room Air Room Air 01/04/17 01/04/17 01/04/17 01/04/17 07:17 07:30 08:30 10:00 Temp 97.6 97.6 Pulse 75 Resp 18 18 18 B/P (MAP) 127/63 (84) Pulse Ox 96 96 97 93 O2 Delivery Room Air Room Air Room Air Room Air 01/04/17 01/04/17 01/04/17 10:14 10:16 11:04 Pulse 73 73 B/P (MAP) 106/58 106/58 O2 Delivery Room Air Intake and Output 01/03/17 01/03/17 01/04/17 15:00 23:00 07:00 Intake Total 250 ml 200 ml Balance 250 ml 200 ml KADEN REILLY MD Jan 04, 2017 12:37
[2017-01-04] MEDS: ACETAMINOPHEN 500 MG TABLET PO PRN ×2 (13:05→20:32)
[2017-01-04] MEDS: LORazepam 0.5 MG TABLET PO PRN ×2 (13:06→22:18)
[2017-01-04] MEDS: fentaNYL PF VIAL 100 MCG/2 ML VIAL IV PRN (13:15)
[2017-01-04 15:00] VITALS: BP 113/56
[2017-01-04 19:00] VITALS: BP 132/67
[2017-01-04] MEDS: ATORVASTATIN CALCIUM 40 MG TABLET. PO SCH (20:34)
[2017-01-04] MEDS: FERROUS SULFATE 325 MG TABLET. PO SCH (20:34)
[2017-01-04 23:00] VITALS: BP 118/57
[2017-01-05 03:00] VITALS: BP 111/61
[2017-01-05] MEDS: oxyCODONE IR 5 MG TABLET PO PRN ×3 (06:10→21:16)
[2017-01-05] MEDS: LORazepam 0.5 MG TABLET PO PRN ×4 (06:11→22:47)
[2017-01-05 06:51] LABS: BASO # 0.1 x10^3/uL (0.0-0.2); BASO % 2 % (0-3); EOS % 2 % (0-3); LYMPH # 2.7 x10^3/uL (1.0-4.8); LYMPH % 36 % (24-48); MEAN CORPUSCULAR HEMOGLOBIN 30 pg (25-35); MEAN CORPUSCULAR HGB CONC 33 g/dL (31-37); MEAN CORPUSCULAR VOLUME 91 fL (79-100); MONO % 8 % (0-9); NEUT % 52 % (31-73); PLATELET COUNT 493 x10^3/uL (140-400); RED BLOOD COUNT 2.64 x10^6/uL (3.50-5.40); RED CELL DISTRIBUTION WIDTH 14.9 % (11.5-14.5); WHITE BLOOD COUNT 7.5 x10^3/uL (4.0-11.0)
[2017-01-05] MEDS: BUDESONIDE 0.5 MG/2 ML NEBU. NEB SCH ×3 (06:53→19:05)
[2017-01-05] MEDS: ALBUTEROL SULFATE 2.5 MG/3 ML NEBU. NEB SCH ×4 (06:53→19:05)
[2017-01-05 06:58] LABS: CALCIUM 8.1 mg/dL (8.5-10.1); CREATININE 0.5 mg/dL (0.6-1.0); GFR 125.9; POTASSIUM 3.7 mmol/L (3.5-5.1)
[2017-01-05 07:00] VITALS: BP 143/74
[2017-01-05] MEDS: POLYETHYLENE GLYCOL 3350 17 GM PACKET. PO PRN ×2 (09:36→09:49)
[2017-01-05] MEDS: FLUoxetine HCL 20 MG CAPSULE PO SCH ×2 (09:36→09:48)
[2017-01-05] MEDS: diazePAM 5 MG TABLET PO SCH ×3 (09:37→21:15)
[2017-01-05] MEDS: PHENobarbital 32.4 MG TABLET. PO SCH ×2 (09:37→09:48)
[2017-01-05] MEDS: POTASSIUM CHLORIDE 20 MEQ TABLET.ER. PO SCH ×2 (09:38→09:46)
[2017-01-05] MEDS: CLOPIDOGREL BISULFATE 75 MG TABLET PO SCH ×2 (09:38→09:47)
[2017-01-05] MEDS: PHENYTOIN SODIUM EXTENDED 100 MG CAPSULE PO SCH ×2 (09:38→09:47)
[2017-01-05] MEDS: ISOSORBIDE MONONITRATE ER 30 MG TAB.ER.24H PO SCH ×2 (09:39→09:47)
[2017-01-05] MEDS: CARVEDILOL 12.5 MG TABLET. PO SCH ×2 (09:39→09:48)
[2017-01-05] MEDS: FUROSEMIDE 40 MG TABLET. PO SCH ×2 (09:40→09:46)
[2017-01-05] MEDS: DOCUSATE SODIUM 100 MG CAPSULE. PO SCH ×2 (09:40→09:48)
[2017-01-05] MEDS: PANTOPRAZOLE 40 MG TABLET.DR. PO SCH ×2 (09:40→09:48)
[2017-01-05] MEDS: INSULIN ASPART 300 UNITS/3 ML INSULN.PEN SQ SCH ×6 (09:42→17:00)
[2017-01-05] MEDS: INSULIN DETEMIR 300 UNITS/3 ML INSULN.PEN. SQ SCH ×2 (09:43→21:00)
[2017-01-05] MEDS: DULoxetine HCL 20 MG CAPSULE.DR PO SCH (09:46)
[2017-01-05 11:00] VITALS: BP 122/68
--- NOTE | 2017-01-05 11:50 | PDOC ---
PROGRESS NOTES Chief Complaint Chief Complaint Septic arthritis R knee ASSESSMENT AND PLAN: 1. Septic arthritis of right knee: s/p hardware removal on 12/21, s/p evacuation of blood in knee om 12/25. on cefazolin for MSSA, for anticipated 6 weeks. PICC placed 2. Anemia of acute blood loss: s/p PRBC x1 on 12/26, slowly improving. on PO iron. 3. Narcotic dependence: IV narcotics prior to PT only. oxy 5-10 PRN 4. Personality disorder or schizotypal, possible depression: mood stable. cont home meds 5. DM: not well controlled today; monitor, adjust as indicated. cont ISS 6. h/o CAD 7. Hypoalbuminemia: severe, 2/2 inflammation and malnutrition 8. Obesity, BMI 35 plan: fu with ortho on iv cefazolin x6 weeks with PICC waiting for SW to find a SNF or LTAC for her dvt gi ppx PTOT talked to nurse to double check with ortho, regarding exercise ,WBAT? AND the lamont on the wound if needs to remove, post sx [id number] now History of Present Illness History of Present Illness c/o severe right knee pain, hard to move severe psych problems, yelling to me when i talk to her and crying Vitals Vitals Vital Signs Date Time Temp Pulse Resp B/P (MAP) Pulse Ox O2 Delivery O2 Flow Rate FiO2 01/05/17 11:12 18 97 Room Air 01/05/17 09:48 78 143/74 01/05/17 07:00 98.7 98.7 Physical Exam General: Alert, Oriented X3, Cooperative, No acute distress Heart: Regular rate, Other (2/6 systolic murmur to LLS border) Lungs: Clear Abdomen: Normal bowel sounds, Soft, No tenderness Extremities: Other (no edema, R knee with prox/lat swelling, no discoloration) Skin: No rashes Labs LABS Laboratory Tests Test 01/04/17 11:53 01/04/17 16:23 01/04/17 20:26 01/05/17 06:30 Glucose (Fingerstick) 220 mg/dL (70-99) 84 mg/dL (70-99) 148 mg/dL (70-99) White Blood Count 7.5 x10^3/uL (4.0-11.0) Red Blood Count 2.64 x10^6/uL (3.50-5.40) Hemoglobin 8.0 g/dL (12.0-15.5) Hematocrit 24.0 % (36.0-47.0) Mean Corpuscular Volume 91 fL (79-100) Mean Corpuscular Hemoglobin 30 pg (25-35) Mean Corpuscular Hemoglobin Concent 33 g/dL (31-37) Red Cell Distribution Width 14.9 % (11.5-14.5) Platelet Count 493 x10^3/uL (140-400) Neutrophils (%) (Auto) 52 % (31-73) Lymphocytes (%) (Auto) 36 % (24-48) Monocytes (%) (Auto) 8 % (0-9) Eosinophils (%) (Auto) 2 % (0-3) Basophils (%) (Auto) 2 % (0-3) Neutrophils # (Auto) 3.9 x10^3uL (1.8-7.7) Lymphocytes # (Auto) 2.7 x10^3/uL (1.0-4.8) Monocytes # (Auto) 0.6 x10^3/uL (0.0-1.1) Eosinophils # (Auto) 0.2 x10^3/uL (0.0-0.7) Basophils # (Auto) 0.1 x10^3/uL (0.0-0.2) Sodium Level 137 mmol/L (136-145) Potassium Level 3.7 mmol/L (3.5-5.1) Chloride Level 100 mmol/L (98-107) Carbon Dioxide Level 33 mmol/L (21-32) Anion Gap 4 (6-14) Blood Urea Nitrogen 7 mg/dL (7-20) Creatinine 0.5 mg/dL (0.6-1.0) Estimated GFR (Cockcroft-Gault) 125.9 Glucose Level 138 mg/dL (70-99) Calcium Level 8.1 mg/dL (8.5-10.1) Test 01/05/17 07:31 01/05/17 10:57 Glucose (Fingerstick) 165 mg/dL (70-99) 198 mg/dL (70-99) Review of Systems Review of Systems no fever, chills, sob or chest pain Assessment and Plan Assessmemt and Plan Problems Medical Problems: (1) Bacteremia Status: Acute Problems: Comment Review of Relevant I have reviewed the following items mary (where applicable) has been applied. Labs Laboratory Tests Test 01/03/17 16:43 01/03/17 21:01 01/04/17 07:14 01/04/17 11:53 Glucose (Fingerstick) 233 mg/dL (70-99) 217 mg/dL (70-99) 110 mg/dL (70-99) 220 mg/dL (70-99) Test 01/04/17 16:23 01/04/17 20:26 01/05/17 06:30 01/05/17 07:31 Glucose (Fingerstick) 84 mg/dL (70-99) 148 mg/dL (70-99) 165 mg/dL (70-99) White Blood Count 7.5 x10^3/uL (4.0-11.0) Red Blood Count 2.64 x10^6/uL (3.50-5.40) Hemoglobin 8.0 g/dL (12.0-15.5) Hematocrit 24.0 % (36.0-47.0) Mean Corpuscular Volume 91 fL (79-100) Mean Corpuscular Hemoglobin 30 pg (25-35) Mean Corpuscular Hemoglobin Concent 33 g/dL (31-37) Red Cell Distribution Width 14.9 % (11.5-14.5) Platelet Count 493 x10^3/uL (140-400) Neutrophils (%) (Auto) 52 % (31-73) Lymphocytes (%) (Auto) 36 % (24-48) Monocytes (%) (Auto) 8 % (0-9) Eosinophils (%) (Auto) 2 % (0-3) Basophils (%) (Auto) 2 % (0-3) Neutrophils # (Auto) 3.9 x10^3uL (1.8-7.7) Lymphocytes # (Auto) 2.7 x10^3/uL (1.0-4.8) Monocytes # (Auto) 0.6 x10^3/uL (0.0-1.1) Eosinophils # (Auto) 0.2 x10^3/uL (0.0-0.7) Basophils # (Auto) 0.1 x10^3/uL (0.0-0.2) Sodium Level 137 mmol/L (136-145) Potassium Level 3.7 mmol/L (3.5-5.1) Chloride Level 100 mmol/L (98-107) Carbon Dioxide Level 33 mmol/L (21-32) Anion Gap 4 (6-14) Blood Urea Nitrogen 7 mg/dL (7-20) Creatinine 0.5 mg/dL (0.6-1.0) Estimated GFR (Cockcroft-Gault) 125.9 Glucose Level 138 mg/dL (70-99) Calcium Level 8.1 mg/dL (8.5-10.1) Test 01/05/17 10:57 Glucose (Fingerstick) 198 mg/dL (70-99) Laboratory Tests Test 01/04/17 11:53 01/04/17 16:23 01/04/17 20:26 01/05/17 06:30 Glucose (Fingerstick) 220 mg/dL (70-99) 84 mg/dL (70-99) 148 mg/dL (70-99) White Blood Count 7.5 x10^3/uL (4.0-11.0) Red Blood Count 2.64 x10^6/uL (3.50-5.40) Hemoglobin 8.0 g/dL (12.0-15.5) Hematocrit 24.0 % (36.0-47.0) Mean Corpuscular Volume 91 fL (79-100) Mean Corpuscular Hemoglobin 30 pg (25-35) Mean Corpuscular Hemoglobin Concent 33 g/dL (31-37) Red Cell Distribution Width 14.9 % (11.5-14.5) Platelet Count 493 x10^3/uL (140-400) Neutrophils (%) (Auto) 52 % (31-73) Lymphocytes (%) (Auto) 36 % (24-48) Monocytes (%) (Auto) 8 % (0-9) Eosinophils (%) (Auto) 2 % (0-3) Basophils (%) (Auto) 2 % (0-3) Neutrophils # (Auto) 3.9 x10^3uL (1.8-7.7) Lymphocytes # (Auto) 2.7 x10^3/uL (1.0-4.8) Monocytes # (Auto) 0.6 x10^3/uL (0.0-1.1) Eosinophils # (Auto) 0.2 x10^3/uL (0.0-0.7) Basophils # (Auto) 0.1 x10^3/uL (0.0-0.2) Sodium Level 137 mmol/L (136-145) Potassium Level 3.7 mmol/L (3.5-5.1) Chloride Level 100 mmol/L (98-107) Carbon Dioxide Level 33 mmol/L (21-32) Anion Gap 4 (6-14) Blood Urea Nitrogen 7 mg/dL (7-20) Creatinine 0.5 mg/dL (0.6-1.0) Estimated GFR (Cockcroft-Gault) 125.9 Glucose Level 138 mg/dL (70-99) Calcium Level 8.1 mg/dL (8.5-10.1) Test 01/05/17 07:31 01/05/17 10:57 Glucose (Fingerstick) 165 mg/dL (70-99) 198 mg/dL (70-99) Microbiology 12/23/16 Blood Culture - Final, Complete NO GROWTH AFTER 5 DAYS Medications Current Medications Ondansetron HCl (Zofran) 4 mg PRN Q8HRS PRN IV NAUSEA/VOMITING Last administered on 12/18/16 23:22; Start 12/18/16 at 16:00; Stop 12/19/16 at 15:59 ; Status DC Acetaminophen (Tylenol) 650 mg PRN Q4HRS PRN PO FEVER Last administered on 12/18 18:10; Start 12/18/16 at 16:00; Stop 12/19/16 at 15:59; Status DC Vancomycin HCl (Vanco Per Pharmacy) 1 each PRN DAILY PRN MC SEE COMMENTS; Start 12/18/16 at 16:00; Status UNV Vancomycin HCl (Vanco Per Pharmacy) 1 each PRN DAILY PRN MC SEE COMMENTS Last administered on 12/22/16 11:38; Start 12/18/16 at 17:15; Stop 12/22/16 at 14:41 ; Status DC Vancomycin HCl 1 each 1X ONCE MC ; Start 12/18/16 at 17:15; Stop 12/18/16 at 17 :15; Status DC Vancomycin HCl 1.25 gm/Sodium Chloride 250 ml @ 167 mls/hr Q12H IV Last administered on 12/19/16 06:26; Start 12/18/16 at 18:00; Stop 12/19/16 at 08:00 ; Status DC Vancomycin HCl 1 each 1X ONCE MC Last administered on 12/19/16 05:30; Start 12/19/16 at 05:30; Stop 12/19/16 at 05:31; Status DC Carvedilol (Coreg) 25 mg BIDWMEALS PO Last administered on 01/05/17 09:48; Start 12/19/16 at 18:00 Clopidogrel Bisulfate (Plavix) 75 mg DAILY PO Last administered on 01/05/17 09 :47; Start 12/19/16 at 09:00 Furosemide (Lasix) 40 mg DAILY PO Last administered on 12/20/16 08:13; Start 12/19/16 at 09:00; Stop 12/20/16 at 14:04; Status DC Oxycodone/ Acetaminophen (Percocet 7.5/ 325) 1 tab BID PO Last administered on 12/19/16 08:25; Start 12/18/16 at 21:00; Stop 12/19/16 at 13:29; Status DC Pantoprazole Sodium (Protonix) 40 mg DAILY PO Last administered on 01/05/17 09 :48; Start 12/19/16 at 09:00 Phenytoin Sodium (Dilantin) 200 mg BID PO Last administered on 01/05/17 09:47 ; Start 12/18/16 at 21:00 Non-Formulary Medication 2 puff PRN Q4-6HRS IH ; Start 12/18/16 at 17:30; Stop 12/18/16 at 18:06; Status DC Atorvastatin Calcium (Lipitor) 80 mg QHS PO Last administered on 01/04/17 20:34 ; Start 12/18/16 at 21:00 Diazepam (Valium) 10 mg BID PO Last administered on 01/05/17 09:48; Start at 21:00 Non-Formulary Medication 2 inh BID IH ; Start 12/18/16 at 21:00; Stop 12/18/16 at 21:00; Status DC Insulin Detemir (Levemir) 45 units BID SQ Last administered on 12/20/16 08:22 ; Start 12/18/16 at 21:00; Stop 12/20/16 at 10:03; Status DC Insulin Aspart (NovoLOG) 15 units TIDAC SQ Last administered on 01/05/17 09:42 ; Start 12/19/16 at 18:00 Isosorbide Mononitrate (Imdur) 60 mg DAILY PO Last administered on 01/05/17 09 :47; Start 12/19/16 at 09:00 Non-Formulary Medication 3 puff BID IH ; Start 12/18/16 at 21:00; Stop 12/18/16 at 21:00; Status DC Phenobarbital (Luminal) 48.6 mg BID PO Last administered on 01/05/17 09:48; Start 12/18/16 at 21:00 Potassium Chloride (Klor-Con) 20 meq DAILYWBKFT PO Last administered on 09:46; Start 12/19/16 at 08:00 Non-Formulary Medication 25 mg BID PO ; Start 12/18/16 at 21:00; Stop 12/18/16 at 21:00; Status DC Oxycodone HCl (Roxicodone) 10 mg PRN Q4HRS PRN PO MODERATE - SEVERE PAIN Last administered on 01/05/17 11:12; Start 12/18/16 at 17:45 Ketorolac Tromethamine (Toradol) 15 mg PRN Q6HRS PRN IV pain Last administered on 12/22/16 06:33; Start 12/18/16 at 17:45; Stop 12/23/16 at 17:44; Status DC Insulin Aspart (NovoLOG) 0-9 UNITS TIDWMEALS SQ Last administered on 01/05/17 09:55; Start 12/19/16 at 08:00 Dextrose (Dextrose 50%-Water Syringe) 12.5 gm PRN Q15MIN PRN IV SEE COMMENTS Last administered on 12/28/16 19:40; Start 12/18/16 at 17:45 Albuterol Sulfate (Ventolin Neb Soln) 2.5 mg RTQID NEB Last administered on 10:47; Start 12/18/16 at 20:00 Albuterol Sulfate (Ventolin Neb Soln) 2.5 mg PRN Q4HRS PRN NEB SHORTNESS OF BREATH Last administered on 12/21/16 14:36; Start 12/18/16 at 18:15 Budesonide (Pulmicort) 0.5 mg RTBID NEB Last administered on 01/05/17 10:47; Start 12/18/16 at 20:00 Lorazepam (Ativan) 0.5 mg PRN Q8HRS PRN PO ANXIETY / AGITATION Last administered on 01/05/17 09:48; Start 12/18/16 at 18:45 Vancomycin HCl 1 gm/Sodium Chloride 250 ml @ 250 mls/hr Q8HRS IV Last administered on 12/20/16 14:26; Start 12/19/16 at 14:00; Stop 12/20/16 at 16:00 ; Status DC Vancomycin HCl 1 each 1X ONCE MC Last administered on 12/20/16 13:30; Start 12/20/16 at 13:30; Stop 12/20/16 at 13:31; Status DC Sodium Chloride 1,000 ml @ 125 mls/hr 1X ONCE IV Last administered on 13:47; Start 12/19/16 at 13:30; Stop 12/19/16 at 21:29; Status DC Oxycodone/ Acetaminophen (Percocet 7.5/ 325) 2 tab BID PO Last administered on 12/25/16 21:02; Start 12/19/16 at 14:00; Stop 12/26/16 at 11:14; Status DC Docusate Sodium (Colace) 100 mg DAILY PO Last administered on 01/05/17 09:48; Start 12/19/16 at 14:00 Polyethylene Glycol (miraLAX PACKET) 17 gm 1X ONCE PO Last administered on 13:54; Start 12/19/16 at 14:00; Stop 12/19/16 at 14:01; Status DC Polyethylene Glycol (miraLAX PACKET) 17 gm PRN DAILY PRN PO CONSTIPATION Last administered on 01/02/17 10:00; Start 12/19/16 at 13:45; Stop 01/03/17 at 07:18; Status DC Insulin Detemir (Levemir) 40 units BID SQ Last administered on 12/28/16 08:36; Start 12/20/16 at 21:00; Stop 12/28/16 at 20:32; Status DC Sodium Chloride 1,000 ml @ 1,000 mls/hr 1X ONCE IV Last administered on 11:51; Start 12/20/16 at 12:00; Stop 12/20/16 at 12:59; Status DC Sodium Chloride 1,000 ml @ 1,000 mls/hr 1X ONCE IV Last administered on 13:23; Start 12/20/16 at 12:00; Stop 12/20/16 at 12:59; Status DC Furosemide (Lasix) 40 mg DAILY PO Last administered on 01/05/17 09:46; Start 12/21/16 at 09:00 Vancomycin HCl 1.25 gm/Sodium Chloride 250 ml @ 167 mls/hr Q8HRS IV Last administered on 12/22/16 12:55; Start 12/20/16 at 22:00; Stop 12/22/16 at 14:38 ; Status DC Dexamethasone Sodium Phosphate (Decadron) 20 mg STK-MED ONCE .ROUTE ; Start at 10:58; Stop 12/21/16 at 10:59; Status DC Ondansetron HCl (Zofran) 4 mg STK-MED ONCE .ROUTE ; Start 12/21/16 at 10:58; Stop 12/21/16 at 10:59; Status DC Propofol 20 ml @ As Directed STK-MED ONCE IV ; Start 12/21/16 at 10:58; Stop at 10:59; Status DC Lidocaine HCl (Lidocaine Pf 2% Vial) 5 ml STK-MED ONCE .ROUTE ; Start 12/21/16 at 10:58; Stop 12/21/16 at 10:59; Status DC Desflurane (Suprane) 60 ml STK-MED ONCE IH ; Start 12/21/16 at 10:58; Stop 12/21 at 10:59; Status DC Fentanyl Citrate (Fentanyl 2ml Vial) 100 mcg STK-MED ONCE .ROUTE ; Start at 10:58; Stop 12/21/16 at 10:59; Status DC Midazolam HCl (Versed) 2 mg STK-MED ONCE .ROUTE ; Start 12/21/16 at 10:58; Stop 12/21/16 at 10:59; Status DC Fentanyl Citrate (Fentanyl 2ml Vial) 100 mcg STK-MED ONCE .ROUTE ; Start at 12:50; Stop 12/21/16 at 12:51; Status DC Propofol 20 ml @ As Directed STK-MED ONCE IV ; Start 12/21/16 at 13:19; Stop at 13:20; Status DC Fentanyl Citrate (Fentanyl 2ml Vial) 100 mcg STK-MED ONCE .ROUTE ; Start at 13:58; Stop 12/21/16 at 13:59; Status DC Ondansetron HCl (Zofran) 4 mg PRN Q6HRS PRN IV NAUSEA/VOMITING; Start 12/21/16 at 14:15; Stop 12/21/16 at 19:00; Status DC Fentanyl Citrate (Fentanyl 2ml Vial) 25 mcg PRN Q5MIN PRN IV MILD PAIN; Start 12/21/16 at 14:15; Stop 12/21/16 at 19:00; Status DC Fentanyl Citrate (Fentanyl 2ml Vial) 50 mcg PRN Q5MIN PRN IV MODERATE PAIN Last administered on 12/21/16t 14:37; Start 12/21/16 at 14:15; Stop 12/21/16 at 19:00; Status DC Morphine Sulfate 1 mg PRN Q10MIN PRN IV SEVERE PAIN; Start 12/21/16 at 14:15; Stop 12/21/16 at 19:00; Status DC Ringer's Solution 1,000 ml @ 30 mls/hr Q24H IV ; Start 12/21/16 at 14:00; Stop 12/21/16 at 15:19; Status DC Lidocaine HCl 2 ml PRN 1X PRN ID PRIOR TO IV START; Start 12/21/16 at 14:15; Stop 12/21/16 at 19:00; Status DC Prochlorperazine Edisylate (Compazine) 5 mg PACU PRN PRN IV NAUSEA, MRX1; Start 12/21/16 at 14:15; Stop 12/21/16 at 19:00; Status DC Sodium Chloride 1,000 ml @ 333.333 mls/hr 1X ONCE IV Last administered on t 15:00; Start 12/22/16 at 15:00; Stop 12/22/16 at 17:59; Status DC Cefazolin Sodium 2 gm/Sodium Chloride 50 ml @ 100 mls/hr Q8HRS IV Last administered on 01/05/17 06:11; Start 12/22/16 at 22:00 Ondansetron HCl (Zofran) 4 mg PRN Q6HRS PRN IV NAUSEA/VOMITING Last administered on 01/03/17 21:28; Start 12/23/16 at 10:00 Acetaminophen (Tylenol) 500 mg PRN Q6HRS PRN PO MILD PAIN / TEMP Last administered on 01/04/17 20:32; Start 12/23/16 at 10:00 Fluoxetine HCl (PROzac) 20 mg DAILY PO Last administered on 01/05/17 09:48; Start 12/23/16 at 11:00 Duloxetine HCl (Cymbalta) 20 mg DAILY PO Last administered on 01/05/17 09:46; Start 12/24/16 at 11:00 Sevoflurane (Ultane) 30 ml STK-MED ONCE IH ; Start 12/25/16 at 07:11; Stop 12/25 at 07:12; Status DC Propofol 20 ml @ As Directed STK-MED ONCE IV ; Start 12/25/16 at 07:11; Stop at 07:12; Status DC Lidocaine HCl (Lidocaine Pf 2% Vial) 5 ml STK-MED ONCE .ROUTE ; Start 12/25/16 at 07:11; Stop 12/25/16 at 07:12; Status DC Famotidine (Pepcid) 20 mg STK-MED ONCE .ROUTE ; Start 12/25/16 at 07:12; Stop at 07:13; Status DC Sodium Chloride (Sodium Chloride) 50 ml STK-MED ONCE IJ ; Start 12/25/16 at 07: 20; Stop 12/25/16 at 07:21; Status DC Phenylephrine HCl (Dat-Synephrine Inj) 10 mg STK-MED ONCE .ROUTE ; Start at 07:20; Stop 12/25/16 at 07:21; Status DC Dexamethasone Sodium Phosphate (Decadron) 20 mg STK-MED ONCE .ROUTE ; Start at 07:30; Stop 12/25/16 at 07:31; Status DC Ondansetron HCl (Zofran) 4 mg STK-MED ONCE .ROUTE ; Start 12/25/16 at 07:30; Stop 12/25/16 at 07:31; Status DC Fentanyl Citrate (Fentanyl 2ml Vial) 100 mcg STK-MED ONCE .ROUTE ; Start at 07:33; Stop 12/25/16 at 09:51; Status DC Sevoflurane (Ultane) 60 ml STK-MED ONCE IH ; Start 12/25/16 at 08:03; Stop 12/25 at 08:04; Status DC Dextrose (Dextrose 50%-Water Syringe) 12.5 gm 1X ONCE IV Last administered on 12/25/16 08:46; Start 12/25/16 at 08:30; Stop 12/25/16 at 08:35; Status DC Ondansetron HCl (Zofran) 4 mg PRN Q6HRS PRN IV NAUSEA/VOMITING; Start 12/25/16 at 08:30; Stop 12/25/16 at 09:53; Status DC Fentanyl Citrate (Fentanyl 2ml Vial) 25 mcg PRN Q5MIN PRN IV MILD PAIN; Start 12/25/16 at 08:30; Stop 12/25/16 at 09:51; Status DC Fentanyl Citrate (Fentanyl 2ml Vial) 50 mcg PRN Q5MIN PRN IV MODERATE PAIN Last administered on 12/25/16 09:00; Start 12/25/16 at 08:30; Stop 12/25/16 at 09:51; Status DC Ringer's Solution 1,000 ml @ 30 mls/hr Q24H IV ; Start 12/25/16 at 08:29; Stop 12/25/16 at 09:53; Status DC Lidocaine HCl 2 ml PRN 1X PRN ID PRIOR TO IV START; Start 12/25/16 at 08:30; Stop 12/26/16 at 08:29; Status DC Prochlorperazine Edisylate (Compazine) 5 mg PACU PRN PRN IV NAUSEA, MRX1; Start 12/25/16 at 08:30; Stop 12/25/16 at 09:53; Status DC Fentanyl Citrate (Fentanyl 2ml Vial) 100 mcg STK-MED ONCE .ROUTE ; Start at 08:42; Stop 12/25/16 at 09:51; Status DC Sodium Chloride 1,000 ml @ 125 mls/hr 1X ONCE IV Last administered on 07:00; Start 12/25/16 at 07:30; Stop 12/25/16 at 09:53; Status DC Guaifenesin (Robitussin Dm) 10 ml PRN Q6HRS PRN PO COUGH Last administered on 21:30; Start 12/25/16 at 14:30 Ferrous Sulfate (Feosol) 325 mg QHS PO Last administered on 01/04/17 20:34; Start 12/28/16 at 21:00 Insulin Detemir (Levemir) 20 units BID SQ ; Start 12/28/16 at 21:00; Stop at 21:00; Status DC Insulin Detemir (Levemir) 20 units QHS SQ Last administered on 01/03/17 21:36; Start 12/28/16 at 21:00 Insulin Detemir (Levemir) 40 units DAILYAC SQ ; Start 12/29/16 at 07:30; Stop 12/29/16 at 07:30; Status DC Insulin Detemir (Levemir) 20 units DAILYAC SQ Last administered on 01/05/17 09 :43; Start 12/29/16 at 07:30 Fentanyl Citrate (Fentanyl 2ml Vial) 50 mcg PRN Q4HRS PRN IV SEVERE PAIN Last administered on 12/31/16 05:44; Start 12/31/16 at 05:30; Stop 12/31/16 at 12:58; Status DC Fentanyl Citrate (Fentanyl 2ml Vial) 75 mcg PRN Q4HRS PRN IV SEVERE PAIN Last administered on 01/01/17 06:08; Start 12/31/16 at 13:00; Stop 01/01/17 at 12:13; Status DC Fentanyl Citrate (Fentanyl 2ml Vial) 100 mcg PRN Q4HRS PRN IV SEVERE PAIN Last administered on 01/02/17 13:17; Start 01/01/17 at 12:15; Stop 01/02/17 at 18:37; Status DC Ketorolac Tromethamine (Toradol) 30 mg 1X ONCE IV Last administered on 12:43; Start 01/01/17 at 12:15; Stop 01/01/17 at 12:16; Status DC Fentanyl Citrate (Fentanyl 2ml Vial) 50 mcg BID PRN IV prior to PT /OT Last administered on 01/04/17 13:15; Start 01/03/17 at 09:00 Polyethylene Glycol (miraLAX PACKET) 17 gm PRN BID PRN PO CONSTIPATION Last administered on 01/05/17 09:49; Start 01/03/17 at 07:30 Magnesium Citrate (Citroma) 296 ml 1X ONCE PO Last administered on 01/03/17 09 :46; Start 01/03/17 at 07:30; Stop 01/03/17 at 07:31; Status DC Mineral Oil (Fleet Mineral Oil) 133 ml 1X ONCE SD Last administered on 09:45; Start 01/03/17 at 07:30; Stop 01/03/17 at 07:31; Status DC Active Scripts Active Reported [albuterol ] 25 Mg PO BID Phenobarbital 100 Mg Tablet 50 Mg PO BID Potassium Chloride 20 Meq Tablet.er 20 Meq PO DAILY Furosemide 40 Mg Tablet 40 Mg PO DAILY [place] 7.5-325 Tablet (Acetaminophen/Hydrocodone Bitart) 1 Each Tablet 1 Tab PO PRN Q6HRS PRN Humalog (Insulin Lispro) 100 Unit/1 Ml Vial 75 Unit SQ TIDAC Protonix (Pantoprazole Sodium) 40 Mg Tablet.dr 40 Mg PO DAILY Plavix (Clopidogrel Bisulfate) 75 Mg Tablet 75 Mg PO DAILY Proair Hfa Inhaler (Albuterol Sulfate) 8.5 Gm Hfa.aer.ad 2 Puff IH PRN Q4-6HRS Phenytoin Sodium Extended 100 Mg Capsule 100 Mg PO FOUR TIMES A DAILY Lantus (Insulin Glargine,Hum.rec.anlog) 100 Unit/1 Ml Vial 75 Unit SQ BID Oxycodon-Acetaminophen 7.5-325 (Oxycodone Hcl/Acetaminophen) 1 Each Tablet 1 Each PO BID Diazepam 10 Mg Tablet 10 Mg PO BID Dulera 200 Mcg/5 Mcg Inhaler (Mometasone/Formoterol) 13 Gm Hfa.aer.ad 3 Puff IH BID Advair 500-50 Diskus (Fluticasone/Salmeterol) 1 Each Disk.w.dev 2 Inh IH BID Atorvastatin Calcium 80 Mg Tablet 80 Mg PO HS Carvedilol 12.5 Mg Tablet 25 Mg PO BIDWMEALS Isosorbide Mononitrate Er (Isosorbide Mononitrate) 60 Mg Tab.er.24h 60 Mg PO DAILY Vitals/I & O Vital Sign - Last 24 Hours 01/04/17 01/04/17 01/04/17 01/04/17 13:06 13:15 13:45 15:00 Temp 97.5 97.5 Pulse 77 Resp 18 18 18 18 B/P (MAP) 113/56 (75) Pulse Ox 96 96 96 93 O2 Delivery Room Air Room Air Room Air Room Air 01/04/17 01/04/17 01/04/17 01/04/17 15:31 18:19 18:20 19:00 Temp 101.1 101.1 Pulse 77 85 Resp 18 18 B/P (MAP) 113/56 132/67 (88) Pulse Ox 95 93 O2 Delivery Room Air Room Air Room Air 01/04/17 01/04/17 01/04/17 01/05/17 20:00 22:19 23:00 03:00 Temp 99.3 99.3 99.3 99.3 Pulse 84 78 Resp 16 18 18 B/P (MAP) 118/57 (77) 111/61 (78) Pulse Ox 93 94 94 O2 Delivery Room Air Room Air Room Air Room Air 01/05/17 01/05/17 01/05/17 01/05/17 06:10 07:00 07:10 09:39 Temp 98.7 98.7 Pulse 78 78 Resp 16 20 18 B/P (MAP) 143/74 (97) 143/74 Pulse Ox 94 92 96 O2 Delivery Room Air Room Air Room Air 01/05/17 01/05/17 01/05/17 01/05/17 09:39 09:47 09:48 10:49 Pulse 78 78 78 B/P (MAP) 143/74 143/74 143/74 Pulse Ox 96 O2 Delivery Room Air 01/05/17 11:12 Resp 18 Pulse Ox 97 O2 Delivery Room Air Intake and Output 01/04/17 01/04/17 01/05/17 15:00 23:00 07:00 Intake Total 620 ml 120 ml Balance 620 ml 120 ml KADEN REILLY MD Jan 05, 2017 11:50
[2017-01-05] MEDS: fentaNYL PF VIAL 100 MCG/2 ML VIAL IV PRN (13:00)
[2017-01-05] MEDS: ACETAMINOPHEN 500 MG TABLET PO PRN (13:05)
[2017-01-05 15:00] VITALS: BP 97/53
[2017-01-05 19:00] VITALS: BP 119/63
[2017-01-05] MEDS: ATORVASTATIN CALCIUM 40 MG TABLET. PO SCH (21:15)
[2017-01-05] MEDS: FERROUS SULFATE 325 MG TABLET. PO SCH (21:15)
[2017-01-05 23:00] VITALS: BP 126/65
[2017-01-06 03:00] VITALS: BP 140/75
[2017-01-06 07:00] VITALS: BP 149/80
[2017-01-06] MEDS: ALBUTEROL SULFATE 2.5 MG/3 ML NEBU. NEB SCH ×3 (07:12→16:06)
[2017-01-06] MEDS: INSULIN ASPART 300 UNITS/3 ML INSULN.PEN SQ SCH ×3 (07:30→12:36)
[2017-01-06] MEDS: INSULIN DETEMIR 300 UNITS/3 ML INSULN.PEN. SQ SCH (07:30)
[2017-01-06] MEDS: fentaNYL PF VIAL 100 MCG/2 ML VIAL IV PRN (08:32)
[2017-01-06] MEDS: oxyCODONE IR 5 MG TABLET PO PRN (08:33)
[2017-01-06] MEDS: CARVEDILOL 12.5 MG TABLET. PO SCH (08:34)
[2017-01-06] MEDS: DULoxetine HCL 20 MG CAPSULE.DR PO SCH (08:34)
[2017-01-06] MEDS: PHENYTOIN SODIUM EXTENDED 100 MG CAPSULE PO SCH (08:34)
[2017-01-06] MEDS: diazePAM 5 MG TABLET PO SCH (08:34)
[2017-01-06] MEDS: PHENobarbital 32.4 MG TABLET. PO SCH (08:35)
[2017-01-06] MEDS ORDERED: oxyCODONE ER 15 MG TAB.ER.12H PO SCH (10:00)
[2017-01-06 11:00] VITALS: BP 114/56
[2017-01-06] MEDS ORDERED: INSULIN ASPART 300 UNITS/3 ML INSULN.PEN SQ SCH (11:30)
--- NOTE | 2017-01-06 12:08 | PDOC ---
PROGRESS NOTES Chief Complaint Chief Complaint Septic arthritis R knee ASSESSMENT AND PLAN: 1. Septic arthritis of right knee: s/p hardware removal on 12/21, s/p evacuation of blood in knee om 12/25. on cefazolin for MSSA, for anticipated 6 weeks. PICC placed 2. Anemia of acute blood loss: s/p PRBC x1 on 12/26, slowly improving. on PO iron. 3. Narcotic dependence: IV narcotics prior to PT only. oxy 5-10 PRN 4. Personality disorder or schizotypal, possible depression: mood stable. cont home meds 5. DM: not well controlled today; monitor, adjust as indicated. cont ISS 6. h/o CAD 7. Hypoalbuminemia: severe, 2/2 inflammation and malnutrition 8. Obesity, BMI 35 plan: fu with ortho on iv cefazolin x6 weeks with PICC waiting for SW to find a SNF or LTAC for her dvt gi ppx add oxycontin 15mg bid, on oxycodone 10mg q4h prn, fetanyl prn PTOT decrease aspart to 10u tid, dc night levemir since not giving it anyway with ok glucose, on ssi and daily levemir talked to nurse to double check with ortho, regarding exercise ,WBAT? AND the lamont on the wound if needs to remove, post sx [id number] now History of Present Illness History of Present Illness c/o severe right knee pain, hard to move severe psych problems, yelling to me when i talk to her and crying Vitals Vitals Vital Signs Date Time Temp Pulse Resp B/P (MAP) Pulse Ox O2 Delivery O2 Flow Rate FiO2 01/06/17 11:00 97.5 71 20 114/56 (75) 93 Room Air 97.5 01/05/17 22:16 2.0 Physical Exam General: Alert, Oriented X3, Cooperative, No acute distress Heart: Regular rate, Other (2/6 systolic murmur to LLS border) Lungs: Clear Abdomen: Normal bowel sounds, Soft, No tenderness Extremities: Other (no edema, R knee with prox/lat swelling, no discoloration) Skin: No rashes Labs LABS Laboratory Tests Test 01/05/17 16:47 01/05/17 17:36 01/05/17 20:41 01/06/17 07:46 Glucose (Fingerstick) 67 mg/dL (70-99) 88 mg/dL (70-99) 109 mg/dL (70-99) 126 mg/dL (70-99) Test 01/06/17 11:49 Glucose (Fingerstick) 215 mg/dL (70-99) Review of Systems Review of Systems no fever, chills, sob or chest pain Assessment and Plan Assessmemt and Plan Problems Medical Problems: (1) Bacteremia Status: Acute Problems: Comment Review of Relevant I have reviewed the following items mary (where applicable) has been applied. Labs Laboratory Tests Test 01/04/17 16:23 01/04/17 20:26 01/05/17 06:30 01/05/17 07:31 Glucose (Fingerstick) 84 mg/dL (70-99) 148 mg/dL (70-99) 165 mg/dL (70-99) White Blood Count 7.5 x10^3/uL (4.0-11.0) Red Blood Count 2.64 x10^6/uL (3.50-5.40) Hemoglobin 8.0 g/dL (12.0-15.5) Hematocrit 24.0 % (36.0-47.0) Mean Corpuscular Volume 91 fL (79-100) Mean Corpuscular Hemoglobin 30 pg (25-35) Mean Corpuscular Hemoglobin Concent 33 g/dL (31-37) Red Cell Distribution Width 14.9 % (11.5-14.5) Platelet Count 493 x10^3/uL (140-400) Neutrophils (%) (Auto) 52 % (31-73) Lymphocytes (%) (Auto) 36 % (24-48) Monocytes (%) (Auto) 8 % (0-9) Eosinophils (%) (Auto) 2 % (0-3) Basophils (%) (Auto) 2 % (0-3) Neutrophils # (Auto) 3.9 x10^3uL (1.8-7.7) Lymphocytes # (Auto) 2.7 x10^3/uL (1.0-4.8) Monocytes # (Auto) 0.6 x10^3/uL (0.0-1.1) Eosinophils # (Auto) 0.2 x10^3/uL (0.0-0.7) Basophils # (Auto) 0.1 x10^3/uL (0.0-0.2) Sodium Level 137 mmol/L (136-145) Potassium Level 3.7 mmol/L (3.5-5.1) Chloride Level 100 mmol/L (98-107) Carbon Dioxide Level 33 mmol/L (21-32) Anion Gap 4 (6-14) Blood Urea Nitrogen 7 mg/dL (7-20) Creatinine 0.5 mg/dL (0.6-1.0) Estimated GFR (Cockcroft-Gault) 125.9 Glucose Level 138 mg/dL (70-99) Calcium Level 8.1 mg/dL (8.5-10.1) Test 01/05/17 10:57 01/05/17 16:47 01/05/17 17:36 01/05/17 20:41 Glucose (Fingerstick) 198 mg/dL (70-99) 67 mg/dL (70-99) 88 mg/dL (70-99) 109 mg/dL (70-99) Test 01/06/17 07:46 01/06/17 11:49 Glucose (Fingerstick) 126 mg/dL (70-99) 215 mg/dL (70-99) Laboratory Tests Test 01/05/17 16:47 01/05/17 17:36 01/05/17 20:41 01/06/17 07:46 Glucose (Fingerstick) 67 mg/dL (70-99) 88 mg/dL (70-99) 109 mg/dL (70-99) 126 mg/dL (70-99) Test 01/06/17 11:49 Glucose (Fingerstick) 215 mg/dL (70-99) Microbiology 12/23/16 Blood Culture - Final, Complete NO GROWTH AFTER 5 DAYS Medications Current Medications Ondansetron HCl (Zofran) 4 mg PRN Q8HRS PRN IV NAUSEA/VOMITING Last administered on 12/18/16 23:22; Start 12/18/16 at 16:00; Stop 12/19/16 at 15:59 ; Status DC Acetaminophen (Tylenol) 650 mg PRN Q4HRS PRN PO FEVER Last administered on 12/18 18:10; Start 12/18/16 at 16:00; Stop 12/19/16 at 15:59; Status DC Vancomycin HCl (Vanco Per Pharmacy) 1 each PRN DAILY PRN MC SEE COMMENTS; Start 12/18/16 at 16:00; Status UNV Vancomycin HCl (Vanco Per Pharmacy) 1 each PRN DAILY PRN MC SEE COMMENTS Last administered on 12/22/16 11:38; Start 12/18/16 at 17:15; Stop 12/22/16 at 14:41 ; Status DC Vancomycin HCl 1 each 1X ONCE MC ; Start 12/18/16 at 17:15; Stop 12/18/16 at 17 :15; Status DC Vancomycin HCl 1.25 gm/Sodium Chloride 250 ml @ 167 mls/hr Q12H IV Last administered on 12/19/16 06:26; Start 12/18/16 at 18:00; Stop 12/19/16 at 08:00 ; Status DC Vancomycin HCl 1 each 1X ONCE MC Last administered on 12/19/16 05:30; Start 12/19/16 at 05:30; Stop 12/19/16 at 05:31; Status DC Carvedilol (Coreg) 25 mg BIDWMEALS PO Last administered on 01/06/17 08:34; Start 12/19/16 at 18:00 Clopidogrel Bisulfate (Plavix) 75 mg DAILY PO Last administered on 01/05/17 09 :47; Start 12/19/16 at 09:00 Furosemide (Lasix) 40 mg DAILY PO Last administered on 12/20/16 08:13; Start 12/19/16 at 09:00; Stop 12/20/16 at 14:04; Status DC Oxycodone/ Acetaminophen (Percocet 7.5/ 325) 1 tab BID PO Last administered on 12/19/16 08:25; Start 12/18/16 at 21:00; Stop 12/19/16 at 13:29; Status DC Pantoprazole Sodium (Protonix) 40 mg DAILY PO Last administered on 01/05/17 09 :48; Start 12/19/16 at 09:00 Phenytoin Sodium (Dilantin) 200 mg BID PO Last administered on 01/06/17 08:34 ; Start 12/18/16 at 21:00 Non-Formulary Medication 2 puff PRN Q4-6HRS IH ; Start 12/18/16 at 17:30; Stop 12/18/16 at 18:06; Status DC Atorvastatin Calcium (Lipitor) 80 mg QHS PO Last administered on 01/05/17 21: 15; Start 12/18/16 at 21:00 Diazepam (Valium) 10 mg BID PO Last administered on 01/06/17 08:34; Start at 21:00 Non-Formulary Medication 2 inh BID IH ; Start 12/18/16 at 21:00; Stop 12/18/16 at 21:00; Status DC Insulin Detemir (Levemir) 45 units BID SQ Last administered on 12/20/16 08:22 ; Start 12/18/16 at 21:00; Stop 12/20/16 at 10:03; Status DC Insulin Aspart (NovoLOG) 15 units TIDAC SQ Last administered on 01/05/17 13:02 ; Start 12/19/16 at 18:00; Stop 01/06/17 at 09:42; Status DC Isosorbide Mononitrate (Imdur) 60 mg DAILY PO Last administered on 01/05/17 09 :47; Start 12/19/16 at 09:00 Non-Formulary Medication 3 puff BID IH ; Start 12/18/16 at 21:00; Stop 12/18/16 at 21:00; Status DC Phenobarbital (Luminal) 48.6 mg BID PO Last administered on 01/06/17 08:35; Start 12/18/16 at 21:00 Potassium Chloride (Klor-Con) 20 meq DAILYWBKFT PO Last administered on 09:46; Start 12/19/16 at 08:00 Non-Formulary Medication 25 mg BID PO ; Start 12/18/16 at 21:00; Stop 12/18/16 at 21:00; Status DC Oxycodone HCl (Roxicodone) 10 mg PRN Q4HRS PRN PO MODERATE - SEVERE PAIN Last administered on 01/06/17 08:33; Start 12/18/16 at 17:45 Ketorolac Tromethamine (Toradol) 15 mg PRN Q6HRS PRN IV pain Last administered on 12/22/16 06:33; Start 12/18/16 at 17:45; Stop 12/23/16 at 17:44; Status DC Insulin Aspart (NovoLOG) 0-9 UNITS TIDWMEALS SQ Last administered on 01/05/17 13:03; Start 12/19/16 at 08:00 Dextrose (Dextrose 50%-Water Syringe) 12.5 gm PRN Q15MIN PRN IV SEE COMMENTS Last administered on 12/28/16 19:40; Start 12/18/16 at 17:45 Albuterol Sulfate (Ventolin Neb Soln) 2.5 mg RTQID NEB Last administered on 16:19; Start 12/18/16 at 20:00 Albuterol Sulfate (Ventolin Neb Soln) 2.5 mg PRN Q4HRS PRN NEB SHORTNESS OF BREATH Last administered on 12/21/16 14:36; Start 12/18/16 at 18:15 Budesonide (Pulmicort) 0.5 mg RTBID NEB Last administered on 01/05/17 10:47; Start 12/18/16 at 20:00 Lorazepam (Ativan) 0.5 mg PRN Q8HRS PRN PO ANXIETY / AGITATION Last administered on 01/05/17 22:47; Start 12/18/16 at 18:45 Vancomycin HCl 1 gm/Sodium Chloride 250 ml @ 250 mls/hr Q8HRS IV Last administered on 12/20/16 14:26; Start 12/19/16 at 14:00; Stop 12/20/16 at 16:00 ; Status DC Vancomycin HCl 1 each 1X ONCE MC Last administered on 12/20/16 13:30; Start 12/20/16 at 13:30; Stop 12/20/16 at 13:31; Status DC Sodium Chloride 1,000 ml @ 125 mls/hr 1X ONCE IV Last administered on 13:47; Start 12/19/16 at 13:30; Stop 12/19/16 at 21:29; Status DC Oxycodone/ Acetaminophen (Percocet 7.5/ 325) 2 tab BID PO Last administered on 12/25/16 21:02; Start 12/19/16 at 14:00; Stop 12/26/16 at 11:14; Status DC Docusate Sodium (Colace) 100 mg DAILY PO Last administered on 01/05/17 09:48; Start 12/19/16 at 14:00 Polyethylene Glycol (miraLAX PACKET) 17 gm 1X ONCE PO Last administered on 13:54; Start 12/19/16 at 14:00; Stop 12/19/16 at 14:01; Status DC Polyethylene Glycol (miraLAX PACKET) 17 gm PRN DAILY PRN PO CONSTIPATION Last administered on 01/02/17 10:00; Start 12/19/16 at 13:45; Stop 01/03/17 at 07:18; Status DC Insulin Detemir (Levemir) 40 units BID SQ Last administered on 12/28/16 08:36; Start 12/20/16 at 21:00; Stop 12/28/16 at 20:32; Status DC Sodium Chloride 1,000 ml @ 1,000 mls/hr 1X ONCE IV Last administered on 11:51; Start 12/20/16 at 12:00; Stop 12/20/16 at 12:59; Status DC Sodium Chloride 1,000 ml @ 1,000 mls/hr 1X ONCE IV Last administered on 13:23; Start 12/20/16 at 12:00; Stop 12/20/16 at 12:59; Status DC Furosemide (Lasix) 40 mg DAILY PO Last administered on 01/05/17 09:46; Start 12/21/16 at 09:00 Vancomycin HCl 1.25 gm/Sodium Chloride 250 ml @ 167 mls/hr Q8HRS IV Last administered on 12/22/16 12:55; Start 12/20/16 at 22:00; Stop 12/22/16 at 14:38 ; Status DC Dexamethasone Sodium Phosphate (Decadron) 20 mg STK-MED ONCE .ROUTE ; Start at 10:58; Stop 12/21/16 at 10:59; Status DC Ondansetron HCl (Zofran) 4 mg STK-MED ONCE .ROUTE ; Start 12/21/16 at 10:58; Stop 12/21/16 at 10:59; Status DC Propofol 20 ml @ As Directed STK-MED ONCE IV ; Start 12/21/16 at 10:58; Stop at 10:59; Status DC Lidocaine HCl (Lidocaine Pf 2% Vial) 5 ml STK-MED ONCE .ROUTE ; Start 12/21/16 at 10:58; Stop 12/21/16 at 10:59; Status DC Desflurane (Suprane) 60 ml STK-MED ONCE IH ; Start 12/21/16 at 10:58; Stop 12/21 at 10:59; Status DC Fentanyl Citrate (Fentanyl 2ml Vial) 100 mcg STK-MED ONCE .ROUTE ; Start at 10:58; Stop 12/21/16 at 10:59; Status DC Midazolam HCl (Versed) 2 mg STK-MED ONCE .ROUTE ; Start 12/21/16 at 10:58; Stop 12/21/16 at 10:59; Status DC Fentanyl Citrate (Fentanyl 2ml Vial) 100 mcg STK-MED ONCE .ROUTE ; Start at 12:50; Stop 12/21/16 at 12:51; Status DC Propofol 20 ml @ As Directed STK-MED ONCE IV ; Start 12/21/16 at 13:19; Stop at 13:20; Status DC Fentanyl Citrate (Fentanyl 2ml Vial) 100 mcg STK-MED ONCE .ROUTE ; Start at 13:58; Stop 12/21/16 at 13:59; Status DC Ondansetron HCl (Zofran) 4 mg PRN Q6HRS PRN IV NAUSEA/VOMITING; Start 12/21/16 at 14:15; Stop 12/21/16 at 19:00; Status DC Fentanyl Citrate (Fentanyl 2ml Vial) 25 mcg PRN Q5MIN PRN IV MILD PAIN; Start 12/21/16 at 14:15; Stop 12/21/16 at 19:00; Status DC Fentanyl Citrate (Fentanyl 2ml Vial) 50 mcg PRN Q5MIN PRN IV MODERATE PAIN Last administered on 12/21/16t 14:37; Start 12/21/16 at 14:15; Stop 12/21/16 at 19:00; Status DC Morphine Sulfate 1 mg PRN Q10MIN PRN IV SEVERE PAIN; Start 12/21/16 at 14:15; Stop 12/21/16 at 19:00; Status DC Ringer's Solution 1,000 ml @ 30 mls/hr Q24H IV ; Start 12/21/16 at 14:00; Stop 12/21/16 at 15:19; Status DC Lidocaine HCl 2 ml PRN 1X PRN ID PRIOR TO IV START; Start 12/21/16 at 14:15; Stop 12/21/16 at 19:00; Status DC Prochlorperazine Edisylate (Compazine) 5 mg PACU PRN PRN IV NAUSEA, MRX1; Start 12/21/16 at 14:15; Stop 12/21/16 at 19:00; Status DC Sodium Chloride 1,000 ml @ 333.333 mls/hr 1X ONCE IV Last administered on 15:00; Start 12/22/16 at 15:00; Stop 12/22/16 at 17:59; Status DC Cefazolin Sodium 2 gm/Sodium Chloride 50 ml @ 100 mls/hr Q8HRS IV Last administered on 01/06/17 06:27; Start 12/22/16 at 22:00 Ondansetron HCl (Zofran) 4 mg PRN Q6HRS PRN IV NAUSEA/VOMITING Last administered on 01/03/17 21:28; Start 12/23/16 at 10:00 Acetaminophen (Tylenol) 500 mg PRN Q6HRS PRN PO MILD PAIN / TEMP Last administered on 01/05/17 13:05; Start 12/23/16 at 10:00 Fluoxetine HCl (PROzac) 20 mg DAILY PO Last administered on 01/05/17 09:48; Start 12/23/16 at 11:00 Duloxetine HCl (Cymbalta) 20 mg DAILY PO Last administered on 01/06/17 08:34; Start 12/24/16 at 11:00 Sevoflurane (Ultane) 30 ml STK-MED ONCE IH ; Start 12/25/16 at 07:11; Stop 12/25 at 07:12; Status DC Propofol 20 ml @ As Directed STK-MED ONCE IV ; Start 12/25/16 at 07:11; Stop at 07:12; Status DC Lidocaine HCl (Lidocaine Pf 2% Vial) 5 ml STK-MED ONCE .ROUTE ; Start 12/25/16 at 07:11; Stop 12/25/16 at 07:12; Status DC Famotidine (Pepcid) 20 mg STK-MED ONCE .ROUTE ; Start 12/25/16 at 07:12; Stop at 07:13; Status DC Sodium Chloride (Sodium Chloride) 50 ml STK-MED ONCE IJ ; Start 12/25/16 at 07: 20; Stop 12/25/16 at 07:21; Status DC Phenylephrine HCl (Dat-Synephrine Inj) 10 mg STK-MED ONCE .ROUTE ; Start at 07:20; Stop 12/25/16 at 07:21; Status DC Dexamethasone Sodium Phosphate (Decadron) 20 mg STK-MED ONCE .ROUTE ; Start at 07:30; Stop 12/25/16 at 07:31; Status DC Ondansetron HCl (Zofran) 4 mg STK-MED ONCE .ROUTE ; Start 12/25/16 at 07:30; Stop 12/25/16 at 07:31; Status DC Fentanyl Citrate (Fentanyl 2ml Vial) 100 mcg STK-MED ONCE .ROUTE ; Start at 07:33; Stop 12/25/16 at 09:51; Status DC Sevoflurane (Ultane) 60 ml STK-MED ONCE IH ; Start 12/25/16 at 08:03; Stop 12/25 at 08:04; Status DC Dextrose (Dextrose 50%-Water Syringe) 12.5 gm 1X ONCE IV Last administered on 12/25/16 08:46; Start 12/25/16 at 08:30; Stop 12/25/16 at 08:35; Status DC Ondansetron HCl (Zofran) 4 mg PRN Q6HRS PRN IV NAUSEA/VOMITING; Start 12/25/16 at 08:30; Stop 12/25/16 at 09:53; Status DC Fentanyl Citrate (Fentanyl 2ml Vial) 25 mcg PRN Q5MIN PRN IV MILD PAIN; Start 12/25/16 at 08:30; Stop 12/25/16 at 09:51; Status DC Fentanyl Citrate (Fentanyl 2ml Vial) 50 mcg PRN Q5MIN PRN IV MODERATE PAIN Last administered on 12/25/16 09:00; Start 12/25/16 at 08:30; Stop 12/25/16 at 09:51; Status DC Ringer's Solution 1,000 ml @ 30 mls/hr Q24H IV ; Start 12/25/16 at 08:29; Stop 12/25/16 at 09:53; Status DC Lidocaine HCl 2 ml PRN 1X PRN ID PRIOR TO IV START; Start 12/25/16 at 08:30; Stop 12/26/16 at 08:29; Status DC Prochlorperazine Edisylate (Compazine) 5 mg PACU PRN PRN IV NAUSEA, MRX1; Start 12/25/16 at 08:30; Stop 12/25/16 at 09:53; Status DC Fentanyl Citrate (Fentanyl 2ml Vial) 100 mcg STK-MED ONCE .ROUTE ; Start at 08:42; Stop 12/25/16 at 09:51; Status DC Sodium Chloride 1,000 ml @ 125 mls/hr 1X ONCE IV Last administered on 07:00; Start 12/25/16 at 07:30; Stop 12/25/16 at 09:53; Status DC Guaifenesin (Robitussin Dm) 10 ml PRN Q6HRS PRN PO COUGH Last administered on 21:30; Start 12/25/16 at 14:30 Ferrous Sulfate (Feosol) 325 mg QHS PO Last administered on 01/05/17 21:15; Start 12/28/16 at 21:00 Insulin Detemir (Levemir) 20 units BID SQ ; Start 12/28/16 at 21:00; Stop at 21:00; Status DC Insulin Detemir (Levemir) 20 units QHS SQ Last administered on 01/03/17 21:36; Start 12/28/16 at 21:00; Stop 01/06/17 at 09:42; Status DC Insulin Detemir (Levemir) 40 units DAILYAC SQ ; Start 12/29/16 at 07:30; Stop 12/29/16 at 07:30; Status DC Insulin Detemir (Levemir) 20 units DAILYAC SQ Last administered on 01/05/17 09 :43; Start 12/29/16 at 07:30 Fentanyl Citrate (Fentanyl 2ml Vial) 50 mcg PRN Q4HRS PRN IV SEVERE PAIN Last administered on 12/31/16 05:44; Start 12/31/16 at 05:30; Stop 12/31/16 at 12:58; Status DC Fentanyl Citrate (Fentanyl 2ml Vial) 75 mcg PRN Q4HRS PRN IV SEVERE PAIN Last administered on 01/01/17 06:08; Start 12/31/16 at 13:00; Stop 01/01/17 at 12:13; Status DC Fentanyl Citrate (Fentanyl 2ml Vial) 100 mcg PRN Q4HRS PRN IV SEVERE PAIN Last administered on 01/02/17 13:17; Start 01/01/17 at 12:15; Stop 01/02/17 at 18:37; Status DC Ketorolac Tromethamine (Toradol) 30 mg 1X ONCE IV Last administered on 12:43; Start 01/01/17 at 12:15; Stop 01/01/17 at 12:16; Status DC Fentanyl Citrate (Fentanyl 2ml Vial) 50 mcg BID PRN IV prior to PT /OT Last administered on 01/06/17 08:32; Start 01/03/17 at 09:00 Polyethylene Glycol (miraLAX PACKET) 17 gm PRN BID PRN PO CONSTIPATION Last administered on 01/05/17 09:49; Start 01/03/17 at 07:30 Magnesium Citrate (Citroma) 296 ml 1X ONCE PO Last administered on 01/03/17 09 :46; Start 01/03/17 at 07:30; Stop 01/03/17 at 07:31; Status DC Mineral Oil (Fleet Mineral Oil) 133 ml 1X ONCE NM Last administered on 09:45; Start 01/03/17 at 07:30; Stop 01/03/17 at 07:31; Status DC Insulin Aspart (NovoLOG) 10 units TIDAC SQ ; Start 01/06/17 at 11:30 Oxycodone HCl (OxyCONTIN) 15 mg Q12HR PO ; Start 01/06/17 at 10:00 Active Scripts Active Reported [albuterol ] 25 Mg PO BID Phenobarbital 100 Mg Tablet 50 Mg PO BID Potassium Chloride 20 Meq Tablet.er 20 Meq PO DAILY Furosemide 40 Mg Tablet 40 Mg PO DAILY [place] 7.5-325 Tablet (Acetaminophen/Hydrocodone Bitart) 1 Each Tablet 1 Tab PO PRN Q6HRS PRN Humalog (Insulin Lispro) 100 Unit/1 Ml Vial 75 Unit SQ TIDAC Protonix (Pantoprazole Sodium) 40 Mg Tablet.dr 40 Mg PO DAILY Plavix (Clopidogrel Bisulfate) 75 Mg Tablet 75 Mg PO DAILY Proair Hfa Inhaler (Albuterol Sulfate) 8.5 Gm Hfa.aer.ad 2 Puff IH PRN Q4-6HRS Phenytoin Sodium Extended 100 Mg Capsule 100 Mg PO FOUR TIMES A DAILY Lantus (Insulin Glargine,Hum.rec.anlog) 100 Unit/1 Ml Vial 75 Unit SQ BID Oxycodon-Acetaminophen 7.5-325 (Oxycodone Hcl/Acetaminophen) 1 Each Tablet 1 Each PO BID Diazepam 10 Mg Tablet 10 Mg PO BID Dulera 200 Mcg/5 Mcg Inhaler (Mometasone/Formoterol) 13 Gm Hfa.aer.ad 3 Puff IH BID Advair 500-50 Diskus (Fluticasone/Salmeterol) 1 Each Disk.w.dev 2 Inh IH BID Atorvastatin Calcium 80 Mg Tablet 80 Mg PO HS Carvedilol 12.5 Mg Tablet 25 Mg PO BIDWMEALS Isosorbide Mononitrate Er (Isosorbide Mononitrate) 60 Mg Tab.er.24h 60 Mg PO DAILY Vitals/I & O Vital Sign - Last 24 Hours 01/05/17 01/05/17 01/05/17 01/05/17 13:00 13:30 15:00 19:00 Temp 98.7 98.1 98.7 98.1 Pulse 79 81 Resp 16 18 20 18 B/P (MAP) 97/53 (68) 119/63 (81) Pulse Ox 96 95 93 96 O2 Delivery Room Air Room Air Room Air Room Air 01/05/17 01/05/17 01/05/17 01/05/17 20:00 21:16 21:25 22:16 Resp 16 16 Pulse Ox 96 96 O2 Delivery Room Air Room Air Room Air Room Air O2 Flow Rate 2.0 01/05/17 01/06/17 01/06/17 01/06/17 23:00 03:00 07:00 08:00 Temp 97.9 98.1 97.9 97.9 98.1 97.9 Pulse 58 1 72 Resp 18 18 16 B/P (MAP) 126/65 (85) 140/75 (96) 149/80 (103) Pulse Ox 96 95 97 O2 Delivery Room Air Room Air Room Air Room Air 01/06/17 01/06/17 01/06/1711/17 08:32 08:33 08:34 11:00 Temp 97.5 97.5 Pulse 72 71 Resp 20 B/P (MAP) 149/80 114/56 (75) Pulse Ox 93 O2 Delivery Room Air Room Air Room Air Intake and Output 01/05/17 01/05/17 01/06/17 15:00 23:00 07:00 Intake Total 240 ml Balance 240 ml KADEN REILLY MD Jan 06, 2017 12:08
[2017-01-06] MEDS ORDERED: INSU100I17 SQ (14:19)
[2017-01-06] MEDS ORDERED: OXYC5TAB PO (14:19)
[2017-01-06] MEDS ORDERED: OXYC15TA60 PO (14:19)
[2017-01-06] MEDS ORDERED: INSU100I27 SQ (14:19)
--- NOTE | 2017-01-06 14:24 | PDOC3 ---
Discharge Summary [facility] Date of Admission: Dec 18, 2016 Discharge Date: Jan 06, 2017 Admitting Diagnosis 1. Septic arthritis of right knee: s/p hardware removal on 12/21, s/p evacuation of blood in knee om 12/25. on cefazolin for MSSA, for anticipated 6 weeks. PICC placed 2. Anemia of acute blood loss: s/p PRBC x1 on 12/26, slowly improving. on PO iron. 3. Narcotic dependence: IV narcotics prior to PT only. oxy 5-10 PRN 4. Personality disorder or schizotypal, possible depression: mood stable. cont home meds 5. DM: not well controlled today; monitor, adjust as indicated. cont ISS 6. h/o CAD 7. Hypoalbuminemia: severe, 2/2 inflammation and malnutrition 8. Obesity, BMI 35 Problems: Final Diagnosis CONSULTS ortho Brief Hospital Course Ms. Oconnor is a 61 old f, PSYCH issues, post knee replacement, comes here for pain. She was found septic arthritis, pt got i and d, and removed the hardware, Exploration right leg wound with irrigation debridement and closure. pt now still has lamont on, still swelling, pain, tenderness. dc to LTAC, cont cefazolin x6 weeks. dc time 40min. General: Alert, Oriented X3, Cooperative, No acute distress Heart: Regular rate, Other (2/6 systolic murmur to LLS border) Lungs: Clear Abdomen: Normal bowel sounds, Soft, No tenderness Extremities: Other (no edema, R knee with prox/lat swelling, no discoloration) Skin: No rashes Patient History: Unknown Problems: Disposition LTAC CONDITION AT DISCHARGE: Improved Diet ada Scheduled Albuterol Sulfate (Proair Hfa Inhaler), 2 PUFF IH PRN Q4-6HRS, (Reported) Atorvastatin Calcium (Atorvastatin Calcium), 80 MG PO HS, (Reported) Carvedilol (Carvedilol), 25 MG PO BIDWMEALS, (Reported) Clopidogrel Bisulfate (Plavix), 75 MG PO DAILY, (Reported) Diazepam (Diazepam), 10 MG PO BID, (Reported) Fluticasone/Salmeterol (Advair 500-50 Diskus), 2 INH IH BID, (Reported) Furosemide (Furosemide), 40 MG PO DAILY, (Reported) Insulin Aspart (Novolog Flexpen), 10 UNITS SQ TIDAC Insulin Detemir (Levemir Flextouch), 20 UNITS SQ DAILYAC Isosorbide Mononitrate (Isosorbide Mononitrate Er), 60 MG PO DAILY, (Reported) Mometasone/Formoterol (Dulera 200 Mcg/5 Mcg Inhaler), 3 PUFF IH BID, (Reported) Oxycodone Hcl (Oxycontin), 15 MG PO Q12HR Oxycodone Hcl/Acetaminophen (Oxycodon-Acetaminophen 7.5-325), 1 EACH PO BID, ( Reported) Pantoprazole Sodium (Protonix), 40 MG PO DAILY, (Reported) Phenobarbital (Phenobarbital), 50 MG PO BID, (Reported) Phenytoin Sodium Extended (Phenytoin Sodium Extended), 100 MG PO four times a daily, (Reported) Potassium Chloride (Potassium Chloride), 20 MEQ PO DAILY, (Reported) [albuterol ], 25 MG PO BID, (Reported) Scheduled PRN Hydrocodone/[place] 7.5-325 ([place] 7.5-325 Tablet), 1 TAB PO PRN Q6HRS PRN for PAIN , (Reported) Oxycodone Hcl (Oxycodone Hcl), 10 MG PO PRN Q4HRS PRN for MODERATE - SEVERE PAIN Discontinued Medications Insulin Glargine,Hum.rec.anlog (Lantus), 75 UNIT SQ BID, (Reported) Insulin Lispro (Humalog), 75 UNIT SQ TIDAC, (Reported) Follow Up fu with ortho in 2 weeks KADEN REILLY MD Jan 06, 2017 14:24
[2017-01-06 15:00] VITALS: BP 121/73
== END 2017-01-06 15:00 | DRG 463 ==
LOC: ER 14:16 → 4 NORTH 15:12
PROVIDERS: ADMIT Internal Medicine Hematology & Oncology; ATTEND Internal Medicine Hematology & Oncology
PROC: 0SPT0JZ Removal of Synthetic Substitute from Right Knee Joint, Femoral Surface, Open Approach (ICD-10-PCS; principal; 2016-12-21 12:30)
PROC: 0SCC4ZZ Extirpation of Matter from Right Knee Joint, Percutaneous Endoscopic Approach (ICD-10-PCS; 2016-12-25)
PROC: 30233N1 Transfusion of Nonautologous Red Blood Cells into Peripheral Vein, Percutaneous Approach (ICD-10-PCS; 2016-12-26)
DX: M00.061 Staphylococcal arthritis, right knee (principal); E43 Unspecified severe protein-calorie malnutrition; F11.20 Opioid dependence, uncomplicated; D62 Acute posthemorrhagic anemia; E78.5 Hyperlipidemia, unspecified; E78.00 Pure hypercholesterolemia, unspecified; B95.61 Methicillin susceptible Staphylococcus aureus infection as the cause of diseases classified elsewhere; F60.9 Personality disorder, unspecified; G40.909 Epilepsy, unspecified, not intractable, without status epilepticus; J44.9 Chronic obstructive pulmonary disease, unspecified; K21.9 Gastro-esophageal reflux disease without esophagitis; M32.9 Systemic lupus erythematosus, unspecified; Z96.659 Presence of unspecified artificial knee joint; M81.0 Age-related osteoporosis without current pathological fracture; H35.30 Unspecified macular degeneration; I11.0 Hypertensive heart disease with heart failure; I25.10 Atherosclerotic heart disease of native coronary artery without angina pectoris; G89.4 Chronic pain syndrome; I50.9 Heart failure, unspecified; F41.9 Anxiety disorder, unspecified; Z88.6 Allergy status to analgesic agent; Z88.1 Allergy status to other antibiotic agents; Z91.030 Bee allergy status; Z90.49 Acquired absence of other specified parts of digestive tract; Z88.5 Allergy status to narcotic agent; Z91.14 Patient's other noncompliance with medication regimen; Z86.73 Personal history of transient ischemic attack (TIA), and cerebral infarction without residual deficits; Z87.11 Personal history of peptic ulcer disease; Z82.49 Family history of ischemic heart disease and other diseases of the circulatory system; Z79.4 Long term (current) use of insulin; Z88.0 Allergy status to penicillin; Z88.2 Allergy status to sulfonamides; Z88.7 Allergy status to serum and vaccine; Z88.8 Allergy status to other drugs, medicaments and biological substances; Z91.048 Other nonmedicinal substance allergy status; Z90.89 Acquired absence of other organs; Z98.51 Tubal ligation status; Z68.37 Body mass index [BMI] 37.0-37.9, adult
CPT/HCPCS: 36415; 71010; 76000; 78805; 80048; 80053; 80202; 82962; 83735; 85027; 85610; 86850; 86900; 86901; 86920; 87040; 93306; 94250; 94640; 94760; 96374; A9521; J0690; J1100; J1815; J1885; J2001; J2250; J2405; J2704; J3010; J3370; J7030; J7042; J7050; J7613; J7626; P9016; S0028; 97110; 97530; 97535; 99285-25; C1769

== ENCOUNTER 2017-08-31 12:40 | Emergency (ER) | payer OTHER | END 2017-08-31 15:13 | disposition home or self-care (01) | LOC: ER 12:40 | DX: H92.03 Otalgia, bilateral (principal); J02.9 Acute pharyngitis, unspecified; J34.89 Other specified disorders of nose and nasal sinuses; I11.0 Hypertensive heart disease with heart failure; G89.29 Other chronic pain; J44.9 Chronic obstructive pulmonary disease, unspecified; I50.9 Heart failure, unspecified; G40.909 Epilepsy, unspecified, not intractable, without status epilepticus; E78.00 Pure hypercholesterolemia, unspecified; E11.9 Type 2 diabetes mellitus without complications; M81.0 Age-related osteoporosis without current pathological fracture; Z88.0 Allergy status to penicillin; Z88.2 Allergy status to sulfonamides; Z88.5 Allergy status to narcotic agent; Z88.7 Allergy status to serum and vaccine; Z88.1 Allergy status to other antibiotic agents; Z88.6 Allergy status to analgesic agent; Z91.030 Bee allergy status; Z91.041 Radiographic dye allergy status; Z91.038 Other insect allergy status | CPT/HCPCS: 71046; 99284 ==

== ENCOUNTER 2018-04-02 19:39 | Emergency (ER) | payer OTHER ==
[~2018-04-02] VITALS: Ht 167.6 cm; Wt 86.0 kg
[~2018-04-02 19:39] MED LIST changes: +DOXY100T9 PO; +HYDR25CA75 PO; +INSU100I17 SQ; +INSU100I27 SQ; +OXYC15TA60 PO; +OXYC5TAB95 PO
[2018-04-02] MEDS ORDERED: cloNIDine HCL 0.1 MG TABLET PO ONE (20:45)
[2018-04-02 20:47] LABS: BASO # 0.1 x10^3/uL (0.0-0.2); BASO % 1 % (0-3); EOS # 0.1 x10^3/uL (0.0-0.7); EOS % 2 % (0-3); HEMATOCRIT 42.3 % (36.0-47.0); HEMOGLOBIN 14.8 g/dL (12.0-15.5); LYMPH # 2.5 x10^3/uL (1.0-4.8); LYMPH % 29 % (24-48); MEAN CORPUSCULAR HEMOGLOBIN 31 pg (25-35); MEAN CORPUSCULAR HGB CONC 35 g/dL (31-37); MEAN CORPUSCULAR VOLUME 87 fL (79-100); MONO # 0.5 x10^3/uL (0.0-1.1); MONO % 6 % (0-9); NEUT # 5.3 x10^3uL (1.8-7.7); NEUT % 61 % (31-73); PLATELET COUNT 183 x10^3/uL (140-400); RED BLOOD COUNT 4.86 x10^6/uL (3.50-5.40); RED CELL DISTRIBUTION WIDTH 13.4 % (11.5-14.5); WHITE BLOOD COUNT 8.7 x10^3/uL (4.0-11.0)
[2018-04-02 20:57] LABS: CREATININE 0.6 mg/dL (0.6-1.0); GFR 101.3; POTASSIUM 3.4 mmol/L (3.5-5.1)
[2018-04-02 21:03] LABS: ALBUMIN 3.6 g/dL (3.4-5.0); ALBUMIN/GLOBULIN RATIO 0.9 (1.0-1.7); TOTAL BILIRUBIN 0.5 mg/dL (0.2-1.0); TOTAL PROTEIN 7.8 g/dL (6.4-8.2)
--- NOTE | 2018-04-02 21:18 | RAD ---
EXAM: Chest, single view. HISTORY: Chest pain. COMPARISON: 08/31/2017 FINDINGS: A frontal view of the chest obtained. There is no infiltrate, pleural effusion or pneumothorax. There is linear atelectasis or scarring within the left mid thorax. The heart is normal in size. IMPRESSION: No acute pulmonary finding. Electronically signed by: Florida Morrow MD (04/02/2018 9:14 PM) [facility]
[2018-04-02 21:24] VITALS: BP 176/102
[2018-04-02] MEDS ORDERED: AMLO10TA6 PO (21:29)
[2018-04-02] MEDS ORDERED: LOSA1TAB22 PO (21:29)
[2018-04-02] MEDS ORDERED: CARV25TA2 PO (21:29)
--- NOTE | 2018-04-02 21:57 | PHYS DOC ---
Past Medical History Past Medical History: Asthma, CHF, COPD, Diabetes-Type II, High Cholesterol, Hypertension, Seizure, Sickle Cell Disease, Other Additional Past Medical Histor: chronic back pain keloids,epilepsy,OSTEOPOROSIS ,SEPSIS Past Surgical History: Appendectomy, Cholecystectomy, Tonsillectomy, Tubal ligation, Other Additional Past Surgical Histo: adenoids, RT KNEE, RT FEMUR Alcohol Use: None Drug Use: None Adult General Chief Complaint Chief Complaint: HYPERTENSION HPI HPI Patient is a 63 year old F WHO P/W CC OF elevated blood pressure for by primary care doctor for blood pressure 210 in the clinic patient has no new symptoms she has run out of her blood pressure medicine she does not recall when. She says she has chest pain every day since the age of 14 when she tells her she had a heart attack in the setting of rheumatic fever she tells me that every single day of her life since that time she has had stabbing chest pain on the right side of her chest that is unchanged she actually has not yet had it today interestingly enough she says she has had it every other day that she can think of. Review of Systems Review of Systems Constitutional: Denies fever or chills [] Eyes: Denies change in visual acuity, redness, or eye pain [] HENT: Denies nasal congestion or sore throat [] GI: Denies abdominal pain, nausea, vomiting, bloody stools or diarrhea [] : Denies dysuria or hematuria [] Integument: Denies rash or skin lesions [] Neurologic: Denies headache, Endocrine: Denies polyuria or polydipsia [] All other systems were reviewed and found to be within normal limits, except as documented in this note. Current Medications Current Medications Current Medications Medications (Trade) Dose Ordered Sig/Catia Start Time Stop Time Status Last Admin Dose Admin Clonidine HCl (Catapres) 0.2 mg 1X ONCE 04/02/18 20:45 04/02/18 20:46 DC 04/02/18 20:28 0.2 MG Hydralazine HCl (Apresoline) 50 mg 1X STAT 04/02/18 20:09 04/02/18 20:15 DC 04/02/18 20:25 50 MG Allergies Allergies Allergies Coded Allergies Type Severity Reaction Last Updated Verified Cephalosporins Allergy Intermediate 12/10/16 Yes Penicillins Allergy Intermediate 12/10/16 Yes Sulfa (Sulfonamide Antibiotics) Allergy Intermediate 12/10/16 Yes Tetanus Vaccines and Toxoid Allergy Intermediate 12/10/16 Yes aspirin Allergy Intermediate 12/10/16 Yes iodine Allergy Intermediate rash 12/10/16 Yes morphine Allergy Intermediate 12/12/16 Yes povidone-iodine Allergy Intermediate rash 12/10/16 Yes propoxyphene Allergy Intermediate Nausea and Vomiting 12/10/16 Yes venom-honey bee Allergy Intermediate 12/10/16 Yes venom-wasp Allergy Intermediate 12/10/16 Yes hydromorphone Adverse Reaction Severe 12/10/16 Yes Physical Exam Physical Exam Constitutional: Well developed, well nourished, no acute distress, non-toxic appearance. [] HENT: Normocephalic, atraumatic, bilateral external ears normal, oropharynx moist, no oral exudates, nose normal. [] Eyes: PERRLA, EOMI, conjunctiva normal, no discharge. [] Neck: Normal range of motion, no tenderness, supple, no stridor. [] Cardiovascular:Heart rate regular rhythm, no murmur [] Lungs & Thorax: Bilateral breath sounds clear to auscultation []reproducible chest wall tenderness on the right Abdomen: Bowel sounds normal, soft, no tenderness, no masses, no pulsatile masses. [] Skin: Warm, dry, no erythema, no rash. [] Back: No tenderness, no CVA tenderness. [] Extremities: No tenderness, no cyanosis, no clubbing, ROM intact, no edema. [] Neurologic: Alert and oriented X 3, normal motor function, normal sensory function, no focal deficits noted. [] Psychologic: Affect normal, judgement normal, mood normal. [] Current Patient Data Vital Signs Vital Signs Date Time Temp Pulse Resp B/P (MAP) Pulse Ox O2 Delivery O2 Flow Rate FiO2 04/02/18 21:24 98.1 84 14 98 98.1 04/02/18 20:28 160/80 04/02/18 20:01 Room Air Lab Values Laboratory Tests Test 04/02/18 20:30 White Blood Count 8.7 x10^3/uL (4.0-11.0) Red Blood Count 4.86 x10^6/uL (3.50-5.40) Hemoglobin 14.8 g/dL (12.0-15.5) Hematocrit 42.3 % (36.0-47.0) Mean Corpuscular Volume 87 fL (79-100) Mean Corpuscular Hemoglobin 31 pg (25-35) Mean Corpuscular Hemoglobin Concent 35 g/dL (31-37) Red Cell Distribution Width 13.4 % (11.5-14.5) Platelet Count 183 x10^3/uL (140-400) Neutrophils (%) (Auto) 61 % (31-73) Lymphocytes (%) (Auto) 29 % (24-48) Monocytes (%) (Auto) 6 % (0-9) Eosinophils (%) (Auto) 2 % (0-3) Basophils (%) (Auto) 1 % (0-3) Neutrophils # (Auto) 5.3 x10^3uL (1.8-7.7) Lymphocytes # (Auto) 2.5 x10^3/uL (1.0-4.8) Monocytes # (Auto) 0.5 x10^3/uL (0.0-1.1) Eosinophils # (Auto) 0.1 x10^3/uL (0.0-0.7) Basophils # (Auto) 0.1 x10^3/uL (0.0-0.2) Sodium Level 139 mmol/L (136-145) Potassium Level 3.4 mmol/L (3.5-5.1) L Chloride Level 101 mmol/L (98-107) Carbon Dioxide Level 29 mmol/L (21-32) Anion Gap 9 (6-14) Blood Urea Nitrogen 12 mg/dL (7-20) Creatinine 0.6 mg/dL (0.6-1.0) Estimated GFR (Cockcroft-Gault) 101.3 BUN/Creatinine Ratio 20 (6-20) Glucose Level 326 mg/dL (70-99) H Calcium Level 9.0 mg/dL (8.5-10.1) Total Bilirubin 0.5 mg/dL (0.2-1.0) Aspartate Amino Transferase (AST) 15 U/L (15-37) Alanine Aminotransferase (ALT) 20 U/L (14-59) Alkaline Phosphatase 111 U/L (46-116) Troponin I Quantitative < 0.017 ng/mL (0.000-0.055) Total Protein 7.8 g/dL (6.4-8.2) Albumin 3.6 g/dL (3.4-5.0) Albumin/Globulin Ratio 0.9 (1.0-1.7) L Laboratory Tests 04/02/18 20:30 Laboratory Tests 04/02/18 20:30 EKG EKG []EKG showed normal sinus rhythm rate of 86 no acute ischemic changes noted interpreted by me the time of encounter. Radiology/Procedures Radiology/Procedures [] Impressions: IMPRESSION: No acute pulmonary finding. Electronically signed by: Florida Morrow MD (04/02/2018 9:14 PM) [facility] DICTATED and SIGNED BY: FLORIDA MORROW MD DATE: 04/02/182113 Course & Med Decision Making Course & Med Decision Making Pertinent Labs and Imaging studies reviewed. (See chart for details) []63-year-old female with elevated blood pressure she's been off her medication which includes amlodipine losartan hydrochlorothiazide and carvedilol. I give her hydralazine and clonidine in the emergency room and her blood pressure came down to the 160 range she was feeling better although she actually felt fine when she got here to. She has a negative troponin and normal EKG she was discharged in stable condition. This is likely due to medication noncompliance Dragon Disclaimer Dragon Disclaimer This electronic medical record was generated, in whole or in part, using a voice recognition dictation system. Departure Departure Impression: Primary Impression: Elevated blood pressure reading Disposition: 01 HOME, SELF-CARE Condition: STABLE Patient Instructions: Hypertension Scripts Losartan/Hydrochlorothiazide (LOSARTAN-HCTZ 100-25 MG TAB) 1 Each Tablet 1 TAB PO DAILY, #30 TAB 1 Refill Prov: KAVYA VÁZQUEZ MD 04/02/18 Carvedilol (CARVEDILOL) 25 Mg Tablet 1 TAB PO BID, #60 TAB 0 Refills Prov: KAVYA VÁZQUEZ MD 04/02/18 Amlodipine Besylate (AMLODIPINE BESYLATE) 10 Mg Tablet 10 MG PO DAILY, #30 TAB Prov: KAVYA VÁZQUEZ MD 04/02/18 KAVYA VÁZQUEZ MD Apr 02, 2018 21:57
--- NOTE | 2018-04-02 22:16 | EKG ---
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
== END 2018-04-02 21:45 | disposition home or self-care (01) ==
LOC: ER 19:39
DX: I11.0 Hypertensive heart disease with heart failure (principal); I50.9 Heart failure, unspecified; R07.89 Other chest pain; I01.9 Acute rheumatic heart disease, unspecified; E78.00 Pure hypercholesterolemia, unspecified; J44.9 Chronic obstructive pulmonary disease, unspecified; G89.29 Other chronic pain; M81.0 Age-related osteoporosis without current pathological fracture; E11.9 Type 2 diabetes mellitus without complications; G40.909 Epilepsy, unspecified, not intractable, without status epilepticus; Z90.49 Acquired absence of other specified parts of digestive tract; Z90.89 Acquired absence of other organs; Z98.51 Tubal ligation status; Z88.0 Allergy status to penicillin; Z88.1 Allergy status to other antibiotic agents; Z88.2 Allergy status to sulfonamides; Z88.5 Allergy status to narcotic agent; Z91.041 Radiographic dye allergy status; Z88.7 Allergy status to serum and vaccine; Z88.8 Allergy status to other drugs, medicaments and biological substances; Z91.030 Bee allergy status
CPT/HCPCS: 36415; 71045; 80053; 84484; 85025; 93005; 99285-25

== ENCOUNTER 2018-08-29 15:02 | Inpatient (IN) | payer OTHER ==
[~2018-08-29] VITALS: Ht 154.9 cm; Wt 82.2 kg
[~2018-08-29 15:02] MED LIST changes: +ALBU2.5V8 IH; +AMLO10TA8 PO; +BUDE0.5A NEB; +CARV12.511 PO; -CARV12.52 PO; +CARV25TA2 PO; +ENOX40DI3 SQ; +GABA300C18 PO; +HYDR-2145 PO; +HYDR-3135 PO; +HYDR-3164 PO; +HYDR-3165 PO; -HYDR-963 PO; -HYDR-965 PO; -HYDR-971 PO; +INSU100I13 SQ; +LOSA1TAB22 PO; +NITR1PAT73 TD; -NITR1PAT9 TD; -OXYC15TA60 PO; +OXYC15TA61 PO; +OXYC1TAB15 PO; +OXYC5TAB4 PO; -OXYC5TAB95 PO; -PROAIR HFA8.5 GM IH; +TEMA7.5C2 PO
[2018-08-29 15:38] LABS: BASO % 1 % (0-3); EOS # 0.1 x10^3/uL (0.0-0.7); EOS % 2 % (0-3); HEMATOCRIT 41.7 % (36.0-47.0); HEMOGLOBIN 13.9 g/dL (12.0-15.5); LYMPH # 2.2 x10^3/uL (1.0-4.8); LYMPH % 35 % (24-48); MEAN CORPUSCULAR HEMOGLOBIN 29 pg (25-35); MEAN CORPUSCULAR HGB CONC 33 g/dL (31-37); MEAN CORPUSCULAR VOLUME 88 fL (79-100); MONO # 0.3 x10^3/uL (0.0-1.1); MONO % 6 % (0-9); NEUT # 3.5 x10^3uL (1.8-7.7); NEUT % 57 % (31-73); PLATELET COUNT 195 x10^3/uL (140-400); RED BLOOD COUNT 4.76 x10^6/uL (3.50-5.40); RED CELL DISTRIBUTION WIDTH 14.2 % (11.5-14.5); WHITE BLOOD COUNT 6.2 x10^3/uL (4.0-11.0)
[2018-08-29 15:48] LABS: PROTHROMBIN TIME PATIENT 12.7 SEC (11.7-14.0)
[2018-08-29 16:01] LABS: CALCIUM 9.2 mg/dL (8.5-10.1); CREATININE 0.6 mg/dL (0.6-1.0); GFR 101.3; POTASSIUM 3.5 mmol/L (3.5-5.1)
[2018-08-29 16:07] LABS: ALBUMIN 3.6 g/dL (3.4-5.0); ALBUMIN/GLOBULIN RATIO 0.8 (1.0-1.7); TOTAL BILIRUBIN 0.6 mg/dL (0.2-1.0); TOTAL PROTEIN 7.9 g/dL (6.4-8.2)
--- NOTE | 2018-08-29 16:07 | EKG ---
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
[2018-08-29] MEDS: methylPREDNISolone SOD SUCC PF 125 MG/2 ML VIAL. IV SCH (16:08)
--- NOTE | 2018-08-29 16:40 | PHYS DOC ---
Past Medical History Past Medical History: Asthma, CHF, COPD, Diabetes-Type II, High Cholesterol, Hypertension, Seizure, Sickle Cell Disease, Other Additional Past Medical Histor: chronic back pain, keloids,epilepsy, OSTEOPOROSIS,SEPSIS Past Surgical History: Appendectomy, Cholecystectomy, Tonsillectomy, Tubal ligation, Other Additional Past Surgical Histo: adenoids, RT KNEE, RT FEMUR Alcohol Use: None Drug Use: None Adult General Chief Complaint Chief Complaint: NEURO SYMPTOMS/DEFICITS HPI HPI Patient is a 63 year old female who is referred in from Dr. Schmitz the cemetery workers supervisor with a concern for ischemic optic neuropathy. pt has had two days of visual loss left eye and also a reported sensation of claudication in the left jaw area. This is a patient who has had 2 days of acute visual loss in the left eye apparently went to the cemetery workers supervisor office and was diagnosed with a optic disc edema light perception only left eye he was highly concerned about the diagnosis of giant cell arteritis and he called me and advised emergency room evaluation right away he said over some recommendations for the treatment of this likely diagnosis including methylprednisolone 250 mg IV every 6 hours for 12 doses followed by prednisone 80-100 mg by mouth daily. See attachment in the chart for details. He also suggested consulting possibly with a surgeon for a temporal artery biopsy as well and recommended getting an ESR CRP as well. Review of Systems Review of Systems Constitutional: Eyes: Respiratory: Denies cough or shortness of breath [] Cardiovascular: No additional information not addressed in HPI [] GI: Denies abdominal pain, nausea, vomiting, bloody stools or diarrhea [] Musculoskeletalrecent femur fx surgery currently taking subq lovenox daily Integument: Denies rash or skin lesions [] Neurologic: Denies headache, focal weakness or sensory changes [] Endocrine: Denies polyuria or polydipsia [] All other systems were reviewed and found to be within normal limits, except as documented in this note. Current Medications Current Medications Current Medications Medications (Trade) Dose Ordered Sig/Catia Start Time Stop Time Status Last Admin Dose Admin Insulin Human Regular (HumuLIN R VIAL) 5 unit 1X ONCE 08/29/18 16:45 08/29/18 16:46 DC 08/29/18 16:48 5 UNIT Lorazepam (Ativan) 1 mg 1X ONCE 08/29/18 15:45 08/29/18 15:46 DC 08/29/18 16:08 1 MG Methylprednisolone Sodium Succinate (SOLU-Medrol 125MG VIAL) 250 mg Q6HRS 08/29/18 16:00 09/02/18 15:59 08/29/18 16:08 250 MG Pantoprazole Sodium (Protonix) 40 mg 1X ONCE 08/29/18 16:45 08/29/18 16:46 DC 08/29/18 16:47 40 MG Allergies Allergies Allergies Coded Allergies Type Severity Reaction Last Updated Verified Cephalosporins Allergy Intermediate 12/10/16 Yes Penicillins Allergy Intermediate 12/10/16 Yes Sulfa (Sulfonamide Antibiotics) Allergy Intermediate 12/10/16 Yes Tetanus Vaccines and Toxoid Allergy Intermediate 12/10/16 Yes aspirin Allergy Intermediate UNKNOWN RXN, TOLERATES KETOROLAC 07/15/18 Yes iodine Allergy Intermediate rash 12/10/16 Yes morphine Allergy Intermediate 12/12/16 Yes povidone-iodine Allergy Intermediate rash 12/10/16 Yes propoxyphene Allergy Intermediate Nausea and Vomiting 12/10/16 Yes venom-honey bee Allergy Intermediate 12/10/16 Yes venom-wasp Allergy Intermediate 12/10/16 Yes hydromorphone Adverse Reaction Severe 12/10/16 Yes Physical Exam Physical Exam Constitutional: Well developed, well nourished, no acute distress, non-toxic appearance. [] HENT: Normocephalic, atraumatic, bilateral external ears normal, oropharynx moist, no oral exudates, nose normal. [] Eyes: LP only in the left eye. The pupils had been dilated prior to my evaluation by the cemetery workers supervisor and actually I got a good view of the left optic disc it is pale it is edematous. Vessels developed distinct however. scalp ttp noted overlying temporal artery Extraocular movements are grossly intact no surrounding erythema of the eye was noted Neck: Normal range of motion, no tenderness, supple, no stridor. [] Cardiovascular:Heart rate regular rhythm, no murmur [] Lungs & Thorax: Bilateral breath sounds clear to auscultation [] Abdomen: Bowel sounds normal, soft, no tenderness, no masses, no pulsatile masses. [] Skin: Warm, dry, no erythema, no rash. [] Back: No tenderness, no CVA tenderness. [] Extremities some tenderness of the right lower extremity no obvious signs of infection Neurologic: Alert and oriented X 3, see nihss Psychologic: Affect normal, judgement normal, mood normal. [] Current Patient Data Vital Signs Vital Signs Date Time Temp Pulse Resp B/P (MAP) Pulse Ox O2 Delivery O2 Flow Rate FiO2 08/29/18 15:08 98.4 75 20 154/74 (100) 97 Room Air 98.4 Lab Values Laboratory Tests Test 08/29/18 15:30 White Blood Count 6.2 x10^3/uL (4.0-11.0) Red Blood Count 4.76 x10^6/uL (3.50-5.40) Hemoglobin 13.9 g/dL (12.0-15.5) Hematocrit 41.7 % (36.0-47.0) Mean Corpuscular Volume 88 fL (79-100) Mean Corpuscular Hemoglobin 29 pg (25-35) Mean Corpuscular Hemoglobin Concent 33 g/dL (31-37) Red Cell Distribution Width 14.2 % (11.5-14.5) Platelet Count 195 x10^3/uL (140-400) Neutrophils (%) (Auto) 57 % (31-73) Lymphocytes (%) (Auto) 35 % (24-48) Monocytes (%) (Auto) 6 % (0-9) Eosinophils (%) (Auto) 2 % (0-3) Basophils (%) (Auto) 1 % (0-3) Neutrophils # (Auto) 3.5 x10^3uL (1.8-7.7) Lymphocytes # (Auto) 2.2 x10^3/uL (1.0-4.8) Monocytes # (Auto) 0.3 x10^3/uL (0.0-1.1) Eosinophils # (Auto) 0.1 x10^3/uL (0.0-0.7) Basophils # (Auto) 0.0 x10^3/uL (0.0-0.2) Erythrocyte Sedimentation Rate 9 (0-25) Prothrombin Time 12.7 SEC (11.7-14.0) Prothrombin Time INR 1.0 (0.8-1.1) Sodium Level 140 mmol/L (136-145) Potassium Level 3.5 mmol/L (3.5-5.1) Chloride Level 102 mmol/L (98-107) Carbon Dioxide Level 25 mmol/L (21-32) Anion Gap 13 (6-14) Blood Urea Nitrogen 13 mg/dL (7-20) Creatinine 0.6 mg/dL (0.6-1.0) Estimated GFR (Cockcroft-Gault) 101.3 BUN/Creatinine Ratio 22 (6-20) H Glucose Level 362 mg/dL (70-99) H Calcium Level 9.2 mg/dL (8.5-10.1) Total Bilirubin 0.6 mg/dL (0.2-1.0) Aspartate Amino Transferase (AST) 12 U/L (15-37) L Alanine Aminotransferase (ALT) 9 U/L (14-59) L Alkaline Phosphatase 139 U/L (46-116) H C-Reactive Protein, Quantitative 2.0 mg/L (0-3.3) Total Protein 7.9 g/dL (6.4-8.2) Albumin 3.6 g/dL (3.4-5.0) Albumin/Globulin Ratio 0.8 (1.0-1.7) L Laboratory Tests 08/29/18 15:30 Laboratory Tests 08/29/18 15:30 EKG EKG EKG shows a normal sinus rhythm rate of 73 no acute ischemic changes noted interpreted by me the time of encounter.[] Radiology/Procedures Radiology/Procedures [] Impressions: IMPRESSION: 1. Chronic findings, discussed above. 2. No evidence of acute intracranial hemorrhage or mass effect. 3. Maxillary sinus disease. Electronically signed by: Taj Edmond MD (08/29/2018 4:42 PM) [facility] Course & Med Decision Making Course & Med Decision Making Pertinent Labs and Imaging studies reviewed. (See chart for details) []Probable acute ischemic optic neuropathy inflammatory mediators are normal at this time I have initiated treatment with steroids as per the recommendation that the cemetery workers supervisor sent over.dr schmitz and i discused this case in detail with him, we agreed to initiate the solumedrol tx (250 iv q6 for 12 doses) despite the normal crp/esr(reason being the visual loss so severe and pt noting some blurry vision right eye as well) , while awaiting temporal artery biopsy. I will consult Dr. Ramires for admission (ddx at this time GCA v. fugax type etiology) and we'll get a noncontrast head CT as well which was neg acute . The patient may have some subtle weakness of the left upper extremity however there is clear the symptoms have been going on for at least a few days she said she has had some tingling in her left upper extremity for over a week now this may be unrelated to the eye finding. Dragon Disclaimer Dragon Disclaimer This electronic medical record was generated, in whole or in part, using a voice recognition dictation system. 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
[2018-08-29] MEDS ORDERED: PANTOPRAZOLE 40 MG TABLET.DR. PO ONE (16:45)
[2018-08-29] MEDS ORDERED: INSULIN REGULAR 100 UNIT/ML 3ML VIAL. IV ONE (16:45)
--- NOTE | 2018-08-29 16:45 | RAD ---
CT HEAD WO CONTRAST Indication: VISION LOSS, AMS, PRIOR SENT Exposure: One or more of the following individualized dose reduction techniques were utilized for this examination: 1. Automated exposure control 2. Adjustment of the mA and/or kV according to patient size 3. Use of iterative reconstruction technique. Technique: Standard imaging without intravenous contrast. Comparison is made with images from 05/14/2012, no available report. Small low-density lesion in the right cerebellum is stable. Intracranial arterial vascular calcifications are seen. No evidence of acute intracranial hemorrhage, mass effect, midline shift or abnormal extra-axial fluid collection. Low-density in the white matter bilaterally, a nonspecific finding, but which is commonly due to chronic small vessel ischemic disease in a patient of this age. Mild prominence of ventricles and sulci compatible with mild atrophy or involutional change. Orbits unremarkable. No large scalp hematoma. Opacification of the right maxillary sinus, mild left maxillary sinus mucosal thickening. No acute skull abnormality. IMPRESSION: 1. Chronic findings, discussed above. 2. No evidence of acute intracranial hemorrhage or mass effect. 3. Maxillary sinus disease. Electronically signed by: Taj Edmond MD (08/29/2018 4:42 PM) [facility]
[2018-08-29 19:35] VITALS: BP 192/96
[2018-08-29] MEDS ORDERED: HYDR-2763 PO (19:47)
[2018-08-29] MEDS ORDERED: OXYC30TA2 PO (19:47)
[2018-08-29] MEDS ORDERED: TEMAZEPAM 7.5 MG CAPSULE PO PRN (20:00)
[2018-08-29] MEDS ORDERED: FLUO20CA16 PO (20:11)
[2018-08-29] MEDS ORDERED: NON FORMULARY ITEM (Fluticasone/Salmeterol (Advair 500-50 Diskus) 2 INH) IH SCH (21:00)
[2018-08-29] MEDS ORDERED: ALBUTEROL PO SCH (21:00)
[2018-08-29] MEDS ORDERED: NON FORMULARY ITEM (Carvedilol 1 TAB) PO SCH (21:00)
--- NOTE | 2018-08-29 21:02 | HP ---
ADMIT DATE: 08/29/2018 CHIEF COMPLAINT: Visual changes. HISTORY OF PRESENT ILLNESS: The patient is a pleasant 63-year-old female who has multiple medical problems, was admitted a couple times within the past few months with right knee infection and other issues. Basically, this time she went to see the economics consultant and apparently the economics consultant did a full exam and notes that she has some optic disc changes and she has been blind in the left eye as well for a few days. She is concerned she could have giant cell arteritis. He sent her to the Emergency Room, told them to start Solu-Medrol 250 IV q. 6 hours for 12 doses. They are going to change her to prednisone 100 p.o. q. day. I am also going to consult Neurology and Rheumatology. The patient rates her symptoms at 10/10. She has associated anxiety, describes as agonizing. PAST MEDICAL HISTORY: CHF, asthma, depression, anxiety, COPD, diabetes, hypertension, hyperlipidemia, seizures, sickle cell disease (?), chronic back pain, keloids, epilepsy, osteoporosis, sepsis, appendectomy, cholecystectomy, tonsillectomy, tubal ligation, right knee repair. I think that has been done a couple times. Right femur fracture. Adenoid surgery. ALLERGIES: CEPHALEXIN, PENICILLIN, SULFA, TETANUS, ASPIRIN, HYDROMORPHONE, IODINE, MORPHINE, PROPOXYPHENE, AND BEE VENOM. FAMILY HISTORY: Coronary disease. SOCIAL HISTORY: She quit smoking, no drinking, no drugs. MEDICATIONS: She is on multiple including 27 of them. They are ProAir, Lovenox, Plavix, atorvastatin, isosorbide, carvedilol, amlodipine, losartan, hydrocodone, oxycodone, phenytoin, gabapentin, Prozac, phenobarbital, temazepam, hydroxyzine, potassium, Lasix, hydrochlorothiazide, Flonase, Protonix, and insulin. REVIEW OF SYSTEMS: GENERAL: No history of weight change, weakness or fevers. SKIN: No bruising, hair changes or rashes. EYES: No blurred, double or loss of vision. NOSE AND THROAT: No history of nosebleeds, hoarseness or sore throat. HEART: No history of palpitations, chest pain or shortness of breath on exertion. LUNGS: Denies cough, hemoptysis, wheezing or shortness of breath. GASTROINTESTINAL: Denies changes in appetite, nausea, vomiting, diarrhea or constipation. GENITOURINARY: No history of frequency, urgency, hesitancy or nocturia. NEUROLOGIC: She complains of visual changes. PSYCHIATRIC: She complains of depression. ENDOCRINE: No history of heat or cold intolerance, polyuria or polydipsia. EXTREMITIES: She complains of right leg swelling that is from her knee that has been operated on a few times. PHYSICAL EXAMINATION: VITAL SIGNS: Temperature afebrile, pulse 92, respirations 18, blood pressure 192/96. GENERAL: She is alert, cooperative. HEART: Normal S1, S2. LUNGS: Clear. ABDOMEN: Soft. Decreased bowel sounds. EXTREMITIES: The right leg is swollen in the thigh that is chronic for her because of her knee problem. ENDOCRINE: No thyromegaly. LYMPHATICS: No cervical nodes. HEMATOPOIETIC: No bruising. PSYCHIATRIC: She is depressed. She cries at time. LABORATORY DATA: Hematology is normal. Electrolytes are normal. Glucose is 362, alkaline phosphatase is a little high at 139, albumin normal at 3.6. INR is 1. CT of the head is negative other than the maxillary sinus disease. ASSESSMENT AND PLAN: Possible amaurosis fugax, perhaps she has underlying temporal arteritis or giant cell arteritis. We will start the high dose Solu-Medrol. Consult Ophthalmology and Neurology and Rheumatology. Regarding the right leg chronic issue, we are going to consult Dr. Mccarthy, her orthopedic doctor as well just to do a routine followup. Frequent labs, PT, OT. Full code. I resumed her home meds. I have discussed the case at length with the nurse. TOTAL TIME: 32 minutes. ALISHA COOLEY DO DR: MALENA/erica JOB#: [id number] / [id number]
[2018-08-29] MEDS: oxyCODONE/APAP 5/325 1 TAB TABLET PO PRN (21:31)
[2018-08-29] MEDS: PHENobarbital 32.4 MG TABLET. PO SCH (21:32)
[2018-08-29] MEDS: CARVEDILOL 12.5 MG TABLET. PO SCH (21:33)
[2018-08-29] MEDS: ATORVASTATIN CALCIUM 40 MG TABLET. PO SCH (21:33)
[2018-08-29] MEDS: GABAPENTIN 300 MG CAPSULE. PO SCH (21:34)
[2018-08-29] MEDS: hydrOXYzine PAMOATE 25 MG CAPSULE PO SCH (21:34)
[2018-08-29] MEDS: ENOXAPARIN 40 MG/0.4 ML SYRINGE. SQ SCH (21:35)
[2018-08-29] MEDS: PHENYTOIN SODIUM EXTENDED 100 MG CAPSULE PO SCH (21:35)
[2018-08-29] MEDS: ALBUTEROL SULFATE 2.5 MG/3 ML NEBU. NEB SCH (21:45)
[2018-08-29] MEDS: BUDESONIDE 0.5 MG/2 ML NEBU. NEB SCH (21:45)
[2018-08-29] MEDS: INSULIN GLARGINE 300 UNITS/3 ML INSULN.PEN. SQ SCH (22:49)
[2018-08-29] MEDS: HYDROcodone/APAP 7.5/325MG 1 TAB TABLET PO PRN (22:56)
[2018-08-29 23:32] VITALS: BP 182/80
[2018-08-30] MEDS: oxyCODONE IR 5 MG TABLET PO PRN ×4 (01:04→19:40)
[2018-08-30] MEDS: methylPREDNISolone SOD SUCC PF 125 MG/2 ML VIAL. IV SCH ×3 (01:07→12:00)
[2018-08-30] MEDS: oxyCODONE/APAP 5/325 1 TAB TABLET PO PRN (04:03)
[2018-08-30 06:55] VITALS: BP 144/64
[2018-08-30] MEDS: ALBUTEROL SULFATE 2.5 MG/3 ML NEBU. NEB SCH ×4 (07:54→19:39)
[2018-08-30] MEDS: BUDESONIDE 0.5 MG/2 ML NEBU. NEB SCH ×2 (07:54→19:39)
[2018-08-30] MEDS ORDERED: INSULIN LISPRO 300 UNITS/3 ML INSULN.PEN. SQ SCH (08:00)
[2018-08-30] MEDS: ISOSORBIDE MONONITRATE ER 30 MG TAB.ER.24H PO SCH (08:33)
[2018-08-30] MEDS: hydroCHLOROthiazide 25 MG TABLET PO SCH (08:34)
[2018-08-30] MEDS: FUROSEMIDE 40 MG TABLET. PO SCH (08:34)
[2018-08-30] MEDS: LOSARTAN POTASSIUM 50 MG TABLET. PO SCH (08:34)
[2018-08-30] MEDS: PHENobarbital 32.4 MG TABLET. PO SCH ×2 (08:34→21:37)
[2018-08-30] MEDS: CLOPIDOGREL BISULFATE 75 MG TABLET PO SCH (08:35)
[2018-08-30] MEDS: PANTOPRAZOLE 40 MG TABLET.DR. PO SCH (08:35)
[2018-08-30] MEDS: hydrOXYzine PAMOATE 25 MG CAPSULE PO SCH ×3 (08:35→21:35)
[2018-08-30] MEDS: FLUoxetine HCL 20 MG CAPSULE PO SCH (08:35)
[2018-08-30] MEDS: amLODIPine BESYLATE 10 MG TABLET PO SCH (08:35)
[2018-08-30] MEDS: GABAPENTIN 300 MG CAPSULE. PO SCH ×3 (08:35→21:34)
[2018-08-30] MEDS: PHENYTOIN SODIUM EXTENDED 100 MG CAPSULE PO SCH ×4 (08:35→21:00)
[2018-08-30] MEDS: POTASSIUM CHLORIDE 20 MEQ TABLET.ER. PO SCH (08:36)
[2018-08-30] MEDS: CARVEDILOL 12.5 MG TABLET. PO SCH ×2 (08:36→17:00)
[2018-08-30] MEDS: INSULIN GLARGINE 300 UNITS/3 ML INSULN.PEN. SQ SCH ×2 (08:38→21:00)
[2018-08-30 08:57] LABS: BASO % 0 % (0-3); EOS % 0 % (0-3); HEMATOCRIT 38.6 % (36.0-47.0); HEMOGLOBIN 12.9 g/dL (12.0-15.5); LYMPH # 1.2 x10^3/uL (1.0-4.8); LYMPH % 20 % (24-48); MEAN CORPUSCULAR HEMOGLOBIN 29 pg (25-35); MEAN CORPUSCULAR HGB CONC 34 g/dL (31-37); MEAN CORPUSCULAR VOLUME 88 fL (79-100); MONO % 1 % (0-9); NEUT # 4.7 x10^3uL (1.8-7.7); NEUT % 79 % (31-73); PLATELET COUNT 184 x10^3/uL (140-400); RED BLOOD COUNT 4.39 x10^6/uL (3.50-5.40); RED CELL DISTRIBUTION WIDTH 14.1 % (11.5-14.5); WHITE BLOOD COUNT 5.9 x10^3/uL (4.0-11.0)
[2018-08-30] MEDS ORDERED: NON FORMULARY ITEM (Losartan/Hydrochlorothiazide (Losartan-Hctz 100-25 Mg Tab) 1 TAB) PO SCH (09:00)
[2018-08-30 09:13] LABS: CALCIUM 8.6 mg/dL (8.5-10.1); CREATININE 0.7 mg/dL (0.6-1.0); GFR 84.8
[2018-08-30] MEDS ORDERED: DEXTROSE 50% 25 GM / 50ML DISP.SYRIN. IV PRN (10:30)
--- NOTE | 2018-08-30 10:43 | PDOC ---
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 She has severe pain to touch in her right leg. She states she still has blindness in her left eye. Vitals Vitals Vital Signs Date Time Temp Pulse Resp B/P (MAP) Pulse Ox O2 Delivery O2 Flow Rate FiO2 08/30/18 08:36 60 144/64 08/30/18 07:57 94 Room Air 08/30/18 06:55 97.5 18 97.5 Physical Exam General: Alert, Oriented X3, Cooperative, mild distress Heart: Regular rate, Normal S1, Normal S2, No murmurs Lungs: Clear Abdomen: Soft, No tenderness, No masses Extremities: No edema, Normal pulses, No tenderness/swelling, Other (Severe Right leg pain from fracture) Skin: No rashes, No breakdown, No significant lesion Labs LABS Laboratory Tests Test 08/29/18 15:30 08/29/18 20:46 08/30/18 07:09 08/30/18 07:43 White Blood Count 6.2 x10^3/uL (4.0-11.0) 5.9 x10^3/uL (4.0-11.0) Red Blood Count 4.76 x10^6/uL (3.50-5.40) 4.39 x10^6/uL (3.50-5.40) Hemoglobin 13.9 g/dL (12.0-15.5) 12.9 g/dL (12.0-15.5) Hematocrit 41.7 % (36.0-47.0) 38.6 % (36.0-47.0) Mean Corpuscular Volume 88 fL (79-100) 88 fL (79-100) Mean Corpuscular Hemoglobin 29 pg (25-35) 29 pg (25-35) Mean Corpuscular Hemoglobin Concent 33 g/dL (31-37) 34 g/dL (31-37) Red Cell Distribution Width 14.2 % (11.5-14.5) 14.1 % (11.5-14.5) Platelet Count 195 x10^3/uL (140-400) 184 x10^3/uL (140-400) Neutrophils (%) (Auto) 57 % (31-73) 79 % (31-73) Lymphocytes (%) (Auto) 35 % (24-48) 20 % (24-48) Monocytes (%) (Auto) 6 % (0-9) 1 % (0-9) Eosinophils (%) (Auto) 2 % (0-3) 0 % (0-3) Basophils (%) (Auto) 1 % (0-3) 0 % (0-3) Neutrophils # (Auto) 3.5 x10^3uL (1.8-7.7) 4.7 x10^3uL (1.8-7.7) Lymphocytes # (Auto) 2.2 x10^3/uL (1.0-4.8) 1.2 x10^3/uL (1.0-4.8) Monocytes # (Auto) 0.3 x10^3/uL (0.0-1.1) 0.0 x10^3/uL (0.0-1.1) Eosinophils # (Auto) 0.1 x10^3/uL (0.0-0.7) 0.0 x10^3/uL (0.0-0.7) Basophils # (Auto) 0.0 x10^3/uL (0.0-0.2) 0.0 x10^3/uL (0.0-0.2) Erythrocyte Sedimentation Rate 9 (0-25) Prothrombin Time 12.7 SEC (11.7-14.0) Prothromb Time International Ratio 1.0 (0.8-1.1) Sodium Level 140 mmol/L (136-145) 133 mmol/L (136-145) Potassium Level 3.5 mmol/L (3.5-5.1) 4.0 mmol/L (3.5-5.1) Chloride Level 102 mmol/L (98-107) 96 mmol/L (98-107) Carbon Dioxide Level 25 mmol/L (21-32) 25 mmol/L (21-32) Anion Gap 13 (6-14) 12 (6-14) Blood Urea Nitrogen 13 mg/dL (7-20) 14 mg/dL (7-20) Creatinine 0.6 mg/dL (0.6-1.0) 0.7 mg/dL (0.6-1.0) Estimated GFR (Cockcroft-Gault) 101.3 84.8 BUN/Creatinine Ratio 22 (6-20) Glucose Level 362 mg/dL (70-99) 455 mg/dL (70-99) Calcium Level 9.2 mg/dL (8.5-10.1) 8.6 mg/dL (8.5-10.1) Total Bilirubin 0.6 mg/dL (0.2-1.0) Aspartate Amino Transf (AST/SGOT) 12 U/L (15-37) Alanine Aminotransferase (ALT/SGPT) 9 U/L (14-59) Alkaline Phosphatase 139 U/L (46-116) C-Reactive Protein, Quantitative 2.0 mg/L (0-3.3) Total Protein 7.9 g/dL (6.4-8.2) Albumin 3.6 g/dL (3.4-5.0) Albumin/Globulin Ratio 0.8 (1.0-1.7) Glucose (Fingerstick) 477 mg/dL (70-99) 466 mg/dL (70-99) Review of Systems Review of Systems Patient states she has severe right leg pain and blindness in her L eye She denies fevers, chills, N/V, diarrhea, CP, SOB Assessment and Plan Assessmemt and Plan Problems Medical Problems: (1) Acute ischemic optic neuropathy Status: Acute Assessment: Possible amaurosis fugax, perhaps she has underlying temporal arteritis or giant cell arteritis R femur fracture Hyperglycemia History of CHF, asthma, COPD, diabetes, HTN, hyperlipidemia, seizures, chronic back pain, epilepsy, osteoporosis, anxiety/depression Plan: Await neuro, rheumatology, ophthalmology, and orthopedic consults High dose solu-medrol Adjust novolog dose DVT prophylaxis Home meds PT/OT F/u labs Comment Review of Relevant I have reviewed the following items mary (where applicable) has been applied. Labs Laboratory Tests Test 08/29/18 15:30 08/29/18 20:46 08/30/18 07:09 08/30/18 07:43 White Blood Count 6.2 x10^3/uL (4.0-11.0) 5.9 x10^3/uL (4.0-11.0) Red Blood Count 4.76 x10^6/uL (3.50-5.40) 4.39 x10^6/uL (3.50-5.40) Hemoglobin 13.9 g/dL (12.0-15.5) 12.9 g/dL (12.0-15.5) Hematocrit 41.7 % (36.0-47.0) 38.6 % (36.0-47.0) Mean Corpuscular Volume 88 fL (79-100) 88 fL (79-100) Mean Corpuscular Hemoglobin 29 pg (25-35) 29 pg (25-35) Mean Corpuscular Hemoglobin Concent 33 g/dL (31-37) 34 g/dL (31-37) Red Cell Distribution Width 14.2 % (11.5-14.5) 14.1 % (11.5-14.5) Platelet Count 195 x10^3/uL (140-400) 184 x10^3/uL (140-400) Neutrophils (%) (Auto) 57 % (31-73) 79 % (31-73) Lymphocytes (%) (Auto) 35 % (24-48) 20 % (24-48) Monocytes (%) (Auto) 6 % (0-9) 1 % (0-9) Eosinophils (%) (Auto) 2 % (0-3) 0 % (0-3) Basophils (%) (Auto) 1 % (0-3) 0 % (0-3) Neutrophils # (Auto) 3.5 x10^3uL (1.8-7.7) 4.7 x10^3uL (1.8-7.7) Lymphocytes # (Auto) 2.2 x10^3/uL (1.0-4.8) 1.2 x10^3/uL (1.0-4.8) Monocytes # (Auto) 0.3 x10^3/uL (0.0-1.1) 0.0 x10^3/uL (0.0-1.1) Eosinophils # (Auto) 0.1 x10^3/uL (0.0-0.7) 0.0 x10^3/uL (0.0-0.7) Basophils # (Auto) 0.0 x10^3/uL (0.0-0.2) 0.0 x10^3/uL (0.0-0.2) Erythrocyte Sedimentation Rate 9 (0-25) Prothrombin Time 12.7 SEC (11.7-14.0) Prothromb Time International Ratio 1.0 (0.8-1.1) Sodium Level 140 mmol/L (136-145) 133 mmol/L (136-145) Potassium Level 3.5 mmol/L (3.5-5.1) 4.0 mmol/L (3.5-5.1) Chloride Level 102 mmol/L (98-107) 96 mmol/L (98-107) Carbon Dioxide Level 25 mmol/L (21-32) 25 mmol/L (21-32) Anion Gap 13 (6-14) 12 (6-14) Blood Urea Nitrogen 13 mg/dL (7-20) 14 mg/dL (7-20) Creatinine 0.6 mg/dL (0.6-1.0) 0.7 mg/dL (0.6-1.0) Estimated GFR (Cockcroft-Gault) 101.3 84.8 BUN/Creatinine Ratio 22 (6-20) Glucose Level 362 mg/dL (70-99) 455 mg/dL (70-99) Calcium Level 9.2 mg/dL (8.5-10.1) 8.6 mg/dL (8.5-10.1) Total Bilirubin 0.6 mg/dL (0.2-1.0) Aspartate Amino Transf (AST/SGOT) 12 U/L (15-37) Alanine Aminotransferase (ALT/SGPT) 9 U/L (14-59) Alkaline Phosphatase 139 U/L (46-116) C-Reactive Protein, Quantitative 2.0 mg/L (0-3.3) Total Protein 7.9 g/dL (6.4-8.2) Albumin 3.6 g/dL (3.4-5.0) Albumin/Globulin Ratio 0.8 (1.0-1.7) Glucose (Fingerstick) 477 mg/dL (70-99) 466 mg/dL (70-99) Laboratory Tests Test 08/29/18 15:30 08/29/18 20:46 08/30/18 07:09 08/30/18 07:43 White Blood Count 6.2 x10^3/uL (4.0-11.0) 5.9 x10^3/uL (4.0-11.0) Red Blood Count 4.76 x10^6/uL (3.50-5.40) 4.39 x10^6/uL (3.50-5.40) Hemoglobin 13.9 g/dL (12.0-15.5) 12.9 g/dL (12.0-15.5) Hematocrit 41.7 % (36.0-47.0) 38.6 % (36.0-47.0) Mean Corpuscular Volume 88 fL (79-100) 88 fL (79-100) Mean Corpuscular Hemoglobin 29 pg (25-35) 29 pg (25-35) Mean Corpuscular Hemoglobin Concent 33 g/dL (31-37) 34 g/dL (31-37) Red Cell Distribution Width 14.2 % (11.5-14.5) 14.1 % (11.5-14.5) Platelet Count 195 x10^3/uL (140-400) 184 x10^3/uL (140-400) Neutrophils (%) (Auto) 57 % (31-73) 79 % (31-73) Lymphocytes (%) (Auto) 35 % (24-48) 20 % (24-48) Monocytes (%) (Auto) 6 % (0-9) 1 % (0-9) Eosinophils (%) (Auto) 2 % (0-3) 0 % (0-3) Basophils (%) (Auto) 1 % (0-3) 0 % (0-3) Neutrophils # (Auto) 3.5 x10^3uL (1.8-7.7) 4.7 x10^3uL (1.8-7.7) Lymphocytes # (Auto) 2.2 x10^3/uL (1.0-4.8) 1.2 x10^3/uL (1.0-4.8) Monocytes # (Auto) 0.3 x10^3/uL (0.0-1.1) 0.0 x10^3/uL (0.0-1.1) Eosinophils # (Auto) 0.1 x10^3/uL (0.0-0.7) 0.0 x10^3/uL (0.0-0.7) Basophils # (Auto) 0.0 x10^3/uL (0.0-0.2) 0.0 x10^3/uL (0.0-0.2) Erythrocyte Sedimentation Rate 9 (0-25) Prothrombin Time 12.7 SEC (11.7-14.0) Prothromb Time International Ratio 1.0 (0.8-1.1) Sodium Level 140 mmol/L (136-145) 133 mmol/L (136-145) Potassium Level 3.5 mmol/L (3.5-5.1) 4.0 mmol/L (3.5-5.1) Chloride Level 102 mmol/L (98-107) 96 mmol/L (98-107) Carbon Dioxide Level 25 mmol/L (21-32) 25 mmol/L (21-32) Anion Gap 13 (6-14) 12 (6-14) Blood Urea Nitrogen 13 mg/dL (7-20) 14 mg/dL (7-20) Creatinine 0.6 mg/dL (0.6-1.0) 0.7 mg/dL (0.6-1.0) Estimated GFR (Cockcroft-Gault) 101.3 84.8 BUN/Creatinine Ratio 22 (6-20) Glucose Level 362 mg/dL (70-99) 455 mg/dL (70-99) Calcium Level 9.2 mg/dL (8.5-10.1) 8.6 mg/dL (8.5-10.1) Total Bilirubin 0.6 mg/dL (0.2-1.0) Aspartate Amino Transf (AST/SGOT) 12 U/L (15-37) Alanine Aminotransferase (ALT/SGPT) 9 U/L (14-59) Alkaline Phosphatase 139 U/L (46-116) C-Reactive Protein, Quantitative 2.0 mg/L (0-3.3) Total Protein 7.9 g/dL (6.4-8.2) Albumin 3.6 g/dL (3.4-5.0) Albumin/Globulin Ratio 0.8 (1.0-1.7) Glucose (Fingerstick) 477 mg/dL (70-99) 466 mg/dL (70-99) Medications Current Medications Methylprednisolone Sodium Succinate (SOLU-Medrol 125MG VIAL) 250 mg Q6HRS IV Last administered on 4/4/19at 06:02; Start 08/29/18 at 16:00; Stop 09/02/18 at 15: 59 Lorazepam (Ativan) 1 mg 1X ONCE IV Last administered on 08/29/18 16:08; Start 08/29/18 at 15:45; Stop 08/29/18 at 15:46; Status DC Pantoprazole Sodium (Protonix) 40 mg 1X ONCE PO Last administered on 08/29/18 16:47; Start 08/29/18 at 16:45; Stop 08/29/18 at 16:46; Status DC Insulin Human Regular (HumuLIN R VIAL) 5 unit 1X ONCE IV Last administered on 08/29/18 16:48; Start 08/29/18 at 16:45; Stop 08/29/18 at 16:46; Status DC Amlodipine Besylate (Norvasc) 10 mg DAILY PO Last administered on 08/30/18 08: 35; Start 08/30/18 at 09:00 Budesonide (Pulmicort) 0.5 mg RTBID NEB Last administered on 08/30/18 07:54; Start 08/29/18 at 20:00 Carvedilol (Coreg) 25 mg BIDWMEALS PO Last administered on 08/30/18 08:36; Start 08/29/18 at 21:00 Clopidogrel Bisulfate (Plavix) 75 mg DAILY PO Last administered on 08/30/18 08: 35; Start 08/30/18 at 09:00 Enoxaparin Sodium (Lovenox 40mg Syringe) 40 mg Q24H SQ Last administered on 08/29 21:35; Start 08/29/18 at 21:00 Furosemide (Lasix) 40 mg DAILY PO Last administered on 08/30/18 08:34; Start at 09:00 Gabapentin (Neurontin) 300 mg TID PO Last administered on 08/30/18 08:35; Start 08/29/18 at 21:00 Hydrochlorothiazide (Hydrodiuril) 25 mg DAILY PO Last administered on 08/30/18 08:34; Start 08/30/18 at 09:00 Acetaminophen/ Hydrocodone Bitart (Lortab 7.5/325) 1 tab PRN Q6HRS PRN PO MILD PAIN Last administered on 08/29/18 22:56; Start 08/29/18 at 20:00 Insulin Glargine (Lantus) 40 units BID SQ Last administered on 08/30/18 08:38; Start 08/29/18 at 21:00 Oxycodone HCl (Roxicodone) 30 mg PRN Q4HRS PRN PO SEVERE PAIN; Start 08/29/18 at 20:00; Stop 08/30/18 at 00:39; Status DC Oxycodone/ Acetaminophen (Percocet 5/325) 2 tab PRN Q4HRS PRN PO MODERATE PAIN Last administered on 08/30/18 04:03; Start 08/29/18 at 20:00 Pantoprazole Sodium (Protonix) 40 mg DAILYAC PO Last administered on 08/30/18 08:35; Start 08/30/18 at 07:30 Temazepam (Restoril) 7.5 mg PRN QHS PRN PO INSOMNIA Last administered on 21:30; Start 08/29/18 at 20:00 Atorvastatin Calcium (Lipitor) 80 mg QHS PO Last administered on 08/29/18 21:33 ; Start 08/29/18 at 21:00 Non-Formulary Medication (Carvedilol ) 1 tab BID PO ; Start 08/29/18 at 21:00; Status UNV Non-Formulary Medication (Fluticasone/ Salmeterol (Advair 500-50 Diskus)) 2 inh BID IH ; Start 08/29/18 at 21:00; Status UNV Hydroxyzine Pamoate (Vistaril) 25 mg TID PO Last administered on 08/30/18 08:35 ; Start 08/29/18 at 21:00 Insulin Human Lispro (HumaLOG) 10 units TIDWMEALS SQ Last administered on 08:38; Start 08/30/18 at 08:00; Stop 08/30/18 at 10:27; Status DC Isosorbide Mononitrate (Imdur) 60 mg DAILY PO Last administered on 08/30/18 08: 33; Start 08/30/18 at 09:00 Non-Formulary Medication (Losartan/ Hydrochlorothiazide (Losartan-Hctz 100-25 Mg Tab)) 1 tab DAILY PO ; Start 08/30/18 at 09:00; Status UNV Phenobarbital (Luminal) 48.6 mg BID PO Last administered on 08/30/18 08:34; Start 08/29/18 at 21:00 Phenytoin Sodium (Dilantin) 100 mg QID PO Last administered on 08/30/18at 08:35; Start 08/29/18 at 21:00 Potassium Chloride (Klor-Con) 20 meq [id number] PO Last administered on at 08:36; Start 08/30/18 at 08:00 Non-Formulary Medication ([albuterol ] ) 25 mg BID PO ; Start 08/29/18 at 21:00; Status UNV Albuterol Sulfate (Ventolin Neb Soln) 2.5 mg RTQID NEB Last administered on 08/30at 07:54; Start 08/29/18 at 21:00 Losartan Potassium (Cozaar) 100 mg DAILY PO Last administered on 08/30/18at 08:34 ; Start 08/30/18 at 09:00 Fluoxetine HCl (PROzac) 20 mg DAILY PO Last administered on 08/30/18at 08:35; Start 08/30/18 at 09:00 Oxycodone HCl (Roxicodone) 30 mg PRN Q4HRS PRN PO SEVERE PAIN Last administered on 08/30/18at 06:01; Start 08/30/18 at 00:39 Insulin Human Lispro (HumaLOG) 20 units TIDWMEALS SQ ; Start 08/30/18 at 12:00 Insulin Human Lispro (HumaLOG) 0-9 UNITS TIDWMEALS SQ ; Start 08/30/18 at 12:00 Dextrose (Dextrose 50%-Water Syringe) 12.5 gm PRN Q15MIN PRN IV SEE COMMENTS; Start 08/30/18 at 10:30 Active Scripts Active Budesonide 0.5 Mg/2 Ml Ampul.neb 0.5 Mg NEB RTBID 30 Days Hydrochlorothiazide Tablet (Hydrochlorothiazide) 25 Mg Tablet 25 Mg PO DAILY 30 Days Restoril (Temazepam) 7.5 Mg Capsule 7.5 Mg PO PRN QHS PRN 30 Days Percocet 5-325 Mg Tablet (Oxycodone/Acetaminophen) 1 Each Tablet 2 Tab PO PRN Q4HRS PRN 3 Days Enoxaparin Sodium 40 Mg/0.4 Ml Disp.syrin 40 Mg SQ Q24H 42 Days Gabapentin (Gabapentin) 300 Mg Capsule 300 Mg PO TID 30 Days Lantus Solostar (Insulin Glargine,Hum.rec.anlog) 100 Unit/1 Ml Insuln.pen 40 Unit SQ BID 30 Days Losartan-Hctz 100-25 Mg Tab (Losartan/Hydrochlorothiazide) 1 Each Tablet 1 Tab PO DAILY 30 Days Amlodipine Besylate 10 Mg Tablet 10 Mg PO DAILY 30 Days Hydroxyzine Pamoate 25 Mg Capsule 1 Cap PO TID 5 Days Novolog Flexpen (Insulin Aspart) 100 Unit/1 Ml Insuln.pen 10 Units SQ TIDAC 30 Days Phenobarbital 100 Mg Tablet 50 Mg PO BID 30 Days Potassium Chloride 20 Meq Tablet.er 20 Meq PO DAILY 30 Days Furosemide 40 Mg Tablet 40 Mg PO DAILY 30 Days Plavix (Clopidogrel Bisulfate) 75 Mg Tablet 75 Mg PO DAILY 30 Days Proair Hfa Inhaler (Albuterol Sulfate) 8.5 Gm Hfa.aer.ad 2 Puff IH PRN Q4-6HRS Phenytoin Sodium Extended 100 Mg Capsule 100 Mg PO FOUR TIMES A DAILY 30 Days Carvedilol (Carvedilol) 12.5 Mg Tablet 25 Mg PO BIDWMEALS 30 Days Isosorbide Mononitrate Er (Isosorbide Mononitrate) 60 Mg Tab.er.24h 60 Mg PO DAILY 30 Days Carvedilol 25 Mg Tablet 1 Tab PO BID Reported Prozac (Fluoxetine Hcl) 20 Mg Capsule 20 Mg PO DAILY Oxycodone HCl 30 Mg Tablet 30 Mg PO PRN Q4HRS PRN Hydrocodone-Acetamin 7.5-325 (Hydrocodone/Acetaminophen) 1 Each Tablet 1 Each PO PRN Q6HRS PRN [albuterol ] 25 Mg PO BID Protonix (Pantoprazole Sodium) 40 Mg Tablet.dr 40 Mg PO DAILY Advair 500-50 Diskus (Fluticasone/Salmeterol) 1 Each Disk.w.dev 2 Inh IH BID Atorvastatin Calcium 80 Mg Tablet 80 Mg PO HS Vitals/I & O Vital Sign - Last 24 Hours 08/29/18 08/29/18 08/29/18 08/29/18 15:08 19:35 20:00 21:31 Temp 98.4 98.0 98.4 98.0 Pulse 75 97 Resp 20 20 B/P (MAP) 154/74 (100) 192/96 (128) Pulse Ox 97 95 O2 Delivery Room Air Room Air Room Air Room Air 08/29/18 08/29/18 08/29/18 08/29/18 21:33 21:46 21:52 22:56 Pulse 97 B/P (MAP) 192/96 Pulse Ox 96 96 O2 Delivery Room Air Room Air Room Air 08/29/18 08/30/18 08/30/18 08/30/18 23:32 01:04 03:10 04:03 Temp 97.6 97.6 Pulse 103 63 Resp 20 20 B/P (MAP) 182/80 (114) Pulse Ox 94 O2 Delivery Room Air Room Air Room Air Room Air 08/30/18 08/30/18 08/30/18 08/30/18 05:03 06:01 06:55 07:12 Temp 97.5 97.5 Pulse 60 Resp 18 B/P (MAP) 144/64 (90) Pulse Ox 98 O2 Delivery Room Air Room Air Room Air Room Air 08/30/18 08/30/18 08/30/18 08/30/18 07:57 08:33 08:34 08:35 Pulse 60 60 60 B/P (MAP) 144/64 144/64 144/64 Pulse Ox 94 O2 Delivery Room Air 08/30/18 08:36 Pulse 60 B/P (MAP) 144/64 Intake and Output 08/29/18 08/29/18 08/30/18 15:00 23:00 07:00 Intake Total 800 ml 240 ml Output Total 4 ml 2 ml Balance 796 ml 238 ml ALISHA COOLEY III DO Aug 30, 2018 10:43
[2018-08-30] MEDS: INSULIN LISPRO 300 UNITS/3 ML INSULN.PEN. SQ SCH ×4 (12:00→17:23)
[2018-08-30] MEDS ORDERED: INSULIN LISPRO 300 UNITS/3 ML INSULN.PEN. SQ STA ×2 (12:15→14:22)
[2018-08-30 12:55] LABS: CALCIUM 8.7 mg/dL (8.5-10.1); CREATININE 1.4 mg/dL (0.6-1.0); GFR 38.1; POTASSIUM 4.3 mmol/L (3.5-5.1)
[2018-08-30] MEDS ORDERED: methylPREDNISolone SOD SUCC PF 125 MG/2 ML VIAL. IV SCH (13:00)
[2018-08-30] MEDS: IV NORMAL SALINE 1000ML BAG 1,000 ML IV SCH ×2 (13:02→22:15)
[2018-08-30] MEDS ORDERED: LORazepam 0.5 MG TABLET PO PRN (13:45)
[2018-08-30] MEDS ORDERED: ONDANSETRON ODT 4 MG TAB.RAPDIS. PO PRN (13:45)
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
--- NOTE | 2018-08-30 14:53 | NUR ---
Per pt's request, MARILOU spoke with pt. Pt had questions about w/c and BSC. SW discussed requirements to qualify for w/c and walker. SW informed pt it is easier to buy BSC from [employer] for $10-$20 as insurance will only cover in pt a is confined in a room/floor without toilet facilities. SW also discussed insurance will not cover w/c if pt is able to use a walker to walk around. Pt reports she uses a walker at home too. Per pt's request, MARILOU phoned pt's employment evaluator/case manager, Josh Wetzel [phone] but phone is not working.
[2018-08-30 14:54] VITALS: BP 101/51
[2018-08-30 19:00] VITALS: BP 96/59
[2018-08-30] MEDS: ATORVASTATIN CALCIUM 40 MG TABLET. PO SCH (21:32)
[2018-08-30] MEDS: ENOXAPARIN 40 MG/0.4 ML SYRINGE. SQ SCH (21:34)
[2018-08-30] MEDS ORDERED: IV NORMAL SALINE 1000ML BAG 1,000 ML IV ONE (22:45)
[2018-08-30 22:59] VITALS: BP 79/55
[2018-08-31] VITALS (12 sets, daily range): BP systolic 70–154; BP diastolic 37–82
[2018-08-31] MEDS ORDERED: NALOXONE 0.4 MG/ML VIAL. ONE (00:40)
[2018-08-31] MEDS: NALOXONE 0.4 MG/ML VIAL. IV PRN ×2 (03:12→03:27)
[2018-08-31] MEDS ORDERED: IV NORMAL SALINE 1000ML BAG 1,000 ML IV ONE (04:15)
[2018-08-31] MEDS ORDERED: NALOXONE 2 MG/2 ML DISP.SYRIN. IV ONE (04:15)
[2018-08-31 05:04] LABS: BASO % 0 % (0-3); EOS % 0 % (0-3); HEMATOCRIT 34.6 % (36.0-47.0); HEMOGLOBIN 11.3 g/dL (12.0-15.5); LYMPH # 1.7 x10^3/uL (1.0-4.8); LYMPH % 11 % (24-48); MEAN CORPUSCULAR HEMOGLOBIN 29 pg (25-35); MEAN CORPUSCULAR HGB CONC 33 g/dL (31-37); MEAN CORPUSCULAR VOLUME 89 fL (79-100); MONO # 0.4 x10^3/uL (0.0-1.1); MONO % 3 % (0-9); NEUT # 12.4 x10^3uL (1.8-7.7); NEUT % 86 % (31-73); PLATELET COUNT 183 x10^3/uL (140-400); RED BLOOD COUNT 3.88 x10^6/uL (3.50-5.40); RED CELL DISTRIBUTION WIDTH 14.1 % (11.5-14.5); WHITE BLOOD COUNT 14.5 x10^3/uL (4.0-11.0)
[2018-08-31 05:28] LABS: CALCIUM 8.3 mg/dL (8.5-10.1); CREATININE 1.8 mg/dL (0.6-1.0); GFR 28.5; POTASSIUM 4.1 mmol/L (3.5-5.1)
[2018-08-31] MEDS ORDERED: ONDANSETRON PF 4 MG/2 ML VIAL. IV PRN (07:00)
[2018-08-31] MEDS ORDERED: LIDOCAINE 1% PF 2 ML VIAL. ID PRN (07:00)
[2018-08-31] MEDS ORDERED: PROCHLORPERAZINE 10 MG/2 ML VIAL. IV PRN (07:00)
[2018-08-31] MEDS ORDERED: IV RINGERS,LACTATED 1000ML 1,000 ML IV SCH (07:00)
[2018-08-31] MEDS ORDERED: fentaNYL PF VIAL 100 MCG/2 ML VIAL IV PRN ×2 (07:00)
[2018-08-31] MEDS: CARVEDILOL 12.5 MG TABLET. PO SCH ×2 (08:00→18:28)
[2018-08-31] MEDS: BUDESONIDE 0.5 MG/2 ML NEBU. NEB SCH ×2 (08:00→21:34)
[2018-08-31] MEDS: IV NORMAL SALINE 1000ML BAG 1,000 ML IV SCH ×3 (08:15→21:02)
[2018-08-31] MEDS ORDERED: PIPERONYL BUTOXIDE/PYRETHRINS 118ML BOTTLE. TP ONE (08:30)
--- NOTE | 2018-08-31 08:55 | PDOC ---
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 Her social environment needs to be looked into. We have requested social secretary consultation History of Present Illness History of Present Illness Patient noted to have lysed. Currently laying in bed in no apparent distress. No changes in her vision. MRI pending which will be done under anesthesia while she gets moved back to the floor. Patient cannot be in the ICU noted to have an ST segment provide sedation for this study. He came to the ICU due to hypotension and middle the night which has resolved most likely secondary to excess sedation from chronic narcotic use Vitals Vitals Vital Signs Date Time Temp Pulse Resp B/P (MAP) Pulse Ox O2 Delivery O2 Flow Rate FiO2 08/31/18 06:30 56 11 97/52 (67) 93 08/31/18 05:56 Room Air 2.0 08/31/18 05:00 98.1 98.1 Physical Exam General: Alert, Oriented X3, Cooperative, mild distress Heart: Regular rate, Normal S1, Normal S2, No murmurs Lungs: Clear Abdomen: Soft, No tenderness, No masses Extremities: No edema, Normal pulses, No tenderness/swelling, Other (Severe Right leg pain from fracture) Skin: No rashes, No breakdown, No significant lesion Labs LABS Laboratory Tests Test 08/30/18 12:30 08/30/18 14:07 08/30/18 16:57 08/30/18 19:40 Sodium Level 130 mmol/L (136-145) Potassium Level 4.3 mmol/L (3.5-5.1) Chloride Level 95 mmol/L (98-107) Carbon Dioxide Level 20 mmol/L (21-32) Anion Gap 15 (6-14) Blood Urea Nitrogen 21 mg/dL (7-20) Creatinine 1.4 mg/dL (0.6-1.0) Estimated GFR (Cockcroft-Gault) 38.1 Glucose Level 739 mg/dL (70-99) Calcium Level 8.7 mg/dL (8.5-10.1) Glucose (Fingerstick) 540 mg/dL (70-99) 239 mg/dL (70-99) 82 mg/dL (70-99) Test 08/30/18 21:29 08/31/18 00:14 08/31/18 03:09 08/31/18 03:50 Glucose (Fingerstick) 99 mg/dL (70-99) 95 mg/dL (70-99) 163 mg/dL (70-99) White Blood Count 14.5 x10^3/uL (4.0-11.0) Red Blood Count 3.88 x10^6/uL (3.50-5.40) Hemoglobin 11.3 g/dL (12.0-15.5) Hematocrit 34.6 % (36.0-47.0) Mean Corpuscular Volume 89 fL (79-100) Mean Corpuscular Hemoglobin 29 pg (25-35) Mean Corpuscular Hemoglobin Concent 33 g/dL (31-37) Red Cell Distribution Width 14.1 % (11.5-14.5) Platelet Count 183 x10^3/uL (140-400) Neutrophils (%) (Auto) 86 % (31-73) Lymphocytes (%) (Auto) 11 % (24-48) Monocytes (%) (Auto) 3 % (0-9) Eosinophils (%) (Auto) 0 % (0-3) Basophils (%) (Auto) 0 % (0-3) Neutrophils # (Auto) 12.4 x10^3uL (1.8-7.7) Lymphocytes # (Auto) 1.7 x10^3/uL (1.0-4.8) Monocytes # (Auto) 0.4 x10^3/uL (0.0-1.1) Eosinophils # (Auto) 0.0 x10^3/uL (0.0-0.7) Basophils # (Auto) 0.0 x10^3/uL (0.0-0.2) Sodium Level 140 mmol/L (136-145) Potassium Level 4.1 mmol/L (3.5-5.1) Chloride Level 105 mmol/L (98-107) Carbon Dioxide Level 23 mmol/L (21-32) Anion Gap 12 (6-14) Blood Urea Nitrogen 37 mg/dL (7-20) Creatinine 1.8 mg/dL (0.6-1.0) Estimated GFR (Cockcroft-Gault) 28.5 Glucose Level 172 mg/dL (70-99) Calcium Level 8.3 mg/dL (8.5-10.1) Test 08/31/18 05:05 08/31/18 07:45 Glucose (Fingerstick) 168 mg/dL (70-99) 209 mg/dL (70-99) Assessment and Plan Assessmemt and Plan Problems Medical Problems: (1) Acute ischemic optic neuropathy Status: Acute Comment Review of Relevant I have reviewed the following items mary (where applicable) has been applied. Labs Laboratory Tests Test 08/29/18 15:30 08/29/18 20:46 08/30/18 07:09 08/30/18 07:43 White Blood Count 6.2 x10^3/uL (4.0-11.0) 5.9 x10^3/uL (4.0-11.0) Red Blood Count 4.76 x10^6/uL (3.50-5.40) 4.39 x10^6/uL (3.50-5.40) Hemoglobin 13.9 g/dL (12.0-15.5) 12.9 g/dL (12.0-15.5) Hematocrit 41.7 % (36.0-47.0) 38.6 % (36.0-47.0) Mean Corpuscular Volume 88 fL (79-100) 88 fL (79-100) Mean Corpuscular Hemoglobin 29 pg (25-35) 29 pg (25-35) Mean Corpuscular Hemoglobin Concent 33 g/dL (31-37) 34 g/dL (31-37) Red Cell Distribution Width 14.2 % (11.5-14.5) 14.1 % (11.5-14.5) Platelet Count 195 x10^3/uL (140-400) 184 x10^3/uL (140-400) Neutrophils (%) (Auto) 57 % (31-73) 79 % (31-73) Lymphocytes (%) (Auto) 35 % (24-48) 20 % (24-48) Monocytes (%) (Auto) 6 % (0-9) 1 % (0-9) Eosinophils (%) (Auto) 2 % (0-3) 0 % (0-3) Basophils (%) (Auto) 1 % (0-3) 0 % (0-3) Neutrophils # (Auto) 3.5 x10^3uL (1.8-7.7) 4.7 x10^3uL (1.8-7.7) Lymphocytes # (Auto) 2.2 x10^3/uL (1.0-4.8) 1.2 x10^3/uL (1.0-4.8) Monocytes # (Auto) 0.3 x10^3/uL (0.0-1.1) 0.0 x10^3/uL (0.0-1.1) Eosinophils # (Auto) 0.1 x10^3/uL (0.0-0.7) 0.0 x10^3/uL (0.0-0.7) Basophils # (Auto) 0.0 x10^3/uL (0.0-0.2) 0.0 x10^3/uL (0.0-0.2) Erythrocyte Sedimentation Rate 9 (0-25) Prothrombin Time 12.7 SEC (11.7-14.0) Prothromb Time International Ratio 1.0 (0.8-1.1) Sodium Level 140 mmol/L (136-145) 133 mmol/L (136-145) Potassium Level 3.5 mmol/L (3.5-5.1) 4.0 mmol/L (3.5-5.1) Chloride Level 102 mmol/L (98-107) 96 mmol/L (98-107) Carbon Dioxide Level 25 mmol/L (21-32) 25 mmol/L (21-32) Anion Gap 13 (6-14) 12 (6-14) Blood Urea Nitrogen 13 mg/dL (7-20) 14 mg/dL (7-20) Creatinine 0.6 mg/dL (0.6-1.0) 0.7 mg/dL (0.6-1.0) Estimated GFR (Cockcroft-Gault) 101.3 84.8 BUN/Creatinine Ratio 22 (6-20) Glucose Level 362 mg/dL (70-99) 455 mg/dL (70-99) Calcium Level 9.2 mg/dL (8.5-10.1) 8.6 mg/dL (8.5-10.1) Total Bilirubin 0.6 mg/dL (0.2-1.0) Aspartate Amino Transf (AST/SGOT) 12 U/L (15-37) Alanine Aminotransferase (ALT/SGPT) 9 U/L (14-59) Alkaline Phosphatase 139 U/L (46-116) C-Reactive Protein, Quantitative 2.0 mg/L (0-3.3) Total Protein 7.9 g/dL (6.4-8.2) Albumin 3.6 g/dL (3.4-5.0) Albumin/Globulin Ratio 0.8 (1.0-1.7) Glucose (Fingerstick) 477 mg/dL (70-99) 466 mg/dL (70-99) Test 08/30/18 12:30 08/30/18 14:07 08/30/18 16:57 08/30/18 19:40 Sodium Level 130 mmol/L (136-145) Potassium Level 4.3 mmol/L (3.5-5.1) Chloride Level 95 mmol/L (98-107) Carbon Dioxide Level 20 mmol/L (21-32) Anion Gap 15 (6-14) Blood Urea Nitrogen 21 mg/dL (7-20) Creatinine 1.4 mg/dL (0.6-1.0) Estimated GFR (Cockcroft-Gault) 38.1 Glucose Level 739 mg/dL (70-99) Calcium Level 8.7 mg/dL (8.5-10.1) Glucose (Fingerstick) 540 mg/dL (70-99) 239 mg/dL (70-99) 82 mg/dL (70-99) Test 08/30/18 21:29 08/31/18 00:14 08/31/18 03:09 08/31/18 03:50 Glucose (Fingerstick) 99 mg/dL (70-99) 95 mg/dL (70-99) 163 mg/dL (70-99) White Blood Count 14.5 x10^3/uL (4.0-11.0) Red Blood Count 3.88 x10^6/uL (3.50-5.40) Hemoglobin 11.3 g/dL (12.0-15.5) Hematocrit 34.6 % (36.0-47.0) Mean Corpuscular Volume 89 fL (79-100) Mean Corpuscular Hemoglobin 29 pg (25-35) Mean Corpuscular Hemoglobin Concent 33 g/dL (31-37) Red Cell Distribution Width 14.1 % (11.5-14.5) Platelet Count 183 x10^3/uL (140-400) Neutrophils (%) (Auto) 86 % (31-73) Lymphocytes (%) (Auto) 11 % (24-48) Monocytes (%) (Auto) 3 % (0-9) Eosinophils (%) (Auto) 0 % (0-3) Basophils (%) (Auto) 0 % (0-3) Neutrophils # (Auto) 12.4 x10^3uL (1.8-7.7) Lymphocytes # (Auto) 1.7 x10^3/uL (1.0-4.8) Monocytes # (Auto) 0.4 x10^3/uL (0.0-1.1) Eosinophils # (Auto) 0.0 x10^3/uL (0.0-0.7) Basophils # (Auto) 0.0 x10^3/uL (0.0-0.2) Sodium Level 140 mmol/L (136-145) Potassium Level 4.1 mmol/L (3.5-5.1) Chloride Level 105 mmol/L (98-107) Carbon Dioxide Level 23 mmol/L (21-32) Anion Gap 12 (6-14) Blood Urea Nitrogen 37 mg/dL (7-20) Creatinine 1.8 mg/dL (0.6-1.0) Estimated GFR (Cockcroft-Gault) 28.5 Glucose Level 172 mg/dL (70-99) Calcium Level 8.3 mg/dL (8.5-10.1) Test 08/31/18 05:05 08/31/18 07:45 Glucose (Fingerstick) 168 mg/dL (70-99) 209 mg/dL (70-99) Laboratory Tests Test 08/30/18 12:30 08/30/18 14:07 08/30/18 16:57 08/30/18 19:40 Sodium Level 130 mmol/L (136-145) Potassium Level 4.3 mmol/L (3.5-5.1) Chloride Level 95 mmol/L (98-107) Carbon Dioxide Level 20 mmol/L (21-32) Anion Gap 15 (6-14) Blood Urea Nitrogen 21 mg/dL (7-20) Creatinine 1.4 mg/dL (0.6-1.0) Estimated GFR (Cockcroft-Gault) 38.1 Glucose Level 739 mg/dL (70-99) Calcium Level 8.7 mg/dL (8.5-10.1) Glucose (Fingerstick) 540 mg/dL (70-99) 239 mg/dL (70-99) 82 mg/dL (70-99) Test 08/30/18 21:29 08/31/18 00:14 08/31/18 03:09 08/31/18 03:50 Glucose (Fingerstick) 99 mg/dL (70-99) 95 mg/dL (70-99) 163 mg/dL (70-99) White Blood Count 14.5 x10^3/uL (4.0-11.0) Red Blood Count 3.88 x10^6/uL (3.50-5.40) Hemoglobin 11.3 g/dL (12.0-15.5) Hematocrit 34.6 % (36.0-47.0) Mean Corpuscular Volume 89 fL (79-100) Mean Corpuscular Hemoglobin 29 pg (25-35) Mean Corpuscular Hemoglobin Concent 33 g/dL (31-37) Red Cell Distribution Width 14.1 % (11.5-14.5) Platelet Count 183 x10^3/uL (140-400) Neutrophils (%) (Auto) 86 % (31-73) Lymphocytes (%) (Auto) 11 % (24-48) Monocytes (%) (Auto) 3 % (0-9) Eosinophils (%) (Auto) 0 % (0-3) Basophils (%) (Auto) 0 % (0-3) Neutrophils # (Auto) 12.4 x10^3uL (1.8-7.7) Lymphocytes # (Auto) 1.7 x10^3/uL (1.0-4.8) Monocytes # (Auto) 0.4 x10^3/uL (0.0-1.1) Eosinophils # (Auto) 0.0 x10^3/uL (0.0-0.7) Basophils # (Auto) 0.0 x10^3/uL (0.0-0.2) Sodium Level 140 mmol/L (136-145) Potassium Level 4.1 mmol/L (3.5-5.1) Chloride Level 105 mmol/L (98-107) Carbon Dioxide Level 23 mmol/L (21-32) Anion Gap 12 (6-14) Blood Urea Nitrogen 37 mg/dL (7-20) Creatinine 1.8 mg/dL (0.6-1.0) Estimated GFR (Cockcroft-Gault) 28.5 Glucose Level 172 mg/dL (70-99) Calcium Level 8.3 mg/dL (8.5-10.1) Test 08/31/18 05:05 08/31/18 07:45 Glucose (Fingerstick) 168 mg/dL (70-99) 209 mg/dL (70-99) Medications Current Medications Methylprednisolone Sodium Succinate (SOLU-Medrol 125MG VIAL) 250 mg Q6HRS IV Last administered on 08/30/18 06:02; Start 08/29/18 at 16:00; Stop 08/30/18 at 12: 18; Status DC Lorazepam (Ativan) 1 mg 1X ONCE IV Last administered on 08/29/18 16:08; Start 08/29/18 at 15:45; Stop 08/29/18 at 15:46; Status DC Pantoprazole Sodium (Protonix) 40 mg 1X ONCE PO Last administered on 08/29/18 16:47; Start 08/29/18 at 16:45; Stop 08/29/18 at 16:46; Status DC Insulin Human Regular (HumuLIN R VIAL) 5 unit 1X ONCE IV Last administered on 08/29/18 16:48; Start 08/29/18 at 16:45; Stop 08/29/18 at 16:46; Status DC Amlodipine Besylate (Norvasc) 10 mg DAILY PO Last administered on 08/30/18 08: 35; Start 08/30/18 at 09:00 Budesonide (Pulmicort) 0.5 mg RTBID NEB Last administered on 08/30/18at 07:54; Start 08/29/18 at 20:00 Carvedilol (Coreg) 25 mg BIDWMEALS PO Last administered on 08/30/18 08:36; Start 08/29/18 at 21:00 Clopidogrel Bisulfate (Plavix) 75 mg DAILY PO Last administered on 08/30/18 08: 35; Start 08/30/18 at 09:00 Enoxaparin Sodium (Lovenox 40mg Syringe) 40 mg Q24H SQ Last administered on 08/30 21:34; Start 08/29/18 at 21:00 Furosemide (Lasix) 40 mg DAILY PO Last administered on 08/30/18 08:34; Start at 09:00 Gabapentin (Neurontin) 300 mg TID PO Last administered on 08/30/18 21:34; Start 08/29/18 at 21:00 Hydrochlorothiazide (Hydrodiuril) 25 mg DAILY PO Last administered on 08/30/18 08:34; Start 08/30/18 at 09:00 Acetaminophen/ Hydrocodone Bitart (Lortab 7.5/325) 1 tab PRN Q6HRS PRN PO MILD PAIN Last administered on 08/29/18 22:56; Start 08/29/18 at 20:00 Insulin Glargine (Lantus) 40 units BID SQ Last administered on 08/30/18 08:38; Start 08/29/18 at 21:00 Oxycodone HCl (Roxicodone) 30 mg PRN Q4HRS PRN PO SEVERE PAIN; Start 08/29/18 at 20:00; Stop 08/30/18 at 00:39; Status DC Oxycodone/ Acetaminophen (Percocet 5/325) 2 tab PRN Q4HRS PRN PO MODERATE PAIN Last administered on 08/30/18 04:03; Start 08/29/18 at 20:00 Pantoprazole Sodium (Protonix) 40 mg DAILYAC PO Last administered on 08/30/18 08:35; Start 08/30/18 at 07:30 Temazepam (Restoril) 7.5 mg PRN QHS PRN PO INSOMNIA Last administered on 21:30; Start 08/29/18 at 20:00 Atorvastatin Calcium (Lipitor) 80 mg QHS PO Last administered on 08/30/18 21:32 ; Start 08/29/18 at 21:00 Non-Formulary Medication (Carvedilol ) 1 tab BID PO ; Start 08/29/18 at 21:00; Status UNV Non-Formulary Medication (Fluticasone/ Salmeterol (Advair 500-50 Diskus)) 2 inh BID IH ; Start 08/29/18 at 21:00; Status UNV Hydroxyzine Pamoate (Vistaril) 25 mg TID PO Last administered on 08/30/18 21:35 ; Start 08/29/18 at 21:00 Insulin Human Lispro (HumaLOG) 10 units TIDWMEALS SQ Last administered on 08:38; Start 08/30/18 at 08:00; Stop 08/30/18 at 10:27; Status DC Isosorbide Mononitrate (Imdur) 60 mg DAILY PO Last administered on 08/30/18 08: 33; Start 08/30/18 at 09:00 Non-Formulary Medication (Losartan/ Hydrochlorothiazide (Losartan-Hctz 100-25 Mg Tab)) 1 tab DAILY PO ; Start 08/30/18 at 09:00; Status UNV Phenobarbital (Luminal) 48.6 mg BID PO Last administered on 08/30/18 21:37; Start 08/29/18 at 21:00 Phenytoin Sodium (Dilantin) 100 mg QID PO Last administered on 08/30/18 21:00; Start 08/29/18 at 21:00 Potassium Chloride (Klor-Con) 20 meq DAILYWBKFT PO Last administered on 08:36; Start 08/30/18 at 08:00 Non-Formulary Medication ([albuterol ] ) 25 mg BID PO ; Start 08/29/18 at 21:00; Status UNV Albuterol Sulfate (Ventolin Neb Soln) 2.5 mg RTQID NEB Last administered on 08/30 16:07; Start 08/29/18 at 21:00 Losartan Potassium (Cozaar) 100 mg DAILY PO Last administered on 08/30/18 08:34 ; Start 08/30/18 at 09:00 Fluoxetine HCl (PROzac) 20 mg DAILY PO Last administered on 08/30/18 08:35; Start 08/30/18 at 09:00 Oxycodone HCl (Roxicodone) 30 mg PRN Q4HRS PRN PO SEVERE PAIN Last administered on 08/30/18 19:40; Start 08/30/18 at 00:39 Insulin Human Lispro (HumaLOG) 20 units TIDWMEALS SQ Last administered on 17:22; Start 08/30/18 at 12:00 Insulin Human Lispro (HumaLOG) 0-9 UNITS TIDWMEALS SQ Last administered on 17:23; Start 08/30/18 at 12:00 Dextrose (Dextrose 50%-Water Syringe) 12.5 gm PRN Q15MIN PRN IV SEE COMMENTS; Start 08/30/18 at 10:30 Insulin Human Lispro (HumaLOG) 40 units 1X STAT SQ Last administered on 12:39; Start 08/30/18 at 12:15; Stop 08/30/18 at 12:20; Status DC Sodium Chloride 1,000 ml @ 100 mls/hr Q10H IV Last administered on 08/30/18 22 :15; Start 08/30/18 at 12:15 Methylprednisolone Sodium Succinate (SOLU-Medrol 125MG VIAL) 125 mg Q6HRS IV Last administered on 08/30/18 13:03; Start 08/30/18 at 13:00; Stop 08/30/18 at 14: 25; Status DC Ondansetron HCl (Zofran Odt) 4 mg PRN Q6HRS PRN PO NAUSEA/VOMITING Last administered on 08/30/18 13:57; Start 08/30/18 at 13:45 Lorazepam (Ativan) 0.5 mg PRN Q6HRS PRN PO ANXIETY / AGITATION Last administered on 08/30/18 13:57; Start 08/30/18 at 13:45 Insulin Human Lispro (HumaLOG) 30 units 1X STAT SQ Last administered on 14:43; Start 08/30/18 at 14:22; Stop 08/30/18 at 14:29; Status DC Ondansetron HCl (Zofran) 4 mg PRN Q6HRS PRN IV NAUSEA/VOMITING; Start 08/31/18 at 07:00; Stop 09/01/18 at 06:59 Fentanyl Citrate (Fentanyl 2ml Vial) 25 mcg PRN Q5MIN PRN IV MILD PAIN; Start 08/31/18 at 07:00; Stop 09/01/18 at 06:59 Fentanyl Citrate (Fentanyl 2ml Vial) 50 mcg PRN Q5MIN PRN IV MODERATE TO SEVERE PAIN; Start 08/31/18 at 07:00; Stop 09/01/18 at 06:59 Ringer's Solution 1,000 ml @ 30 mls/hr Q24H IV ; Start 08/31/18 at 07:00; Stop 08/31/18 at 18:59 Lidocaine HCl (Xylocaine-Mpf 1% 2ml Vial) 2 ml PRN 1X PRN ID PRIOR TO IV START ; Start 08/31/18 at 07:00; Stop 09/01/18 at 06:59 Prochlorperazine Edisylate (Compazine) 5 mg PACU PRN PRN IV NAUSEA, MRX1; Start 08/31/18 at 07:00; Stop 09/01/18 at 06:59 Sodium Chloride 1,000 ml @ 1,000 mls/hr 1X ONCE IV Last administered on at 22:44; Start 08/30/18 at 22:45; Stop 08/30/18 at 23:44; Status DC Naloxone HCl (Narcan) 0.4 mg STK-MED ONCE .ROUTE ; Start 08/31/18 at 00:40; Stop 08/31/18 at 00:41; Status DC Naloxone HCl (Narcan) 0.4 mg PRN Q2MIN PRN IV SEE COMMENTS Last administered on 08/31/18at 03:27; Start 08/31/18 at 00:45 Sodium Chloride 1,000 ml @ 1,000 mls/hr 1X ONCE IV Last administered on at 04:15; Start 08/31/18 at 04:15; Stop 08/31/18 at 05:14; Status DC Naloxone HCl (Narcan) 2 mg 1X ONCE IV Last administered on 08/31/18at 04:18; Start 08/31/18 at 04:15; Stop 08/31/18 at 04:16; Status DC Pyrethrins/ Piperonyl Butoxide (Rid Shampoo) 1 wisam 1X ONCE TP ; Start 08/31/18 at 08:30; Stop 08/31/18 at 08:39; Status DC Active Scripts Active Budesonide 0.5 Mg/2 Ml Ampul.neb 0.5 Mg NEB RTBID 30 Days Hydrochlorothiazide Tablet (Hydrochlorothiazide) 25 Mg Tablet 25 Mg PO DAILY 30 Days Restoril (Temazepam) 7.5 Mg Capsule 7.5 Mg PO PRN QHS PRN 30 Days Percocet 5-325 Mg Tablet (Oxycodone/Acetaminophen) 1 Each Tablet 2 Tab PO PRN Q4HRS PRN 3 Days Enoxaparin Sodium 40 Mg/0.4 Ml Disp.syrin 40 Mg SQ Q24H 42 Days Gabapentin (Gabapentin) 300 Mg Capsule 300 Mg PO TID 30 Days Lantus Solostar (Insulin Glargine,Hum.rec.anlog) 100 Unit/1 Ml Insuln.pen 40 Unit SQ BID 30 Days Losartan-Hctz 100-25 Mg Tab (Losartan/Hydrochlorothiazide) 1 Each Tablet 1 Tab PO DAILY 30 Days Amlodipine Besylate 10 Mg Tablet 10 Mg PO DAILY 30 Days Hydroxyzine Pamoate 25 Mg Capsule 1 Cap PO TID 5 Days Novolog Flexpen (Insulin Aspart) 100 Unit/1 Ml Insuln.pen 10 Units SQ TIDAC 30 Days Phenobarbital 100 Mg Tablet 50 Mg PO BID 30 Days Potassium Chloride 20 Meq Tablet.er 20 Meq PO DAILY 30 Days Furosemide 40 Mg Tablet 40 Mg PO DAILY 30 Days Plavix (Clopidogrel Bisulfate) 75 Mg Tablet 75 Mg PO DAILY 30 Days Proair Hfa Inhaler (Albuterol Sulfate) 8.5 Gm Hfa.aer.ad 2 Puff IH PRN Q4-6HRS Phenytoin Sodium Extended 100 Mg Capsule 100 Mg PO FOUR TIMES A DAILY 30 Days Carvedilol (Carvedilol) 12.5 Mg Tablet 25 Mg PO BIDWMEALS 30 Days Isosorbide Mononitrate Er (Isosorbide Mononitrate) 60 Mg Tab.er.24h 60 Mg PO DAILY 30 Days Carvedilol 25 Mg Tablet 1 Tab PO BID Reported Prozac (Fluoxetine Hcl) 20 Mg Capsule 20 Mg PO DAILY Oxycodone HCl 30 Mg Tablet 30 Mg PO PRN Q4HRS PRN Hydrocodone-Acetamin 7.5-325 (Hydrocodone/Acetaminophen) 1 Each Tablet 1 Each PO PRN Q6HRS PRN [albuterol ] 25 Mg PO BID Protonix (Pantoprazole Sodium) 40 Mg Tablet.dr 40 Mg PO DAILY Advair 500-50 Diskus (Fluticasone/Salmeterol) 1 Each Disk.w.dev 2 Inh IH BID Atorvastatin Calcium 80 Mg Tablet 80 Mg PO HS Vitals/I & O Vital Sign - Last 24 Hours 08/30/18 08/30/18 08/30/18 08/30/18 11:43 13:57 14:54 16:07 Temp 98.1 98.1 Pulse 61 Resp 20 B/P (MAP) 101/51 (68) Pulse Ox 93 O2 Delivery Room Air Room Air Room Air Room Air 08/30/18 08/30/18 08/30/18 08/30/18 17:00 19:00 19:40 20:00 Temp 97.4 97.4 Pulse 56 70 Resp 18 B/P (MAP) 85/35 96/59 (71) Pulse Ox 93 O2 Delivery Room Air Room Air Room Air 08/30/18 08/30/18 08/31/18 08/31/18 20:40 22:59 03:00 04:27 Temp 98.6 98.5 98.6 98.5 Pulse 55 51 57 Resp 17 16 16 B/P (MAP) 79/55 (63) 79/42 (54) 81/40 (54) Pulse Ox 95 94 O2 Delivery Room Air Room Air Room Air Nasal Cannula O2 Flow Rate 2.0 08/31/18 08/31/18 08/31/18 08/31/18 05:00 05:15 05:30 05:45 Temp 98.1 98.1 Pulse 60 54 54 54 Resp 14 16 18 17 B/P (MAP) 93/47 (62) 70/37 (48) 95/54 (68) 95/51 (66) Pulse Ox 93 93 93 92 08/31/18 08/31/18 08/31/18 05:56 06:00 06:30 Pulse 54 56 Resp 15 11 B/P (MAP) 93/55 (68) 97/52 (67) Pulse Ox 93 93 O2 Delivery Room Air O2 Flow Rate 2.0 Intake and Output 08/30/18 08/30/18 08/31/18 15:00 23:00 07:00 Intake Total 500 ml 1800 ml 400 ml Output Total 7 ml 2 ml Balance 493 ml 1798 ml 400 ml CHRISTINE GALINDO MD Aug 31, 2018 08:55
[2018-08-31] MEDS: ISOSORBIDE MONONITRATE ER 30 MG TAB.ER.24H PO SCH (09:00)
[2018-08-31] MEDS: amLODIPine BESYLATE 10 MG TABLET PO SCH (09:00)
[2018-08-31] MEDS: FUROSEMIDE 40 MG TABLET. PO SCH (09:00)
[2018-08-31] MEDS: LOSARTAN POTASSIUM 50 MG TABLET. PO SCH (09:00)
[2018-08-31] MEDS: hydroCHLOROthiazide 25 MG TABLET PO SCH (09:00)
[2018-08-31] MEDS: hydrOXYzine PAMOATE 25 MG CAPSULE PO SCH ×3 (09:00→20:45)
--- NOTE | 2018-08-31 09:02 | PDOC ---
PROGRESS NOTES Assessment Problems Medical Problems: (1) Acute ischemic optic neuropathy Status: Acute She developed hypotension early this morning and was transferred to ICU Anterior ischemic optic neuritis of the left eye, I doubt that this is temporal arteritis/giant cell arteritis especially with the normal physical examination and the sedimentation rate of 9. History of migraines Epilepsy Gait disorder related to femur fractures. Psychiatric disorders. Plan MRI of the brain, she will need anesthesia sedation for this. I will consider additional studies including angiography and echocardiogram depending on results. Holding off on temporal artery biopsy. Continue statin and clopidogrel Continue supportive care. Subjective Denies headache. Nurse found some head lice Objective Vital Signs Date Time Temp Pulse Resp B/P (MAP) Pulse Ox O2 Delivery O2 Flow Rate FiO2 08/31/18 06:30 56 11 97/52 (67) 93 08/31/18 05:56 Room Air 2.0 08/31/18 05:00 98.1 98.1 Intake and Output 08/31/18 07:00 Intake Total 2700 ml Output Total 9 ml Balance 2691 ml Intake Oral 2700 ml Output Urine Total 7 ml Stool Total 2 ml # Voids 1 PHYSICAL EXAM Alert. Oriented to time, place and person. Left afferent pupillary defect, left eye blind EOMI. CN: no focal findings. Muscle tone: normal. Muscle strength: 5/5 DTR: 2+ Plantar reflex: flexor Gait: not examined in bed. Sensory exam: no abnormal findings. No cerebellar signs elicited. Review of Relevant I have reviewed the following items mary (where applicable) has been applied. Labs Laboratory Tests Test 08/29/18 15:30 08/29/18 20:46 08/30/18 07:09 08/30/18 07:43 White Blood Count 6.2 x10^3/uL (4.0-11.0) 5.9 x10^3/uL (4.0-11.0) Red Blood Count 4.76 x10^6/uL (3.50-5.40) 4.39 x10^6/uL (3.50-5.40) Hemoglobin 13.9 g/dL (12.0-15.5) 12.9 g/dL (12.0-15.5) Hematocrit 41.7 % (36.0-47.0) 38.6 % (36.0-47.0) Mean Corpuscular Volume 88 fL (79-100) 88 fL (79-100) Mean Corpuscular Hemoglobin 29 pg (25-35) 29 pg (25-35) Mean Corpuscular Hemoglobin Concent 33 g/dL (31-37) 34 g/dL (31-37) Red Cell Distribution Width 14.2 % (11.5-14.5) 14.1 % (11.5-14.5) Platelet Count 195 x10^3/uL (140-400) 184 x10^3/uL (140-400) Neutrophils (%) (Auto) 57 % (31-73) 79 % (31-73) Lymphocytes (%) (Auto) 35 % (24-48) 20 % (24-48) Monocytes (%) (Auto) 6 % (0-9) 1 % (0-9) Eosinophils (%) (Auto) 2 % (0-3) 0 % (0-3) Basophils (%) (Auto) 1 % (0-3) 0 % (0-3) Neutrophils # (Auto) 3.5 x10^3uL (1.8-7.7) 4.7 x10^3uL (1.8-7.7) Lymphocytes # (Auto) 2.2 x10^3/uL (1.0-4.8) 1.2 x10^3/uL (1.0-4.8) Monocytes # (Auto) 0.3 x10^3/uL (0.0-1.1) 0.0 x10^3/uL (0.0-1.1) Eosinophils # (Auto) 0.1 x10^3/uL (0.0-0.7) 0.0 x10^3/uL (0.0-0.7) Basophils # (Auto) 0.0 x10^3/uL (0.0-0.2) 0.0 x10^3/uL (0.0-0.2) Erythrocyte Sedimentation Rate 9 (0-25) Prothrombin Time 12.7 SEC (11.7-14.0) Prothromb Time International Ratio 1.0 (0.8-1.1) Sodium Level 140 mmol/L (136-145) 133 mmol/L (136-145) Potassium Level 3.5 mmol/L (3.5-5.1) 4.0 mmol/L (3.5-5.1) Chloride Level 102 mmol/L (98-107) 96 mmol/L (98-107) Carbon Dioxide Level 25 mmol/L (21-32) 25 mmol/L (21-32) Anion Gap 13 (6-14) 12 (6-14) Blood Urea Nitrogen 13 mg/dL (7-20) 14 mg/dL (7-20) Creatinine 0.6 mg/dL (0.6-1.0) 0.7 mg/dL (0.6-1.0) Estimated GFR (Cockcroft-Gault) 101.3 84.8 BUN/Creatinine Ratio 22 (6-20) Glucose Level 362 mg/dL (70-99) 455 mg/dL (70-99) Calcium Level 9.2 mg/dL (8.5-10.1) 8.6 mg/dL (8.5-10.1) Total Bilirubin 0.6 mg/dL (0.2-1.0) Aspartate Amino Transf (AST/SGOT) 12 U/L (15-37) Alanine Aminotransferase (ALT/SGPT) 9 U/L (14-59) Alkaline Phosphatase 139 U/L (46-116) C-Reactive Protein, Quantitative 2.0 mg/L (0-3.3) Total Protein 7.9 g/dL (6.4-8.2) Albumin 3.6 g/dL (3.4-5.0) Albumin/Globulin Ratio 0.8 (1.0-1.7) Glucose (Fingerstick) 477 mg/dL (70-99) 466 mg/dL (70-99) Test 08/30/18 12:30 08/30/18 14:07 08/30/18 16:57 08/30/18 19:40 Sodium Level 130 mmol/L (136-145) Potassium Level 4.3 mmol/L (3.5-5.1) Chloride Level 95 mmol/L (98-107) Carbon Dioxide Level 20 mmol/L (21-32) Anion Gap 15 (6-14) Blood Urea Nitrogen 21 mg/dL (7-20) Creatinine 1.4 mg/dL (0.6-1.0) Estimated GFR (Cockcroft-Gault) 38.1 Glucose Level 739 mg/dL (70-99) Calcium Level 8.7 mg/dL (8.5-10.1) Glucose (Fingerstick) 540 mg/dL (70-99) 239 mg/dL (70-99) 82 mg/dL (70-99) Test 08/30/18 21:29 08/31/18 00:14 08/31/18 03:09 08/31/18 03:50 Glucose (Fingerstick) 99 mg/dL (70-99) 95 mg/dL (70-99) 163 mg/dL (70-99) White Blood Count 14.5 x10^3/uL (4.0-11.0) Red Blood Count 3.88 x10^6/uL (3.50-5.40) Hemoglobin 11.3 g/dL (12.0-15.5) Hematocrit 34.6 % (36.0-47.0) Mean Corpuscular Volume 89 fL (79-100) Mean Corpuscular Hemoglobin 29 pg (25-35) Mean Corpuscular Hemoglobin Concent 33 g/dL (31-37) Red Cell Distribution Width 14.1 % (11.5-14.5) Platelet Count 183 x10^3/uL (140-400) Neutrophils (%) (Auto) 86 % (31-73) Lymphocytes (%) (Auto) 11 % (24-48) Monocytes (%) (Auto) 3 % (0-9) Eosinophils (%) (Auto) 0 % (0-3) Basophils (%) (Auto) 0 % (0-3) Neutrophils # (Auto) 12.4 x10^3uL (1.8-7.7) Lymphocytes # (Auto) 1.7 x10^3/uL (1.0-4.8) Monocytes # (Auto) 0.4 x10^3/uL (0.0-1.1) Eosinophils # (Auto) 0.0 x10^3/uL (0.0-0.7) Basophils # (Auto) 0.0 x10^3/uL (0.0-0.2) Sodium Level 140 mmol/L (136-145) Potassium Level 4.1 mmol/L (3.5-5.1) Chloride Level 105 mmol/L (98-107) Carbon Dioxide Level 23 mmol/L (21-32) Anion Gap 12 (6-14) Blood Urea Nitrogen 37 mg/dL (7-20) Creatinine 1.8 mg/dL (0.6-1.0) Estimated GFR (Cockcroft-Gault) 28.5 Glucose Level 172 mg/dL (70-99) Calcium Level 8.3 mg/dL (8.5-10.1) Test 08/31/18 05:05 08/31/18 07:45 Glucose (Fingerstick) 168 mg/dL (70-99) 209 mg/dL (70-99) Laboratory Tests Test 08/30/18 12:30 08/30/18 14:07 08/30/18 16:57 08/30/18 19:40 Sodium Level 130 mmol/L (136-145) Potassium Level 4.3 mmol/L (3.5-5.1) Chloride Level 95 mmol/L (98-107) Carbon Dioxide Level 20 mmol/L (21-32) Anion Gap 15 (6-14) Blood Urea Nitrogen 21 mg/dL (7-20) Creatinine 1.4 mg/dL (0.6-1.0) Estimated GFR (Cockcroft-Gault) 38.1 Glucose Level 739 mg/dL (70-99) Calcium Level 8.7 mg/dL (8.5-10.1) Glucose (Fingerstick) 540 mg/dL (70-99) 239 mg/dL (70-99) 82 mg/dL (70-99) Test 08/30/18 21:29 08/31/18 00:14 08/31/18 03:09 08/31/18 03:50 Glucose (Fingerstick) 99 mg/dL (70-99) 95 mg/dL (70-99) 163 mg/dL (70-99) White Blood Count 14.5 x10^3/uL (4.0-11.0) Red Blood Count 3.88 x10^6/uL (3.50-5.40) Hemoglobin 11.3 g/dL (12.0-15.5) Hematocrit 34.6 % (36.0-47.0) Mean Corpuscular Volume 89 fL (79-100) Mean Corpuscular Hemoglobin 29 pg (25-35) Mean Corpuscular Hemoglobin Concent 33 g/dL (31-37) Red Cell Distribution Width 14.1 % (11.5-14.5) Platelet Count 183 x10^3/uL (140-400) Neutrophils (%) (Auto) 86 % (31-73) Lymphocytes (%) (Auto) 11 % (24-48) Monocytes (%) (Auto) 3 % (0-9) Eosinophils (%) (Auto) 0 % (0-3) Basophils (%) (Auto) 0 % (0-3) Neutrophils # (Auto) 12.4 x10^3uL (1.8-7.7) Lymphocytes # (Auto) 1.7 x10^3/uL (1.0-4.8) Monocytes # (Auto) 0.4 x10^3/uL (0.0-1.1) Eosinophils # (Auto) 0.0 x10^3/uL (0.0-0.7) Basophils # (Auto) 0.0 x10^3/uL (0.0-0.2) Sodium Level 140 mmol/L (136-145) Potassium Level 4.1 mmol/L (3.5-5.1) Chloride Level 105 mmol/L (98-107) Carbon Dioxide Level 23 mmol/L (21-32) Anion Gap 12 (6-14) Blood Urea Nitrogen 37 mg/dL (7-20) Creatinine 1.8 mg/dL (0.6-1.0) Estimated GFR (Cockcroft-Gault) 28.5 Glucose Level 172 mg/dL (70-99) Calcium Level 8.3 mg/dL (8.5-10.1) Test 08/31/18 05:05 08/31/18 07:45 Glucose (Fingerstick) 168 mg/dL (70-99) 209 mg/dL (70-99) Medications Current Medications Methylprednisolone Sodium Succinate (SOLU-Medrol 125MG VIAL) 250 mg Q6HRS IV Last administered on 08/30/18at 06:02; Start 08/29/18 at 16:00; Stop 08/30/18 at 12: 18; Status DC Lorazepam (Ativan) 1 mg 1X ONCE IV Last administered on 08/29/18at 16:08; Start 08/29/18 at 15:45; Stop 08/29/18 at 15:46; Status DC Pantoprazole Sodium (Protonix) 40 mg 1X ONCE PO Last administered on 08/29/18 16:47; Start 08/29/18 at 16:45; Stop 08/29/18 at 16:46; Status DC Insulin Human Regular (HumuLIN R VIAL) 5 unit 1X ONCE IV Last administered on 08/29/18 16:48; Start 08/29/18 at 16:45; Stop 08/29/18 at 16:46; Status DC Amlodipine Besylate (Norvasc) 10 mg DAILY PO Last administered on 08/30/18 08: 35; Start 08/30/18 at 09:00 Budesonide (Pulmicort) 0.5 mg RTBID NEB Last administered on 08/30/18 07:54; Start 08/29/18 at 20:00 Carvedilol (Coreg) 25 mg BIDWMEALS PO Last administered on 08/30/18 08:36; Start 08/29/18 at 21:00 Clopidogrel Bisulfate (Plavix) 75 mg DAILY PO Last administered on 08/30/18 08: 35; Start 08/30/18 at 09:00 Enoxaparin Sodium (Lovenox 40mg Syringe) 40 mg Q24H SQ Last administered on 08/30 21:34; Start 08/29/18 at 21:00 Furosemide (Lasix) 40 mg DAILY PO Last administered on 08/30/18 08:34; Start at 09:00 Gabapentin (Neurontin) 300 mg TID PO Last administered on 08/30/18 21:34; Start 08/29/18 at 21:00 Hydrochlorothiazide (Hydrodiuril) 25 mg DAILY PO Last administered on 08/30/18 08:34; Start 08/30/18 at 09:00 Acetaminophen/ Hydrocodone Bitart (Lortab 7.5/325) 1 tab PRN Q6HRS PRN PO MILD PAIN Last administered on 08/29/18 22:56; Start 08/29/18 at 20:00 Insulin Glargine (Lantus) 40 units BID SQ Last administered on 08/30/18 08:38; Start 08/29/18 at 21:00 Oxycodone HCl (Roxicodone) 30 mg PRN Q4HRS PRN PO SEVERE PAIN; Start 08/29/18 at 20:00; Stop 08/30/18 at 00:39; Status DC Oxycodone/ Acetaminophen (Percocet 5/325) 2 tab PRN Q4HRS PRN PO MODERATE PAIN Last administered on 08/30/18 04:03; Start 08/29/18 at 20:00 Pantoprazole Sodium (Protonix) 40 mg DAILYAC PO Last administered on 08/30/18 08:35; Start 08/30/18 at 07:30 Temazepam (Restoril) 7.5 mg PRN QHS PRN PO INSOMNIA Last administered on 21:30; Start 08/29/18 at 20:00 Atorvastatin Calcium (Lipitor) 80 mg QHS PO Last administered on 08/30/18 21:32 ; Start 08/29/18 at 21:00 Non-Formulary Medication (Carvedilol ) 1 tab BID PO ; Start 08/29/18 at 21:00; Status UNV Non-Formulary Medication (Fluticasone/ Salmeterol (Advair 500-50 Diskus)) 2 inh BID IH ; Start 08/29/18 at 21:00; Status UNV Hydroxyzine Pamoate (Vistaril) 25 mg TID PO Last administered on 08/30/18 21:35 ; Start 08/29/18 at 21:00 Insulin Human Lispro (HumaLOG) 10 units TIDWMEALS SQ Last administered on 08:38; Start 08/30/18 at 08:00; Stop 08/30/18 at 10:27; Status DC Isosorbide Mononitrate (Imdur) 60 mg DAILY PO Last administered on 08/30/18 08: 33; Start 08/30/18 at 09:00 Non-Formulary Medication (Losartan/ Hydrochlorothiazide (Losartan-Hctz 100-25 Mg Tab)) 1 tab DAILY PO ; Start 08/30/18 at 09:00; Status UNV Phenobarbital (Luminal) 48.6 mg BID PO Last administered on 08/30/18 21:37; Start 08/29/18 at 21:00 Phenytoin Sodium (Dilantin) 100 mg QID PO Last administered on 08/30/18 21:00; Start 08/29/18 at 21:00 Potassium Chloride (Klor-Con) 20 meq DAILYWBKFT PO Last administered on 08:36; Start 08/30/18 at 08:00 Non-Formulary Medication ([albuterol ] ) 25 mg BID PO ; Start 08/29/18 at 21:00; Status UNV Albuterol Sulfate (Ventolin Neb Soln) 2.5 mg RTQID NEB Last administered on 08/30 16:07; Start 08/29/18 at 21:00 Losartan Potassium (Cozaar) 100 mg DAILY PO Last administered on 08/30/18 08:34 ; Start 08/30/18 at 09:00 Fluoxetine HCl (PROzac) 20 mg DAILY PO Last administered on 08/30/18 08:35; Start 08/30/18 at 09:00 Oxycodone HCl (Roxicodone) 30 mg PRN Q4HRS PRN PO SEVERE PAIN Last administered on 08/30/18 19:40; Start 08/30/18 at 00:39 Insulin Human Lispro (HumaLOG) 20 units TIDWMEALS SQ Last administered on 17:22; Start 08/30/18 at 12:00 Insulin Human Lispro (HumaLOG) 0-9 UNITS TIDWMEALS SQ Last administered on 17:23; Start 08/30/18 at 12:00 Dextrose (Dextrose 50%-Water Syringe) 12.5 gm PRN Q15MIN PRN IV SEE COMMENTS; Start 08/30/18 at 10:30 Insulin Human Lispro (HumaLOG) 40 units 1X STAT SQ Last administered on 12:39; Start 08/30/18 at 12:15; Stop 08/30/18 at 12:20; Status DC Sodium Chloride 1,000 ml @ 100 mls/hr Q10H IV Last administered on 08/30/18 22 :15; Start 08/30/18 at 12:15 Methylprednisolone Sodium Succinate (SOLU-Medrol 125MG VIAL) 125 mg Q6HRS IV Last administered on 08/30/18 13:03; Start 08/30/18 at 13:00; Stop 08/30/18 at 14: 25; Status DC Ondansetron HCl (Zofran Odt) 4 mg PRN Q6HRS PRN PO NAUSEA/VOMITING Last administered on 08/30/18at 13:57; Start 08/30/18 at 13:45 Lorazepam (Ativan) 0.5 mg PRN Q6HRS PRN PO ANXIETY / AGITATION Last administered on 08/30/18at 13:57; Start 08/30/18 at 13:45 Insulin Human Lispro (HumaLOG) 30 units 1X STAT SQ Last administered on at 14:43; Start 08/30/18 at 14:22; Stop 08/30/18 at 14:29; Status DC Ondansetron HCl (Zofran) 4 mg PRN Q6HRS PRN IV NAUSEA/VOMITING; Start 08/31/18 at 07:00; Stop 09/01/18 at 06:59 Fentanyl Citrate (Fentanyl 2ml Vial) 25 mcg PRN Q5MIN PRN IV MILD PAIN; Start 08/31/18 at 07:00; Stop 09/01/18 at 06:59 Fentanyl Citrate (Fentanyl 2ml Vial) 50 mcg PRN Q5MIN PRN IV MODERATE TO SEVERE PAIN; Start 08/31/18 at 07:00; Stop 09/01/18 at 06:59 Ringer's Solution 1,000 ml @ 30 mls/hr Q24H IV ; Start 08/31/18 at 07:00; Stop 08/31/18 at 18:59 Lidocaine HCl (Xylocaine-Mpf 1% 2ml Vial) 2 ml PRN 1X PRN ID PRIOR TO IV START ; Start 08/31/18 at 07:00; Stop 09/01/18 at 06:59 Prochlorperazine Edisylate (Compazine) 5 mg PACU PRN PRN IV NAUSEA, MRX1; Start 08/31/18 at 07:00; Stop 09/01/18 at 06:59 Sodium Chloride 1,000 ml @ 1,000 mls/hr 1X ONCE IV Last administered on at 22:44; Start 08/30/18 at 22:45; Stop 08/30/18 at 23:44; Status DC Naloxone HCl (Narcan) 0.4 mg STK-MED ONCE .ROUTE ; Start 08/31/18 at 00:40; Stop 08/31/18 at 00:41; Status DC Naloxone HCl (Narcan) 0.4 mg PRN Q2MIN PRN IV SEE COMMENTS Last administered on 08/31/18at 03:27; Start 08/31/18 at 00:45 Sodium Chloride 1,000 ml @ 1,000 mls/hr 1X ONCE IV Last administered on at 04:15; Start 08/31/18 at 04:15; Stop 08/31/18 at 05:14; Status DC Naloxone HCl (Narcan) 2 mg 1X ONCE IV Last administered on 08/31/18at 04:18; Start 08/31/18 at 04:15; Stop 08/31/18 at 04:16; Status DC Pyrethrins/ Piperonyl Butoxide (Rid Shampoo) 1 wisam 1X ONCE TP ; Start 08/31/18 at 08:30; Stop 08/31/18 at 08:39; Status DC Active Scripts Active Budesonide 0.5 Mg/2 Ml Ampul.neb 0.5 Mg NEB RTBID 30 Days Hydrochlorothiazide Tablet (Hydrochlorothiazide) 25 Mg Tablet 25 Mg PO DAILY 30 Days Restoril (Temazepam) 7.5 Mg Capsule 7.5 Mg PO PRN QHS PRN 30 Days Percocet 5-325 Mg Tablet (Oxycodone/Acetaminophen) 1 Each Tablet 2 Tab PO PRN Q4HRS PRN 3 Days Enoxaparin Sodium 40 Mg/0.4 Ml Disp.syrin 40 Mg SQ Q24H 42 Days Gabapentin (Gabapentin) 300 Mg Capsule 300 Mg PO TID 30 Days Lantus Solostar (Insulin Glargine,Hum.rec.anlog) 100 Unit/1 Ml Insuln.pen 40 Unit SQ BID 30 Days Losartan-Hctz 100-25 Mg Tab (Losartan/Hydrochlorothiazide) 1 Each Tablet 1 Tab PO DAILY 30 Days Amlodipine Besylate 10 Mg Tablet 10 Mg PO DAILY 30 Days Hydroxyzine Pamoate 25 Mg Capsule 1 Cap PO TID 5 Days Novolog Flexpen (Insulin Aspart) 100 Unit/1 Ml Insuln.pen 10 Units SQ TIDAC 30 Days Phenobarbital 100 Mg Tablet 50 Mg PO BID 30 Days Potassium Chloride 20 Meq Tablet.er 20 Meq PO DAILY 30 Days Furosemide 40 Mg Tablet 40 Mg PO DAILY 30 Days Plavix (Clopidogrel Bisulfate) 75 Mg Tablet 75 Mg PO DAILY 30 Days Proair Hfa Inhaler (Albuterol Sulfate) 8.5 Gm Hfa.aer.ad 2 Puff IH PRN Q4-6HRS Phenytoin Sodium Extended 100 Mg Capsule 100 Mg PO FOUR TIMES A DAILY 30 Days Carvedilol (Carvedilol) 12.5 Mg Tablet 25 Mg PO BIDWMEALS 30 Days Isosorbide Mononitrate Er (Isosorbide Mononitrate) 60 Mg Tab.er.24h 60 Mg PO DAILY 30 Days Carvedilol 25 Mg Tablet 1 Tab PO BID Reported Prozac (Fluoxetine Hcl) 20 Mg Capsule 20 Mg PO DAILY Oxycodone HCl 30 Mg Tablet 30 Mg PO PRN Q4HRS PRN Hydrocodone-Acetamin 7.5-325 (Hydrocodone/Acetaminophen) 1 Each Tablet 1 Each PO PRN Q6HRS PRN [albuterol ] 25 Mg PO BID Protonix (Pantoprazole Sodium) 40 Mg Tablet.dr 40 Mg PO DAILY Advair 500-50 Diskus (Fluticasone/Salmeterol) 1 Each Disk.w.dev 2 Inh IH BID Atorvastatin Calcium 80 Mg Tablet 80 Mg PO HS Vitals/I & O Vital Sign - Last 24 Hours 08/30/18 08/30/18 08/30/18 08/30/18 11:43 13:57 14:54 16:07 Temp 98.1 98.1 Pulse 61 Resp 20 B/P (MAP) 101/51 (68) Pulse Ox 93 O2 Delivery Room Air Room Air Room Air Room Air 08/30/18 08/30/18 08/30/18 08/30/18 17:00 19:00 19:40 20:00 Temp 97.4 97.4 Pulse 56 70 Resp 18 B/P (MAP) 85/35 96/59 (71) Pulse Ox 93 O2 Delivery Room Air Room Air Room Air 08/30/18 08/30/18 08/31/18 08/31/18 20:40 22:59 03:00 04:27 Temp 98.6 98.5 98.6 98.5 Pulse 55 51 57 Resp 17 16 16 B/P (MAP) 79/55 (63) 79/42 (54) 81/40 (54) Pulse Ox 95 94 O2 Delivery Room Air Room Air Room Air Nasal Cannula O2 Flow Rate 2.0 08/31/18 08/31/18 08/31/185/19 05:00 05:15 05:30 05:45 Temp 98.1 98.1 Pulse 60 54 54 54 Resp 14 16 18 17 B/P (MAP) 93/47 (62) 70/37 (48) 95/54 (68) 95/51 (66) Pulse Ox 93 93 93 92 08/31/18 08/31/18 08/31/18 05:56 06:00 06:30 Pulse 54 56 Resp 15 11 B/P (MAP) 93/55 (68) 97/52 (67) Pulse Ox 93 93 O2 Delivery Room Air O2 Flow Rate 2.0 Intake and Output 08/30/18 08/30/18 08/31/18 15:00 23:00 07:00 Intake Total 500 ml 1800 ml 400 ml Output Total 7 ml 2 ml Balance 493 ml 1798 ml 400 ml VELASQUEZ DAY MD Aug 31, 2018 09:02
[2018-08-31] MEDS: ALBUTEROL SULFATE 2.5 MG/3 ML NEBU. NEB SCH ×4 (09:09→21:34)
[2018-08-31 09:31] LABS: % LYMPHS 11 % (24-48); % MONOS 3 % (0-10); % SEGS 86 % (35-66)
[2018-08-31 09:32] LABS: PLATELET CLUMP PRESENT; PLT ESTIMATE ADEQUATE (ADEQUATE)
[2018-08-31] MEDS: PANTOPRAZOLE 40 MG TABLET.DR. PO SCH (09:49)
[2018-08-31] MEDS: CLOPIDOGREL BISULFATE 75 MG TABLET PO SCH (09:49)
[2018-08-31] MEDS: POTASSIUM CHLORIDE 20 MEQ TABLET.ER. PO SCH (09:49)
[2018-08-31] MEDS: PHENYTOIN SODIUM EXTENDED 100 MG CAPSULE PO SCH ×4 (09:49→20:45)
[2018-08-31] MEDS: FLUoxetine HCL 20 MG CAPSULE PO SCH (09:49)
[2018-08-31] MEDS: GABAPENTIN 300 MG CAPSULE. PO SCH ×3 (09:49→20:45)
[2018-08-31] MEDS: PHENobarbital 32.4 MG TABLET. PO SCH ×2 (09:50→20:45)
[2018-08-31] MEDS: INSULIN GLARGINE 300 UNITS/3 ML INSULN.PEN. SQ SCH ×2 (09:53→21:00)
[2018-08-31] MEDS: INSULIN LISPRO 300 UNITS/3 ML INSULN.PEN. SQ SCH ×4 (09:53→17:00)
[2018-08-31] MEDS ORDERED: MIDAZOLAM HCL/PF 2 MG/2 ML VIAL. ONE (13:32)
[2018-08-31] MEDS ORDERED: PROPOFOL 20 ML IV ONE (13:32)
--- NOTE | 2018-08-31 15:04 | RAD ---
MRI Brain without contrast History: Altered mental status, lethargy Technique: Multiplanar, multisequential noncontrast MR imaging was performed of the brain. Comparison: None Findings: There is some motion degradation. There is a small 0.4 cm focus of restricted diffusion left parasagittal frontal cortical surface. There is no midline shift or extra-axial fluid collection. Ventricular size is within normal limits. There is small old lacunar infarct of the right villa radiata extending to basal ganglia, also tiny focus on the left. There is minimal T2 and FLAIR hyperintense signal abnormality of the periventricular white matter bilaterally. There is preservation of the major arterial flow voids at the skull base. There is large right maxillary sinus mucous retention cyst about 3.3 cm. There is mild fluid and thickening of the right mastoid air cells, very minimally on the left. There is disconjugate gaze. There is patchy minimal ethmoid air cell mastoid sinus mucosal thickening. Cerebellar tonsils are normal in location. There is preservation of marrow signal of the clivus. There is no obvious abnormality of the pineal gland or pituitary gland. Impression: 1. There is a very small acute infarct of the left parasagittal frontal cortical surface. There are small old lacunar infarcts as stated. Other minimal T2 and FLAIR hyperintense signal abnormality of the supratentorial parenchyma is nonspecific, may be due to chronic microvascular ischemic disease. 2. There is large right maxillary sinus mucous retention cyst. There is patchy minimal fluid and thickening of the mastoid air cells greater on the right. FOR INTERNAL CODING PURPOSES Critical result: Findings discussed with patient's nurse Marni at 08/31/2018 3:01 PM. RESULT CODE: (C) Electronically signed by: Michael Sena MD (08/31/2018 3:01 PM) [id number]
[2018-08-31] MEDS ORDERED: ACETAMINOPHEN 325 MG TABLET. PO PRN (15:30)
[2018-08-31] MEDS ORDERED: ACETAMINOPHEN 650 MG SUPP.RECT. PR PRN (15:30)
--- NOTE | 2018-08-31 16:50 | RAD ---
Carotid ultrasound, 08/31/2018: HISTORY: CVA, lethargy Duplex evaluation of the carotid arteries and neck was performed including grayscale, color-flow and spectral Doppler analysis. There is mild intimal thickening and minimal smooth plaquing at the carotid bifurcations. The peak systolic velocity in the right internal carotid artery is 83 cm/s with an end-diastolic velocity of 16 cm/s and an internal carotid to common carotid artery ratio of 1.0. The peak systolic velocity in the left internal carotid artery is 97 cm/s with an end-diastolic velocity of 15 cm/s and an internal carotid to common carotid artery ratio of 1.0. These Doppler findings do not suggest significant stenosis. Antegrade flow is present in both vertebral arteries in the neck. IMPRESSION: Minimal atherosclerotic plaquing at both carotid bifurcations with no duplex evidence of significant associated stenosis. Note: Stenosis calculations for CT, MRA and conventional angiography are based upon determination of the distal ICA diameter in accordance with the NASCET methodology. Stenosis calculations for Doppler studies are derived from validated velocity criteria which are known to correlate with NASCET methodology of determining stenosis. Electronically signed by: Hever Lozada MD (08/31/2018 4:47 PM) [facility]
--- NOTE | 2018-08-31 18:06 | NUR ---
Bedside Swallow Evaluation completed. Please refer to full report for additional details. Impressions: Mild oral dysphagia w/ pt's impulsive eating patterns (pt takes large, repetitive bites, talks w/ mouth full and drinks w/ food in her mouth) likely a contributing factor. Unknown if this is pt's prior pattern or is new. While no s/s aspiration were noted during evaluation and pt generally appears at low risk of aspiration w/ thin liquids, puree and solids, pt's impulsivity and large volume bites and drinks do increase the risk of aspiration. Recommendations: Dysphagia III diet w/ thin liquids. Straws ok. General swallow precautions including checking for pocketed/food residue. ST f/u for dysphagia. Precautions posted in room.
--- NOTE | 2018-08-31 19:35 | NUR ---
Patient came up from [address] [place] [address]. NIH and Vasques done. Patient c/o of unable to urinate. Bladder scan shows >800. Order received to insert houser. Patient tolerated well. Clear yellow urine draining from houser.
[2018-08-31] MEDS: ATORVASTATIN CALCIUM 40 MG TABLET. PO SCH (20:45)
[2018-08-31] MEDS: ENOXAPARIN 40 MG/0.4 ML SYRINGE. SQ SCH (20:47)
[2018-08-31] MEDS: oxyCODONE IR 5 MG TABLET PO PRN (20:53)
[2018-09-01 03:59] VITALS: BP 110/63
[2018-09-01 06:59] LABS: BASO % 1 % (0-3); EOS # 0.1 x10^3/uL (0.0-0.7); EOS % 1 % (0-3); HEMATOCRIT 35.9 % (36.0-47.0); HEMOGLOBIN 11.8 g/dL (12.0-15.5); LYMPH # 3.2 x10^3/uL (1.0-4.8); LYMPH % 45 % (24-48); MEAN CORPUSCULAR HEMOGLOBIN 29 pg (25-35); MEAN CORPUSCULAR HGB CONC 33 g/dL (31-37); MEAN CORPUSCULAR VOLUME 89 fL (79-100); MONO # 0.5 x10^3/uL (0.0-1.1); MONO % 7 % (0-9); NEUT # 3.3 x10^3uL (1.8-7.7); NEUT % 46 % (31-73); PLATELET COUNT 160 x10^3/uL (140-400); RED BLOOD COUNT 4.03 x10^6/uL (3.50-5.40); RED CELL DISTRIBUTION WIDTH 14.5 % (11.5-14.5)
[2018-09-01 07:29] LABS: CREATININE 0.7 mg/dL (0.6-1.0); GFR 84.8; POTASSIUM 3.8 mmol/L (3.5-5.1)
[2018-09-01 07:30] VITALS: BP 138/66
[2018-09-01 07:35] LABS: CHOLESTEROL/HDL RATIO 3.8
[2018-09-01] MEDS: PHENobarbital 32.4 MG TABLET. PO SCH ×2 (07:42→20:42)
[2018-09-01] MEDS: POTASSIUM CHLORIDE 20 MEQ TABLET.ER. PO SCH (07:42)
[2018-09-01] MEDS: CLOPIDOGREL BISULFATE 75 MG TABLET PO SCH (07:42)
[2018-09-01] MEDS: GABAPENTIN 300 MG CAPSULE. PO SCH ×3 (07:42→20:42)
[2018-09-01] MEDS: hydrOXYzine PAMOATE 25 MG CAPSULE PO SCH ×3 (07:42→20:42)
[2018-09-01] MEDS: PHENYTOIN SODIUM EXTENDED 100 MG CAPSULE PO SCH ×4 (07:43→20:42)
[2018-09-01] MEDS: hydroCHLOROthiazide 25 MG TABLET PO SCH (07:43)
[2018-09-01] MEDS: FLUoxetine HCL 20 MG CAPSULE PO SCH (07:44)
[2018-09-01] MEDS: ISOSORBIDE MONONITRATE ER 30 MG TAB.ER.24H PO SCH (07:44)
[2018-09-01] MEDS: FUROSEMIDE 40 MG TABLET. PO SCH (07:44)
[2018-09-01] MEDS: PANTOPRAZOLE 40 MG TABLET.DR. PO SCH (07:44)
[2018-09-01] MEDS: amLODIPine BESYLATE 10 MG TABLET PO SCH (07:45)
[2018-09-01] MEDS: CARVEDILOL 12.5 MG TABLET. PO SCH ×2 (07:45→17:30)
[2018-09-01] MEDS: LOSARTAN POTASSIUM 50 MG TABLET. PO SCH (07:46)
[2018-09-01] MEDS: INSULIN LISPRO 300 UNITS/3 ML INSULN.PEN. SQ SCH ×3 (08:03→17:55)
[2018-09-01] MEDS: INSULIN GLARGINE 300 UNITS/3 ML INSULN.PEN. SQ SCH ×2 (08:04→20:50)
[2018-09-01] MEDS: BUDESONIDE 0.5 MG/2 ML NEBU. NEB SCH ×2 (08:12→20:00)
[2018-09-01] MEDS: ALBUTEROL SULFATE 2.5 MG/3 ML NEBU. NEB SCH ×4 (08:12→20:00)
--- NOTE | 2018-09-01 10:20 | SNU/HH DC ---
DISCHARGE WITH HOME HEALTH DISCHARGE INFORMATION: Final Diagnosis: Problems Medical Problems: (1) Acute ischemic optic neuropathy Status: Acute Condition on Discharge: Stable CODE STATUS: Code Status: Full HOME HEALTH: Face to Face: I certify this patient is under my care and that I, or a nurse practitioner or physician's seed laboratory assistant working with me, had a face to face encounter that meets the physician face to face encounter requirements with this patient on []. 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 POST DISCHARGE ORDERS: Activity Instructions for Disc: Activity as tolerated Weight Bearing Status after Di: No restrictions DIET AFTER DISCHARGE: ADA CHECKS AFTER DISCHARGE: Checks after discharge: Check blood press - daily TREATMENT/EQUIPMENT ORDERS: Adaptive Equipment Issued: Juma CERTIFICATION STATEMENT: Certification Statement: Certification Statement: Based on the above finding, I certify that this patient is confined to the home and needs intermittent [facility] care, physical therapy and/or speech therapy, or continues to need occupational therapy.~ This patient is under my care, and I have initiated the establishment of the plan of care.~ This patient will be followed by myself or a community physician who will periodically review the plan of care. Home Meds Active Scripts Budesonide (BUDESONIDE) 0.5 Mg/2 Ml Ampul.neb, 0.5 MG NEB RTBID for nasal congestion for 30 Days, #60 EACH Prov:CHRISTINE GALINDO MD 07/18/18 Hydrochlorothiazide (HYDROCHLOROTHIAZIDE TABLET ) 25 Mg Tablet, 25 MG PO DAILY for HTN for 30 Days, #30 TAB Prov:CHRISTINE GALINDO MD 07/18/18 Temazepam (RESTORIL) 7.5 Mg Capsule, 7.5 MG PO PRN QHS PRN for INSOMNIA for 30 Days, #30 CAP Prov:CHRISTINE GALINDO MD 07/18/18 Oxycodone/Apap 5-325 (PERCOCET 5-325 MG TABLET ) 1 Each Tablet, 2 TAB PO PRN Q4HRS PRN for SEVERE PAIN for 3 Days, #20 TAB Prov:CHRISTINE GALINDO MD 07/18/18 Enoxaparin Sodium (ENOXAPARIN SODIUM) 40 Mg/0.4 Ml Disp.syrin, 40 MG SQ Q24H for dvt prophylaxis for 42 Days, #42 DIS.SYR Prov:CHRISTINE GALINDO MD 07/18/18 Gabapentin (GABAPENTIN ) 300 Mg Capsule, 300 MG PO TID for NEUROGENIC PAIN for 30 Days, #90 CAP Prov:CHRISTINE GALINDO MD 07/18/18 Insulin Glargine,Hum.rec.anlog (LANTUS SOLOSTAR) 100 Unit/1 Ml Insuln.pen, 40 UNIT SQ BID for glucose for 30 Days, #15 ML 3 Refills Prov:CHRISTINE GALINDO MD 07/18/18 Losartan/Hydrochlorothiazide (LOSARTAN-HCTZ 100-25 MG TAB) 1 Each Tablet, 1 TAB PO DAILY for HTN for 30 Days, #30 TAB 1 Refill Prov:CHRISTINE GALINDO MD 07/18/18 Amlodipine Besylate (AMLODIPINE BESYLATE) 10 Mg Tablet, 10 MG PO DAILY for HTN for 30 Days, #30 TAB Prov:CHRISTINE GALINDO MD 07/18/18 Hydroxyzine Pamoate (HYDROXYZINE PAMOATE) 25 Mg Capsule, 1 CAP PO TID for antihistamines for 5 Days, #15 CAP Prov:CHRISTINE GALINDO MD 07/18/18 Insulin Aspart (NOVOLOG FLEXPEN) 100 Unit/1 Ml Insuln.pen, 10 UNITS SQ TIDAC for DM for 30 Days, #30 EACH Prov:CHRISTINE GALINDO MD 07/18/18 Phenobarbital (PHENOBARBITAL) 100 Mg Tablet, 50 MG PO BID for antiepileptic for 30 Days, #60 TAB Prov:CHRISTINE GALINDO MD 07/18/18 Potassium Chloride (POTASSIUM CHLORIDE) 20 Meq Tablet.er, 20 MEQ PO DAILY for hypokalemia for 30 Days, #30 TAB.SR Prov:CHRISTINE GALINDO MD 07/18/18 Furosemide (FUROSEMIDE) 40 Mg Tablet, 40 MG PO DAILY for diuretic for 30 Days, # 30 TAB Prov:CHRISTINE GALINDO MD 07/18/18 Clopidogrel Bisulfate (PLAVIX) 75 Mg Tablet, 75 MG PO DAILY for antiplatelet for 30 Days, #30 TAB 0 Refills Prov:CHRISTINE GALINDO MD 07/18/18 Albuterol Sulfate (PROAIR HFA INHALER) 8.5 Gm Hfa.aer.ad, 2 PUFF IH PRN Q4-6HRS for asthma, #1 INHALER Prov:CHRISTINE GALINDO MD 07/18/18 Phenytoin Sodium Extended (PHENYTOIN SODIUM EXTENDED) 100 Mg Capsule, 100 MG PO four times a daily for antiepileptic for 30 Days, #120 CAP Prov:CHRISTINE GALINDO MD 07/18/18 Carvedilol (CARVEDILOL ) 12.5 Mg Tablet, 25 MG PO BIDWMEALS for HTN for 30 Days, #120 TAB Prov:CHRISTINE GALINDO MD 07/18/18 Isosorbide Mononitrate (ISOSORBIDE MONONITRATE ER) 60 Mg Tab.er.24h, 60 MG PO DAILY for vasodilator for 30 Days, #30 TAB.SR Prov:CHRISTINE GALINDO MD 07/18/18 Carvedilol (CARVEDILOL) 25 Mg Tablet, 1 TAB PO BID, #60 TAB 0 Refills Prov:KAVYA VÁZQUEZ MD 04/02/18 Reported Medications Fluoxetine Hcl (PROZAC) 20 Mg Capsule, 20 MG PO DAILY for depression, CAP 08/29/18 Oxycodone HCl (Oxycodone HCl) 30 Mg Tablet, 30 MG PO PRN Q4HRS PRN for PAIN, TAB 08/29/18 Hydrocodone/Acetaminophen (Hydrocodone-Acetamin 7.5-325) 1 Each Tablet, 1 EACH PO PRN Q6HRS PRN for PAIN, TAB 08/29/18 [albuterol ] No Conflict Check, 25 MG PO BID 12/07/16 Pantoprazole Sodium (PROTONIX) 40 Mg Tablet.dr, 40 MG PO DAILY, TAB 06/11/14 Fluticasone/Salmeterol (ADVAIR 500-50 DISKUS) 1 Each Disk.w.dev, 2 INH IH BID, INHALER 06/11/14 Atorvastatin Calcium (ATORVASTATIN CALCIUM) 80 Mg Tablet, 80 MG PO HS for FOR CHOLESTEROL, #30 TAB 0 Refills 06/11/14 ALISHA COOLEY III DO Sep 01, 2018 10:20
[2018-09-01 11:00] VITALS: BP 95/42
--- NOTE | 2018-09-01 11:05 | PDOC ---
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, Right femur fracture Chronic pain syndrome on chronic narcotic therapy Acute creatinine increased,t likely secondary to hypotensive episode leukocytosis secondary to steroid therapy Lice infestation History of Present Illness History of Present Illness Pt seen and examined this am Pt noted to have lice, pt wearing hair net States her Left eye is completely blind, no change since admission MRI showing L parasagittal infarct Post anesthesia had >800cc post void residue, [place] inserted, pt wishing to have this d/c today Vitals Vitals Vital Signs Date Time Temp Pulse Resp B/P (MAP) Pulse Ox O2 Delivery O2 Flow Rate FiO2 09/01/18 08:14 98 Room Air 09/01/18 08:00 2.0 09/01/18 07:46 59 138/66 09/01/18 07:30 97.8 20 97.8 Physical Exam General: Alert, Oriented X3, Cooperative, No acute distress, Other (HEENT: No vision in Left eye ) Heart: Regular rate, Normal S1, Normal S2, No murmurs Lungs: Clear, Other (no crackles or wheezing) Abdomen: Normal bowel sounds, Soft, No tenderness, No masses Extremities: No edema, Normal pulses, No tenderness/swelling, Other (Severe Right leg pain from fracture) Skin: No rashes, No breakdown, No significant lesion Labs LABS Laboratory Tests Test 08/31/18 12:34 08/31/18 18:26 08/31/18 20:57 09/01/18 06:40 Glucose (Fingerstick) 134 mg/dL (70-99) 106 mg/dL (70-99) 289 mg/dL (70-99) White Blood Count 7.0 x10^3/uL (4.0-11.0) Red Blood Count 4.03 x10^6/uL (3.50-5.40) Hemoglobin 11.8 g/dL (12.0-15.5) Hematocrit 35.9 % (36.0-47.0) Mean Corpuscular Volume 89 fL (79-100) Mean Corpuscular Hemoglobin 29 pg (25-35) Mean Corpuscular Hemoglobin Concent 33 g/dL (31-37) Red Cell Distribution Width 14.5 % (11.5-14.5) Platelet Count 160 x10^3/uL (140-400) Neutrophils (%) (Auto) 46 % (31-73) Lymphocytes (%) (Auto) 45 % (24-48) Monocytes (%) (Auto) 7 % (0-9) Eosinophils (%) (Auto) 1 % (0-3) Basophils (%) (Auto) 1 % (0-3) Neutrophils # (Auto) 3.3 x10^3uL (1.8-7.7) Lymphocytes # (Auto) 3.2 x10^3/uL (1.0-4.8) Monocytes # (Auto) 0.5 x10^3/uL (0.0-1.1) Eosinophils # (Auto) 0.1 x10^3/uL (0.0-0.7) Basophils # (Auto) 0.0 x10^3/uL (0.0-0.2) Sodium Level 140 mmol/L (136-145) Potassium Level 3.8 mmol/L (3.5-5.1) Chloride Level 107 mmol/L (98-107) Carbon Dioxide Level 25 mmol/L (21-32) Anion Gap 8 (6-14) Blood Urea Nitrogen 23 mg/dL (7-20) Creatinine 0.7 mg/dL (0.6-1.0) Estimated GFR (Cockcroft-Gault) 84.8 Glucose Level 216 mg/dL (70-99) Calcium Level 8.0 mg/dL (8.5-10.1) Triglycerides Level 124 mg/dL (0-150) Cholesterol Level 164 mg/dL (0-200) LDL Cholesterol, Calculated 96 mg/dL (0-100) VLDL Cholesterol, Calculated 25 mg/dL (0-40) Non-HDL Cholesterol Calculated 121 mg/dL (0-129) HDL Cholesterol 43 mg/dL (40-60) Cholesterol/HDL Ratio 3.8 Test 09/01/18 07:44 Glucose (Fingerstick) 154 mg/dL (70-99) Review of Systems Review of Systems Denies F/C, CP or SOA Assessment and Plan Assessmemt and Plan Assessment: Acute ischemic neuropathy - L eye Blindness, unchanged (sed rate 9, CRP 2) Right femur fracture Chronic pain syndrome on chronic narcotic therapy Acute creatinine increased, likely secondary to hypotensive episode, resolved leukocytosis secondary to steroid therapy Lice infestation Plan: D/c catheter, spontaneous voiding trial Lice treated MRI revealing L parasagittal infarct, appreciate Neurology recommendations Home Rx Recheck labs in am D3 diet per 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 Labs Laboratory Tests Test 08/30/18 12:30 08/30/18 14:07 08/30/18 16:57 08/30/18 19:40 Sodium Level 130 mmol/L (136-145) Potassium Level 4.3 mmol/L (3.5-5.1) Chloride Level 95 mmol/L (98-107) Carbon Dioxide Level 20 mmol/L (21-32) Anion Gap 15 (6-14) Blood Urea Nitrogen 21 mg/dL (7-20) Creatinine 1.4 mg/dL (0.6-1.0) Estimated GFR (Cockcroft-Gault) 38.1 Glucose Level 739 mg/dL (70-99) Calcium Level 8.7 mg/dL (8.5-10.1) Glucose (Fingerstick) 540 mg/dL (70-99) 239 mg/dL (70-99) 82 mg/dL (70-99) Test 08/30/18 21:29 08/31/18 00:14 08/31/18 03:09 08/31/18 03:50 Glucose (Fingerstick) 99 mg/dL (70-99) 95 mg/dL (70-99) 163 mg/dL (70-99) White Blood Count 14.5 x10^3/uL (4.0-11.0) Red Blood Count 3.88 x10^6/uL (3.50-5.40) Hemoglobin 11.3 g/dL (12.0-15.5) Hematocrit 34.6 % (36.0-47.0) Mean Corpuscular Volume 89 fL (79-100) Mean Corpuscular Hemoglobin 29 pg (25-35) Mean Corpuscular Hemoglobin Concent 33 g/dL (31-37) Red Cell Distribution Width 14.1 % (11.5-14.5) Platelet Count 183 x10^3/uL (140-400) Neutrophils (%) (Auto) 86 % (31-73) Lymphocytes (%) (Auto) 11 % (24-48) Monocytes (%) (Auto) 3 % (0-9) Eosinophils (%) (Auto) 0 % (0-3) Basophils (%) (Auto) 0 % (0-3) Neutrophils # (Auto) 12.4 x10^3uL (1.8-7.7) Lymphocytes # (Auto) 1.7 x10^3/uL (1.0-4.8) Monocytes # (Auto) 0.4 x10^3/uL (0.0-1.1) Eosinophils # (Auto) 0.0 x10^3/uL (0.0-0.7) Basophils # (Auto) 0.0 x10^3/uL (0.0-0.2) Segmented Neutrophils % 86 % (35-66) Lymphocytes % 11 % (24-48) Monocytes % 3 % (0-10) Platelet Estimate Adequate (ADEQUATE) Platelet Clumps, EDTA Present Sodium Level 140 mmol/L (136-145) Potassium Level 4.1 mmol/L (3.5-5.1) Chloride Level 105 mmol/L (98-107) Carbon Dioxide Level 23 mmol/L (21-32) Anion Gap 12 (6-14) Blood Urea Nitrogen 37 mg/dL (7-20) Creatinine 1.8 mg/dL (0.6-1.0) Estimated GFR (Cockcroft-Gault) 28.5 Glucose Level 172 mg/dL (70-99) Calcium Level 8.3 mg/dL (8.5-10.1) Test 08/31/18 05:00 08/31/18 05:05 08/31/18 07:45 08/31/18 12:34 Nasal Screen MRSA (PCR) Negative (Negative) Glucose (Fingerstick) 168 mg/dL (70-99) 209 mg/dL (70-99) 134 mg/dL (70-99) Test 08/31/18 18:26 08/31/18 20:57 09/01/18 06:40 09/01/18 07:44 Glucose (Fingerstick) 106 mg/dL (70-99) 289 mg/dL (70-99) 154 mg/dL (70-99) White Blood Count 7.0 x10^3/uL (4.0-11.0) Red Blood Count 4.03 x10^6/uL (3.50-5.40) Hemoglobin 11.8 g/dL (12.0-15.5) Hematocrit 35.9 % (36.0-47.0) Mean Corpuscular Volume 89 fL (79-100) Mean Corpuscular Hemoglobin 29 pg (25-35) Mean Corpuscular Hemoglobin Concent 33 g/dL (31-37) Red Cell Distribution Width 14.5 % (11.5-14.5) Platelet Count 160 x10^3/uL (140-400) Neutrophils (%) (Auto) 46 % (31-73) Lymphocytes (%) (Auto) 45 % (24-48) Monocytes (%) (Auto) 7 % (0-9) Eosinophils (%) (Auto) 1 % (0-3) Basophils (%) (Auto) 1 % (0-3) Neutrophils # (Auto) 3.3 x10^3uL (1.8-7.7) Lymphocytes # (Auto) 3.2 x10^3/uL (1.0-4.8) Monocytes # (Auto) 0.5 x10^3/uL (0.0-1.1) Eosinophils # (Auto) 0.1 x10^3/uL (0.0-0.7) Basophils # (Auto) 0.0 x10^3/uL (0.0-0.2) Sodium Level 140 mmol/L (136-145) Potassium Level 3.8 mmol/L (3.5-5.1) Chloride Level 107 mmol/L (98-107) Carbon Dioxide Level 25 mmol/L (21-32) Anion Gap 8 (6-14) Blood Urea Nitrogen 23 mg/dL (7-20) Creatinine 0.7 mg/dL (0.6-1.0) Estimated GFR (Cockcroft-Gault) 84.8 Glucose Level 216 mg/dL (70-99) Calcium Level 8.0 mg/dL (8.5-10.1) Triglycerides Level 124 mg/dL (0-150) Cholesterol Level 164 mg/dL (0-200) LDL Cholesterol, Calculated 96 mg/dL (0-100) VLDL Cholesterol, Calculated 25 mg/dL (0-40) Non-HDL Cholesterol Calculated 121 mg/dL (0-129) HDL Cholesterol 43 mg/dL (40-60) Cholesterol/HDL Ratio 3.8 Laboratory Tests Test 08/31/18 12:34 08/31/18 18:26 08/31/18 20:57 09/01/18 06:40 Glucose (Fingerstick) 134 mg/dL (70-99) 106 mg/dL (70-99) 289 mg/dL (70-99) White Blood Count 7.0 x10^3/uL (4.0-11.0) Red Blood Count 4.03 x10^6/uL (3.50-5.40) Hemoglobin 11.8 g/dL (12.0-15.5) Hematocrit 35.9 % (36.0-47.0) Mean Corpuscular Volume 89 fL (79-100) Mean Corpuscular Hemoglobin 29 pg (25-35) Mean Corpuscular Hemoglobin Concent 33 g/dL (31-37) Red Cell Distribution Width 14.5 % (11.5-14.5) Platelet Count 160 x10^3/uL (140-400) Neutrophils (%) (Auto) 46 % (31-73) Lymphocytes (%) (Auto) 45 % (24-48) Monocytes (%) (Auto) 7 % (0-9) Eosinophils (%) (Auto) 1 % (0-3) Basophils (%) (Auto) 1 % (0-3) Neutrophils # (Auto) 3.3 x10^3uL (1.8-7.7) Lymphocytes # (Auto) 3.2 x10^3/uL (1.0-4.8) Monocytes # (Auto) 0.5 x10^3/uL (0.0-1.1) Eosinophils # (Auto) 0.1 x10^3/uL (0.0-0.7) Basophils # (Auto) 0.0 x10^3/uL (0.0-0.2) Sodium Level 140 mmol/L (136-145) Potassium Level 3.8 mmol/L (3.5-5.1) Chloride Level 107 mmol/L (98-107) Carbon Dioxide Level 25 mmol/L (21-32) Anion Gap 8 (6-14) Blood Urea Nitrogen 23 mg/dL (7-20) Creatinine 0.7 mg/dL (0.6-1.0) Estimated GFR (Cockcroft-Gault) 84.8 Glucose Level 216 mg/dL (70-99) Calcium Level 8.0 mg/dL (8.5-10.1) Triglycerides Level 124 mg/dL (0-150) Cholesterol Level 164 mg/dL (0-200) LDL Cholesterol, Calculated 96 mg/dL (0-100) VLDL Cholesterol, Calculated 25 mg/dL (0-40) Non-HDL Cholesterol Calculated 121 mg/dL (0-129) HDL Cholesterol 43 mg/dL (40-60) Cholesterol/HDL Ratio 3.8 Test 09/01/18 07:44 Glucose (Fingerstick) 154 mg/dL (70-99) Medications Current Medications Methylprednisolone Sodium Succinate (SOLU-Medrol 125MG VIAL) 250 mg Q6HRS IV Last administered on 08/30/18 06:02; Start 08/29/18 at 16:00; Stop 08/30/18 at 12: 18; Status DC Lorazepam (Ativan) 1 mg 1X ONCE IV Last administered on 08/29/18 16:08; Start 08/29/18 at 15:45; Stop 08/29/18 at 15:46; Status DC Pantoprazole Sodium (Protonix) 40 mg 1X ONCE PO Last administered on 08/29/18at 16:47; Start 08/29/18 at 16:45; Stop 08/29/18 at 16:46; Status DC Insulin Human Regular (HumuLIN R VIAL) 5 unit 1X ONCE IV Last administered on 08/29/18at 16:48; Start 08/29/18 at 16:45; Stop 08/29/18 at 16:46; Status DC Amlodipine Besylate (Norvasc) 10 mg DAILY PO Last administered on 09/01/18at 07: 45; Start 08/30/18 at 09:00 Budesonide (Pulmicort) 0.5 mg RTBID NEB Last administered on 09/01/18at 08:12; Start 08/29/18 at 20:00 Carvedilol (Coreg) 25 mg BIDWMEALS PO Last administered on 09/01/18at 07:45; Start 08/29/18 at 21:00 Clopidogrel Bisulfate (Plavix) 75 mg DAILY PO Last administered on 09/01/18 07: 42; Start 08/30/18 at 09:00 Enoxaparin Sodium (Lovenox 40mg Syringe) 40 mg Q24H SQ Last administered on 08/31 20:47; Start 08/29/18 at 21:00 Furosemide (Lasix) 40 mg DAILY PO Last administered on 09/01/18 07:44; Start at 09:00 Gabapentin (Neurontin) 300 mg TID PO Last administered on 09/01/18 07:42; Start 08/29/18 at 21:00 Hydrochlorothiazide (Hydrodiuril) 25 mg DAILY PO Last administered on 09/01/18 07:43; Start 08/30/18 at 09:00 Acetaminophen/ Hydrocodone Bitart (Lortab 7.5/325) 1 tab PRN Q6HRS PRN PO MILD PAIN Last administered on 08/29/18 22:56; Start 08/29/18 at 20:00 Insulin Glargine (Lantus) 40 units BID SQ Last administered on 09/01/18 08:04; Start 08/29/18 at 21:00 Oxycodone HCl (Roxicodone) 30 mg PRN Q4HRS PRN PO SEVERE PAIN; Start 08/29/18 at 20:00; Stop 08/30/18 at 00:39; Status DC Oxycodone/ Acetaminophen (Percocet 5/325) 2 tab PRN Q4HRS PRN PO MODERATE PAIN Last administered on 08/30/18 04:03; Start 08/29/18 at 20:00 Pantoprazole Sodium (Protonix) 40 mg DAILYAC PO Last administered on 09/01/18 07:44; Start 08/30/18 at 07:30 Temazepam (Restoril) 7.5 mg PRN QHS PRN PO INSOMNIA Last administered on 21:30; Start 08/29/18 at 20:00 Atorvastatin Calcium (Lipitor) 80 mg QHS PO Last administered on 08/31/18 20:45 ; Start 08/29/18 at 21:00 Non-Formulary Medication (Carvedilol ) 1 tab BID PO ; Start 08/29/18 at 21:00; Status UNV Non-Formulary Medication (Fluticasone/ Salmeterol (Advair 500-50 Diskus)) 2 inh BID IH ; Start 08/29/18 at 21:00; Status UNV Hydroxyzine Pamoate (Vistaril) 25 mg TID PO Last administered on 09/01/18 07:42 ; Start 08/29/18 at 21:00 Insulin Human Lispro (HumaLOG) 10 units TIDWMEALS SQ Last administered on 08:38; Start 08/30/18 at 08:00; Stop 08/30/18 at 10:27; Status DC Isosorbide Mononitrate (Imdur) 60 mg DAILY PO Last administered on 09/01/18 07: 44; Start 08/30/18 at 09:00 Non-Formulary Medication (Losartan/ Hydrochlorothiazide (Losartan-Hctz 100-25 Mg Tab)) 1 tab DAILY PO ; Start 08/30/18 at 09:00; Status UNV Phenobarbital (Luminal) 48.6 mg BID PO Last administered on 09/01/18 07:42; Start 08/29/18 at 21:00 Phenytoin Sodium (Dilantin) 100 mg QID PO Last administered on 09/01/18 07:43; Start 08/29/18 at 21:00 Potassium Chloride (Klor-Con) 20 meq DAILYWBKFT PO Last administered on 07:42; Start 08/30/18 at 08:00 Non-Formulary Medication ([albuterol ] ) 25 mg BID PO ; Start 08/29/18 at 21:00; Status UNV Albuterol Sulfate (Ventolin Neb Soln) 2.5 mg RTQID NEB Last administered on 09/01 08:12; Start 08/29/18 at 21:00 Losartan Potassium (Cozaar) 100 mg DAILY PO Last administered on 09/01/18 07:46 ; Start 08/30/18 at 09:00 Fluoxetine HCl (PROzac) 20 mg DAILY PO Last administered on 09/01/18 07:44; Start 08/30/18 at 09:00 Oxycodone HCl (Roxicodone) 30 mg PRN Q4HRS PRN PO SEVERE PAIN Last administered on 08/31/18 20:53; Start 08/30/18 at 00:39; Stop 09/01/18 at 07:18; Status DC Insulin Human Lispro (HumaLOG) 20 units TIDWMEALS SQ Last administered on 09:53; Start 08/30/18 at 12:00; Stop 08/31/18 at 10:38; Status DC Insulin Human Lispro (HumaLOG) 0-9 UNITS TIDWMEALS SQ Last administered on 09:54; Start 08/30/18 at 12:00; Stop 08/31/18 at 10:38; Status DC Dextrose (Dextrose 50%-Water Syringe) 12.5 gm PRN Q15MIN PRN IV SEE COMMENTS; Start 08/30/18 at 10:30; Stop 08/31/18 at 10:38; Status DC Insulin Human Lispro (HumaLOG) 40 units 1X STAT SQ Last administered on 12:39; Start 08/30/18 at 12:15; Stop 08/30/18 at 12:20; Status DC Sodium Chloride 1,000 ml @ 100 mls/hr Q10H IV Last administered on 08/31/18 21 :02; Start 08/30/18 at 12:15 Methylprednisolone Sodium Succinate (SOLU-Medrol 125MG VIAL) 125 mg Q6HRS IV Last administered on 08/30/18 13:03; Start 08/30/18 at 13:00; Stop 08/30/18 at 14: 25; Status DC Ondansetron HCl (Zofran Odt) 4 mg PRN Q6HRS PRN PO NAUSEA/VOMITING Last administered on 08/30/18 13:57; Start 08/30/18 at 13:45 Lorazepam (Ativan) 0.5 mg PRN Q6HRS PRN PO ANXIETY / AGITATION Last administered on 08/30/18 13:57; Start 08/30/18 at 13:45 Insulin Human Lispro (HumaLOG) 30 units 1X STAT SQ Last administered on 14:43; Start 08/30/18 at 14:22; Stop 08/30/18 at 14:29; Status DC Ondansetron HCl (Zofran) 4 mg PRN Q6HRS PRN IV NAUSEA/VOMITING; Start 08/31/18 at 07:00; Stop 08/31/18 at 16:00; Status DC Fentanyl Citrate (Fentanyl 2ml Vial) 25 mcg PRN Q5MIN PRN IV MILD PAIN; Start 08/31/18 at 07:00; Stop 08/31/18 at 16:00; Status DC Fentanyl Citrate (Fentanyl 2ml Vial) 50 mcg PRN Q5MIN PRN IV MODERATE TO SEVERE PAIN; Start 08/31/18 at 07:00; Stop 08/31/18 at 16:00; Status DC Ringer's Solution 1,000 ml @ 30 mls/hr Q24H IV ; Start 08/31/18 at 07:00; Stop 08/31/18 at 18:59; Status DC Lidocaine HCl (Xylocaine-Mpf 1% 2ml Vial) 2 ml PRN 1X PRN ID PRIOR TO IV START ; Start 08/31/18 at 07:00; Stop 08/31/18 at 16:00; Status DC Prochlorperazine Edisylate (Compazine) 5 mg PACU PRN PRN IV NAUSEA, MRX1; Start 08/31/18 at 07:00; Stop 08/31/18 at 16:00; Status DC Sodium Chloride 1,000 ml @ 1,000 mls/hr 1X ONCE IV Last administered on at 22:44; Start 08/30/18 at 22:45; Stop 08/30/18 at 23:44; Status DC Naloxone HCl (Narcan) 0.4 mg STK-MED ONCE .ROUTE ; Start 08/31/18 at 00:40; Stop 08/31/18 at 00:41; Status DC Naloxone HCl (Narcan) 0.4 mg PRN Q2MIN PRN IV SEE COMMENTS Last administered on 08/31/18at 03:27; Start 08/31/18 at 00:45 Sodium Chloride 1,000 ml @ 1,000 mls/hr 1X ONCE IV Last administered on at 04:15; Start 08/31/18 at 04:15; Stop 08/31/18 at 05:14; Status DC Naloxone HCl (Narcan) 2 mg 1X ONCE IV Last administered on 08/31/18at 04:18; Start 08/31/18 at 04:15; Stop 08/31/18 at 04:16; Status DC Pyrethrins/ Piperonyl Butoxide (Rid Shampoo) 1 wisam 1X ONCE TP Last administered on 08/31/18at 09:50; Start 08/31/18 at 08:30; Stop 08/31/18 at 08:39; Status DC Insulin Human Lispro (HumaLOG) 10 units TIDWMEALS SQ Last administered on at 08:03; Start 08/31/18 at 12:00 Propofol 20 ml @ As Directed STK-MED ONCE IV ; Start 08/31/18 at 13:32; Stop 08/31 at 13:33; Status DC Midazolam HCl (Versed) 2 mg STK-MED ONCE .ROUTE ; Start 08/31/18 at 13:32; Stop 08/31/18 at 13:33; Status DC Acetaminophen (Tylenol) 650 mg PRN Q6HRS PRN PO TEMP > 100.4F; Start 08/31/18 at 15:30 Acetaminophen (Tylenol Supp) 650 mg PRN Q4HRS PRN CO TEMP > 100.4F; Start at 15:30 Oxycodone HCl (Roxicodone) 30 mg PRN Q4HRS PRN PO SEVERE PAIN; Start 09/01/18 at 07:30 Active Scripts Active Budesonide 0.5 Mg/2 Ml Ampul.neb 0.5 Mg NEB RTBID 30 Days Hydrochlorothiazide Tablet (Hydrochlorothiazide) 25 Mg Tablet 25 Mg PO DAILY 30 Days Restoril (Temazepam) 7.5 Mg Capsule 7.5 Mg PO PRN QHS PRN 30 Days Percocet 5-325 Mg Tablet (Oxycodone/Acetaminophen) 1 Each Tablet 2 Tab PO PRN Q4HRS PRN 3 Days Enoxaparin Sodium 40 Mg/0.4 Ml Disp.syrin 40 Mg SQ Q24H 42 Days Gabapentin (Gabapentin) 300 Mg Capsule 300 Mg PO TID 30 Days Lantus Solostar (Insulin Glargine,Hum.rec.anlog) 100 Unit/1 Ml Insuln.pen 40 Unit SQ BID 30 Days Losartan-Hctz 100-25 Mg Tab (Losartan/Hydrochlorothiazide) 1 Each Tablet 1 Tab PO DAILY 30 Days Amlodipine Besylate 10 Mg Tablet 10 Mg PO DAILY 30 Days Hydroxyzine Pamoate 25 Mg Capsule 1 Cap PO TID 5 Days Novolog Flexpen (Insulin Aspart) 100 Unit/1 Ml Insuln.pen 10 Units SQ TIDAC 30 Days Phenobarbital 100 Mg Tablet 50 Mg PO BID 30 Days Potassium Chloride 20 Meq Tablet.er 20 Meq PO DAILY 30 Days Furosemide 40 Mg Tablet 40 Mg PO DAILY 30 Days Plavix (Clopidogrel Bisulfate) 75 Mg Tablet 75 Mg PO DAILY 30 Days Proair Hfa Inhaler (Albuterol Sulfate) 8.5 Gm Hfa.aer.ad 2 Puff IH PRN Q4-6HRS Phenytoin Sodium Extended 100 Mg Capsule 100 Mg PO FOUR TIMES A DAILY 30 Days Carvedilol (Carvedilol) 12.5 Mg Tablet 25 Mg PO BIDWMEALS 30 Days Isosorbide Mononitrate Er (Isosorbide Mononitrate) 60 Mg Tab.er.24h 60 Mg PO DAILY 30 Days Carvedilol 25 Mg Tablet 1 Tab PO BID Reported Prozac (Fluoxetine Hcl) 20 Mg Capsule 20 Mg PO DAILY Oxycodone HCl 30 Mg Tablet 30 Mg PO PRN Q4HRS PRN Hydrocodone-Acetamin 7.5-325 (Hydrocodone/Acetaminophen) 1 Each Tablet 1 Each PO PRN Q6HRS PRN [albuterol ] 25 Mg PO BID Protonix (Pantoprazole Sodium) 40 Mg Tablet.dr 40 Mg PO DAILY Advair 500-50 Diskus (Fluticasone/Salmeterol) 1 Each Disk.w.dev 2 Inh IH BID Atorvastatin Calcium 80 Mg Tablet 80 Mg PO HS Vitals/I & O Vital Sign - Last 24 Hours 08/31/18 08/31/18 08/31/18 08/31/18 11:00 14:32 14:32 14:45 Temp 98.0 97.2 98.0 98.0 97.2 98.0 Pulse 65 63 56 Resp 18 18 B/P (MAP) 153/82 (105) 171/84 154/80 Pulse Ox 95 98 98 O2 Delivery Room Air Room Air Room Air Room Air 08/31/18 08/31/18 08/31/18 08/31/18 15:00 15:00 18:28 19:43 Temp 98.0 97.6 98.9 98.0 97.6 98.9 Pulse 62 55 61 94 Resp 18 16 17 B/P (MAP) 156/82 143/73 (96) 156/82 154/57 (89) Pulse Ox 98 92 93 O2 Delivery Room Air Room Air Room Air 08/31/18 08/31/18 08/31/18 09/01/18 20:10 21:38 23:41 03:59 Temp 97.6 97.3 97.6 97.3 Pulse 52 65 Resp 20 19 B/P (MAP) 101/43 (62) 110/63 (79) Pulse Ox 95 93 92 O2 Delivery Room Air Room Air Room Air Room Air 09/01/18 09/01/18 09/01/18 09/01/18 07:30 07:44 07:45 07:45 Temp 97.8 97.8 Pulse 59 59 59 59 Resp 20 B/P (MAP) 138/66 (90) 138/66 138/66 138/66 Pulse Ox 97 O2 Delivery Room Air 09/01/18 09/01/18 09/01/18 07:46 08:00 08:14 Pulse 59 B/P (MAP) 138/66 Pulse Ox 98 O2 Delivery Room Air Room Air O2 Flow Rate 2.0 Intake and Output 08/31/18 08/31/18 09/01/18 15:00 23:00 07:00 Intake Total 0 ml 600 ml Output Total 950 ml 1200 ml Balance 0 ml -350 ml -1200 ml ALISHA COOLEY III DO Sep 01, 2018 11:05
[2018-09-01] MEDS: IV NORMAL SALINE 1000ML BAG 1,000 ML IV SCH ×2 (13:37→20:43)
[2018-09-01 15:00] VITALS: BP 117/58
--- NOTE | 2018-09-01 16:26 | PDOC ---
PROGRESS NOTES Assessment Problems Medical Problems: (1) Acute ischemic optic neuropathy Status: Acute Small acute infarct of the left parasagittal frontal cortical surface. 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 History of migraines Epilepsy Gait disorder related to femur fractures. Psychiatric disorders. Head lice Plan No need for temporal artery biopsy. Continue statin and clopidogrel Continue supportive care. Rehab Perhaps discharged to home tomorrow, again she refuses long term placement. Subjective Denies headache. Feels like s---, doesn't want to go home yet, does not want to go to long term. Objective Vital Signs Date Time Temp Pulse Resp B/P (MAP) Pulse Ox O2 Delivery O2 Flow Rate FiO2 09/01/18 15:00 98.3 71 18 117/58 (77) 94 Room Air 98.3 09/01/18 08:00 2.0 Intake and Output 09/01/18 07:00 Intake Total 600 ml Output Total 2150 ml Balance -1550 ml Intake Oral 600 ml Output Urine Total 2150 ml # Voids 3 PHYSICAL EXAM Alert. Oriented to time, place and person. Left afferent pupillary defect, left eye blind EOMI. CN: no focal findings. Muscle tone: normal. Muscle strength: 5/5 DTR: 2+ Plantar reflex: flexor Gait: not examined in bed. Sensory exam: no abnormal findings. No cerebellar signs elicited. Review of Relevant I have reviewed the following items mary (where applicable) has been applied. Labs Laboratory Tests Test 08/30/18 16:57 08/30/18 19:40 08/30/18 21:29 08/31/18 00:14 Glucose (Fingerstick) 239 mg/dL (70-99) 82 mg/dL (70-99) 99 mg/dL (70-99) 95 mg/dL (70-99) Test 08/31/18 03:09 08/31/18 03:50 08/31/18 05:00 08/31/18 05:05 Glucose (Fingerstick) 163 mg/dL (70-99) 168 mg/dL (70-99) White Blood Count 14.5 x10^3/uL (4.0-11.0) Red Blood Count 3.88 x10^6/uL (3.50-5.40) Hemoglobin 11.3 g/dL (12.0-15.5) Hematocrit 34.6 % (36.0-47.0) Mean Corpuscular Volume 89 fL (79-100) Mean Corpuscular Hemoglobin 29 pg (25-35) Mean Corpuscular Hemoglobin Concent 33 g/dL (31-37) Red Cell Distribution Width 14.1 % (11.5-14.5) Platelet Count 183 x10^3/uL (140-400) Neutrophils (%) (Auto) 86 % (31-73) Lymphocytes (%) (Auto) 11 % (24-48) Monocytes (%) (Auto) 3 % (0-9) Eosinophils (%) (Auto) 0 % (0-3) Basophils (%) (Auto) 0 % (0-3) Neutrophils # (Auto) 12.4 x10^3uL (1.8-7.7) Lymphocytes # (Auto) 1.7 x10^3/uL (1.0-4.8) Monocytes # (Auto) 0.4 x10^3/uL (0.0-1.1) Eosinophils # (Auto) 0.0 x10^3/uL (0.0-0.7) Basophils # (Auto) 0.0 x10^3/uL (0.0-0.2) Segmented Neutrophils % 86 % (35-66) Lymphocytes % 11 % (24-48) Monocytes % 3 % (0-10) Platelet Estimate Adequate (ADEQUATE) Platelet Clumps, EDTA Present Sodium Level 140 mmol/L (136-145) Potassium Level 4.1 mmol/L (3.5-5.1) Chloride Level 105 mmol/L (98-107) Carbon Dioxide Level 23 mmol/L (21-32) Anion Gap 12 (6-14) Blood Urea Nitrogen 37 mg/dL (7-20) Creatinine 1.8 mg/dL (0.6-1.0) Estimated GFR (Cockcroft-Gault) 28.5 Glucose Level 172 mg/dL (70-99) Calcium Level 8.3 mg/dL (8.5-10.1) Nasal Screen MRSA (PCR) Negative (Negative) Test 08/31/18 07:45 08/31/18 12:34 08/31/18 18:26 08/31/18 20:57 Glucose (Fingerstick) 209 mg/dL (70-99) 134 mg/dL (70-99) 106 mg/dL (70-99) 289 mg/dL (70-99) Test 09/01/18 06:40 09/01/18 07:44 09/01/18 11:13 White Blood Count 7.0 x10^3/uL (4.0-11.0) Red Blood Count 4.03 x10^6/uL (3.50-5.40) Hemoglobin 11.8 g/dL (12.0-15.5) Hematocrit 35.9 % (36.0-47.0) Mean Corpuscular Volume 89 fL (79-100) Mean Corpuscular Hemoglobin 29 pg (25-35) Mean Corpuscular Hemoglobin Concent 33 g/dL (31-37) Red Cell Distribution Width 14.5 % (11.5-14.5) Platelet Count 160 x10^3/uL (140-400) Neutrophils (%) (Auto) 46 % (31-73) Lymphocytes (%) (Auto) 45 % (24-48) Monocytes (%) (Auto) 7 % (0-9) Eosinophils (%) (Auto) 1 % (0-3) Basophils (%) (Auto) 1 % (0-3) Neutrophils # (Auto) 3.3 x10^3uL (1.8-7.7) Lymphocytes # (Auto) 3.2 x10^3/uL (1.0-4.8) Monocytes # (Auto) 0.5 x10^3/uL (0.0-1.1) Eosinophils # (Auto) 0.1 x10^3/uL (0.0-0.7) Basophils # (Auto) 0.0 x10^3/uL (0.0-0.2) Sodium Level 140 mmol/L (136-145) Potassium Level 3.8 mmol/L (3.5-5.1) Chloride Level 107 mmol/L (98-107) Carbon Dioxide Level 25 mmol/L (21-32) Anion Gap 8 (6-14) Blood Urea Nitrogen 23 mg/dL (7-20) Creatinine 0.7 mg/dL (0.6-1.0) Estimated GFR (Cockcroft-Gault) 84.8 Glucose Level 216 mg/dL (70-99) Calcium Level 8.0 mg/dL (8.5-10.1) Triglycerides Level 124 mg/dL (0-150) Cholesterol Level 164 mg/dL (0-200) LDL Cholesterol, Calculated 96 mg/dL (0-100) VLDL Cholesterol, Calculated 25 mg/dL (0-40) Non-HDL Cholesterol Calculated 121 mg/dL (0-129) HDL Cholesterol 43 mg/dL (40-60) Cholesterol/HDL Ratio 3.8 Glucose (Fingerstick) 154 mg/dL (70-99) 112 mg/dL (70-99) Laboratory Tests Test 08/31/18 18:26 08/31/18 20:57 09/01/18 06:40 09/01/18 07:44 Glucose (Fingerstick) 106 mg/dL (70-99) 289 mg/dL (70-99) 154 mg/dL (70-99) White Blood Count 7.0 x10^3/uL (4.0-11.0) Red Blood Count 4.03 x10^6/uL (3.50-5.40) Hemoglobin 11.8 g/dL (12.0-15.5) Hematocrit 35.9 % (36.0-47.0) Mean Corpuscular Volume 89 fL (79-100) Mean Corpuscular Hemoglobin 29 pg (25-35) Mean Corpuscular Hemoglobin Concent 33 g/dL (31-37) Red Cell Distribution Width 14.5 % (11.5-14.5) Platelet Count 160 x10^3/uL (140-400) Neutrophils (%) (Auto) 46 % (31-73) Lymphocytes (%) (Auto) 45 % (24-48) Monocytes (%) (Auto) 7 % (0-9) Eosinophils (%) (Auto) 1 % (0-3) Basophils (%) (Auto) 1 % (0-3) Neutrophils # (Auto) 3.3 x10^3uL (1.8-7.7) Lymphocytes # (Auto) 3.2 x10^3/uL (1.0-4.8) Monocytes # (Auto) 0.5 x10^3/uL (0.0-1.1) Eosinophils # (Auto) 0.1 x10^3/uL (0.0-0.7) Basophils # (Auto) 0.0 x10^3/uL (0.0-0.2) Sodium Level 140 mmol/L (136-145) Potassium Level 3.8 mmol/L (3.5-5.1) Chloride Level 107 mmol/L (98-107) Carbon Dioxide Level 25 mmol/L (21-32) Anion Gap 8 (6-14) Blood Urea Nitrogen 23 mg/dL (7-20) Creatinine 0.7 mg/dL (0.6-1.0) Estimated GFR (Cockcroft-Gault) 84.8 Glucose Level 216 mg/dL (70-99) Calcium Level 8.0 mg/dL (8.5-10.1) Triglycerides Level 124 mg/dL (0-150) Cholesterol Level 164 mg/dL (0-200) LDL Cholesterol, Calculated 96 mg/dL (0-100) VLDL Cholesterol, Calculated 25 mg/dL (0-40) Non-HDL Cholesterol Calculated 121 mg/dL (0-129) HDL Cholesterol 43 mg/dL (40-60) Cholesterol/HDL Ratio 3.8 Test 09/01/18 11:13 Glucose (Fingerstick) 112 mg/dL (70-99) Medications Current Medications Methylprednisolone Sodium Succinate (SOLU-Medrol 125MG VIAL) 250 mg Q6HRS IV Last administered on 08/30/18 06:02; Start 08/29/18 at 16:00; Stop 08/30/18 at 12: 18; Status DC Lorazepam (Ativan) 1 mg 1X ONCE IV Last administered on 08/29/18 16:08; Start 08/29/18 at 15:45; Stop 08/29/18 at 15:46; Status DC Pantoprazole Sodium (Protonix) 40 mg 1X ONCE PO Last administered on 08/29/18 16:47; Start 08/29/18 at 16:45; Stop 08/29/18 at 16:46; Status DC Insulin Human Regular (HumuLIN R VIAL) 5 unit 1X ONCE IV Last administered on 08/29/18at 16:48; Start 08/29/18 at 16:45; Stop 08/29/18 at 16:46; Status DC Amlodipine Besylate (Norvasc) 10 mg DAILY PO Last administered on 09/01/18 07: 45; Start 08/30/18 at 09:00 Budesonide (Pulmicort) 0.5 mg RTBID NEB Last administered on 09/01/18 08:12; Start 08/29/18 at 20:00 Carvedilol (Coreg) 25 mg BIDWMEALS PO Last administered on 09/01/18 07:45; Start 08/29/18 at 21:00 Clopidogrel Bisulfate (Plavix) 75 mg DAILY PO Last administered on 09/01/18 07: 42; Start 08/30/18 at 09:00 Enoxaparin Sodium (Lovenox 40mg Syringe) 40 mg Q24H SQ Last administered on 08/31 20:47; Start 08/29/18 at 21:00 Furosemide (Lasix) 40 mg DAILY PO Last administered on 09/01/18 07:44; Start at 09:00 Gabapentin (Neurontin) 300 mg TID PO Last administered on 09/01/18 13:36; Start 08/29/18 at 21:00 Hydrochlorothiazide (Hydrodiuril) 25 mg DAILY PO Last administered on 09/01/18 07:43; Start 08/30/18 at 09:00 Acetaminophen/ Hydrocodone Bitart (Lortab 7.5/325) 1 tab PRN Q6HRS PRN PO MILD PAIN Last administered on 08/29/18 22:56; Start 08/29/18 at 20:00 Insulin Glargine (Lantus) 40 units BID SQ Last administered on 09/01/18 08:04; Start 08/29/18 at 21:00 Oxycodone HCl (Roxicodone) 30 mg PRN Q4HRS PRN PO SEVERE PAIN; Start 08/29/18 at 20:00; Stop 08/30/18 at 00:39; Status DC Oxycodone/ Acetaminophen (Percocet 5/325) 2 tab PRN Q4HRS PRN PO MODERATE PAIN Last administered on 08/30/18 04:03; Start 08/29/18 at 20:00 Pantoprazole Sodium (Protonix) 40 mg DAILYAC PO Last administered on 09/01/18 07:44; Start 08/30/18 at 07:30 Temazepam (Restoril) 7.5 mg PRN QHS PRN PO INSOMNIA Last administered on 21:30; Start 08/29/18 at 20:00 Atorvastatin Calcium (Lipitor) 80 mg QHS PO Last administered on 08/31/18 20:45 ; Start 08/29/18 at 21:00 Non-Formulary Medication (Carvedilol ) 1 tab BID PO ; Start 08/29/18 at 21:00; Status UNV Non-Formulary Medication (Fluticasone/ Salmeterol (Advair 500-50 Diskus)) 2 inh BID IH ; Start 08/29/18 at 21:00; Status UNV Hydroxyzine Pamoate (Vistaril) 25 mg TID PO Last administered on 09/01/18 13:36 ; Start 08/29/18 at 21:00 Insulin Human Lispro (HumaLOG) 10 units TIDWMEALS SQ Last administered on 08:38; Start 08/30/18 at 08:00; Stop 08/30/18 at 10:27; Status DC Isosorbide Mononitrate (Imdur) 60 mg DAILY PO Last administered on 09/01/18 07: 44; Start 08/30/18 at 09:00 Non-Formulary Medication (Losartan/ Hydrochlorothiazide (Losartan-Hctz 100-25 Mg Tab)) 1 tab DAILY PO ; Start 08/30/18 at 09:00; Status UNV Phenobarbital (Luminal) 48.6 mg BID PO Last administered on 09/01/18 07:42; Start 08/29/18 at 21:00 Phenytoin Sodium (Dilantin) 100 mg QID PO Last administered on 09/01/18 13:36; Start 08/29/18 at 21:00 Potassium Chloride (Klor-Con) 20 meq DAILYWBKFT PO Last administered on 07:42; Start 08/30/18 at 08:00 Non-Formulary Medication ([albuterol ] ) 25 mg BID PO ; Start 08/29/18 at 21:00; Status UNV Albuterol Sulfate (Ventolin Neb Soln) 2.5 mg RTQID NEB Last administered on 4/6 /19at 08:12; Start 08/29/18 at 21:00 Losartan Potassium (Cozaar) 100 mg DAILY PO Last administered on 09/01/18 07:46 ; Start 08/30/18 at 09:00 Fluoxetine HCl (PROzac) 20 mg DAILY PO Last administered on 09/01/18at 07:44; Start 08/30/18 at 09:00 Oxycodone HCl (Roxicodone) 30 mg PRN Q4HRS PRN PO SEVERE PAIN Last administered on 08/31/18 20:53; Start 08/30/18 at 00:39; Stop 09/01/18 at 07:18; Status DC Insulin Human Lispro (HumaLOG) 20 units TIDWMEALS SQ Last administered on 09:53; Start 08/30/18 at 12:00; Stop 08/31/18 at 10:38; Status DC Insulin Human Lispro (HumaLOG) 0-9 UNITS TIDWMEALS SQ Last administered on at 09:54; Start 08/30/18 at 12:00; Stop 08/31/18 at 10:38; Status DC Dextrose (Dextrose 50%-Water Syringe) 12.5 gm PRN Q15MIN PRN IV SEE COMMENTS; Start 08/30/18 at 10:30; Stop 08/31/18 at 10:38; Status DC Insulin Human Lispro (HumaLOG) 40 units 1X STAT SQ Last administered on at 12:39; Start 08/30/18 at 12:15; Stop 08/30/18 at 12:20; Status DC Sodium Chloride 1,000 ml @ 100 mls/hr Q10H IV Last administered on 09/01/18at 13 :37; Start 08/30/18 at 12:15 Methylprednisolone Sodium Succinate (SOLU-Medrol 125MG VIAL) 125 mg Q6HRS IV Last administered on 08/30/18 13:03; Start 08/30/18 at 13:00; Stop 08/30/18 at 14: 25; Status DC Ondansetron HCl (Zofran Odt) 4 mg PRN Q6HRS PRN PO NAUSEA/VOMITING Last administered on 08/30/18 13:57; Start 08/30/18 at 13:45 Lorazepam (Ativan) 0.5 mg PRN Q6HRS PRN PO ANXIETY / AGITATION Last administered on 08/30/18at 13:57; Start 08/30/18 at 13:45 Insulin Human Lispro (HumaLOG) 30 units 1X STAT SQ Last administered on at 14:43; Start 08/30/18 at 14:22; Stop 08/30/18 at 14:29; Status DC Ondansetron HCl (Zofran) 4 mg PRN Q6HRS PRN IV NAUSEA/VOMITING; Start 08/31/18 at 07:00; Stop 08/31/18 at 16:00; Status DC Fentanyl Citrate (Fentanyl 2ml Vial) 25 mcg PRN Q5MIN PRN IV MILD PAIN; Start 08/31/18 at 07:00; Stop 08/31/18 at 16:00; Status DC Fentanyl Citrate (Fentanyl 2ml Vial) 50 mcg PRN Q5MIN PRN IV MODERATE TO SEVERE PAIN; Start 08/31/18 at 07:00; Stop 08/31/18 at 16:00; Status DC Ringer's Solution 1,000 ml @ 30 mls/hr Q24H IV ; Start 08/31/18 at 07:00; Stop 08/31/18 at 18:59; Status DC Lidocaine HCl (Xylocaine-Mpf 1% 2ml Vial) 2 ml PRN 1X PRN ID PRIOR TO IV START ; Start 08/31/18 at 07:00; Stop 08/31/18 at 16:00; Status DC Prochlorperazine Edisylate (Compazine) 5 mg PACU PRN PRN IV NAUSEA, MRX1; Start 08/31/18 at 07:00; Stop 08/31/18 at 16:00; Status DC Sodium Chloride 1,000 ml @ 1,000 mls/hr 1X ONCE IV Last administered on at 22:44; Start 08/30/18 at 22:45; Stop 08/30/18 at 23:44; Status DC Naloxone HCl (Narcan) 0.4 mg STK-MED ONCE .ROUTE ; Start 08/31/18 at 00:40; Stop 08/31/18 at 00:41; Status DC Naloxone HCl (Narcan) 0.4 mg PRN Q2MIN PRN IV SEE COMMENTS Last administered on 08/31/18at 03:27; Start 08/31/18 at 00:45 Sodium Chloride 1,000 ml @ 1,000 mls/hr 1X ONCE IV Last administered on at 04:15; Start 08/31/18 at 04:15; Stop 08/31/18 at 05:14; Status DC Naloxone HCl (Narcan) 2 mg 1X ONCE IV Last administered on 08/31/18at 04:18; Start 08/31/18 at 04:15; Stop 08/31/18 at 04:16; Status DC Pyrethrins/ Piperonyl Butoxide (Rid Shampoo) 1 wisam 1X ONCE TP Last administered on 08/31/18at 09:50; Start 08/31/18 at 08:30; Stop 08/31/18 at 08:39; Status DC Insulin Human Lispro (HumaLOG) 10 units TIDWMEALS SQ Last administered on at 08:03; Start 08/31/18 at 12:00 Propofol 20 ml @ As Directed STK-MED ONCE IV ; Start 08/31/18 at 13:32; Stop 08/31 at 13:33; Status DC Midazolam HCl (Versed) 2 mg STK-MED ONCE .ROUTE ; Start 08/31/18 at 13:32; Stop 08/31/18 at 13:33; Status DC Acetaminophen (Tylenol) 650 mg PRN Q6HRS PRN PO TEMP > 100.4F; Start 08/31/18 at 15:30 Acetaminophen (Tylenol Supp) 650 mg PRN Q4HRS PRN [place] TEMP > 100.4F; Start at 15:30 Oxycodone HCl (Roxicodone) 30 mg PRN Q4HRS PRN PO SEVERE PAIN; Start 09/01/18 at 07:30 Active Scripts Active Budesonide 0.5 Mg/2 Ml Ampul.neb 0.5 Mg NEB RTBID 30 Days Hydrochlorothiazide Tablet (Hydrochlorothiazide) 25 Mg Tablet 25 Mg PO DAILY 30 Days Restoril (Temazepam) 7.5 Mg Capsule 7.5 Mg PO PRN QHS PRN 30 Days Percocet 5-325 Mg Tablet (Oxycodone/Acetaminophen) 1 Each Tablet 2 Tab PO PRN Q4HRS PRN 3 Days Enoxaparin Sodium 40 Mg/0.4 Ml Disp.syrin 40 Mg SQ Q24H 42 Days Gabapentin (Gabapentin) 300 Mg Capsule 300 Mg PO TID 30 Days Lantus Solostar (Insulin Glargine,Hum.rec.anlog) 100 Unit/1 Ml Insuln.pen 40 Unit SQ BID 30 Days Losartan-Hctz 100-25 Mg Tab (Losartan/Hydrochlorothiazide) 1 Each Tablet 1 Tab PO DAILY 30 Days Amlodipine Besylate 10 Mg Tablet 10 Mg PO DAILY 30 Days Hydroxyzine Pamoate 25 Mg Capsule 1 Cap PO TID 5 Days Novolog Flexpen (Insulin Aspart) 100 Unit/1 Ml Insuln.pen 10 Units SQ TIDAC 30 Days Phenobarbital 100 Mg Tablet 50 Mg PO BID 30 Days Potassium Chloride 20 Meq Tablet.er 20 Meq PO DAILY 30 Days Furosemide 40 Mg Tablet 40 Mg PO DAILY 30 Days Plavix (Clopidogrel Bisulfate) 75 Mg Tablet 75 Mg PO DAILY 30 Days Proair Hfa Inhaler (Albuterol Sulfate) 8.5 Gm Hfa.aer.ad 2 Puff IH PRN Q4-6HRS Phenytoin Sodium Extended 100 Mg Capsule 100 Mg PO FOUR TIMES A DAILY 30 Days Carvedilol (Carvedilol) 12.5 Mg Tablet 25 Mg PO BIDWMEALS 30 Days Isosorbide Mononitrate Er (Isosorbide Mononitrate) 60 Mg Tab.er.24h 60 Mg PO DAILY 30 Days Carvedilol 25 Mg Tablet 1 Tab PO BID Reported Prozac (Fluoxetine Hcl) 20 Mg Capsule 20 Mg PO DAILY Oxycodone HCl 30 Mg Tablet 30 Mg PO PRN Q4HRS PRN Hydrocodone-Acetamin 7.5-325 (Hydrocodone/Acetaminophen) 1 Each Tablet 1 Each PO PRN Q6HRS PRN [albuterol ] 25 Mg PO BID Protonix (Pantoprazole Sodium) 40 Mg Tablet.dr 40 Mg PO DAILY Advair 500-50 Diskus (Fluticasone/Salmeterol) 1 Each Disk.w.dev 2 Inh IH BID Atorvastatin Calcium 80 Mg Tablet 80 Mg PO HS Vitals/I & O Vital Sign - Last 24 Hours 08/31/18 08/31/18 08/31/18 08/31/18 18:28 19:43 20:10 21:38 Temp 98.9 98.9 Pulse 61 94 Resp 17 B/P (MAP) 156/82 154/57 (89) Pulse Ox 93 95 O2 Delivery Room Air Room Air Room Air 08/31/18 09/01/18 09/01/18 09/01/18 23:41 03:59 07:30 07:44 Temp 97.6 97.3 97.8 97.6 97.3 97.8 Pulse 52 65 59 59 Resp 20 19 20 B/P (MAP) 101/43 (62) 110/63 (79) 138/66 (90) 138/66 Pulse Ox 93 92 97 O2 Delivery Room Air Room Air Room Air 09/01/18 09/01/18 09/01/18 09/01/18 07:45 07:45 07:46 08:00 Pulse 59 59 59 B/P (MAP) 138/66 138/66 138/66 O2 Delivery Room Air O2 Flow Rate 2.0 09/01/18 09/01/18 09/01/18 08:14 11:00 15:00 Temp 98.3 98.3 98.3 98.3 Pulse 63 71 Resp 18 18 B/P (MAP) 95/42 (59) 117/58 (77) Pulse Ox 98 92 94 O2 Delivery Room Air Room Air Room Air Intake and Output 08/31/18 08/31/18 09/01/18 15:00 23:00 07:00 Intake Total 0 ml 600 ml Output Total 950 ml 1200 ml Balance 0 ml -350 ml -1200 ml Images MRI Brain without contrast There is some motion degradation. There is a small 0.4 cm focus of restricted diffusion left parasagittal frontal cortical surface. There is no midline shift or extra-axial fluid collection. Ventricular size is within normal limits. There is small old lacunar infarct of the right villa radiata extending to basal ganglia, also tiny focus on the left. There is minimal T2 and FLAIR hyperintense signal abnormality of the periventricular white matter bilaterally. There is preservation of the major arterial flow voids at the skull base. There is large right maxillary sinus mucous retention cyst about 3.3 cm. There is mild fluid and thickening of the right mastoid air cells, very minimally on the left. There is disconjugate gaze. There is patchy minimal ethmoid air cell mastoid sinus mucosal thickening. Cerebellar tonsils are normal in location. There is preservation of marrow signal of the clivus. There is no obvious abnormality of the pineal gland or pituitary gland. Impression: 1. There is a very small acute infarct of the left parasagittal frontal cortical surface. There are small old lacunar infarcts as stated. Other minimal T2 and FLAIR hyperintense signal abnormality of the supratentorial parenchyma is nonspecific, may be due to chronic microvascular ischemic disease. 2. There is large right maxillary sinus mucous retention cyst. There is patchy minimal fluid and thickening of the mastoid air cells greater on the right. Carotids: Duplex evaluation of the carotid arteries and neck was performed including grayscale, color-flow and spectral Doppler analysis. There is mild intimal thickening and minimal smooth plaquing at the carotid bifurcations. The peak systolic velocity in the right internal carotid artery is 83 cm/s with an end-diastolic velocity of 16 cm/s and an internal carotid to common carotid artery ratio of 1.0. The peak systolic velocity in the left internal carotid artery is 97 cm/s with an end-diastolic velocity of 15 cm/s and an internal carotid to common carotid artery ratio of 1.0. These Doppler findings do not suggest significant stenosis. Antegrade flow is present in both vertebral arteries in the neck. IMPRESSION: Minimal atherosclerotic plaquing at both carotid bifurcations with no duplex evidence of significant associated stenosis. Echocardiogram, 07/12/18: LEFT VENTRICLE The left ventricle is normal size. There is moderate concentric left ventricular hypertrophy. The left ventricular systolic function is normal. The Ejection Fraction is 60-65%. There is normal LV segmental wall motion. RIGHT VENTRICLE The right ventricle is normal size. There is normal right ventricular wall thickness. The right ventricular systolic function is normal. ATRIA The left atrium is borderline dilated. The right atrium size is normal. The atrial septum is aneurysmal. AORTIC VALVE The aortic valve is thickened but opens well. Doppler and Color Flow revealed no significant aortic regurgitation. There is no significant aortic valvular stenosis. MITRAL VALVE The mitral valve is normal in structure and function. There is no evidence of mitral valve prolapse. There is no mitral valve stenosis. Doppler and Color- flow revealed trace mitral regurgitation. TRICUSPID VALVE The tricuspid valve is normal in structure and function. Doppler and Color Flow revealed trace tricuspid regurgitation. There is no tricuspid valve stenosis. PULMONIC VALVE The pulmonic valve is not well visualized. Doppler and Color Flow revealed no pulmonic valvular regurgitation. GREAT VESSELS The aortic root is normal in size. The IVC is normal in size and collapses >50% with inspiration. PERICARDIAL EFFUSION There is no evidence of significant pericardial effusion. Critical Notification Critical Value: No <Conclusion> The left ventricular systolic function is normal. The Ejection Fraction is 60-65%. There is normal LV segmental wall motion. Trace mitral regurgitation. Trace tricuspid regurgitation. There is no evidence of significant pericardial effusion. VELASQUEZ DAY MD Sep 01, 2018 16:26
--- NOTE | 2018-09-01 16:44 | NUR ---
Per Dr. Agee, observe patient one more night. will cancel the discharge for today.
[2018-09-01] MEDS: HYDROcodone/APAP 7.5/325MG 1 TAB TABLET PO PRN (17:30)
--- NOTE | 2018-09-01 19:08 | DS ---
DATE OF DISCHARGE: 09/01/2018 ADMISSION DIAGNOSIS: Possible giant cell arteritis. DISCHARGE DIAGNOSES: Acute stroke at the left parasagittal frontal surface, left eye visual changes, probable blindness, congestive heart failure, asthma, depression, anxiety, chronic obstructive pulmonary disease, diabetes, hypertension, hyperlipidemia, seizures, sickle cell disease, query; chronic back pain, keloids, epilepsy, osteoporosis, history of sepsis, appendectomy, cholecystectomy, tonsillectomy, tubal ligation, right knee repair, history of femur fracture and adenoid surgery. CONSULTS: Dr. Agee. PROCEDURES: None. HOSPITAL COURSE: The patient is a pleasant elderly female who had been seen by an electric meter tester helper and because of the optic disk and she had had some left eye blindness, he was concerned she could have giant cell arteritis. He sent her to the ER. We started her on high dose steroids. We consulted Neurology and got a sed rate. When we realized the sed rate was actually normal, we realized this is probably not giant cell arteritis. Imaging studies did show an acute stroke in the left parasagittal frontal surface. PHYSICAL EXAMINATION: GENERAL: Clinically, this morning, I saw and examined her. She is at her baseline. HEART: Her heart tones are normal. LUNGS: Clear. She is doing well. If okay with consultants, we plan to discharge with close outpatient followup. DISPOSITION: Home. ACTIVITY: As tolerated. DIET: Low sodium. MEDICATIONS: Please see the MRAD. Total time 36 minutes. SUKHDEEPL Dixon COOLEY DO DR: MALENA/erica JOB#: [id number] / [id number]
[2018-09-01 19:59] VITALS: BP 108/49
[2018-09-01] MEDS: ATORVASTATIN CALCIUM 40 MG TABLET. PO SCH (20:42)
[2018-09-01] MEDS: ENOXAPARIN 40 MG/0.4 ML SYRINGE. SQ SCH (20:43)
[2018-09-01 23:13] VITALS: BP 86/40
[2018-09-02 03:37] VITALS: BP 122/55
[2018-09-02] MEDS: oxyCODONE/APAP 5/325 1 TAB TABLET PO PRN ×2 (06:20→12:09)
[2018-09-02 06:22] LABS: BASO # 0.1 x10^3/uL (0.0-0.2); BASO % 1 % (0-3); EOS # 0.2 x10^3/uL (0.0-0.7); EOS % 2 % (0-3); HEMATOCRIT 36.3 % (36.0-47.0); HEMOGLOBIN 11.7 g/dL (12.0-15.5); LYMPH # 3.9 x10^3/uL (1.0-4.8); LYMPH % 56 % (24-48); MEAN CORPUSCULAR HEMOGLOBIN 29 pg (25-35); MEAN CORPUSCULAR HGB CONC 32 g/dL (31-37); MEAN CORPUSCULAR VOLUME 91 fL (79-100); MONO # 0.6 x10^3/uL (0.0-1.1); MONO % 9 % (0-9); NEUT # 2.2 x10^3uL (1.8-7.7); NEUT % 32 % (31-73); PLATELET COUNT 148 x10^3/uL (140-400); RED BLOOD COUNT 4.01 x10^6/uL (3.50-5.40); RED CELL DISTRIBUTION WIDTH 14.6 % (11.5-14.5)
[2018-09-02 06:35] LABS: CALCIUM 8.3 mg/dL (8.5-10.1); CREATININE 0.9 mg/dL (0.6-1.0); GFR 63.4; POTASSIUM 4.1 mmol/L (3.5-5.1)
[2018-09-02 07:25] VITALS: BP 109/55
[2018-09-02] MEDS: INSULIN LISPRO 300 UNITS/3 ML INSULN.PEN. SQ SCH ×2 (07:52→12:17)
[2018-09-02] MEDS: INSULIN GLARGINE 300 UNITS/3 ML INSULN.PEN. SQ SCH (08:18)
[2018-09-02] MEDS: POTASSIUM CHLORIDE 20 MEQ TABLET.ER. PO SCH (08:19)
[2018-09-02] MEDS: hydrOXYzine PAMOATE 25 MG CAPSULE PO SCH ×2 (08:19→14:31)
[2018-09-02] MEDS: PHENYTOIN SODIUM EXTENDED 100 MG CAPSULE PO SCH ×2 (08:19→14:31)
[2018-09-02] MEDS: FLUoxetine HCL 20 MG CAPSULE PO SCH (08:20)
[2018-09-02] MEDS: ISOSORBIDE MONONITRATE ER 30 MG TAB.ER.24H PO SCH (08:20)
[2018-09-02] MEDS: GABAPENTIN 300 MG CAPSULE. PO SCH ×2 (08:20→14:31)
[2018-09-02] MEDS: hydroCHLOROthiazide 25 MG TABLET PO SCH (08:20)
[2018-09-02] MEDS: LOSARTAN POTASSIUM 50 MG TABLET. PO SCH (08:21)
[2018-09-02] MEDS: amLODIPine BESYLATE 10 MG TABLET PO SCH (08:21)
[2018-09-02] MEDS: CLOPIDOGREL BISULFATE 75 MG TABLET PO SCH (08:22)
[2018-09-02] MEDS: CARVEDILOL 12.5 MG TABLET. PO SCH (08:22)
[2018-09-02] MEDS: PANTOPRAZOLE 40 MG TABLET.DR. PO SCH (08:22)
[2018-09-02] MEDS: FUROSEMIDE 40 MG TABLET. PO SCH (08:22)
[2018-09-02] MEDS: PHENobarbital 32.4 MG TABLET. PO SCH (08:23)
[2018-09-02] MEDS: ALBUTEROL SULFATE 2.5 MG/3 ML NEBU. NEB SCH ×2 (09:44→11:48)
[2018-09-02] MEDS: BUDESONIDE 0.5 MG/2 ML NEBU. NEB SCH (09:45)
--- NOTE | 2018-09-02 10:11 | PDOC ---
PROGRESS NOTES Assessment Problems Medical Problems: (1) Acute ischemic optic neuropathy Status: Acute Small acute infarct of the left parasagittal frontal cortical surface. 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 History of migraines Epilepsy Gait disorder related to femur fractures. Psychiatric disorders. Head lice Plan Patient refuses care home Okay to discharge home No need for temporal artery biopsy. Continue statin and clopidogrel Follow-up with ophthalmology Follow-up with PCP Follow-up with neurology as needed. Subjective Still has left frontal headache, left eye blindness, is willing to go home, but wants Dr. Ramires to discharge her, not me Objective Vital Signs Date Time Temp Pulse Resp B/P (MAP) Pulse Ox O2 Delivery O2 Flow Rate FiO2 09/02/18 09:45 97 Room Air 09/02/18 08:22 56 109/55 09/02/18 07:45 2.0 09/02/18 07:25 98.5 18 98.5 Intake and Output 09/02/18 07:00 Intake Total 1200 ml Output Total 1300 ml Balance -100 ml Intake Oral 1200 ml Output Urine Total 1300 ml # Voids 3 PHYSICAL EXAM Alert. Oriented to time, place and person. Left afferent pupillary defect, left eye blind EOMI. CN: no focal findings. Muscle tone: normal. Muscle strength: 5/5 DTR: 2+ Plantar reflex: flexor Gait: not examined in bed. Sensory exam: no abnormal findings. No cerebellar signs elicited. Review of Relevant I have reviewed the following items mary (where applicable) has been applied. Labs Laboratory Tests Test 08/31/18 12:34 08/31/18 18:26 08/31/18 20:57 09/01/18 06:40 Glucose (Fingerstick) 134 mg/dL (70-99) 106 mg/dL (70-99) 289 mg/dL (70-99) White Blood Count 7.0 x10^3/uL (4.0-11.0) Red Blood Count 4.03 x10^6/uL (3.50-5.40) Hemoglobin 11.8 g/dL (12.0-15.5) Hematocrit 35.9 % (36.0-47.0) Mean Corpuscular Volume 89 fL (79-100) Mean Corpuscular Hemoglobin 29 pg (25-35) Mean Corpuscular Hemoglobin Concent 33 g/dL (31-37) Red Cell Distribution Width 14.5 % (11.5-14.5) Platelet Count 160 x10^3/uL (140-400) Neutrophils (%) (Auto) 46 % (31-73) Lymphocytes (%) (Auto) 45 % (24-48) Monocytes (%) (Auto) 7 % (0-9) Eosinophils (%) (Auto) 1 % (0-3) Basophils (%) (Auto) 1 % (0-3) Neutrophils # (Auto) 3.3 x10^3uL (1.8-7.7) Lymphocytes # (Auto) 3.2 x10^3/uL (1.0-4.8) Monocytes # (Auto) 0.5 x10^3/uL (0.0-1.1) Eosinophils # (Auto) 0.1 x10^3/uL (0.0-0.7) Basophils # (Auto) 0.0 x10^3/uL (0.0-0.2) Sodium Level 140 mmol/L (136-145) Potassium Level 3.8 mmol/L (3.5-5.1) Chloride Level 107 mmol/L (98-107) Carbon Dioxide Level 25 mmol/L (21-32) Anion Gap 8 (6-14) Blood Urea Nitrogen 23 mg/dL (7-20) Creatinine 0.7 mg/dL (0.6-1.0) Estimated GFR (Cockcroft-Gault) 84.8 Glucose Level 216 mg/dL (70-99) Calcium Level 8.0 mg/dL (8.5-10.1) Triglycerides Level 124 mg/dL (0-150) Cholesterol Level 164 mg/dL (0-200) LDL Cholesterol, Calculated 96 mg/dL (0-100) VLDL Cholesterol, Calculated 25 mg/dL (0-40) Non-HDL Cholesterol Calculated 121 mg/dL (0-129) HDL Cholesterol 43 mg/dL (40-60) Cholesterol/HDL Ratio 3.8 Test 09/01/18 07:44 09/01/18 11:13 09/01/18 17:28 09/01/18 20:27 Glucose (Fingerstick) 154 mg/dL (70-99) 112 mg/dL (70-99) 176 mg/dL (70-99) 298 mg/dL (70-99) Test 09/02/18 05:15 09/02/18 07:30 White Blood Count 7.0 x10^3/uL (4.0-11.0) Red Blood Count 4.01 x10^6/uL (3.50-5.40) Hemoglobin 11.7 g/dL (12.0-15.5) Hematocrit 36.3 % (36.0-47.0) Mean Corpuscular Volume 91 fL (79-100) Mean Corpuscular Hemoglobin 29 pg (25-35) Mean Corpuscular Hemoglobin Concent 32 g/dL (31-37) Red Cell Distribution Width 14.6 % (11.5-14.5) Platelet Count 148 x10^3/uL (140-400) Neutrophils (%) (Auto) 32 % (31-73) Lymphocytes (%) (Auto) 56 % (24-48) Monocytes (%) (Auto) 9 % (0-9) Eosinophils (%) (Auto) 2 % (0-3) Basophils (%) (Auto) 1 % (0-3) Neutrophils # (Auto) 2.2 x10^3uL (1.8-7.7) Lymphocytes # (Auto) 3.9 x10^3/uL (1.0-4.8) Monocytes # (Auto) 0.6 x10^3/uL (0.0-1.1) Eosinophils # (Auto) 0.2 x10^3/uL (0.0-0.7) Basophils # (Auto) 0.1 x10^3/uL (0.0-0.2) Sodium Level 143 mmol/L (136-145) Potassium Level 4.1 mmol/L (3.5-5.1) Chloride Level 107 mmol/L (98-107) Carbon Dioxide Level 30 mmol/L (21-32) Anion Gap 6 (6-14) Blood Urea Nitrogen 24 mg/dL (7-20) Creatinine 0.9 mg/dL (0.6-1.0) Estimated GFR (Cockcroft-Gault) 63.4 Glucose Level 107 mg/dL (70-99) Calcium Level 8.3 mg/dL (8.5-10.1) Glucose (Fingerstick) 79 mg/dL (70-99) Laboratory Tests Test 09/01/18 11:13 09/01/18 17:28 09/01/18 20:27 09/02/18 05:15 Glucose (Fingerstick) 112 mg/dL (70-99) 176 mg/dL (70-99) 298 mg/dL (70-99) White Blood Count 7.0 x10^3/uL (4.0-11.0) Red Blood Count 4.01 x10^6/uL (3.50-5.40) Hemoglobin 11.7 g/dL (12.0-15.5) Hematocrit 36.3 % (36.0-47.0) Mean Corpuscular Volume 91 fL (79-100) Mean Corpuscular Hemoglobin 29 pg (25-35) Mean Corpuscular Hemoglobin Concent 32 g/dL (31-37) Red Cell Distribution Width 14.6 % (11.5-14.5) Platelet Count 148 x10^3/uL (140-400) Neutrophils (%) (Auto) 32 % (31-73) Lymphocytes (%) (Auto) 56 % (24-48) Monocytes (%) (Auto) 9 % (0-9) Eosinophils (%) (Auto) 2 % (0-3) Basophils (%) (Auto) 1 % (0-3) Neutrophils # (Auto) 2.2 x10^3uL (1.8-7.7) Lymphocytes # (Auto) 3.9 x10^3/uL (1.0-4.8) Monocytes # (Auto) 0.6 x10^3/uL (0.0-1.1) Eosinophils # (Auto) 0.2 x10^3/uL (0.0-0.7) Basophils # (Auto) 0.1 x10^3/uL (0.0-0.2) Sodium Level 143 mmol/L (136-145) Potassium Level 4.1 mmol/L (3.5-5.1) Chloride Level 107 mmol/L (98-107) Carbon Dioxide Level 30 mmol/L (21-32) Anion Gap 6 (6-14) Blood Urea Nitrogen 24 mg/dL (7-20) Creatinine 0.9 mg/dL (0.6-1.0) Estimated GFR (Cockcroft-Gault) 63.4 Glucose Level 107 mg/dL (70-99) Calcium Level 8.3 mg/dL (8.5-10.1) Test 09/02/18 07:30 Glucose (Fingerstick) 79 mg/dL (70-99) Medications Current Medications Methylprednisolone Sodium Succinate (SOLU-Medrol 125MG VIAL) 250 mg Q6HRS IV Last administered on 08/30/18 06:02; Start 08/29/18 at 16:00; Stop 08/30/18 at 12: 18; Status DC Lorazepam (Ativan) 1 mg 1X ONCE IV Last administered on 08/29/18 16:08; Start 08/29/18 at 15:45; Stop 08/29/18 at 15:46; Status DC Pantoprazole Sodium (Protonix) 40 mg 1X ONCE PO Last administered on 08/29/18 16:47; Start 08/29/18 at 16:45; Stop 08/29/18 at 16:46; Status DC Insulin Human Regular (HumuLIN R VIAL) 5 unit 1X ONCE IV Last administered on 08/29/18 16:48; Start 08/29/18 at 16:45; Stop 08/29/18 at 16:46; Status DC Amlodipine Besylate (Norvasc) 10 mg DAILY PO Last administered on 09/02/18 08: 21; Start 08/30/18 at 09:00 Budesonide (Pulmicort) 0.5 mg RTBID NEB Last administered on 09/02/18 09:45; Start 08/29/18 at 20:00 Carvedilol (Coreg) 25 mg BIDWMEALS PO Last administered on 09/02/18 08:22; Start 08/29/18 at 21:00 Clopidogrel Bisulfate (Plavix) 75 mg DAILY PO Last administered on 09/02/18 08: 22; Start 08/30/18 at 09:00 Enoxaparin Sodium (Lovenox 40mg Syringe) 40 mg Q24H SQ Last administered on 09/01 20:43; Start 08/29/18 at 21:00 Furosemide (Lasix) 40 mg DAILY PO Last administered on 09/02/18 08:22; Start at 09:00 Gabapentin (Neurontin) 300 mg TID PO Last administered on 09/02/18 08:20; Start 08/29/18 at 21:00 Hydrochlorothiazide (Hydrodiuril) 25 mg DAILY PO Last administered on 09/02/18 08:20; Start 08/30/18 at 09:00 Acetaminophen/ Hydrocodone Bitart (Lortab 7.5/325) 1 tab PRN Q6HRS PRN PO MILD PAIN Last administered on 09/01/18 17:30; Start 08/29/18 at 20:00 Insulin Glargine (Lantus) 40 units BID SQ Last administered on 09/01/18 20:50; Start 08/29/18 at 21:00 Oxycodone HCl (Roxicodone) 30 mg PRN Q4HRS PRN PO SEVERE PAIN; Start 08/29/18 at 20:00; Stop 08/30/18 at 00:39; Status DC Oxycodone/ Acetaminophen (Percocet 5/325) 2 tab PRN Q4HRS PRN PO MODERATE PAIN Last administered on 09/02/18 06:20; Start 08/29/18 at 20:00 Pantoprazole Sodium (Protonix) 40 mg DAILYAC PO Last administered on 09/02/18 08:22; Start 08/30/18 at 07:30 Temazepam (Restoril) 7.5 mg PRN QHS PRN PO INSOMNIA Last administered on 21:30; Start 08/29/18 at 20:00 Atorvastatin Calcium (Lipitor) 80 mg QHS PO Last administered on 09/01/18 20:42 ; Start 08/29/18 at 21:00 Non-Formulary Medication (Carvedilol ) 1 tab BID PO ; Start 08/29/18 at 21:00; Status UNV Non-Formulary Medication (Fluticasone/ Salmeterol (Advair 500-50 Diskus)) 2 inh BID IH ; Start 08/29/18 at 21:00; Status UNV Hydroxyzine Pamoate (Vistaril) 25 mg TID PO Last administered on 09/02/18 08:19 ; Start 08/29/18 at 21:00 Insulin Human Lispro (HumaLOG) 10 units TIDWMEALS SQ Last administered on 08:38; Start 08/30/18 at 08:00; Stop 08/30/18 at 10:27; Status DC Isosorbide Mononitrate (Imdur) 60 mg DAILY PO Last administered on 09/02/18 08: 20; Start 08/30/18 at 09:00 Non-Formulary Medication (Losartan/ Hydrochlorothiazide (Losartan-Hctz 100-25 Mg Tab)) 1 tab DAILY PO ; Start 08/30/18 at 09:00; Status UNV Phenobarbital (Luminal) 48.6 mg BID PO Last administered on 09/02/18 08:23; Start 08/29/18 at 21:00 Phenytoin Sodium (Dilantin) 100 mg QID PO Last administered on 09/02/18 08:19; Start 08/29/18 at 21:00 Potassium Chloride (Klor-Con) 20 meq DAILYWBKFT PO Last administered on 08:19; Start 08/30/18 at 08:00 Non-Formulary Medication ([albuterol ] ) 25 mg BID PO ; Start 08/29/18 at 21:00; Status UNV Albuterol Sulfate (Ventolin Neb Soln) 2.5 mg RTQID NEB Last administered on 09/02 09:44; Start 08/29/18 at 21:00 Losartan Potassium (Cozaar) 100 mg DAILY PO Last administered on 09/02/18 08:21 ; Start 08/30/18 at 09:00 Fluoxetine HCl (PROzac) 20 mg DAILY PO Last administered on 09/02/18 08:20; Start 08/30/18 at 09:00 Oxycodone HCl (Roxicodone) 30 mg PRN Q4HRS PRN PO SEVERE PAIN Last administered on 08/31/18 20:53; Start 08/30/18 at 00:39; Stop 09/01/18 at 07:18; Status DC Insulin Human Lispro (HumaLOG) 20 units TIDWMEALS SQ Last administered on 09:53; Start 08/30/18 at 12:00; Stop 08/31/18 at 10:38; Status DC Insulin Human Lispro (HumaLOG) 0-9 UNITS TIDWMEALS SQ Last administered on 09:54; Start 08/30/18 at 12:00; Stop 08/31/18 at 10:38; Status DC Dextrose (Dextrose 50%-Water Syringe) 12.5 gm PRN Q15MIN PRN IV SEE COMMENTS; Start 08/30/18 at 10:30; Stop 08/31/18 at 10:38; Status DC Insulin Human Lispro (HumaLOG) 40 units 1X STAT SQ Last administered on at 12:39; Start 08/30/18 at 12:15; Stop 08/30/18 at 12:20; Status DC Sodium Chloride 1,000 ml @ 100 mls/hr Q10H IV Last administered on 09/01/18at 20 :43; Start 08/30/18 at 12:15 Methylprednisolone Sodium Succinate (SOLU-Medrol 125MG VIAL) 125 mg Q6HRS IV Last administered on 08/30/18 13:03; Start 08/30/18 at 13:00; Stop 08/30/18 at 14: 25; Status DC Ondansetron HCl (Zofran Odt) 4 mg PRN Q6HRS PRN PO NAUSEA/VOMITING Last administered on 08/30/18 13:57; Start 08/30/18 at 13:45 Lorazepam (Ativan) 0.5 mg PRN Q6HRS PRN PO ANXIETY / AGITATION Last administered on 08/30/18 13:57; Start 08/30/18 at 13:45 Insulin Human Lispro (HumaLOG) 30 units 1X STAT SQ Last administered on at 14:43; Start 08/30/18 at 14:22; Stop 08/30/18 at 14:29; Status DC Ondansetron HCl (Zofran) 4 mg PRN Q6HRS PRN IV NAUSEA/VOMITING; Start 08/31/18 at 07:00; Stop 08/31/18 at 16:00; Status DC Fentanyl Citrate (Fentanyl 2ml Vial) 25 mcg PRN Q5MIN PRN IV MILD PAIN; Start 08/31/18 at 07:00; Stop 08/31/18 at 16:00; Status DC Fentanyl Citrate (Fentanyl 2ml Vial) 50 mcg PRN Q5MIN PRN IV MODERATE TO SEVERE PAIN; Start 08/31/18 at 07:00; Stop 08/31/18 at 16:00; Status DC Ringer's Solution 1,000 ml @ 30 mls/hr Q24H IV ; Start 08/31/18 at 07:00; Stop 08/31/18 at 18:59; Status DC Lidocaine HCl (Xylocaine-Mpf 1% 2ml Vial) 2 ml PRN 1X PRN ID PRIOR TO IV START ; Start 08/31/18 at 07:00; Stop 08/31/18 at 16:00; Status DC Prochlorperazine Edisylate (Compazine) 5 mg PACU PRN PRN IV NAUSEA, MRX1; Start 08/31/18 at 07:00; Stop 08/31/18 at 16:00; Status DC Sodium Chloride 1,000 ml @ 1,000 mls/hr 1X ONCE IV Last administered on at 22:44; Start 08/30/18 at 22:45; Stop 08/30/18 at 23:44; Status DC Naloxone HCl (Narcan) 0.4 mg STK-MED ONCE .ROUTE ; Start 08/31/18 at 00:40; Stop 08/31/18 at 00:41; Status DC Naloxone HCl (Narcan) 0.4 mg PRN Q2MIN PRN IV SEE COMMENTS Last administered on 08/31/18at 03:27; Start 08/31/18 at 00:45 Sodium Chloride 1,000 ml @ 1,000 mls/hr 1X ONCE IV Last administered on at 04:15; Start 08/31/18 at 04:15; Stop 08/31/18 at 05:14; Status DC Naloxone HCl (Narcan) 2 mg 1X ONCE IV Last administered on 08/31/18at 04:18; Start 08/31/18 at 04:15; Stop 08/31/18 at 04:16; Status DC Pyrethrins/ Piperonyl Butoxide (Rid Shampoo) 1 wisam 1X ONCE TP Last administered on 08/31/18at 09:50; Start 08/31/18 at 08:30; Stop 08/31/18 at 08:39; Status DC Insulin Human Lispro (HumaLOG) 10 units TIDWMEALS SQ Last administered on at 17:55; Start 08/31/18 at 12:00 Propofol 20 ml @ As Directed STK-MED ONCE IV ; Start 08/31/18 at 13:32; Stop 08/31 at 13:33; Status DC Midazolam HCl (Versed) 2 mg STK-MED ONCE .ROUTE ; Start 08/31/18 at 13:32; Stop 08/31/18 at 13:33; Status DC Acetaminophen (Tylenol) 650 mg PRN Q6HRS PRN PO TEMP > 100.4F; Start 08/31/18 at 15:30 Acetaminophen (Tylenol Supp) 650 mg PRN Q4HRS PRN HI TEMP > 100.4F; Start at 15:30 Oxycodone HCl (Roxicodone) 30 mg PRN Q4HRS PRN PO SEVERE PAIN Last administered on 09/01/18at 20:42; Start 09/01/18 at 07:30 Active Scripts Active Budesonide 0.5 Mg/2 Ml Ampul.neb 0.5 Mg NEB RTBID 30 Days Hydrochlorothiazide Tablet (Hydrochlorothiazide) 25 Mg Tablet 25 Mg PO DAILY 30 Days Restoril (Temazepam) 7.5 Mg Capsule 7.5 Mg PO PRN QHS PRN 30 Days Percocet 5-325 Mg Tablet (Oxycodone/Acetaminophen) 1 Each Tablet 2 Tab PO PRN Q4HRS PRN 3 Days Enoxaparin Sodium 40 Mg/0.4 Ml Disp.syrin 40 Mg SQ Q24H 42 Days Gabapentin (Gabapentin) 300 Mg Capsule 300 Mg PO TID 30 Days Lantus Solostar (Insulin Glargine,Hum.rec.anlog) 100 Unit/1 Ml Insuln.pen 40 Unit SQ BID 30 Days Losartan-Hctz 100-25 Mg Tab (Losartan/Hydrochlorothiazide) 1 Each Tablet 1 Tab PO DAILY 30 Days Amlodipine Besylate 10 Mg Tablet 10 Mg PO DAILY 30 Days Hydroxyzine Pamoate 25 Mg Capsule 1 Cap PO TID 5 Days Novolog Flexpen (Insulin Aspart) 100 Unit/1 Ml Insuln.pen 10 Units SQ TIDAC 30 Days Phenobarbital 100 Mg Tablet 50 Mg PO BID 30 Days Potassium Chloride 20 Meq Tablet.er 20 Meq PO DAILY 30 Days Furosemide 40 Mg Tablet 40 Mg PO DAILY 30 Days Plavix (Clopidogrel Bisulfate) 75 Mg Tablet 75 Mg PO DAILY 30 Days Proair Hfa Inhaler (Albuterol Sulfate) 8.5 Gm Hfa.aer.ad 2 Puff IH PRN Q4-6HRS Phenytoin Sodium Extended 100 Mg Capsule 100 Mg PO FOUR TIMES A DAILY 30 Days Carvedilol (Carvedilol) 12.5 Mg Tablet 25 Mg PO BIDWMEALS 30 Days Isosorbide Mononitrate Er (Isosorbide Mononitrate) 60 Mg Tab.er.24h 60 Mg PO DAILY 30 Days Carvedilol 25 Mg Tablet 1 Tab PO BID Reported Prozac (Fluoxetine Hcl) 20 Mg Capsule 20 Mg PO DAILY Oxycodone HCl 30 Mg Tablet 30 Mg PO PRN Q4HRS PRN Hydrocodone-Acetamin 7.5-325 (Hydrocodone/Acetaminophen) 1 Each Tablet 1 Each PO PRN Q6HRS PRN [albuterol ] 25 Mg PO BID Protonix (Pantoprazole Sodium) 40 Mg Tablet.dr 40 Mg PO DAILY Advair 500-50 Diskus (Fluticasone/Salmeterol) 1 Each Disk.w.dev 2 Inh IH BID Atorvastatin Calcium 80 Mg Tablet 80 Mg PO HS Vitals/I & O Vital Sign - Last 24 Hours 09/01/18 09/01/18 09/01/18 09/01/18 11:00 15:00 16:21 17:30 Temp 98.3 98.3 98.3 98.3 Pulse 63 71 71 Resp 18 18 B/P (MAP) 95/42 (59) 117/58 (77) 117/58 Pulse Ox 92 94 94 O2 Delivery Room Air Room Air Room Air 09/01/18 09/01/18 09/01/18 09/01/18 17:30 19:59 20:15 23:13 Temp 98.5 98.3 98.5 98.3 Pulse 71 61 Resp 18 18 B/P (MAP) 108/49 (68) 86/40 (55) Pulse Ox 94 95 93 O2 Delivery Room Air Room Air Room Air Room Air O2 Flow Rate 2.0 09/02/18 09/02/18 09/02/18 09/02/18 03:37 07:25 07:45 08:20 Temp 98.5 98.5 98.5 98.5 Pulse 59 56 56 Resp 20 18 B/P (MAP) 122/55 (77) 109/55 (73) 109/55 Pulse Ox 95 97 97 O2 Delivery Room Air Room Air Room Air O2 Flow Rate 2.0 09/02/18 09/02/18 09/02/18 09/02/18 08:21 08:21 08:22 09:45 Pulse 56 56 56 B/P (MAP) 109/55 109/55 109/55 Pulse Ox 97 O2 Delivery Room Air Intake and Output 09/01/18 09/01/18 09/02/18 15:00 23:00 07:00 Intake Total 300 ml 800 ml 100 ml Output Total 1050 ml 250 ml Balance 300 ml -250 ml -150 ml VELASQUEZ DAY MD Sep 02, 2018 10:11
[2018-09-02] MEDS: IV NORMAL SALINE 1000ML BAG 1,000 ML IV SCH (10:15)
[2018-09-02 10:34] VITALS: BP 117/61
--- NOTE | 2018-09-02 13:11 | PDOC ---
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 Pt has chosen to return home with HH Left eye blindness, no change since admission MRI showing L parasagittal frontal infarct Pt found to have lice Vitals Vitals Vital Signs Date Time Temp Pulse Resp B/P (MAP) Pulse Ox O2 Delivery O2 Flow Rate FiO2 09/02/18 12:09 95 Room Air 2.0 09/02/18 10:34 98.1 76 19 117/61 (79) 98.1 Physical Exam General: Alert, Oriented X3, Cooperative, No acute distress, Other (HEENT: No vision in Left eye ) Heart: Regular rate, Normal S1, Normal S2, No murmurs Lungs: Clear, Other (no crackles or wheezing) Abdomen: Normal bowel sounds, Soft, No tenderness, No masses Extremities: No clubbing, No edema, Normal pulses, No tenderness/swelling, Other (Severe Right leg pain from fracture) Skin: No rashes, No breakdown, No significant lesion Labs LABS Laboratory Tests Test 09/01/18 17:28 09/01/18 20:27 09/02/18 05:15 09/02/18 07:30 Glucose (Fingerstick) 176 mg/dL (70-99) 298 mg/dL (70-99) 79 mg/dL (70-99) White Blood Count 7.0 x10^3/uL (4.0-11.0) Red Blood Count 4.01 x10^6/uL (3.50-5.40) Hemoglobin 11.7 g/dL (12.0-15.5) Hematocrit 36.3 % (36.0-47.0) Mean Corpuscular Volume 91 fL (79-100) Mean Corpuscular Hemoglobin 29 pg (25-35) Mean Corpuscular Hemoglobin Concent 32 g/dL (31-37) Red Cell Distribution Width 14.6 % (11.5-14.5) Platelet Count 148 x10^3/uL (140-400) Neutrophils (%) (Auto) 32 % (31-73) Lymphocytes (%) (Auto) 56 % (24-48) Monocytes (%) (Auto) 9 % (0-9) Eosinophils (%) (Auto) 2 % (0-3) Basophils (%) (Auto) 1 % (0-3) Neutrophils # (Auto) 2.2 x10^3uL (1.8-7.7) Lymphocytes # (Auto) 3.9 x10^3/uL (1.0-4.8) Monocytes # (Auto) 0.6 x10^3/uL (0.0-1.1) Eosinophils # (Auto) 0.2 x10^3/uL (0.0-0.7) Basophils # (Auto) 0.1 x10^3/uL (0.0-0.2) Sodium Level 143 mmol/L (136-145) Potassium Level 4.1 mmol/L (3.5-5.1) Chloride Level 107 mmol/L (98-107) Carbon Dioxide Level 30 mmol/L (21-32) Anion Gap 6 (6-14) Blood Urea Nitrogen 24 mg/dL (7-20) Creatinine 0.9 mg/dL (0.6-1.0) Estimated GFR (Cockcroft-Gault) 63.4 Glucose Level 107 mg/dL (70-99) Calcium Level 8.3 mg/dL (8.5-10.1) Test 09/02/18 11:53 Glucose (Fingerstick) 114 mg/dL (70-99) Review of Systems Review of Systems Denies N/V, F/C, CP or SOA Assessment and Plan Assessmemt and Plan Assessment: Small acute infarct of the left parasagittal frontal cortical surface. Acute ischemic neuropathy - L eye Blindness, unchanged (sed rate 9, CRP 2) Old lacunar infarcts Right femur fracture History of migraines Chronic pain syndrome on chronic narcotic therapy Acute creatinine increased, likely secondary to hypotensive episode, resolved leukocytosis secondary to steroid therapy Lice infestation Plan: D/c today with Home Health Note for wheelchair provided to pt Rx for pain medication provided F/u with PCP and Ophthalmology 1-2 weeks Lice treated D3 diet per [employer] PT/OT/[employer] Creatine normalized, monitor urinary output BS control, SSI Problems Medical Problems: (1) Acute ischemic optic neuropathy Status: Acute Comment Review of Relevant I have reviewed the following items mary (where applicable) has been applied. Labs Laboratory Tests Test 08/31/18 18:26 08/31/18 20:57 09/01/18 06:40 09/01/18 07:44 Glucose (Fingerstick) 106 mg/dL (70-99) 289 mg/dL (70-99) 154 mg/dL (70-99) White Blood Count 7.0 x10^3/uL (4.0-11.0) Red Blood Count 4.03 x10^6/uL (3.50-5.40) Hemoglobin 11.8 g/dL (12.0-15.5) Hematocrit 35.9 % (36.0-47.0) Mean Corpuscular Volume 89 fL (79-100) Mean Corpuscular Hemoglobin 29 pg (25-35) Mean Corpuscular Hemoglobin Concent 33 g/dL (31-37) Red Cell Distribution Width 14.5 % (11.5-14.5) Platelet Count 160 x10^3/uL (140-400) Neutrophils (%) (Auto) 46 % (31-73) Lymphocytes (%) (Auto) 45 % (24-48) Monocytes (%) (Auto) 7 % (0-9) Eosinophils (%) (Auto) 1 % (0-3) Basophils (%) (Auto) 1 % (0-3) Neutrophils # (Auto) 3.3 x10^3uL (1.8-7.7) Lymphocytes # (Auto) 3.2 x10^3/uL (1.0-4.8) Monocytes # (Auto) 0.5 x10^3/uL (0.0-1.1) Eosinophils # (Auto) 0.1 x10^3/uL (0.0-0.7) Basophils # (Auto) 0.0 x10^3/uL (0.0-0.2) Sodium Level 140 mmol/L (136-145) Potassium Level 3.8 mmol/L (3.5-5.1) Chloride Level 107 mmol/L (98-107) Carbon Dioxide Level 25 mmol/L (21-32) Anion Gap 8 (6-14) Blood Urea Nitrogen 23 mg/dL (7-20) Creatinine 0.7 mg/dL (0.6-1.0) Estimated GFR (Cockcroft-Gault) 84.8 Glucose Level 216 mg/dL (70-99) Calcium Level 8.0 mg/dL (8.5-10.1) Triglycerides Level 124 mg/dL (0-150) Cholesterol Level 164 mg/dL (0-200) LDL Cholesterol, Calculated 96 mg/dL (0-100) VLDL Cholesterol, Calculated 25 mg/dL (0-40) Non-HDL Cholesterol Calculated 121 mg/dL (0-129) HDL Cholesterol 43 mg/dL (40-60) Cholesterol/HDL Ratio 3.8 Test 09/01/18 11:13 09/01/18 17:28 09/01/18 20:27 09/02/18 05:15 Glucose (Fingerstick) 112 mg/dL (70-99) 176 mg/dL (70-99) 298 mg/dL (70-99) White Blood Count 7.0 x10^3/uL (4.0-11.0) Red Blood Count 4.01 x10^6/uL (3.50-5.40) Hemoglobin 11.7 g/dL (12.0-15.5) Hematocrit 36.3 % (36.0-47.0) Mean Corpuscular Volume 91 fL (79-100) Mean Corpuscular Hemoglobin 29 pg (25-35) Mean Corpuscular Hemoglobin Concent 32 g/dL (31-37) Red Cell Distribution Width 14.6 % (11.5-14.5) Platelet Count 148 x10^3/uL (140-400) Neutrophils (%) (Auto) 32 % (31-73) Lymphocytes (%) (Auto) 56 % (24-48) Monocytes (%) (Auto) 9 % (0-9) Eosinophils (%) (Auto) 2 % (0-3) Basophils (%) (Auto) 1 % (0-3) Neutrophils # (Auto) 2.2 x10^3uL (1.8-7.7) Lymphocytes # (Auto) 3.9 x10^3/uL (1.0-4.8) Monocytes # (Auto) 0.6 x10^3/uL (0.0-1.1) Eosinophils # (Auto) 0.2 x10^3/uL (0.0-0.7) Basophils # (Auto) 0.1 x10^3/uL (0.0-0.2) Sodium Level 143 mmol/L (136-145) Potassium Level 4.1 mmol/L (3.5-5.1) Chloride Level 107 mmol/L (98-107) Carbon Dioxide Level 30 mmol/L (21-32) Anion Gap 6 (6-14) Blood Urea Nitrogen 24 mg/dL (7-20) Creatinine 0.9 mg/dL (0.6-1.0) Estimated GFR (Cockcroft-Gault) 63.4 Glucose Level 107 mg/dL (70-99) Calcium Level 8.3 mg/dL (8.5-10.1) Test 09/02/18 07:30 09/02/18 11:53 Glucose (Fingerstick) 79 mg/dL (70-99) 114 mg/dL (70-99) Laboratory Tests Test 09/01/18 17:28 09/01/18 20:27 09/02/18 05:15 09/02/18 07:30 Glucose (Fingerstick) 176 mg/dL (70-99) 298 mg/dL (70-99) 79 mg/dL (70-99) White Blood Count 7.0 x10^3/uL (4.0-11.0) Red Blood Count 4.01 x10^6/uL (3.50-5.40) Hemoglobin 11.7 g/dL (12.0-15.5) Hematocrit 36.3 % (36.0-47.0) Mean Corpuscular Volume 91 fL (79-100) Mean Corpuscular Hemoglobin 29 pg (25-35) Mean Corpuscular Hemoglobin Concent 32 g/dL (31-37) Red Cell Distribution Width 14.6 % (11.5-14.5) Platelet Count 148 x10^3/uL (140-400) Neutrophils (%) (Auto) 32 % (31-73) Lymphocytes (%) (Auto) 56 % (24-48) Monocytes (%) (Auto) 9 % (0-9) Eosinophils (%) (Auto) 2 % (0-3) Basophils (%) (Auto) 1 % (0-3) Neutrophils # (Auto) 2.2 x10^3uL (1.8-7.7) Lymphocytes # (Auto) 3.9 x10^3/uL (1.0-4.8) Monocytes # (Auto) 0.6 x10^3/uL (0.0-1.1) Eosinophils # (Auto) 0.2 x10^3/uL (0.0-0.7) Basophils # (Auto) 0.1 x10^3/uL (0.0-0.2) Sodium Level 143 mmol/L (136-145) Potassium Level 4.1 mmol/L (3.5-5.1) Chloride Level 107 mmol/L (98-107) Carbon Dioxide Level 30 mmol/L (21-32) Anion Gap 6 (6-14) Blood Urea Nitrogen 24 mg/dL (7-20) Creatinine 0.9 mg/dL (0.6-1.0) Estimated GFR (Cockcroft-Gault) 63.4 Glucose Level 107 mg/dL (70-99) Calcium Level 8.3 mg/dL (8.5-10.1) Test 09/02/18 11:53 Glucose (Fingerstick) 114 mg/dL (70-99) Medications Current Medications Methylprednisolone Sodium Succinate (SOLU-Medrol 125MG VIAL) 250 mg Q6HRS IV Last administered on 08/30/18 06:02; Start 08/29/18 at 16:00; Stop 08/30/18 at 12: 18; Status DC Lorazepam (Ativan) 1 mg 1X ONCE IV Last administered on 08/29/18 16:08; Start 08/29/18 at 15:45; Stop 08/29/18 at 15:46; Status DC Pantoprazole Sodium (Protonix) 40 mg 1X ONCE PO Last administered on 08/29/18at 16:47; Start 08/29/18 at 16:45; Stop 08/29/18 at 16:46; Status DC Insulin Human Regular (HumuLIN R VIAL) 5 unit 1X ONCE IV Last administered on 08/29/18 16:48; Start 08/29/18 at 16:45; Stop 08/29/18 at 16:46; Status DC Amlodipine Besylate (Norvasc) 10 mg DAILY PO Last administered on 09/02/18at 08: 21; Start 08/30/18 at 09:00 Budesonide (Pulmicort) 0.5 mg RTBID NEB Last administered on 09/02/18at 09:45; Start 08/29/18 at 20:00 Carvedilol (Coreg) 25 mg BIDWMEALS PO Last administered on 09/02/18 08:22; Start 08/29/18 at 21:00 Clopidogrel Bisulfate (Plavix) 75 mg DAILY PO Last administered on 09/02/18 08: 22; Start 08/30/18 at 09:00 Enoxaparin Sodium (Lovenox 40mg Syringe) 40 mg Q24H SQ Last administered on 09/01 20:43; Start 08/29/18 at 21:00 Furosemide (Lasix) 40 mg DAILY PO Last administered on 09/02/18 08:22; Start at 09:00 Gabapentin (Neurontin) 300 mg TID PO Last administered on 09/02/18 08:20; Start 08/29/18 at 21:00 Hydrochlorothiazide (Hydrodiuril) 25 mg DAILY PO Last administered on 09/02/18 08:20; Start 08/30/18 at 09:00 Acetaminophen/ Hydrocodone Bitart (Lortab 7.5/325) 1 tab PRN Q6HRS PRN PO MILD PAIN Last administered on 09/01/18 17:30; Start 08/29/18 at 20:00 Insulin Glargine (Lantus) 40 units BID SQ Last administered on 09/01/18 20:50; Start 08/29/18 at 21:00 Oxycodone HCl (Roxicodone) 30 mg PRN Q4HRS PRN PO SEVERE PAIN; Start 08/29/18 at 20:00; Stop 08/30/18 at 00:39; Status DC Oxycodone/ Acetaminophen (Percocet 5/325) 2 tab PRN Q4HRS PRN PO MODERATE PAIN Last administered on 09/02/18 12:09; Start 08/29/18 at 20:00 Pantoprazole Sodium (Protonix) 40 mg DAILYAC PO Last administered on 09/02/18 08:22; Start 08/30/18 at 07:30 Temazepam (Restoril) 7.5 mg PRN QHS PRN PO INSOMNIA Last administered on 21:30; Start 08/29/18 at 20:00 Atorvastatin Calcium (Lipitor) 80 mg QHS PO Last administered on 09/01/18 20:42 ; Start 08/29/18 at 21:00 Non-Formulary Medication (Carvedilol ) 1 tab BID PO ; Start 08/29/18 at 21:00; Status UNV Non-Formulary Medication (Fluticasone/ Salmeterol (Advair 500-50 Diskus)) 2 inh BID IH ; Start 08/29/18 at 21:00; Status UNV Hydroxyzine Pamoate (Vistaril) 25 mg TID PO Last administered on 09/02/18 08:19 ; Start 08/29/18 at 21:00 Insulin Human Lispro (HumaLOG) 10 units TIDWMEALS SQ Last administered on 08:38; Start 08/30/18 at 08:00; Stop 08/30/18 at 10:27; Status DC Isosorbide Mononitrate (Imdur) 60 mg DAILY PO Last administered on 09/02/18 08: 20; Start 08/30/18 at 09:00 Non-Formulary Medication (Losartan/ Hydrochlorothiazide (Losartan-Hctz 100-25 Mg Tab)) 1 tab DAILY PO ; Start 08/30/18 at 09:00; Status UNV Phenobarbital (Luminal) 48.6 mg BID PO Last administered on 09/02/18 08:23; Start 08/29/18 at 21:00 Phenytoin Sodium (Dilantin) 100 mg QID PO Last administered on 09/02/18 08:19; Start 08/29/18 at 21:00 Potassium Chloride (Klor-Con) 20 meq DAILYWBKFT PO Last administered on 08:19; Start 08/30/18 at 08:00 Non-Formulary Medication ([albuterol ] ) 25 mg BID PO ; Start 08/29/18 at 21:00; Status UNV Albuterol Sulfate (Ventolin Neb Soln) 2.5 mg RTQID NEB Last administered on 09/02at 11:48; Start 08/29/18 at 21:00 Losartan Potassium (Cozaar) 100 mg DAILY PO Last administered on 09/02/18 08:21 ; Start 08/30/18 at 09:00 Fluoxetine HCl (PROzac) 20 mg DAILY PO Last administered on 09/02/18 08:20; Start 08/30/18 at 09:00 Oxycodone HCl (Roxicodone) 30 mg PRN Q4HRS PRN PO SEVERE PAIN Last administered on 08/31/18 20:53; Start 08/30/18 at 00:39; Stop 09/01/18 at 07:18; Status DC Insulin Human Lispro (HumaLOG) 20 units TIDWMEALS SQ Last administered on 09:53; Start 08/30/18 at 12:00; Stop 08/31/18 at 10:38; Status DC Insulin Human Lispro (HumaLOG) 0-9 UNITS TIDWMEALS SQ Last administered on 09:54; Start 08/30/18 at 12:00; Stop 08/31/18 at 10:38; Status DC Dextrose (Dextrose 50%-Water Syringe) 12.5 gm PRN Q15MIN PRN IV SEE COMMENTS; Start 08/30/18 at 10:30; Stop 08/31/18 at 10:38; Status DC Insulin Human Lispro (HumaLOG) 40 units 1X STAT SQ Last administered on 12:39; Start 08/30/18 at 12:15; Stop 08/30/18 at 12:20; Status DC Sodium Chloride 1,000 ml @ 100 mls/hr Q10H IV Last administered on 09/01/18 20 :43; Start 08/30/18 at 12:15 Methylprednisolone Sodium Succinate (SOLU-Medrol 125MG VIAL) 125 mg Q6HRS IV Last administered on 08/30/18 13:03; Start 08/30/18 at 13:00; Stop 08/30/18 at 14: 25; Status DC Ondansetron HCl (Zofran Odt) 4 mg PRN Q6HRS PRN PO NAUSEA/VOMITING Last administered on 08/30/18 13:57; Start 08/30/18 at 13:45 Lorazepam (Ativan) 0.5 mg PRN Q6HRS PRN PO ANXIETY / AGITATION Last administered on 08/30/18 13:57; Start 08/30/18 at 13:45 Insulin Human Lispro (HumaLOG) 30 units 1X STAT SQ Last administered on 4/4/ 19at 14:43; Start 08/30/18 at 14:22; Stop 08/30/18 at 14:29; Status DC Ondansetron HCl (Zofran) 4 mg PRN Q6HRS PRN IV NAUSEA/VOMITING; Start 08/31/18 at 07:00; Stop 08/31/18 at 16:00; Status DC Fentanyl Citrate (Fentanyl 2ml Vial) 25 mcg PRN Q5MIN PRN IV MILD PAIN; Start 08/31/18 at 07:00; Stop 08/31/18 at 16:00; Status DC Fentanyl Citrate (Fentanyl 2ml Vial) 50 mcg PRN Q5MIN PRN IV MODERATE TO SEVERE PAIN; Start 08/31/18 at 07:00; Stop 08/31/18 at 16:00; Status DC Ringer's Solution 1,000 ml @ 30 mls/hr Q24H IV ; Start 08/31/18 at 07:00; Stop 08/31/18 at 18:59; Status DC Lidocaine HCl (Xylocaine-Mpf 1% 2ml Vial) 2 ml PRN 1X PRN ID PRIOR TO IV START ; Start 08/31/18 at 07:00; Stop 08/31/18 at 16:00; Status DC Prochlorperazine Edisylate (Compazine) 5 mg PACU PRN PRN IV NAUSEA, MRX1; Start 08/31/18 at 07:00; Stop 08/31/18 at 16:00; Status DC Sodium Chloride 1,000 ml @ 1,000 mls/hr 1X ONCE IV Last administered on at 22:44; Start 08/30/18 at 22:45; Stop 08/30/18 at 23:44; Status DC Naloxone HCl (Narcan) 0.4 mg STK-MED ONCE .ROUTE ; Start 08/31/18 at 00:40; Stop 08/31/18 at 00:41; Status DC Naloxone HCl (Narcan) 0.4 mg PRN Q2MIN PRN IV SEE COMMENTS Last administered on 08/31/18at 03:27; Start 08/31/18 at 00:45 Sodium Chloride 1,000 ml @ 1,000 mls/hr 1X ONCE IV Last administered on at 04:15; Start 08/31/18 at 04:15; Stop 08/31/18 at 05:14; Status DC Naloxone HCl (Narcan) 2 mg 1X ONCE IV Last administered on 08/31/18at 04:18; Start 08/31/18 at 04:15; Stop 08/31/18 at 04:16; Status DC Pyrethrins/ Piperonyl Butoxide (Rid Shampoo) 1 wisam 1X ONCE TP Last administered on 08/31/18at 09:50; Start 08/31/18 at 08:30; Stop 08/31/18 at 08:39; Status DC Insulin Human Lispro (HumaLOG) 10 units TIDWMEALS SQ Last administered on at 12:17; Start 08/31/18 at 12:00 Propofol 20 ml @ As Directed STK-MED ONCE IV ; Start 08/31/18 at 13:32; Stop 08/31 at 13:33; Status DC Midazolam HCl (Versed) 2 mg STK-MED ONCE .ROUTE ; Start 08/31/18 at 13:32; Stop 08/31/18 at 13:33; Status DC Acetaminophen (Tylenol) 650 mg PRN Q6HRS PRN PO TEMP > 100.4F; Start 08/31/18 at 15:30 Acetaminophen (Tylenol Supp) 650 mg PRN Q4HRS PRN OK TEMP > 100.4F; Start at 15:30 Oxycodone HCl (Roxicodone) 30 mg PRN Q4HRS PRN PO SEVERE PAIN Last administered on 09/01/18at 20:42; Start 09/01/18 at 07:30 Active Scripts Active Budesonide 0.5 Mg/2 Ml Ampul.neb 0.5 Mg NEB RTBID 30 Days Hydrochlorothiazide Tablet (Hydrochlorothiazide) 25 Mg Tablet 25 Mg PO DAILY 30 Days Restoril (Temazepam) 7.5 Mg Capsule 7.5 Mg PO PRN QHS PRN 30 Days Percocet 5-325 Mg Tablet (Oxycodone/Acetaminophen) 1 Each Tablet 2 Tab PO PRN Q4HRS PRN 3 Days Enoxaparin Sodium 40 Mg/0.4 Ml Disp.syrin 40 Mg SQ Q24H 42 Days Gabapentin (Gabapentin) 300 Mg Capsule 300 Mg PO TID 30 Days Lantus Solostar (Insulin Glargine,Hum.rec.anlog) 100 Unit/1 Ml Insuln.pen 40 Unit SQ BID 30 Days Losartan-Hctz 100-25 Mg Tab (Losartan/Hydrochlorothiazide) 1 Each Tablet 1 Tab PO DAILY 30 Days Amlodipine Besylate 10 Mg Tablet 10 Mg PO DAILY 30 Days Hydroxyzine Pamoate 25 Mg Capsule 1 Cap PO TID 5 Days Novolog Flexpen (Insulin Aspart) 100 Unit/1 Ml Insuln.pen 10 Units SQ TIDAC 30 Days Phenobarbital 100 Mg Tablet 50 Mg PO BID 30 Days Potassium Chloride 20 Meq Tablet.er 20 Meq PO DAILY 30 Days Furosemide 40 Mg Tablet 40 Mg PO DAILY 30 Days Plavix (Clopidogrel Bisulfate) 75 Mg Tablet 75 Mg PO DAILY 30 Days Proair Hfa Inhaler (Albuterol Sulfate) 8.5 Gm Hfa.aer.ad 2 Puff IH PRN Q4-6HRS Phenytoin Sodium Extended 100 Mg Capsule 100 Mg PO FOUR TIMES A DAILY 30 Days Carvedilol (Carvedilol) 12.5 Mg Tablet 25 Mg PO BIDWMEALS 30 Days Isosorbide Mononitrate Er (Isosorbide Mononitrate) 60 Mg Tab.er.24h 60 Mg PO DAILY 30 Days Carvedilol 25 Mg Tablet 1 Tab PO BID Reported Prozac (Fluoxetine Hcl) 20 Mg Capsule 20 Mg PO DAILY Oxycodone HCl 30 Mg Tablet 30 Mg PO PRN Q4HRS PRN Hydrocodone-Acetamin 7.5-325 (Hydrocodone/Acetaminophen) 1 Each Tablet 1 Each PO PRN Q6HRS PRN [albuterol ] 25 Mg PO BID Protonix (Pantoprazole Sodium) 40 Mg Tablet.dr 40 Mg PO DAILY Advair 500-50 Diskus (Fluticasone/Salmeterol) 1 Each Disk.w.dev 2 Inh IH BID Atorvastatin Calcium 80 Mg Tablet 80 Mg PO HS Vitals/I & O Vital Sign - Last 24 Hours 09/01/18 09/01/18 09/01/18 09/01/18 15:00 16:21 17:30 17:30 Temp 98.3 98.3 Pulse 71 71 Resp 18 B/P (MAP) 117/58 (77) 117/58 Pulse Ox 94 94 94 O2 Delivery Room Air Room Air Room Air O2 Flow Rate 2.0 09/01/18 09/01/18 09/01/1819 19:59 20:15 23:13 03:37 Temp 98.5 98.3 98.5 98.5 98.3 98.5 Pulse 71 61 59 Resp 18 18 20 B/P (MAP) 108/49 (68) 86/40 (55) 122/55 (77) Pulse Ox 95 93 95 O2 Delivery Room Air Room Air Room Air Room Air 09/02/18 09/02/18 09/02/18 09/02/18 07:25 07:45 08:00 08:20 Temp 98.5 98.5 Pulse 56 56 Resp 18 B/P (MAP) 109/55 (73) 109/55 Pulse Ox 97 97 O2 Delivery Room Air Room Air Room Air O2 Flow Rate 2.0 2.0 09/02/18 09/02/18 09/02/18 09/02/18 08:21 08:21 08:22 09:45 Pulse 56 56 56 B/P (MAP) 109/55 109/55 109/55 Pulse Ox 97 O2 Delivery Room Air 09/02/18 09/02/18 09/02/18 10:34 11:48 12:09 Temp 98.1 98.1 Pulse 76 Resp 19 B/P (MAP) 117/61 (79) Pulse Ox 95 95 O2 Delivery Room Air Room Air Room Air O2 Flow Rate 2.0 Intake and Output 09/01/18 09/01/18 09/02/18 15:00 23:00 07:00 Intake Total 300 ml 800 ml 100 ml Output Total 1050 ml 250 ml Balance 300 ml -250 ml -150 ml ALISHA COOLEY III DO Sep 02, 2018 13:11
--- NOTE | 2018-09-02 14:53 | NUR ---
Discharge Note: PAMELA SUN[facility] Discharge instructions and discharge home medications reviewed with Patient and a copy given. All questions have been answered and understanding verbalized. The following instructions and handouts were given: follow up instructions, prescriptions for lortab, nebulizer machine, duonebs, wheelchair. Discontinued lines and drains: 20 gauge left FA, tip intact. patient tolerated well. Patient discharged to home with home health via .
== END 2018-09-02 14:52 | disposition home health service (06) | DRG 64 ==
LOC: ER 15:02 → 6 SOUTH 17:15 → 1 WEST ICU 08-31 04:45 → 5 NORTH 08-31 13:59 → 6 SOUTH 08-31 15:38
PROVIDERS: ADMIT Internal Medicine; ATTEND Internal Medicine
DX: I63.9 Cerebral infarction, unspecified (principal); E11.00 Type 2 diabetes mellitus with hyperosmolarity without nonketotic hyperglycemic-hyperosmolar coma (NKHHC); H46.9 Unspecified optic neuritis; H47.012 Ischemic optic neuropathy, left eye; E78.00 Pure hypercholesterolemia, unspecified; G40.909 Epilepsy, unspecified, not intractable, without status epilepticus; I50.9 Heart failure, unspecified; M81.0 Age-related osteoporosis without current pathological fracture; F41.9 Anxiety disorder, unspecified; E78.5 Hyperlipidemia, unspecified; I25.10 Atherosclerotic heart disease of native coronary artery without angina pectoris; I11.0 Hypertensive heart disease with heart failure; G43.909 Migraine, unspecified, not intractable, without status migrainosus; F31.9 Bipolar disorder, unspecified; M79.7 Fibromyalgia; H40.9 Unspecified glaucoma; E03.9 Hypothyroidism, unspecified; H54.62 Unqualified visual loss, left eye, normal vision right eye; G89.4 Chronic pain syndrome; T38.0X5A Adverse effect of glucocorticoids and synthetic analogues, initial encounter; D72.829 Elevated white blood cell count, unspecified; I95.9 Hypotension, unspecified; J44.9 Chronic obstructive pulmonary disease, unspecified; D57.1 Sickle-cell disease without crisis; L91.0 Hypertrophic scar; B85.0 Pediculosis due to Pediculus humanus capitis; Z90.49 Acquired absence of other specified parts of digestive tract; Z98.51 Tubal ligation status; Z88.5 Allergy status to narcotic agent; Z88.0 Allergy status to penicillin; Z88.2 Allergy status to sulfonamides; Z88.7 Allergy status to serum and vaccine; Z88.8 Allergy status to other drugs, medicaments and biological substances; Z88.6 Allergy status to analgesic agent; Z88.1 Allergy status to other antibiotic agents; Z91.030 Bee allergy status; Z91.041 Radiographic dye allergy status; Z87.891 Personal history of nicotine dependence; Z82.49 Family history of ischemic heart disease and other diseases of the circulatory system; Z79.891 Long term (current) use of opiate analgesic; Y92.89 Other specified places as the place of occurrence of the external cause; Z86.73 Personal history of transient ischemic attack (TIA), and cerebral infarction without residual deficits
CPT/HCPCS: 36415; 70450; 70551; 80048; 80053; 80061; 82962; 85007; 85025; 85610; 85651; 86140; 87641; 93005; 93880; 94640; 94760; 96374; 96375; J1650; J1815; J2060; J2250; J2310; J2704; J2930; J7030; J7613; J7626; Q0162; Q0177; 92610; 99285-25

== ENCOUNTER 2018-09-21 23:25 | Emergency (ER) | payer OTHER ==
[~2018-09-21] VITALS: Ht 154.9 cm; Wt 83.0 kg
[~2018-09-21 23:25] MED LIST changes: +FLUO20CA16 PO; +HYDR-2763 PO; +OXYC30TA2 PO
[2018-09-22] MEDS ORDERED: fentaNYL PF VIAL 100 MCG/2 ML VIAL IM ONE (00:30)
--- NOTE | 2018-09-22 01:06 | PHYS DOC ---
Past Medical History Past Medical History: Asthma, CHF, COPD, Diabetes-Type II, High Cholesterol, Hypertension, Seizure, Sickle Cell Disease, Other Additional Past Medical Histor: chronic back pain, k eloids,epilepsy,OSTEOPOROSIS,SEPSIS Past Surgical History: Appendectomy, Cholecystectomy, Tonsillectomy, Tubal ligation, Other Additional Past Surgical Histo: adenoids, RT KNEE, RT FEMUR Alcohol Use: None Drug Use: None Adult General Chief Complaint Chief Complaint: HEADACHE HPI HPI Patient is a 63 year old female who presents with complaining of headache. Patient states he had the CVA few weeks ago and since then has constant frontal sharp headache that didn't get better with oxycodone taking for her chronic pain. Patient denies new focal neuro deficit, fever and chills, blurred vision, nausea and vomiting. She rated her pain 10 over 10. Review of Systems Review of Systems Constitutional: Denies fever or chills [] Eyes: Denies change in visual acuity, redness, or eye pain [] HENT: Denies nasal congestion or sore throat [] Respiratory: Denies cough or shortness of breath [] Cardiovascular: No additional information not addressed in HPI [] GI: Denies abdominal pain, nausea, vomiting, bloody stools or diarrhea [] : Denies dysuria or hematuria [] Musculoskeletal: Denies back pain or joint pain [] Integument: Denies rash or skin lesions [] Neurologic: Reports headache, denies focal weakness or sensory changes [] Endocrine: Denies polyuria or polydipsia [] All other systems were reviewed and found to be within normal limits, except as documented in this note. Current Medications Current Medications Current Medications Medications (Trade) Dose Ordered Sig/Catia Start Time Stop Time Status Last Admin Dose Admin Fentanyl Citrate (Fentanyl 2ml Vial) 50 mcg 1X ONCE 09/22/18 00:30 09/22/18 00:31 DC 09/22/18 01:13 50 MCG Allergies Allergies Allergies Coded Allergies Type Severity Reaction Last Updated Verified Cephalosporins Allergy Intermediate 12/10/16 Yes Penicillins Allergy Intermediate 12/10/16 Yes Sulfa (Sulfonamide Antibiotics) Allergy Intermediate 12/10/16 Yes Tetanus Vaccines and Toxoid Allergy Intermediate 12/10/16 Yes aspirin Allergy Intermediate UNKNOWN RXN, TOLERATES KETOROLAC 07/15/18 Yes iodine Allergy Intermediate rash 12/10/16 Yes morphine Allergy Intermediate 12/12/16 Yes povidone-iodine Allergy Intermediate rash 12/10/16 Yes propoxyphene Allergy Intermediate Nausea and Vomiting 12/10/16 Yes venom-honey bee Allergy Intermediate 12/10/16 Yes venom-wasp Allergy Intermediate 12/10/16 Yes hydromorphone Adverse Reaction Severe 12/10/16 Yes Physical Exam Physical Exam Constitutional: Well nourished, no acute distress, non-toxic appearance. [] HENT: Normocephalic, atraumatic Eyes: PERRLA, EOMI, conjunctiva normal, no discharge. [] Neck: Normal range of motion, no tenderness, supple, no stridor. [] Cardiovascular:Heart rate regular rhythm, no murmur [] Lungs & Thorax: Bilateral breath sounds clear to auscultation [] Abdomen: Bowel sounds normal, soft, no tenderness, no masses, no pulsatile masses. [] Skin: Warm, dry, no erythema, no rash. [] Back: No tenderness, no CVA tenderness. [] Extremities: No tenderness, no cyanosis, no clubbing, ROM intact, no edema. [] Neurologic: Alert and oriented X 3, normal motor function, normal sensory function, no focal deficits noted. [] Psychologic: Affect anxious, judgement normal, mood normal. [] Current Patient Data Vital Signs Vital Signs Date Time Temp Pulse Resp B/P (MAP) Pulse Ox O2 Delivery O2 Flow Rate FiO2 09/22/18 02:09 76 14 96 09/21/18 23:33 98.3 162/85 (110) Room Air 98.3 Lab Values Laboratory Tests Test 09/22/18 01:10 Glucose (Fingerstick) 304 mg/dL (70-99) H EKG EKG [] Radiology/Procedures Radiology/Procedures [facility] [address] [place], [place] [id number] IMAGING REPORT Signed PATIENT: PAMELA SUN ACCOUNT: [id number] : 1955 LOCATION: ER AGE: 63 SEX: F EXAM STATUS: REG ER ORD. PHYSICIAN: ISMAEL GREENE MD REASON: history of CVA, headache PROCEDURE: CT HEAD WO CONTRAST INDICATION: history of CVA, headache COMPARISON: August 29, 2018 TECHNIQUE: Axial CT images obtained through the head without intravenous contrast. One or more of the following individualized dose reduction techniques were utilized for this examination: 1. Automated exposure control; 2. Adjustment of the mA and/or kV according to patient size; 3. Use of iterative reconstruction technique. FINDINGS: No intracranial hemorrhage. No midline shift. Basal cisterns patents. Ventricles and sulci are globally prominent. Nasal septal deviation to the right Partial opacification right maxillary sinus. Scattered foci of low attenuation within the white matter. IMPRESSION: 1. No acute intracranial hemorrhage. 2. Scattered regions of low attenuation within the white matter. Non-specific in nature but frequently secondary to chronic small vessel ischemic disease. 3. Prominence of ventricles and sulci which is frequently secondary to age related volume loss. Electronically signed by: Cheli Garcia MD (09/22/2018 1:44 AM) [facility] [place] DICTATED and SIGNED BY: CHELI GARCIA MD DATE: 09/22/18 0144 Course & Med Decision Making Course & Med Decision Making Pertinent Labs and Imaging studies reviewed. (See chart for details) Evaluation of patient in ER showed 63-year-old female patient with history of headache for several weeks after his CVA. Patient had unremarkable physical exam and CT of head. Patient had blood sugar of 300 and stated she usually has higher blood sugar. She was treated with fentanyl and felt better. Patient was advised to take her blood sugar medication and follow up with her primary care physician regarding chronic headache. Dragon Disclaimer Dragon Disclaimer This electronic medical record was generated, in whole or in part, using a voice recognition dictation system. Departure Departure Impression: Primary Impression: Chronic headache Additional Impressions: Hyperglycemia Uncontrolled diabetes mellitus Disposition: HOME, SELF-CARE (At 0210) Referrals: NO PCP (PCP) Patient Instructions: 1800 Calorie Diet for Diabetes Meal Planning, Diabetes Meal Planning Guide, General Headache Without Cause Additional Instructions: Continue home medication Follow-up with your primary care physician in 3-5 days Return to ER if not getting better Problem Qualifiers Primary Impression: Chronic headache Headache type: unspecified Intractability: not intractable Qualified Codes: R51 - Headache Additional Impressions: Uncontrolled diabetes mellitus Diabetes mellitus type: other specified (including NAIMA) Glycemic state: with hyperglycemia Qualified Codes: E13.65 - Other specified diabetes mellitus with hyperglycemia ISMAEL GREENE MD Sep 22, 2018 01:06
--- NOTE | 2018-09-22 01:47 | RAD ---
INDICATION: history of CVA, headache COMPARISON: August 29, 2018 TECHNIQUE: Axial CT images obtained through the head without intravenous contrast. One or more of the following individualized dose reduction techniques were utilized for this examination: 1. Automated exposure control; 2. Adjustment of the mA and/or kV according to patient size; 3. Use of iterative reconstruction technique. FINDINGS: No intracranial hemorrhage. No midline shift. Basal cisterns patents. Ventricles and sulci are globally prominent. Nasal septal deviation to the right Partial opacification right maxillary sinus. Scattered foci of low attenuation within the white matter. IMPRESSION: 1. No acute intracranial hemorrhage. 2. Scattered regions of low attenuation within the white matter. Non-specific in nature but frequently secondary to chronic small vessel ischemic disease. 3. Prominence of ventricles and sulci which is frequently secondary to age related volume loss. Electronically signed by: Avel Garcia MD (09/22/2018 1:44 AM) [facility]
[2018-09-22 02:09] VITALS: BP 143/70
== END 2018-09-22 02:30 | disposition home or self-care (01) ==
LOC: ER 23:25
DX: G89.29 Other chronic pain (principal); R51 Headache; E11.65 Type 2 diabetes mellitus with hyperglycemia; J44.9 Chronic obstructive pulmonary disease, unspecified; I11.0 Hypertensive heart disease with heart failure; I50.9 Heart failure, unspecified; G40.909 Epilepsy, unspecified, not intractable, without status epilepticus; Z98.51 Tubal ligation status; Z90.89 Acquired absence of other organs; Z90.49 Acquired absence of other specified parts of digestive tract; Z88.0 Allergy status to penicillin; Z88.2 Allergy status to sulfonamides; Z91.041 Radiographic dye allergy status; Z88.5 Allergy status to narcotic agent; Z88.6 Allergy status to analgesic agent; Z88.7 Allergy status to serum and vaccine; Z91.030 Bee allergy status; Z91.038 Other insect allergy status
CPT/HCPCS: 70450; 82962; 96372; 99285; J3010

== ENCOUNTER 2018-11-26 22:25 | Emergency (ER) | payer OTHER ==
[~2018-11-26] VITALS: Ht 152.4 cm; Wt 83.9 kg
[~2018-11-26 22:25] MED LIST changes: -PANT40TA3 PO; +PANT40TA77 PO
[2018-11-26 23:30] VITALS: BP 156/92
--- NOTE | 2018-11-27 00:22 | PHYS DOC ---
Past Medical History Past Medical History: Asthma, CHF, COPD, CVA, Diabetes-Type II, High Chol esterol, Hypertension, Seizure, Sickle Cell Disease, Other Additional Past Medical Histor: chronic back pain, keloids,epilepsy,OSTEOPOROSIS,SEPSIS Past Surgical History: Appendectomy, Cholecystectomy, Tonsillectomy, Tubal ligation, Other Additional Past Surgical Histo: adenoids, RT KNEE, RT FEMUR Alcohol Use: None Drug Use: None Adult General Chief Complaint Chief Complaint: UPPER EXTREMITY PAIN HPI HPI Patient is a 63 year old right-handed female with frequent emergency room visits and drug-seeking behavior who presents with complaining of right upper extremity injury. Patient states she lost her balance and had a fall from a standing position and injured her right forearm and his and rated her pain 10 over 10. Patient denies other injuries and loss of consciousness. Review of Systems Review of Systems Constitutional: Denies fever or chills [] Eyes: Denies change in visual acuity, redness, or eye pain [] HENT: Denies nasal congestion or sore throat [] Respiratory: Denies cough or shortness of breath [] Cardiovascular: No additional information not addressed in HPI [] GI: Denies abdominal pain, nausea, vomiting, bloody stools or diarrhea [] : Denies dysuria or hematuria [] Musculoskeletal: Denies back pain, reports joint pain [] Integument: Denies rash or skin lesions [] Neurologic: Denies headache, focal weakness or sensory changes [] Endocrine: Denies polyuria or polydipsia [] All other systems were reviewed and found to be within normal limits, except as documented in this note. Allergies Allergies Allergies Coded Allergies Type Severity Reaction Last Updated Verified Cephalosporins Allergy Intermediate 12/10/16 Yes Penicillins Allergy Intermediate 12/10/16 Yes Sulfa (Sulfonamide Antibiotics) Allergy Intermediate 12/10/16 Yes Tetanus Vaccines and Toxoid Allergy Intermediate 12/10/16 Yes aspirin Allergy Intermediate UNKNOWN RXN, TOLERATES KETOROLAC 07/15/18 Yes iodine Allergy Intermediate rash 12/10/16 Yes morphine Allergy Intermediate 12/12/16 Yes povidone-iodine Allergy Intermediate rash 12/10/16 Yes propoxyphene Allergy Intermediate Nausea and Vomiting 12/10/16 Yes venom-honey bee Allergy Intermediate 12/10/16 Yes venom-wasp Allergy Intermediate 12/10/16 Yes hydromorphone Adverse Reaction Severe 12/10/16 Yes Physical Exam Physical Exam Constitutional: Well nourished, no acute distress, non-toxic appearance. [] HENT: Normocephalic, atraumatic Eyes: PERRLA, EOMI, conjunctiva normal, no discharge. [] Neck: Normal range of motion, no tenderness, supple, no stridor. [] Cardiovascular:Heart rate regular rhythm, no murmur [] Lungs & Thorax: Bilateral breath sounds clear to auscultation] Skin: Warm, dry, no erythema, no rash. [] Extremities: Right upper extremity without deformity or edema, normal range of motion, small area of contusion in dorsal of right hand, no tenderness, no cyanosis, no clubbing, ROM intact. Neurologic: Alert and oriented X 3, normal motor function, normal sensory function, no focal deficits noted. [] Psychologic: Affect anxious, judgement normal, mood normal. [] Current Patient Data Vital Signs Vital Signs Date Time Temp Pulse Resp B/P (MAP) Pulse Ox O2 Delivery O2 Flow Rate FiO2 11/26/18 23:30 97.7 96 18 156/92 (113) 100 Room Air 97.7 EKG EKG [] Radiology/Procedures Radiology/Procedures Right wrist x-ray interpreted by me and did not show sign of acute problem. Course & Med Decision Making Course & Med Decision Making Pertinent Imaging studies reviewed. (See chart for details) Evaluation of patient in ER showed 63-year-old female patient with history of frequent emergency room visits with complaining of injury to right hand. Patient had a small area of contusion with unremarkable except for right hand. Plan to apply Bethel wrap and discharge patient home with diagnosis of contusion. Patient was looking comfortable and using her hand without any problem but rated her pain 10 over 10 and asking for pain medication. Patient was advised to take [id number] pain medication as needed. Dragon Disclaimer Dragon Disclaimer This electronic medical record was generated, in whole or in part, using a voice recognition dictation system. Departure Departure Impression: Primary Impression: Contusion of right hand Additional Impression: Fall from standing Disposition: HOME, SELF-CARE (at 0048) Condition: STABLE Referrals: NO PCP (PCP) Patient Instructions: Hand Contusion Additional Instructions: Apply ice on the affected area Follow-up with your primary care physician in 3-5 days Return to ER if not getting better Take [id number] Tylenol and ibuprofen as needed for pain Problem Qualifiers Primary Impression: Contusion of right hand Encounter type: initial encounter Qualified Codes: S60.221A - Contusion of right hand, initial encounter Additional Impression: Fall from standing Encounter type: subsequent encounter Qualified Codes: W19.XXXD - Unspecified fall, subsequent encounter ISMAEL GREENE MD Nov 27, 2018 00:22
--- NOTE | 2018-11-27 09:36 | RAD ---
Examination: WRIST 3V RIGHT History: Fall, pain Comparison/Correlation: None Findings: Total 3 images of the right wrist were obtained by portable technique. Advanced first carpometacarpal joint degenerative remodeling and spurring noted. No fracture or bony destruction. Mild first carpometacarpal joint degenerative remodeling is present. Distal radioulnar joint degenerative changes evident. Mild osteopenia. Soft tissue swelling at the dorsal aspect of the wrist suggested. Impression: No acute fracture. Consider further imaging if occult process is a persistent concern. Electronically signed by: Benoit Ramirez MD (11/27/2018 9:33 AM) [facility]
== END 2018-11-27 01:04 | disposition home or self-care (01) ==
LOC: ER 22:25
DX: S60.221A Contusion of right hand, initial encounter (principal); Z76.5 Malingerer [conscious simulation]; I11.9 Hypertensive heart disease without heart failure; J44.9 Chronic obstructive pulmonary disease, unspecified; E78.00 Pure hypercholesterolemia, unspecified; I50.9 Heart failure, unspecified; G89.29 Other chronic pain; I11.0 Hypertensive heart disease with heart failure; G40.909 Epilepsy, unspecified, not intractable, without status epilepticus; Z86.73 Personal history of transient ischemic attack (TIA), and cerebral infarction without residual deficits; Z88.2 Allergy status to sulfonamides; Z88.0 Allergy status to penicillin; Z88.6 Allergy status to analgesic agent; Z88.5 Allergy status to narcotic agent; Z91.041 Radiographic dye allergy status; Z88.8 Allergy status to other drugs, medicaments and biological substances; Z88.7 Allergy status to serum and vaccine; Z91.030 Bee allergy status; W18.39XA Other fall on same level, initial encounter; Y93.89 Activity, other specified; Y92.89 Other specified places as the place of occurrence of the external cause; Y99.8 Other external cause status
CPT/HCPCS: 73110; 99284

== ENCOUNTER 2019-04-26 15:18 | Emergency (ER) | payer OTHER ==
[~2019-04-26] VITALS: Ht 152.4 cm; Wt 79.4 kg
[~2019-04-26 15:18] MED LIST changes: +DOXY-96 PO; -DOXY100T9 PO; -INSU100V SQ; +INSU100V6 SQ; -PHEN32.42 PO; +PHEN32.45 PO; +POTA20TA4 PO; -POTA20TA82 PO
[2019-04-26 15:34] VITALS: BP 174/81
--- NOTE | 2019-04-26 15:57 | PHYS DOC ---
Past Medical History Past Medical History: Asthma, CHF, COPD, CVA, Diabetes-Type II, High Chol esterol, Hypertension, Seizure, Sickle Cell Disease, Other Additional Past Medical Histor: chronic back pain, keloids,epilepsy,OSTEOPOROSIS,SEPSIS (ALAINA POTTS APRN) Past Surgical History: Appendectomy, Cholecystectomy, Tonsillectomy, Tubal ligation, Other Additional Past Surgical Histo: adenoids, RT KNEE, RT FEMUR (ALAINA POTTS APRN) Alcohol Use: None Drug Use: None (ALAINA POTTS APRN) Attending Signature I have participated in the care of this patient and I have reviewed and agree with all pertinent clinical information above including history, exam, and recommendations. (DARY GIORDANO MD) Adult General Chief Complaint Chief Complaint: KNEE SWELLING HPI HPI Patient is a 64 year old female who presents to the emergency department with complaints of right lateral knee redness, swelling, and warmth for the last 3 days. She denies any fever , drainage, or bleeding from her knee. She also complains of right hip and right femur pain. Patient states that she slipped and fell at home approximately one week ago. She states that the pain has been persistent. Patient reports that earlier this year on July 14 she had a fall where she fractured the same femur. Patient denies any numbness, tingling, or weakness of the affected extremity, she described denies any decreased range of motion. Currently rates her pain a 10 out of 10 on the pain scale, the pain increases with movement and palpation, she denies any alleviating factors. All other ROS is neg unless otherwise noted in HPI. (ALAINA POTTS APRN) Review of Systems Review of Systems See Above (ALAINA POTTS APRN) Allergies Allergies Allergies Coded Allergies Type Severity Reaction Last Updated Verified Cephalosporins Allergy Intermediate 12/10/16 Yes Penicillins Allergy Intermediate 12/10/16 Yes Sulfa (Sulfonamide Antibiotics) Allergy Intermediate 12/10/16 Yes Tetanus Vaccines and Toxoid Allergy Intermediate 12/10/16 Yes aspirin Allergy Intermediate UNKNOWN RXN, TOLERATES KETOROLAC 07/15/18 Yes iodine Allergy Intermediate rash 12/10/16 Yes morphine Allergy Intermediate 12/12/16 Yes povidone-iodine Allergy Intermediate rash 12/10/16 Yes propoxyphene Allergy Intermediate Nausea and Vomiting 12/10/16 Yes venom-honey bee Allergy Intermediate 12/10/16 Yes venom-wasp Allergy Intermediate 12/10/16 Yes hydromorphone Adverse Reaction Severe 12/10/16 Yes (DARY GIORDANO MD) Physical Exam Physical Exam See Above Constitutional: Well developed, well nourished, no acute distress, non-toxic appearance. [] HENT: Normocephalic, atraumatic, bilateral external ears normal, nose normal. [] Eyes: PERRLA, EOMI, conjunctiva normal, no discharge. [] Neck: Normal range of motion, no stridor. [] Cardiovascular:Heart rate regular rhythm Lungs & Thorax: Respirations even and unlabored, no retractions, no respiratory distress Skin: Warm, dry, no rash; mild erythema without warmth noted to surgical scar from previous surgery, no drainage Extremities: R hip, R femur and R knee non-specific TTP, no crepitus, no cyanosis, ROM limited due to pain, no edema. [] Neurologic: Alert and oriented X 3, no focal deficits noted. [] Psychologic: Affect normal, judgement normal, mood normal. [] (ALAINA POTTS APRN) Current Patient Data Vital Signs Vital Signs Date Time Temp Pulse Resp B/P (MAP) Pulse Ox O2 Delivery O2 Flow Rate FiO2 04/26/19 15:34 98.3 79 16 174/81 (112) 95 Room Air 98.3 (DARY GIORDANO MD) EKG EKG [] (ALAINA POTTS APRN) Radiology/Procedures Radiology/Procedures PROCEDURE: KNEE RIGHT 3V EXAM: 1. Frontal pelvis with two-view right hip. 2. Right femur 2 views. 3. Right knee 3 view. HISTORY: Fall with pelvic, right hip, right femoral and right knee pain. COMPARISON: 07/14/2018. FINDINGS: No fractures are appreciated within the pelvis. The joint spaces and alignment of the left hip are maintained. There are moderate degenerative changes of the lower lumbar spine. Small osteophytes indicate mild osteoarthritis of the right hip. No fractures appreciated within either proximal femur. There is a chronic healed fracture deformity of the right distal femoral metaphysis. Changes of prior fixation hardware removal are noted. Moderate osteophytes are noted along the medial and patellofemoral compartments of the right knee. Joint spaces are mostly preserved, though the patellofemoral joint space is not profiled. There is a small joint effusion. Osteopenia is moderate. There is soft tissue swelling along the lateral aspect of the right knee. IMPRESSION: 1. No acute fracture. Soft tissue swelling along the lateral aspect of the distal thigh and right knee. 2. Mild right hip osteoarthritis. 3. Mild posttraumatic patellofemoral and medial compartmental osteoarthritis of the right knee. Small joint effusion.[] (ALAINA POTTS APRN) Course & Med Decision Making Course & Med Decision Making Pertinent Labs and Imaging studies reviewed. (See chart for details) [] (ALAINA POTTS APRN) Dragon Disclaimer Dragon Disclaimer This electronic medical record was generated, in whole or in part, using a voice recognition dictation system. (ALAINA POTTS APRN) Departure Departure Impression: Primary Impression: Contusion of right leg Additional Impressions: Contusion of right knee, initial encounter Fall from standing Disposition: 01 HOME, SELF-CARE Condition: STABLE Referrals: NO PCP (PCP) JERRY SCHERER II, MD Patient Instructions: Contusion, [id number] Additional Instructions: Apply ice or heat to sore areas as needed for comfort. Activity as tolerated. May take Tylenol or ibuprofen as needed for pain. Follow-up with Dr. Scherer if symptoms persist, return to the ER if symptoms worsen. Problem Qualifiers Primary Impression: Contusion of right leg Encounter type: initial encounter Qualified Codes: S80.11XA - Contusion of right lower leg, initial encounter Additional Impressions: Fall from standing Encounter type: initial encounter Qualified Codes: W19.XXXA - Unspecified fall, initial encounter ALAINA POTTS APRN Apr 26, 2019 15:57 DARY GIORDANO MD Apr 28, 2019 02:14
--- NOTE | 2019-04-26 16:48 | RAD ---
EXAM: 1. Frontal pelvis with two-view right hip. 2. Right femur 2 views. 3. Right knee 3 view. HISTORY: Fall with pelvic, right hip, right femoral and right knee pain. COMPARISON: 07/14/2018. FINDINGS: No fractures are appreciated within the pelvis. The joint spaces and alignment of the left hip are maintained. There are moderate degenerative changes of the lower lumbar spine. Small osteophytes indicate mild osteoarthritis of the right hip. No fractures appreciated within either proximal femur. There is a chronic healed fracture deformity of the right distal femoral metaphysis. Changes of prior fixation hardware removal are noted. Moderate osteophytes are noted along the medial and patellofemoral compartments of the right knee. Joint spaces are mostly preserved, though the patellofemoral joint space is not profiled. There is a small joint effusion. Osteopenia is moderate. There is soft tissue swelling along the lateral aspect of the right knee. IMPRESSION: 1. No acute fracture. Soft tissue swelling along the lateral aspect of the distal thigh and right knee. 2. Mild right hip osteoarthritis. 3. Mild posttraumatic patellofemoral and medial compartmental osteoarthritis of the right knee. Small joint effusion. Electronically signed by: Kalyan Hu MD (04/26/2019 4:45 PM) [facility] [place]
== END 2019-04-26 17:20 | disposition home or self-care (01) ==
LOC: ER 15:18
DX: S80.01XA Contusion of right knee, initial encounter (principal); M16.11 Unilateral primary osteoarthritis, right hip; J45.909 Unspecified asthma, uncomplicated; M25.551 Pain in right hip; M79.651 Pain in right thigh; G89.29 Other chronic pain; I10 Essential (primary) hypertension; I50.9 Heart failure, unspecified; E11.9 Type 2 diabetes mellitus without complications; E78.00 Pure hypercholesterolemia, unspecified; Z86.2 Personal history of diseases of the blood and blood-forming organs and certain disorders involving the immune mechanism; Z88.1 Allergy status to other antibiotic agents; Z88.0 Allergy status to penicillin; Z88.7 Allergy status to serum and vaccine; Z88.5 Allergy status to narcotic agent; Z88.8 Allergy status to other drugs, medicaments and biological substances; Z88.6 Allergy status to analgesic agent; Z91.030 Bee allergy status; W01.0XXA Fall on same level from slipping, tripping and stumbling without subsequent striking against object, initial encounter; Y93.89 Activity, other specified; Y92.098 Other place in other non-institutional residence as the place of occurrence of the external cause; Y99.8 Other external cause status
CPT/HCPCS: 73502; 73552; 73562; 99284

== ENCOUNTER → 2019-05-09 | Outpatient (CLI) | payer OTHER ==
[2019-04-26 15:34] VITALS: BP 174/81
== END | disposition home or self-care (01) ==
LOC: SPEC 12:29
PROVIDERS: ATTEND Physician Assistant
DX: L08.9 Local infection of the skin and subcutaneous tissue, unspecified (principal)
CPT/HCPCS: 87071; 87075